=== PATIENT | female | born 1930 | race Caucasian/White ===

== ENCOUNTER 2016-12-25 01:34 | Inpatient (IN) | payer MEDICARE ==
[~2016-12-25] VITALS: Ht 157.5 cm; Wt 74.5 kg
[2016-12-25] VITALS (20 sets, daily range): BP systolic 149–175; BP diastolic 65–85; PULSE 70–96; RESP 16–25; TEMP 98.3–99.8; O2SAT 92–97
[~2016-12-25 01:34] MED LIST: ALBU.5I NEB; BACL10TA PO; DIOV40TA PO; FOLI1 PO; LEVA250T14 PO; PERC10TA27 PO; SYNT125T PO; VENL75XR PO
[2016-12-25] MEDS ORDERED: AZTREONAM INJ 2,000 MG in SODIUM CHLORIDE 0.9% INJ 100 ML IV STA (01:56)
[2016-12-25] MEDS ORDERED: metroNIDAZOLE 500 MG INJ 100 ML IV STA (01:56)
[2016-12-25] MEDS ORDERED: VANCOMYCIN INJ 1,000 MG in SODIUM CHLOR 0.9% 250 ML INJ 250 ML IV STA (01:56)
[2016-12-25] MEDS ORDERED: OXYC-392 PO (02:02)
[2016-12-25] MEDS ORDERED: LEVO.125 PO (02:02)
[2016-12-25] MEDS ORDERED: VENL75TA PO (02:02)
[2016-12-25] MEDS ORDERED: GABA300C5 PO (02:02)
[2016-12-25] MEDS ORDERED: DIOV40TA PO (02:02)
[2016-12-25] MEDS ORDERED: BACL10TA PO (02:02)
[2016-12-25] MEDS ORDERED: LORA-361 PO (02:02)
[2016-12-25] MEDS ORDERED: FURO1TAB62 PO (02:02)
[2016-12-25] MEDS ORDERED: POTA75TA (02:02)
[2016-12-25] MEDS ORDERED: PRIL20CA9 PO (02:02)
[2016-12-25] MEDS ORDERED: REST30CA PO (02:02)
[2016-12-25 02:44] LABS: AUTOMATED NEUTROPHIL # 19.6 TH/MM3 (1.8-7.7); BASOPHIL # 0.1 TH/MM3 (0-0.2); BASOPHIL % 0.2 % (0.0-2.0); EOSINOPHIL # 0.1 TH/MM3 (0-0.4); EOSINOPHIL % 0.6 % (0.0-4.0); HEMATOCRIT 31.8 % (35.0-46.0); HEMO FLAGS DIFF FINAL; LYMPH % 7.4 % (9.0-44.0); LYMPHOCYTE # 1.7 TH/MM3 (1.0-4.8); MEAN CELL VOLUME 89.2 FL (80.0-100.0); MEAN CORPUSCULAR HEMOGLOBIN 28.8 PG (27.0-34.0); MEAN CORPUSCULAR HGB CONC 32.3 % (32.0-36.0); MONO % 6.5 % (0.0-8.0); NEUT % 85.3 % (16.0-70.0); PLATELET COUNT 185 TH/MM3 (150-450); RED BLOOD COUNT 3.57 MIL/MM3 (4.00-5.30); RED CELL DISTRIBUTION WIDTH 16.4 % (11.6-17.2)
[2016-12-25 02:53] LABS: ALKALINE PHOSPHATASE 111 U/L (45-117); ALT (GPT) 43 U/L (10-53); ANION GAP 7 MEQ/L (5-15); AST (GOT) 52 U/L (15-37); BICARBONATE 26.8 MEQ/L (21.0-32.0); BLOOD UREA NITROGEN 36 MG/DL (7-18); CHLORIDE 103 MEQ/L (98-107); CREATINE KINASE 113 U/L (26-192); GLOMERULAR FILTRATION RATE 32 ML/MIN (>89); MAGNESIUM 2.3 MG/DL (1.5-2.5); POTASSIUM 5.6 MEQ/L (3.5-5.1); SODIUM (NA) 137 MEQ/L (136-145); TOTAL BILIRUBIN ADULT 0.4 MG/DL (0.2-1.0)
[2016-12-25 02:55] LABS: APTT (PATIENT) 31.3 SEC (24.3-30.1); PROTHROMBIN TIME - PATIENT 11.5 SEC (9.8-11.6)
--- NOTE | 2016-12-25 03:01 | RADRPT ---
EXAM DATE/TIME: 12/25/2016 02:27 [facility] COMPARISON: CT BRAIN W/O CONTRAST, June 14, 2016, 7:44. INDICATIONS : Altered mental status. RADIATION DOSE: 56.35 CTDIvol (mGy) MEDICAL HISTORY : Hypertension. Cardiovascular disease Chronic obstructive pulmonary disease. SURGICAL HISTORY : Hysterectomy. ENCOUNTER: Initial ACUITY: 1 day PAIN SCALE: Non-responsive LOCATION: cranial TECHNIQUE: Multiple contiguous axial images were obtained of the head. Using automated exposure control and adj ustment of the mA and/or kV according to patient size, radiation dose was kept as low as reasonably a chievable to obtain optimal diagnostic quality images. FINDINGS: Noncontrast axial head CT demonstrates the ventricles to be normal in size and configuration with a n ormal sulcal pattern. No acute intracranial hemorrhage, acute cortical infarction, mass or midline sh ift is seen. There is periventricular hypodensity compatible with chronic ischemic change slightly mo re than expected for patient this age. 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 Posterior fossa structures are unremarkable with the exception of a old lacunar type infarct in th e right cerebellar hemisphere. Bone windows are unremarkable. CONCLUSION: 1. No evidence of acute intracranial pathology. Chronic ischemic changes as above. Abhilash Salamanca MD on December 25, 2016 at 2:55 Board Certified Radiologist. This report was verified electronically.
[2016-12-25 03:05] LABS: CKMB 2.3 NG/ML (0.5-3.6)
--- NOTE | 2016-12-25 03:12 | RADRPT ---
EXAM DATE/TIME: 12/25/2016 02:34 [facility] COMPARISON: CHEST SINGLE AP, June 14, 2016, 21:07. INDICATIONS : Congestion, lethargic. MEDICAL HISTORY : None. SURGICAL HISTORY : None. ENCOUNTER: Initial ACUITY: 2 days PAIN SCORE: Non-responsive. LOCATION: Bilateral chest FINDINGS: The cardiac silhouette is enlarged in transverse diameter. There is bilateral lower lobe atelectasis versus pneumonia right greater than left. No pleural effusions are identified. Moderate scoliotic de formity is present to the right with a rotatory component with the apex at T10 CONCLUSION: 1. Bilateral lower lobe atelectasis versus pneumonia. Abhilash Salamanca MD on December 25, 2016 at 3:09 Board Certified Radiologist. This report was verified electronically.
--- NOTE | 2016-12-25 03:18 | PD ---
HPI Chief Complaint: Altered Mental Status Time Seen by Provider: 01:42 Travel History International Travel<30 days: No Contact w/Intl Traveler<30days: No Traveled to known affect area: No History of Present Illness HPI The patient is an 86 year old female who presents to the [facility] emergency department with a history of altered mentation that was noted at her retirement bed been gradually getting worse over the last week. According to the record, the patient also has a history of falling last week. The patient has also been experiencing generalized weakness. The patient on arrival is awake and alert. The patient reports that she has been having a cough. She is unable to specify exactly how long her cough is been present. She reports that she has been eating and drinking well. She denies any vomiting or diarrhea. The patient denies having any pain to her extremities. She denies having any numbness or tingling to her extremities. The patient's only complaint at this time is that she needs to urinate. She denies having any dysuria, urinary frequency, or urinary urgency. A review of systems, the patient denies any known recent fevers, neck pain, chest pain, shortness of breath, abdominal pain , vomiting, diarrhea, urinary symptoms, or neurologic symptoms. [facility] Past Medical History Narrative Medical The patient's past medical history is significant for having an MRSA infection and right fibula hardware in January 2015, history of coronary artery disease, history of rheumatoid arthritis, history of asthma, history of TIA, history of chronic pain, history of hypothyroid disorder, history of C. difficile colitis, history of an admission in May 2016 related to altered mentation from a urinary tract infection. Arthritis: Yes (rheumatoid arthritis, spinal stenosis) Asthma: No Autoimmune Disease: Yes (RA) Blood Disorders: No Anxiety: No Depression: Yes Heart Rhythm Problems: No Cancer: No Cardiovascular Problems: Yes High Cholesterol: No Chest Pain: No Congestive Heart Failure: No COPD: Yes Cerebrovascular Accident: Yes (TIA) Coronary Artery Disease: Yes Diabetes: No Diminished Hearing: No Endocrine: Yes (Graves disease) Fibromyalgia: Yes Gastrointestinal Disorders: No GERD: No Genitourinary: Yes (UTI) Headaches: No Hepatitis: No Hiatal Hernia: No Hypertension: Yes Immune Disorder: No Implanted Vascular Access Dvce: Yes Kidney Stones: No Musculoskeletal: Yes (fibromyalgia) Neurologic: Yes Psychiatric: Yes Reproductive: No Respiratory: Yes Migraines: No Myocardial Infarction: Yes Radiation Therapy: Yes (THYROID) Renal Failure: No Seizures: No Sleep Apnea: No Thyroid Disease: Yes Ulcer: No Tetanus Vaccination: > 5 Years Influenza Vaccination: No ?: Not Menopausal: Yes Past Surgical History Narrative Surgical The patient's past surgical history is significant for a hip replacement, history of a right fibula open reduction complicated by MRSA infection, history of appendectomy, hysterectomy, eye surgery Abdominal Surgery: Yes (APPENDECTOMY) AICD: No Appendectomy: Yes Arteriovenous Shunt: No Body Medical Devices: HIP REPLACEMENTS Cardiac Surgery: No Ear Surgery: No Endocrine Surgery: No Eye Surgery: Yes (cataract removal) Genitourinary Surgery: Yes (HYSTERECTOMY) Gynecologic Surgery: Yes Hysterectomy: Yes Insulin Pump: No Joint Replacement: Yes (MAYELA HIP REPLACEMENT) Neurologic Surgery: No Pacemaker: No Thoracic Surgery: Yes (METAL PLATE ON BACK FOR STENOSIS WHEN 74 YEARS OLD) Other Surgery: Yes (LOWER BACK) Social History Alcohol Use: No Tobacco Use: No Substance Use: No Allergies-Medications (Allergen,Severity, Reaction): Coded Allergies: Penicillin (Verified Allergy, Severe, 12/25/16) RASH *MDRO Multi-Drug Resistant Organism (Unverified Adverse Reaction, Unknown , 12/25/16) 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 MRSA PCR Screens NEGATIVE - 06/14/2016, 06/16/2016 CLEARED PER INFECTION CONTROL Reported Meds & Prescriptions Reported Meds & Active Scripts Active Reported Lasix (Furosemide) 20 Mg Tab 10 Mg PO DAILY Potassium 75 Mg Tab Restoril (Temazepam) 30 Mg Cap 30 Mg PO HS PRN Gabapentin 300 Mg Cap 300 Mg PO QID Claritin (Loratadine) 10 Mg Tab 10 Mg PO DAILY Oxycodone (Oxycodone HCl) 5 Mg Tab 5 Mg PO Q6H PRN Prilosec (Omeprazole) 20 Mg Cap 20 Mg PO DAILY Baclofen 10 Mg Tab 10 Mg PO QID PRN Synthroid (Levothyroxine Sodium) 125 Mcg Tab 125 Mcg PO DAILY Diovan (Valsartan) 40 Mg Tab 40 Mg PO DAILY Effexor (Venlafaxine HCl) 75 Mg Tab 75 Mg PO DAILY Review of Systems Except as stated in HPI: all other systems reviewed are Neg General / Constitutional: No: Fever Eyes: No: Visual changes HENT: Positive: Congestion, No: Headaches Cardiovascular: No: Chest Pain or Discomfort Respiratory: Positive: Cough, No: Shortness of Breath Gastrointestinal: No: Nausea, Vomiting, Diarrhea, Abdominal Pain, Loss of Appetite Genitourinary: No: Urgency, Frequency, Dysuria Musculoskeletal: No: Pain Skin: No Rash Neurologic: Positive: Weakness (generalized weakness), Change in Mentation, No : Focal Abnormalities, Slurred Speech, Sensory Disturbance Psychiatric: No: Depression Endocrine: No: Polydipsia Hematologic/Lymphatic: No: Easy Bruising Physical Exam Narrative General: The patient is a well-developed, thin appearing female, awake on my arrival, however experiencing generalized weakness and fatigue. Head and Neck exam: Head is normocephalic atraumatic. Eyes: EOMI, pupils are equal round and reactive to light. Nose: Midline septum with pink mucous membranes Mouth: Dentition unremarkable. Moist mucus membranes. Posterior oropharynx is not erythematous. No tonsillar hypertrophy. Uvula midline. Airway patent. Neck: No palpable lymphadenopathy. No nuchal rigidity. No thyromegaly. Cardiovascular: Regular rate and rhythm without murmurs, gallops, or rubs. Lungs: The patient has scattered rhonchi, upper airway congestion audible on examination. Decreased breath sounds in the bases. No wheezes or crackles audible. Abdomen: Soft, without tenderness to palpation in all 4 quadrants of the abdomen. No guarding, rebound, or rigidity. Negative Lindsay sign. Normal bowel sounds are audible. No tenderness on palpation of McBurney's point. Extremities: No clubbing, cyanosis, or edema. 2+ pulses in all 4 extremities. No calf tenderness on palpation. Back: No costovertebral angle tenderness to palpation. Neurologic Exam: Cranial nerves 2-12 were intact on exam. Strength is 5/5 in all 4 extremities. No sensory deficits noted. The patient is oriented to person, place, however not time or situation. Skin Exam: No rash noted. Intact skin that is warm and dry. Data Data Last Documented VS Vital Signs Date Time Temp Pulse Resp B/P Pulse Ox O2 Delivery O2 Flow Rate FiO2 12/25/16 03:30 98.3 79 24 149/66 93 Nasal Cannula 2 Orders Electrocardiogram (12/25/16 01:56) Complete Blood Count With Diff (12/25/16 01:56) Comprehensive Metabolic Panel (12/25/16 01:56) Creatine Kinase (Cpk) (12/25/16 01:56) Ckmb (Isoenzyme) Profile (12/25/16 01:56) Troponin I (12/25/16 01:56) B-Type Natriuretic Peptide (12/25/16 01:56) Prothrombin Time / Inr (Pt) (12/25/16 01:56) Act Partial Throm Time (Ptt) (12/25/16 01:56) Blood Culture (12/25/16 01:56) Lipase (12/25/16 01:56) Urinalysis - C+S If Indicated (12/25/16 01:56) Magnesium (Mg) (12/25/16 01:56) Chest, Single Ap (12/25/16 01:56) Ct Brain W/O Iv Contrast(Rout) (12/25/16 01:56) Iv Access Insert/Monitor (12/25/16 01:56) Ecg Monitoring (12/25/16 01:56) Oximetry (12/25/16 01:56) Lactic Acid Sepsis Protocol (12/25/16 01:56) Vancomycin Inj (Vancomycin Inj) (12/25/16 01:56) Aztreonam Inj (Azactam Inj) (12/25/16 01:56) Metronidazole 500 Mg Inj (Flagyl 500 Mg (12/25/16 01:56) CKMB (12/25/16 02:20) CKMB% (12/25/16 02:20) Cath For Specimen (12/25/16 02:54) Sodium Chlor 0.9% 1000 Ml Inj (Ns 1000 M (12/25/16 03:22) Sodium Chlor 0.9% 1000 Ml Inj (Ns 1000 M (12/25/16 03:22) Sodium Chlor 0.9% 1000 Ml Inj (Ns 1000 M (12/25/16 03:22) Admit Order (Ed Use Only) (12/25/16 04:12) Labs Laboratory Tests Test 12/25/16 12/25/16 02:20 03:10 White Blood Count 23.0 TH/MM3 Red Blood Count 3.57 MIL/MM3 Hemoglobin 10.3 GM/DL Hematocrit 31.8 % Mean Corpuscular Volume 89.2 FL Mean Corpuscular Hemoglobin 28.8 PG Mean Corpuscular Hemoglobin 32.3 % Concent Red Cell Distribution Width 16.4 % Platelet Count 185 TH/MM3 Mean Platelet Volume 9.0 FL Neutrophils (%) (Auto) 85.3 % Lymphocytes (%) (Auto) 7.4 % Monocytes (%) (Auto) 6.5 % Eosinophils (%) (Auto) 0.6 % Basophils (%) (Auto) 0.2 % Neutrophils # (Auto) 19.6 TH/MM3 Lymphocytes # (Auto) 1.7 TH/MM3 Monocytes # (Auto) 1.5 TH/MM3 Eosinophils # (Auto) 0.1 TH/MM3 Basophils # (Auto) 0.1 TH/MM3 CBC Comment DIFF FINAL Differential Comment Prothrombin Time 11.5 SEC Prothromb Time International 1.0 RATIO Ratio Activated Partial 31.3 SEC Thromboplast Time Sodium Level 137 MEQ/L Potassium Level 5.6 MEQ/L Chloride Level 103 MEQ/L Carbon Dioxide Level 26.8 MEQ/L Anion Gap 7 MEQ/L Blood Urea Nitrogen 36 MG/DL Creatinine 1.56 MG/DL Estimat Glomerular Filtration 32 ML/MIN Rate Random Glucose 92 MG/DL Lactic Acid Level 1.3 mmol/L Calcium Level 8.8 MG/DL Magnesium Level 2.3 MG/DL Total Bilirubin 0.4 MG/DL Aspartate Amino Transf 52 U/L (AST/SGOT) Alanine Aminotransferase 43 U/L (ALT/SGPT) Alkaline Phosphatase 111 U/L Total Creatine Kinase 113 U/L Creatine Kinase MB 2.3 NG/ML Troponin I LESS THAN 0.02 NG/ML B-Type Natriuretic Peptide 63 PG/ML Total Protein 7.7 GM/DL Albumin 2.6 GM/DL Lipase 43 U/L Urine Color YELLOW Urine Turbidity HAZY Urine pH 5.5 Urine Specific [place] 1.020 Urine Protein 30 mg/dL Urine Glucose (UA) NEG mg/dL Urine Ketones NEG mg/dL Urine Occult Blood NEG Urine Nitrite NEG Urine Bilirubin NEG Urine Urobilinogen LESS THAN 2.0 MG/DL Urine Leukocyte Esterase TRACE Urine RBC 4 /hpf Urine WBC 3 /hpf Urine Squamous Epithelial 2 /hpf Cells Urine Transitional Epithelial <1 /hpf Cells Urine Bacteria RARE /hpf Urine Hyaline Casts 18 /lpf Urine Granular Casts 5 /lpf Urine Mucus FEW /lpf Microscopic Urinalysis Comment CULT NOT INDICATED MDM Medical Decision Making Medical Screen Exam Complete: Yes Emergency Medical Condition: Yes Medical Record Reviewed: Yes Interpretation(s) Last Impressions Head CT 12/25/16155 Signed Impressions: Service Date/Time: Sunday, December 25, 2016 02:27 - CONCLUSION: 1. No evidence of acute intracranial pathology. Chronic ischemic changes as above. Abhilash Salamanca MD Chest X-Ray 12/25/16155 Signed Impressions: Service Date/Time: Sunday, December 25, 2016 02:34 - CONCLUSION: 1. Bilateral lower lobe atelectasis versus pneumonia. Abhilash Salamanca MD Differential Diagnosis Pneumonia, versus bronchitis, versus urinary tract infection, versus metabolic encephalopathy, versus intracranial abnormality, versus dehydration Narrative Course During the course of the patients emergency department visit, the patients history, examination, and differential diagnosis were reviewed with the patient. The patient had IV access obtained and blood work sent for analysis. The patient was placed on a pillowcase cutter with oximetry and blood pressure monitoring. An EKG was done on arrival. The patient's EKG shows a sinus rhythm with a sinus arrhythmia, no acute ST segment elevation or depression noted. Heart rate is 89, left anterior fascicular block is noted, QRS duration is 110 ms with a QTC of 382 ms. The patient was initially provided Azactam, Flagyl, and vancomycin for broad- spectrum antibiotic coverage for suspected sepsis of undetermined origin. The patients laboratory studies were reviewed and remarkable for a white count of 23,000, hemoglobin 10.3, platelets 185 with 85.3 neutrophils, CMP is remarkable for a potassium of 5.6 with hemolysis noted, BUN 36, creatinine 1.56 , AST 52, AB K1 13, troponin I less than 0.02, BNP 63, lipase 43, lactic acid is 1.3. PT 11.5, PTT 31.3, urinalysis shows 4 rbc's rare bacteria, 30 protein, this was a specimen from a bedpan. Culture was not indicated. Radiology studies were reviewed and remarkable for a chest x-ray that shows a bilateral lower lobe infiltrate suspicious for pneumonia. The patient was started on the 30 mL per KG IV fluid bolus after she was noted to dehydrated and her BNP was normal, therefore risk of fluid overload was deemed to be low. The patients results were discussed with the patient, including the plan of care. I explained that further testing and/ or monitoring is indicated based on the patients history, examination, and/ or laboratory findings. Therefore, I recommended admission for additional evaluation. The patient expressed understanding and was agreeable with this plan. The patient was admitted to the hospital in guarded condition and sent to a bed under the care of the [facility] service. Critical Care Narrative Aggregate critical care time was 35 minutes. Time to perform other separately billable procedures was not included in the critical care time. My time did not include minutes spent treating any other patients simultaneously or on activities that did not directly contribute to the patient's treatment. The services I provided to this patient were to treat and/or prevent clinically significant deterioration that could result in: Respiratory failure, cardiovascular collapse I provided critical care services requiring my management, as noted below: Chart data review, documentation time, medication orders and management, vital sign assessments/reviewing monitor data, ordering and reviewing lab tests, ordering and interpreting/reviewing x-rays and diagnostic studies, care of the patient and discussion of the patient with the admitting physicians. Sepsis Criteria SIRS Criteria (2 or more): Heart rate over 90, RR > 20 or PaCO2 < 32, WBC > 81174, < 4000 or > 10% bands Sepsis Criteria (SIRS+source): Infect source susp/known Criteria Outcome: Meets SIRS criteria, Meets sepsis criteria Physician Communication Physician Communication The Patient's case was discussed with Hernandez Deleon who did agree to admit the patient for further evaluation and treatment at this time. Diagnosis Primary Impression: Pneumonia Qualified Code: J18.9 - Pneumonia of both lower lobes due to infectious organism Admitting Information Admitting Physician Requests: it Jessica Swann MD December 25, 2016 03:17
[2016-12-25] MEDS ORDERED: SODIUM CHLOR 0.9% 1000 ML INJ 1,000 ML IV ONE ×2 (03:22)
[2016-12-25] MEDS ORDERED: SODIUM CHLOR 0.9% 1000 ML INJ 100 ML IV ONE (03:22)
[2016-12-25 04:14] LABS: BACTERIA, URINE RARE /hpf; BLOOD, URINE NEG (NEG); COMMENT (UR) CULT NOT INDICATED; CULTURE IF INDICATED CULT NOT INDICATED; GLUCOSE,URINE NEG (NEG); GRANULAR CAST, URINE 5 /lpf; HYALINE CAST, URINE 18 /lpf (RARE); KETONE, URINE NEG (NEG); MUCUS URINE FEW /lpf (OCC); NITRITE,URINE NEG (NEG); PH, URINE 5.5 (5.0-8.5); SQUAMOUS EPITHELIAL CELL URINE 2 /hpf (0-5); TRANSITIONAL EPI CELLS, URINE <1 /hpf; URINE COLOR YELLOW (YELLW/STRAW)
[2016-12-25] MEDS ORDERED: RESP: ALBUTEROL 2.5 MG/IPRATROPIUM 0.5 MG NEB (PRN) INH (04:45)
[2016-12-25] MEDS ORDERED: Vancomycin Consult Pharmacy 1 EA OTHER SCH (04:45)
[2016-12-25] MEDS ORDERED: ONDANSETRON HCL 4 MG/2 ML VIAL IV PRN (04:45)
[2016-12-25] MEDS: SODIUM CHLOR 0.9% 1000 ML INJ 1,000 ML IV SCH ×2 (05:20→13:35)
[2016-12-25] MEDS ORDERED: ENOXAPARIN SODIUM 40 MG/0.4 ML SYRINGE SQ SCH (06:00)
[2016-12-25] MEDS: oxyCODONE/ACETAMINOPHEN 5 MG/325 MG TAB PO PRN ×3 (06:21→21:34)
[2016-12-25] MEDS: RESP: ALBUTEROL 2.5 MG/IPRATROPIUM 0.5 MG NEB (SCH) INH ×3 (08:52→21:59)
[2016-12-25] MEDS: SODIUM CHLORIDE 0.9% FLUSH 10 ML FLUSH IV FLUSH SCH ×2 (09:00→21:34)
[2016-12-25] MEDS ORDERED: AZTREONAM INJ 2,000 MG in SODIUM CHLORIDE 0.9% INJ 100 ML IV SCH (10:00)
--- NOTE | 2016-12-25 10:00 | MH ---
cc: NATASHA ZAMAN MD DATE OF ADMISSION: 12/25/2016 1932 CHIEF COMPLAINT Altered mental status. Travel last 30 days: None. HISTORY OF PRESENT ILLNESS This is a pleasant 86-year-old white female who was brought to the emergency room for evaluation due to her altered mental status. She has been in the snf according to the record and has been getting weaker and less alert over the past week. The patient also has been noted to be having some generalized weakness. Currently the patient's eyes are open. She is attempting to answer simple questions but does have altered mental status for her current full situation. The patient currently is not short of breath. She is noted to be pale and states yes to coughing and generalized body aches. She is currently having some mild chills and according to the nurse had coughed up some green sputum on her hospital gown earlier. The patient is disoriented to time, is unaware of how long she has been in her current snf bed or how long she has been sick. She does state she has been eating and drinking well. Denies any nausea or vomiting. She denies any chest pain. Denies any headache. She denies any problems with urination or dysuria. MEDICAL HISTORY According to the record: 1. MRSA infection in 2014 with a right fibula hardware. 2. History of coronary artery disease. 3. Rheumatoid arthritis. 4. Asthma. 5. TIAs. 6. Chronic pain. 7. Hypothyroid disorder. 8. C. diff colitis. 9. Altered mental status, probable secondary to UTI. 10. Spinal stenosis. 11. Macular degeneration. 12. Graves disease. 13. Fibromyalgia. 14. Hypertension. 15. LA. 16. History of COPD. PAST SURGICAL HISTORY According to the record: 1. Appendectomy. 2. Bilateral hip replacement. 3. Right fibula open reduction complicated with MRSA infection. 4. Eye surgery. 5. Cataract removal. 6. Hysterectomy. 7. Metal plate in back for stenosis at 74 years old. ALLERGIES MDRO DRUG RESISTANT ORGANISMS AND PENICILLIN. MEDICATIONS Reported medications: 1. Lasix. 2. Potassium. 3. Restoril. 4. Gabapentin. 5. Claritin. 6. Oxycodone. 7. Prilosec. 8. Baclofen. 9. Synthroid. 10. Diovan. 11. Effexor. SOCIAL HISTORY The patient states she is currently . Smoked as a young lady but quit a long time ago. No alcohol abuse. No illicit drug use. She states she does have grown children who live out of town in [place] and [place]. REVIEW OF SYSTEMS Unable to obtain except for the simple things mentioned in the HPI which include some coughing, aching, chills. Green sputum noted and some rhonchi. PHYSICAL EXAMINATION VITAL SIGNS: Temperature 99.6, down to 98.3, pulse 77, respirations labile between 18 and 24, blood pressure 154/69, O2 sat 97, currently on 2 liters nasal cannula, has been as high as 3 liters during the night. GENERAL: Pale but well-nourished 86-year-old, looks to be her stated age, resting in the bed, eyes are open. She is very weak and attempting to answer some simple questions. HEENT: Atraumatic, normocephalic. PERRLA at 4. Mucous membranes are dry but pink. NECK: Neck is supple. CARDIAC: Heart sounds S1-S2. No rubs or gallops. She did have a soft murmur grade 2/6 at the left sternal border. Pulses are intact. There is no edema. LUNGS: Lungs have low volumes and some diminished breath sounds but no rhonchi or wheezing. She does have decreased breath sounds in her bases. MUSCULOSKELETAL: Moves her extremities very slowly but with purpose. NEUROLOGIC: Neurologically she is awake and weak. Speech is clear but very soft and attempting to answer some questions. Her mental status is altered to time and situation. SKIN: Skin is pale, warm and dry. Thin skin turgor. DIAGNOSTIC DATA WBC count 23, RBC 3.57, hemoglobin 10.3, hematocrit 31.8, platelet count 185, neutrophil percentage 85.3, lymphocyte percentage 7.4, PT INR is 1. Chemistry sodium 137, potassium 5.6, chloride 103, carbon dioxide 26.8, amnion gap 7, BUN 36, creatinine 1.56, GFR 32, glucose 92, lactic acid 1.3, calcium 8.8, mag 2.3, bilirubin 0.4, AST 52, troponin is less than 0.02, BNP is 63, total protein 7.7, albumin 2.6, lipase 43. Urine is yellow, hazy, pH is 5.5, specific gravity 1.020, protein 30, negative glucose, ketones, occult blood, nitrites, bilirubin, trace of leukocyte esterase. Culture is not indicated. IMAGING STUDIES Chest x-ray to have bilateral lower lung atelectasis versus pneumonia. Head CT shows no acute intracranial pathology, chronic ischemic changes noted as above. ASSESSMENT AND PLAN 1. Probable HCAP Pneumonia. 2. Altered mental status with probable metabolic encephalopathy. 3. History of hypertension. 4. Leukocytosis, probable secondary to #1. 5. Anemia, probable secondary to chronic disease. 6. Hyperkalemia. 7. Acute kidney injury with renal insufficiency. 8. Protein calorie malnutrition, moderate. 9. Lactic acid sepsis. 10. Pneumonia. 11. Low grade fever. In the emergency room the patient was initially given IV antibiotics along with Flagyl, ECG monitoring and O2 was initiated, IV access was initiated. The patient had initial workup of labs and imaging studies. IV fluids were initiated with sodium chloride and the patient has a ST consult for cognitive evaluation. DVT prophylaxis with Lovenox. The patient will be inpatient admission. We will monitor her intake and output, vital signs q. 4, DuoNeb treatments. Will continue her IV antibiotics. IV fluids. Place her on a heart healthy diet and pain management. This information has briefly and simply been explained to the patient that she will remain in the hospital. We will redraw her labs in the morning and monitor her renal insufficiency. To my knowledge the patient is full code, full aggressive care. We will monitor her needs. Dictated by: ELIUD Castillo Natasha Zaman MD MNA/TLL /8:31 AM /9:59 AM pt IS SEEN & eXAMINED d/w Bhumika see Orders see H&P by bhumika cont supportive care am labs will f/u Natasha Zaman MD December 25, 2016 18:39 MTDD
[2016-12-25] MEDS: AZTREONAM 1,000 MG/NS 100 ML IV SCH ×4 (10:44→17:47)
[2016-12-25] MEDS: metroNIDAZOLE 500 MG INJ 100 ML IV SCH ×2 (11:54→21:34)
--- NOTE | 2016-12-25 18:39 | HHI.PR ---
Objective Objective Results - Vital Signs Date Time Temp Pulse Resp B/P Pulse Ox O2 Delivery O2 Flow Rate FiO2 12/25/16 18:00 88 12/25/16 17:00 80 12/25/16 16:00 98.5 82 18 161/77 93 12/25/16 16:00 76 12/25/16 15:00 74 12/25/16 14:00 78 12/25/16 13:22 16 12/25/16 13:00 84 12/25/16 12:00 99.8 86 16 160/85 93 12/25/16 12:00 80 12/25/16 10:49 85 22 174/73 94 Nasal Cannula 2 12/25/16 08:55 97 Nasal Cannula 3.00 12/25/16 07:41 77 22 154/69 97 Nasal Cannula 2 12/25/16 05:00 82 22 150/65 96 Nasal Cannula 2 12/25/16 04:44 94 Nasal Cannula 3.00 12/25/16 03:30 98.3 79 24 149/66 93 Nasal Cannula 2 12/25/16 02:03 99.6 90 18 161/71 95 Nasal Cannula 2 12/25/16 01:52 25 92 Nasal Cannula 2 12/25/16 01:40 99.5 92 25 171/72 92 I/O 12/24/16 12/24/16 12/24/16 12/25/16 12/25/16 12/25/16 07:00 15:00 23:00 07:00 15:00 23:00 Intake Total 1441 ml Output Total 350 ml Balance 1091 ml Intake Oral 360 ml IV Total 1081 ml Output Urine Total 350 ml # Bowel Movements 0 Result Diagram: 12/25/160 12/25/16219 Other Results Laboratory Tests Test 12/25/16 12/25/16 02:20 03:10 White Blood Count 23.0 Red Blood Count 3.57 Hemoglobin 10.3 Hematocrit 31.8 Mean Corpuscular Volume 89.2 Mean Corpuscular Hemoglobin 28.8 Mean Corpuscular Hemoglobin 32.3 Concent Red Cell Distribution Width 16.4 Platelet Count 185 Mean Platelet Volume 9.0 Neutrophils (%) (Auto) 85.3 Lymphocytes (%) (Auto) 7.4 Monocytes (%) (Auto) 6.5 Eosinophils (%) (Auto) 0.6 Basophils (%) (Auto) 0.2 Neutrophils # (Auto) 19.6 Lymphocytes # (Auto) 1.7 Monocytes # (Auto) 1.5 Eosinophils # (Auto) 0.1 Basophils # (Auto) 0.1 CBC Comment DIFF FINAL Differential Comment Prothrombin Time 11.5 Prothromb Time International 1.0 Ratio Activated Partial 31.3 Thromboplast Time Sodium Level 137 Potassium Level 5.6 Chloride Level 103 Carbon Dioxide Level 26.8 Anion Gap 7 Blood Urea Nitrogen 36 Creatinine 1.56 Estimat Glomerular Filtration 32 Rate Random Glucose 92 Lactic Acid Level 1.3 Calcium Level 8.8 Magnesium Level 2.3 Total Bilirubin 0.4 Aspartate Amino Transf 52 (AST/SGOT) Alanine Aminotransferase 43 (ALT/SGPT) Alkaline Phosphatase 111 Total Creatine Kinase 113 Creatine Kinase MB 2.3 Troponin I LESS THAN 0.02 B-Type Natriuretic Peptide 63 Total Protein 7.7 Albumin 2.6 Lipase 43 Urine Color YELLOW Urine Turbidity HAZY Urine pH 5.5 Urine Specific [place] 1.020 Urine Protein 30 Urine Glucose (UA) NEG Urine Ketones NEG Urine Occult Blood NEG Urine Nitrite NEG Urine Bilirubin NEG Urine Urobilinogen LESS THAN 2.0 Urine Leukocyte Esterase TRACE Urine RBC 4 Urine WBC 3 Urine Squamous Epithelial 2 Cells Urine Transitional Epithelial <1 Cells Urine Bacteria RARE Urine Hyaline Casts 18 Urine Granular Casts 5 Urine Mucus FEW Microscopic Urinalysis Comment CULT NOT INDICATED Date/Time Procedure Status Source Growth 12/25/16 02:20 Aerobic Blood Culture Received Blood Peripheral Pending 12/25/16 02:20 Anaerobic Blood Culture Received Blood Peripheral Pending Physical Exam Physical Exam pt IS SEEN & eXAMINED d/w Bhumika see Orders see H&P by bhumika cont supportive care am labs will f/u Chikis Zaman MD December 25, 2016 18:39
[2016-12-25] MEDS ORDERED: cloNIDine HCL 0.1 MG TAB PO PRN (22:00)
--- NOTE | 2016-12-25 22:46 | EKG ---
Date Performed: 12/25/2016 Time Performed: 02:10:52 PTAGE: 86 years EKG: Sinus rhythm WITH SINUS ARRHYTHMIA LEFT ANTERIOR FASCICULAR BLOCK LEFT VENTRICULAR HYPERTROPHY AND ST-T CHANGE PO SSIBLE SEPTAL MYOCARDIAL INFARCTION ABNORMAL ECG PREVIOUS TRACING : 06/14/2016 21.01 Compared to prior tracing no significant change DOCTOR: Chauncey Husain Interpretating Date/Time 12/25/2016 22:45:49
[2016-12-26] VITALS (23 sets, daily range): BP systolic 107–176; BP diastolic 58–85; PULSE 65–105; RESP 16–20; TEMP 98–99.7; O2SAT 85–100
[2016-12-26] MEDS: metroNIDAZOLE 500 MG INJ 100 ML IV SCH (04:00)
[2016-12-26] MEDS: SODIUM CHLOR 0.9% 1000 ML INJ 1,000 ML IV SCH (04:16)
[2016-12-26] MEDS: AZTREONAM 1,000 MG/NS 100 ML IV SCH ×2 (04:16)
[2016-12-26] MEDS: RESP: ALBUTEROL 2.5 MG/IPRATROPIUM 0.5 MG NEB (SCH) INH ×5 (05:25→20:36)
[2016-12-26] MEDS ORDERED: ENOXAPARIN SODIUM 30 MG/0.3 ML SYRINGE SQ SCH (06:30)
[2016-12-26 06:49] LABS: AUTOMATED NEUTROPHIL # 10.8 TH/MM3 (1.8-7.7); BASOPHIL % 0.1 % (0.0-2.0); EOSINOPHIL % 0.2 % (0.0-4.0); HEMO FLAGS DIFF FINAL; LYMPH % 11.1 % (9.0-44.0); LYMPHOCYTE # 1.5 TH/MM3 (1.0-4.8); MEAN CELL VOLUME 88.4 FL (80.0-100.0); MEAN CORPUSCULAR HEMOGLOBIN 28.8 PG (27.0-34.0); MEAN CORPUSCULAR HGB CONC 32.5 % (32.0-36.0); MONO % 6.6 % (0.0-8.0); PLATELET COUNT 159 TH/MM3 (150-450); RED BLOOD COUNT 3.29 MIL/MM3 (4.00-5.30); RED CELL DISTRIBUTION WIDTH 16.4 % (11.6-17.2); WHITE BLOOD COUNT 13.2 TH/MM3 (4.0-11.0)
[2016-12-26 07:21] LABS: BICARBONATE 22.6 MEQ/L (21.0-32.0); POTASSIUM 4.3 MEQ/L (3.5-5.1)
[2016-12-26] MEDS ORDERED: metroNIDAZOLE 500 MG INJ 100 ML IV SCH ×2 (10:00→14:00)
--- NOTE | 2016-12-26 10:12 | HHI.PR ---
Subjective History of Present Illness feels better breathing is ok less cough , no sputum No CP NO fever or chills No N/V No abd pain offers no other c/o Vitals/Results Intake & Output 12/25/16 12/25/16 12/26/16 15:00 23:00 07:00 Intake Total 1441 ml 1940 ml Output Total 350 ml 500 ml Balance 1091 ml 1440 ml Intake Oral 360 ml 480 ml IV Total 1081 ml 1460 ml Output Urine Total 350 ml 500 ml # Bowel Movements 0 3 Vital Signs Vital Signs Date Time Temp Pulse Resp B/P Pulse Ox O2 Delivery O2 Flow Rate FiO2 12/26/16 09:17 94 Nasal Cannula 3.00 12/26/16 06:17 81 12/26/16 05:00 73 12/26/16 04:05 98.3 78 20 160/85 93 12/26/16 04:05 77 12/26/16 03:00 65 12/26/16 02:00 91 12/26/16 01:24 96 12/26/16 00:10 73 12/26/16 00:10 98.4 71 18 145/81 93 12/25/16 23:00 96 12/25/16 22:00 70 12/25/16 22:00 96 Nasal Cannula 2.50 12/25/16 21:00 86 12/25/16 20:00 74 12/25/16 20:00 99.6 76 22 175/74 93 12/25/16 19:00 74 12/25/16 18:00 88 12/25/16 17:00 80 12/25/16 16:00 98.5 82 18 161/77 93 12/25/16 16:00 76 12/25/16 15:00 74 12/25/16 14:00 78 12/25/16 13:22 16 12/25/16 13:00 84 12/25/16 12:00 99.8 86 16 160/85 93 12/25/16 12:00 80 12/25/16 10:49 85 22 174/73 94 Nasal Cannula 2 CBC/BMP: 12/26/16 0616 12/26/16 0616 Lab Results Laboratory Tests Test 12/26/16 06:16 White Blood Count 13.2 TH/MM3 Red Blood Count 3.29 MIL/MM3 Hemoglobin 9.4 GM/DL Hematocrit 29.0 % Mean Corpuscular Volume 88.4 FL Mean Corpuscular Hemoglobin 28.8 PG Mean Corpuscular Hemoglobin 32.5 % Concent Red Cell Distribution Width 16.4 % Platelet Count 159 TH/MM3 Mean Platelet Volume 8.3 FL Neutrophils (%) (Auto) 82.0 % Lymphocytes (%) (Auto) 11.1 % Monocytes (%) (Auto) 6.6 % Eosinophils (%) (Auto) 0.2 % Basophils (%) (Auto) 0.1 % Neutrophils # (Auto) 10.8 TH/MM3 Lymphocytes # (Auto) 1.5 TH/MM3 Monocytes # (Auto) 0.9 TH/MM3 Eosinophils # (Auto) 0.0 TH/MM3 Basophils # (Auto) 0.0 TH/MM3 CBC Comment DIFF FINAL Differential Comment Sodium Level 139 MEQ/L Potassium Level 4.3 MEQ/L Chloride Level 108 MEQ/L Carbon Dioxide Level 22.6 MEQ/L Anion Gap 8 MEQ/L Blood Urea Nitrogen 20 MG/DL Creatinine 0.78 MG/DL Estimat Glomerular Filtration 70 ML/MIN Rate Random Glucose 113 MG/DL Calcium Level 8.2 MG/DL Microbiology Microbiology 12/26/16 Gram Stain - Final, Resulted 12/26/16 Sputum Culture, Resulted Pending Physical Exam General General Appearance: No Acute Distress, Comfortable Eyes Eye Exam: Pupils Equal, Sclera White Ears & Nose Ears & Nose Exam: Nasal Mucosa [place] Throat Throat Exam: Oral Mucosa [place] & Moist Neck Neck Exam: Neck Supple, Trachea Midline Pulmonary Resp Exam: Breath Sounds Equal, No Distress, Crackles Cardiology CV Exam: Regular, Normal Sinus Rhythm Gastrointestinal/Abdomen GI Exam: Soft, Non-Tender, Bowel Sounds Present Integumentary Skin Exam: Warm, Dry Extremeties Extremities Exam: No Edema, Pedal Pulses Palpable Neurologic Neuro Exam: Alert, Awake, Speech Clear, Moving All Extremities Psychiatric Psych Exam: Appropriate Responses PUD Prophylasis PUD Prophylaxis: Protonix Assessment/Plan Assessment/Plan ASSESSMENT AND PLAN 1. CAP Pneumonia./Early sepsis 2. Altered mental status with probable metabolic encephalopathy. 3. History of hypertension. 4. Leukocytosis, probable secondary to #1. 5. Anemia, probable secondary to chronic disease. 6. Hyperkalemia. 7. Acute kidney injury with renal insufficiency. 8. Protein calorie malnutrition, moderate. 9. Lactic acid sepsis. 10. Pneumonia. 11. Low grade fever. 12. PCN allergy /per pt had a rash 13. Hx of Graves disease s/p I 131 ablation on synthroid PLAN O2 d/c IV Vanco/Azactam start IV Rocephin/Zithromax IVF aerosol tx Antitussives prn BP control , resume ARB resume synthyroid resume analgesic resume antidepressant I called & spoke w pt's over the phone . d/w Findings w him/answered all of his questions. am labs d/w RN will f/u ADDENDUM Pt went to sudden respiratory distress/BP shot up Rapid response was called PT was seen by property controller dr Jara, she was urgently intubated & was transferred to ICU will f/u Chikis Zaman MD December 26, 2016 10:12
[2016-12-26] MEDS ORDERED: TEMAZEPAM 15 MG CAP PO PRN (10:15)
[2016-12-26] MEDS ORDERED: PILL SPLITTER OTHER PRN (10:30)
[2016-12-26] MEDS ORDERED: VENLAFAXINE HCL XR 75 MG CAP PO SCH (11:00)
[2016-12-26] MEDS: LEVOTHYROXINE SODIUM 125 MCG TAB PO SCH (11:14)
[2016-12-26] MEDS: GABAPENTIN 300 MG CAP PO SCH ×3 (11:15→20:03)
[2016-12-26] MEDS: SODIUM CHLORIDE 0.9% FLUSH 10 ML FLUSH IV FLUSH SCH ×2 (11:16→20:02)
[2016-12-26] MEDS: cefTRIAXone INJ 1,000 MG in SODIUM CHLORIDE 0.9% INJ 100 ML IV SCH (11:16)
[2016-12-26] MEDS ORDERED: VALSARTAN 40 MG TAB PO ONE (11:45)
[2016-12-26] MEDS ORDERED: VANCOMYCIN INJ 1,500 MG in SODIUM CHLORID 0.9% 500 ML INJ 500 ML IV SCH (12:00)
[2016-12-26] MEDS ORDERED: MIDAZOLAM HCL 5 MG/ML VIAL (1 ML) ONE (13:35)
[2016-12-26] MEDS ORDERED: hydrALAZINE HCL 20 MG/ML VIAL ONE (13:39)
[2016-12-26] MEDS ORDERED: FUROSEMIDE 40 MG/4 ML VIAL IV PUSH ONE (13:45)
[2016-12-26] MEDS ORDERED: ROCURONIUM INJ 50 MG/5 ML VIAL IV ONE (14:00)
--- NOTE | 2016-12-26 14:14 | PD.CONS ---
HPI Service Critical Care Medicine Consult Requested By Rapid response team Reason for Consult Hypoxia Primary Care Physician Unknown History of Present Illness This is an 86-year-old female who was initially admitted to the hospital 12/25 for community-acquired pneumonia. She was in the CIC unit when she had acute onset of severe respiratory distress and a rapid response was called. I was called to bedside by the rapid response nurse and came immediately to evaluate the patient. When I evaluated the patient, she was in severe respiratory distress, was obtunded, was cyanotic with agonal respirations. Emergently, we intubated the patient, please see separate procedure note for details. She was given 80 mg Lasix IV 1. Her blood pressure at that time was 200/100 and [id number] mg IV was also given. She was emergently transferred to the medical ICU for further management. Unfortunately, due to the emergent nature of my evaluation, additional information is not able to be provided by the patient. Of note, it does appear that her BNP has risen from normal on admission to over 300 today. Her white count appears to be downtrending on evaluation of the medical record on appropriate antibiotics for community- acquired pneumonia. Review of Systems ROS Limitations: Clinical Condition, Altered Mental Status, Unresponsive Past Family Social History Allergies: Coded Allergies: Penicillin (Verified Allergy, Severe, 12/25/16) RASH *MDRO Multi-Drug Resistant Organism (Unverified Adverse Reaction, Unknown , 12/25/16) 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 MRSA PCR Screens NEGATIVE - 06/14/2016, 06/16/2016 CLEARED PER INFECTION CONTROL Past Medical History Unobtainable due to the clinical condition of the patient emergent nature of the consult. Per chart review: History of prior MRSA infection in 2014 Coronary artery disease Rheumatoid arthritis Asthma TIAs Chronic pain Hypothyroidism C. difficile colitis Spinal stenosis Macular degeneration Graves' disease Fibromyalgia Hypertension Prior myocardial infarction COPD Past Surgical History Unobtainable secondary to patient's clinical condition of the emergent nature the consult. Per chart review: Appendectomy Bilateral total hip arthroplasties Right fibula open reduction Eye surgery Cataract removal Hysterectomy Back surgery with plate Reported Medications Unobtainable secondary to patient's clinical condition and the emergent nature the consult. Per chart review: Lasix Potassium Restoril Gabapentin Claritin Oxycodone Prilosec Baclofen Synthroid Diovan Effexor Active Ordered Medications See MAR Family History Unobtainable secondary to patient's clinical condition and the emergent nature of the consult. It is unlikely that her family history is contributory to her acute respiratory failure Social History Unobtainable secondary to patient's clinical condition and the emergent nature of the consult. Per chart review: Remote prior smoker, no EtOH, no drugs of abuse. Physical Exam Vital Signs Vital Signs Date Time Temp Pulse Resp B/P Pulse Ox O2 Delivery O2 Flow Rate FiO2 12/26/16 10:15 98.4 88 16 176/85 94 12/26/16 09:17 94 Nasal Cannula 3.00 12/26/16 07:30 79 12/26/16 06:17 81 12/26/16 05:00 73 12/26/16 04:05 98.3 78 20 160/85 93 12/26/16 04:05 77 12/26/16 03:00 65 12/26/16 02:00 91 12/26/16 01:24 96 12/26/16 00:10 73 12/26/16 00:10 98.4 71 18 145/81 93 12/25/16 23:00 96 12/25/16 22:00 70 12/25/16 22:00 96 Nasal Cannula 2.50 12/25/16 21:00 86 12/25/16 20:00 74 12/25/16 20:00 99.6 76 22 175/74 93 12/25/16 19:00 74 12/25/16 18:00 88 12/25/16 17:00 80 12/25/16 16:00 98.5 82 18 161/77 93 12/25/16 16:00 76 12/25/16 15:00 74 Physical Exam When I evaluated the patient on the rapid response, she was an elderly- appearing female in severe distress, cyanotic, obtunded, unresponsive. Agonal respirations, bilateral coarse rales, tachypneic, gasping Severely hypertensive blood pressure 200/100, not tachycardic 1+ peripheral edema. Distal pulses 2+. RASS -4. Obtunded. Does not follow commands. Weakly withdraws to pain. Laboratory Laboratory Tests Test 12/26/16 06:16 White Blood Count 13.2 Red Blood Count 3.29 Hemoglobin 9.4 Hematocrit 29.0 Mean Corpuscular Volume 88.4 Mean Corpuscular Hemoglobin 28.8 Mean Corpuscular Hemoglobin 32.5 Concent Red Cell Distribution Width 16.4 Platelet Count 159 Mean Platelet Volume 8.3 Neutrophils (%) (Auto) 82.0 Lymphocytes (%) (Auto) 11.1 Monocytes (%) (Auto) 6.6 Eosinophils (%) (Auto) 0.2 Basophils (%) (Auto) 0.1 Neutrophils # (Auto) 10.8 Lymphocytes # (Auto) 1.5 Monocytes # (Auto) 0.9 Eosinophils # (Auto) 0.0 Basophils # (Auto) 0.0 CBC Comment DIFF FINAL Differential Comment Sodium Level 139 Potassium Level 4.3 Chloride Level 108 Carbon Dioxide Level 22.6 Anion Gap 8 Blood Urea Nitrogen 20 Creatinine 0.78 Estimat Glomerular Filtration 70 Rate Random Glucose 113 Calcium Level 8.2 Date/Time Procedure Status Source Growth 12/26/16 02:00 Gram Stain - Final Resulted Sputum Expectorated Sputum 12/26/16 02:00 Sputum Culture Resulted Sputum Expectorated Sputum Pending 12/25/16 02:20 Aerobic Blood Culture - Preliminary Resulted Blood Peripheral NO GROWTH IN 1 DAY 12/25/16 02:20 Anaerobic Blood Culture - Preliminary Resulted Blood Peripheral NO GROWTH IN 1 DAY Result Diagram: 12/26/16 0616 12/26/16 0616 Imaging Last Impressions Chest X-Ray 12/26/16 0000 Signed Impressions: Service Date/Time: Monday, December 26, 2016 14:40 - CONCLUSION: Worsening bibasilar infiltrates and bilateral pleural effusions. Bryan Jara Jr., MD Head CT 12/25/16 0156 Signed Impressions: Service Date/Time: Sunday, December 25, 2016 02:27 - CONCLUSION: 1. No evidence of acute intracranial pathology. Chronic ischemic changes as above. Abhilash Salamanca MD Assessment and Plan Assessment and Plan Assessment: This is an 86-year-old female who was admitted yesterday for community acquired pneumonia but who has a history of prior coronary artery disease and is on Lasix at home. She was receiving IV fluids for pneumonia and possibly early sepsis. The differential for her acute hypoxemia is worsening of her pneumonia versus acute volume overload and pulmonary edema versus PE which is much less likely. Her rise in BNP as well as slightly elevated troponins would point towards heart failure. Also given the fact that she was hypertensive, this would fit more with flash pulmonary edema and less towards worsening of her pneumonia or PE. That being said, we will and accordingly her and order CT pulmonary angiogram as it will give us a better evaluation of her pulmonary parenchyma and help define her pneumonia and volume overload as well. For now she is very critically ill and persists in acute and decompensating hypoxic respiratory failure. Active problems: Acute hypoxic respiratory failure Community-acquired pneumonia Elevated troponin Congestive heart failure, unknown type Plan: Does not meet SBT criteria at this time Wean FiO2 for goal SPO2 greater than 90% Urgent 2-D echocardiogram CT pulmonary angiogram Lovenox 1 mg/kg subcutaneous twice a day Continue antibiotics as previously ordered Follow-up cultures Trend troponins EKG A.m. chest x-ray Lasix 80 mg IV 1 now, and we will re-dose 6 hours later Stop IV fluids This patient remains critically ill with one or more organ systems which are or may become a threat to life. I have spent in excess of 57 minutes discontinuously in the care and management of this patient. This time is exclusive of procedures, and includes, but is not limited to, evaluation of the patient, review of the medical record, discussions with family, consultants, nursing staff, or respiratory therapy, and documentation in the medical record. Paul Allen MD December 26, 2016 14:14
[2016-12-26] MEDS ORDERED: MAGNESIUM SULFATE INJ 2 GM in SODIUM CHLORIDE 0.9% INJ 96 ML IV PRN (14:15)
[2016-12-26] MEDS ORDERED: POTASSIUM CHLOR 40 MEQ PREMIX 100 ML IV PRN ×2 (14:15)
[2016-12-26] MEDS ORDERED: POTASSIUM CHLOR 20 MEQ PREMIX 100 ML IV PRN (14:15)
[2016-12-26] MEDS ORDERED: fentaNYL DRIP 250 ML IV SCH (14:15)
[2016-12-26] MEDS ORDERED: SODIUM PHOSPHATE INJ 30 MMOL in SODIUM CHLOR 0.9% 250 ML INJ 240 ML IV PRN (14:15)
[2016-12-26] MEDS ORDERED: POTASSIUM PHOSPHATE MONOBASIC 500 MG TAB PO/TUBE PRN (14:15)
[2016-12-26] MEDS ORDERED: MAGNESIUM SULFATE INJ 4 GM in SODIUM CHLORIDE 0.9% INJ 92 ML IV PRN (14:15)
[2016-12-26] MEDS ORDERED: RESP: ALBUTEROL 2.5 MG/IPRATROPIUM 0.5 MG NEB (PRN) INH (14:15)
[2016-12-26 14:45] LABS: BLOOD GAS CARBOXYHEMOGLOBIN 0.9 % (0-4); BLOOD GAS HCO3 20 mmol/L (22-26); BLOOD GAS METHEMOGLOBIN 1.3 % (0-2); BLOOD GAS O2 HGB SATURATION 94 % (90-100); BLOOD GAS OXYGEN CONTENT 18.3 Vol % (12.0-20.0); BLOOD GAS PCO2 44 mmHg (38-42); BLOOD GAS PO2 101 mmHg (61-120); BLOOD GAS TOTAL HGB 13.8 G/DL (12.0-16.0); TEMP CORR TO 98.6
[2016-12-26 14:46] LABS: CRITICAL VALUE YES; DRAW SITE LT RADIAL; FIO2 100 %; NUMBER OF ARTERIAL PUNCTURES 1; OXYGEN DEVICE VENTILATOR; STAT YES; ULNAR PULSE PRESENT; VENT SETTINGS A/C 16/550/5PEEP
[2016-12-26] MEDS ORDERED: CHLORHEXIDINE GLUCONATE 2 % 1 PACK (2 CLOTHS)(extra cloths) TOPICAL PRN (15:15)
--- NOTE | 2016-12-26 15:24 | RADRPT ---
EXAM DATE/TIME: 12/26/2016 14:40 [facility] COMPARISON: CHEST SINGLE AP, December 25, 2016, 2:34. INDICATIONS : Hypoxia. MEDICAL HISTORY : None. SURGICAL HISTORY : None. ENCOUNTER: Subsequent ACUITY: 3 days PAIN SCORE: Non-responsive. LOCATION: Bilateral chest FINDINGS: A single portable frontal view the chest shows an endotracheal tube with the tip 2 cm cephalad to the luigi. Nasogastric tube tip courses off the inferior margin of the film. Bilateral pleural effusion s and bibasilar infiltrates. This has progressed from prior study. Heart normal size. Orthopedic hard mccarthy is seen involving the lumbar spine. CONCLUSION: Worsening bibasilar infiltrates and bilateral pleural effusions. Bryan Jara Jr., MD on December 26, 2016 at 15:11 Board Certified Radiologist. This report was verified electronically.
[2016-12-26] MEDS ORDERED: VANCOMYCIN 1,000 MG/NS 250 ML IV SCH ×2 (16:00)
[2016-12-26 17:16] LABS: CREATINE KINASE 126 U/L (26-192)
[2016-12-26 17:33] LABS: CKMB 7.9 NG/ML (0.5-3.6)
--- NOTE | 2016-12-26 17:37 | EC ---
Study Study Date:12/26/2016 STUDY CONCLUSIONS SUMMARY - Procedure narrative: Image quality was poor. The study was technically limited due to poor acoustic window availability. - Left ventricle: The cavity size was normal. Wall thickness was increased in a pattern of mild LVH. There was concentric hypertrophy. Systolic function was probably normal. In limited views, the estimated ejection fraction was in the range of 55% to 60%. Doppler parameters are consistent with abnormal left ventricular relaxation (grade 1 diastolic dysfunction). - Aortic valve: Trace regurgitation. If LV function is below 40, please consider prescribing an ACEI or ARB or document rationale for non-use. PROCEDURE DATA STUDY STATUS: Elective. Procedure: Transthoracic echocardiography. Image quality was poor. The study was technically limited due to poor acoustic window availability. Scanning was performed from the parasternal, apical, and subcostal acoustic windows. Study completion: The patient tolerated the procedure well. Transthoracic echocardiography. M-mode, complete 2D, complete spectral Doppler, and color Doppler. Height: Height: 62in. Weight: Weight: 153.7lb. Body mass index: BMI: 28.2kg/m^2. Body surface area: BSA: 1.71m^2. Patient status: Inpatient. CARDIAC ANATOMY LEFT VENTRICLE: The cavity size was normal. Wall thickness was increased in a pattern of mild LVH. There was concentric hypertrophy. Systolic function was probably normal. In limited views, the estimated ejection fraction was in the range of 55% to 60%. Images were inadequate for LV wall motion assessment. Doppler parameters are consistent with abnormal left ventricular relaxation (grade 1 diastolic dysfunction). AORTIC VALVE: The valve appears to be grossly normal. Doppler: There was no stenosis. Trace regurgitation. Valve area: 2.43cm^2 (Vmax). Indexed valve area: 1.42cm^2/m^2 (Vmax). MITRAL VALVE: The valve appears to be grossly normal. Doppler: There was no evidence for stenosis. Trace regurgitation. RIGHT VENTRICLE: The cavity size was normal. PULMONIC VALVE: Not visualized. TRICUSPID VALVE: The valve appears to be grossly normal. Doppler: There was no evidence for stenosis. Trace to mild regurgitation. Patient weight: 153.7lb _Ejection fraction:_ 65-75% _Fractional shortening:_ 32% up to 5Kg 5-11.5Kg 11.6-22.9Kg 23-45Kg 45-57Kg Aortic Root 7-13 <17 13-22 17-27 17-27 LA diam 6-13 <23 24-38 33-47 37-40 RVID 10-17 7-15 7-15 7-18 8-17 LVIDd 12-22 <32 24-38 33-47 37-40 LVPW 2-4 3-6 5-7 6-8 7-8 IVS 2-4 3-6 5-7 6-8 7-8 BASIC MEASUREMENTS ADULT NORMAL Left ventricle LV internal dimension, ED, chordal *22.6 mm 43-52 level, PLAX LV internal dimension, ES, chordal *16 mm 23-38 level, PLAX Fractional shortening, chordal level, *29 % >29 PLAX LV posterior wall thickness, ED 11.9 mm IVS/LVPW ratio, ED 0.99 <1.3 Ventricular septum Septal thickness, ED 11.8 mm Aortic valve Leaflet separation 18 mm 15-26 Right ventricle RV internal dimension, ED, PLAX 22.2 mm 19-38 BASIC MEASUREMENTS ADULT NORMAL Aortic valve Leaflet separation 18 mm 15-26 Aorta Root diameter, ED 27 mm 20-37 Left atrium Anterior-posterior dimension, ES 29 mm 19-40 Anterior-posterior dimension index, ES 1.7 cm/m^2 <2.2 LA/aortic root ratio 1.07 DOPPLER MEASUREMENTS ADULT NORMAL Main pulmonary artery Pressure, S 20 mm Hg =30 Aortic valve Peak velocity, S 115 cm/s Valve area, Vmax 2.43 cm^2 Valve area index, Vmax 1.42 cm^2/m^2 Regurgitant velocity, ED 265 cm/s Regurgitant deceleration 1720 cm/s^2 Regurgitant pressure half-time 451 ms Regurgitant gradient, ED 28 mm Hg Mitral valve Peak E-wave velocity 69.1 cm/s Peak A-wave velocity 90.3 cm/s Deceleration time *127 ms 150-230 Peak E/A ratio 0.8 Tricuspid valve Regurgitant peak velocity 176 cm/s Peak RV-RA gradient, S 12 mm Hg Maximal regurgitant velocity 176 cm/s Systemic veins Estimated CVP 10 mm Hg Right ventricle RV pressure, S 28 mm Hg <30 Pulmonic valve Peak velocity, S 143 cm/s LEGEND: Mean values are shown as u=mean value. Asterisk (*) [place] values outside specified normal range. Amended Adam Ivan [id number]
[2016-12-26] MEDS: INSULIN NovoLIN REGULAR SUPPLEMENTAL SCALE SQ SCH ×2 (18:00→23:42)
[2016-12-26] MEDS: CHLORHEXIDINE 0.12% (ORAL KIT) 15 ML CUP MT SCH (20:02)
[2016-12-26] MEDS: DEXTROSE 50% IN WATER 50 ML VIAL(D50) IV PUSH PRN ×2 (20:03→23:43)
--- NOTE | 2016-12-26 21:38 | PD.PROCEDR ---
Procedure Note Procedure Endotracheal Intubation Diagnosis: Community-acquired pneumonia, acute hypoxic respiratory failure Indications: Severe respiratory distress, near respiratory arrest, acute hypoxic respiratory failure Consent: Consent is deemed emergent Anesthesia: Versed 5 mg IV, Rocuronium 100 g IV Description of the Procedure: The patient was positioned in the sniffing position. Pre-oxygenation was performed using a bag valve mask. Anesthesia was induced. A Serrano #2 was used for laryngoscopy and a Grade I view was obtained. A 7.5 cuffed endotracheal tube was inserted atraumatically through the vocal cords. Confirmation of correct endotracheal tube placement was made by equal and bilateral breath sounds and colorimetric CO2 detection. The endotracheal tube was secured at 22 cm at the teeth. There were no immediate complications noted. The patient remained hemodynamically stable throughout the procedure. A chest x-ray has been ordered. I personally performed the procedure. Paul Allen MD December 26, 2016 21:38
[2016-12-26] MEDS ORDERED: PROPOFOL 1000 MG/100 ML INJ 100 ML ONE (22:27)
[2016-12-26] MEDS ORDERED: FUROSEMIDE 100 MG/10 ML VIAL IV PUSH ONE (23:00)
[2016-12-26] MEDS ORDERED: ENOXAPARIN SODIUM 80 MG/0.8 ML SYRINGE SQ SCH (23:00)
[2016-12-26] MEDS ORDERED: IOHEXOL 350 MG/ML 10 ML VIAL (for RAD DIAG) IV ONE (23:03)
--- NOTE | 2016-12-26 23:33 | RADRPT ---
EXAM DATE/TIME: 12/26/2016 23:03 [facility] COMPARISON: CT THORAX/ABD/PELVIS W/O CONTRAST, October 12, 2013, 19:19. INDICATIONS : Hypoxia IV CONTRAST: 80 cc Omnipaque 350 (iohexol) IV RADIATION DOSE: 23.28 CTDIvol (mGy) MEDICAL HISTORY : Cardiovascular disease. Cerebrovascular disease. Hypertension. SURGICAL HISTORY : Appendectomy. Hysterectomy. ENCOUNTER: Initial ACUITY: 1 day PAIN SCALE: 0/10 LOCATION: chest TECHNIQUE: Volumetric scanning of the chest was performed using a pulmonary embolism protocol MIP images were re constructed. Using automated exposure control and adjustment of the mA and/or kV according to patien t size, radiation dose was kept as low as reasonably achievable to obtain optimal diagnostic quality images. FINDINGS: Bilateral effusions are present right greater than left with bibasilar atelectasis. There is a 9 mm n odule within the lingula. No new nodules are identified. Malignancy is not excluded. PET/CT scan is r ecommended to further evaluation if clinically indicated. There is bilateral lower lobe atelectasis v ersus pneumonia. Examination of the mediastinum demonstrates no abnormally enlarged lymph nodes by CT criteria. No axillary or hilar abnormalities are identified. Coronary artery calcifications are pres ent. The visualized upper abdomen demonstrates no abnormality. Examination of the pulmonary vasculature demonstrates good filling of the main, lobar and segmental b ranches. There are no filling defects to suggest pulmonary embolism. Multiplanar reconstructions are also unremarkable. CONCLUSION: 1. No evidence of pulmonary embolism. 2. 9 mm nodule in the lingula. PET/CT scan is recommended to further evaluation if clinically indicat ed. 3. Bilateral effusions and bibasilar atelectasis right greater than left Abhilash Salamanca MD on December 26, 2016 at 23:26 Board Certified Radiologist. This report was verified electronically.
[2016-12-26] MEDS: SODIUM CHLORIDE 0.9% FLUSH 10 ML FLUSH IV FLUSH PRN (23:41)
[2016-12-26] MEDS: ACETAMINOPHEN 325 MG TAB PO PRN (23:43)
[2016-12-27] VITALS (31 sets, daily range): BP systolic 86–139; BP diastolic 46–63; PULSE 67–94; RESP 0–28; TEMP 98.6–102.1; O2SAT 92–99
[2016-12-27] MEDS: DEXTROSE 50% IN WATER 50 ML VIAL(D50) IV PUSH PRN ×5 (00:38→06:18)
[2016-12-27] MEDS: SODIUM CHLORIDE 0.9% FLUSH 10 ML FLUSH IV FLUSH PRN (00:40)
[2016-12-27] MEDS: RESP: ALBUTEROL 2.5 MG/IPRATROPIUM 0.5 MG NEB (SCH) INH ×4 (03:28→20:06)
[2016-12-27] MEDS: PROPOFOL 1000 MG/100 ML IV SCH ×3 (04:01→18:45)
[2016-12-27] MEDS: CHLORHEXIDINE GLUCONATE 2 % 1 PACK (2 CLOTHS)(taper/protocol) TOPICAL SCH (04:02)
--- NOTE | 2016-12-27 05:06 | RADRPT ---
EXAM DATE/TIME: 12/27/2016 03:56 [facility] COMPARISON: CHEST SINGLE AP, December 26, 2016, 14:40. INDICATIONS : Shortness of breath. MEDICAL HISTORY : None. SURGICAL HISTORY : None. ENCOUNTER: Subsequent ACUITY: 1 week PAIN SCORE: 0/10 LOCATION: Bilateral chest FINDINGS: There is bilateral lower lobe atelectasis versus pneumonia. The findings are similar to the prior exa m. Support lines and tubes are in satisfactory position. Small bilateral pleural effusions are identi fied. CONCLUSION: 1. There is bilateral lower lobe atelectasis versus pneumonia. Small bilateral effusions 2. There has been no significant change when compared to the prior exam.. Abhilash Salamanca MD on December 27, 2016 at 5:04 Board Certified Radiologist. This report was verified electronically.
[2016-12-27 05:22] LABS: HEMATOCRIT 28.9 % (35.0-46.0); MEAN CELL VOLUME 87.9 FL (80.0-100.0); MEAN CORPUSCULAR HEMOGLOBIN 28.6 PG (27.0-34.0); MEAN CORPUSCULAR HGB CONC 32.6 % (32.0-36.0); PLATELET COUNT 166 TH/MM3 (150-450); RED BLOOD COUNT 3.29 MIL/MM3 (4.00-5.30); RED CELL DISTRIBUTION WIDTH 16.7 % (11.6-17.2); REVIEW FLAG FINAL
[2016-12-27] MEDS: INSULIN NovoLIN REGULAR SUPPLEMENTAL SCALE SQ SCH ×5 (05:30→20:51)
[2016-12-27] MEDS: LEVOTHYROXINE SODIUM 125 MCG TAB PO SCH (05:37)
[2016-12-27 05:54] LABS: BICARBONATE 27.7 MEQ/L (21.0-32.0); POTASSIUM 3.9 MEQ/L (3.5-5.1)
[2016-12-27] MEDS ORDERED: LEVOTHYROXINE SODIUM 125 MCG TAB PO SCH (06:00)
[2016-12-27] MEDS ORDERED: GLUCAGON 1 MG/ML VIAL OTHER PRN (07:00)
[2016-12-27] MEDS ORDERED: DEXTROSE 50% IN WATER 50 ML VIAL(D50) IV PUSH PRN (07:00)
[2016-12-27] MEDS ORDERED: RESP: ALBUTEROL 2.5 MG/3 ML NEB (PRN) NEB (07:00)
--- NOTE | 2016-12-27 07:22 | HHI.CCPN ---
Subjective Remarks/Hospital Course This is an 86-year-old female who was initially admitted to the hospital 12/25 for community-acquired pneumonia. She was in the CIC unit when she had acute onset of severe respiratory distress and a rapid response was called. I was called to bedside by the rapid response nurse and came immediately to evaluate the patient. When I evaluated the patient, she was in severe respiratory distress, was obtunded, was cyanotic with agonal respirations. Emergently, we intubated the patient, please see separate procedure note for details. She was given 80 mg Lasix IV 1. Her blood pressure at that time was 200/100 and [id number] mg IV was also given. She was emergently transferred to the medical ICU for further management. Unfortunately, due to the emergent nature of my evaluation, additional information is not able to be provided by the patient. Of note, it does appear that her BNP has risen from normal on admission to over 300 today. Her white count appears to be downtrending on evaluation of the medical record on appropriate antibiotics for community- acquired pneumonia. Subjective 12/27: Currently afebrile Afebrile. MAXIMUM TEMPERATURE 102.1. Tolerating tube feeding. No bowel movement overnight. Noted intubated late last night due to hypoxia. Received 80 mg IV Lasix in route to ICU. Currently awake and alert and quite agitated. Objective Vital Signs Date Time Temp Pulse Resp B/P Pulse Ox O2 Delivery O2 Flow Rate FiO2 12/27/16 06:00 75 12/27/16 04:29 96 45 12/27/16 04:00 99.5 15 86/46 12/26/16 09:17 Nasal Cannula 3.00 Intake and Output 12/26/16 12/26/16 12/27/16 08:00 16:00 00:00 Intake Total 1940 ml 232 ml Output Total 500 ml 1825 ml Balance 1440 ml -1593 ml Result Diagram: 12/27/16 0445 12/27/16 0445 Other Results Microbiology Date/Time Procedure Status Source Growth 12/27/16 00:50 Gram Stain Received Sputum Expectorated Sputum Pending 12/27/16 00:50 Sputum Culture Received Sputum Expectorated Sputum Pending 12/26/16 23:32 Legionella Antigen Received Urine Catheterized Urine Pending 12/26/16 23:32 Streptococcus pneumoniae Antigen (M Received Urine Catheterized Urine Pending 12/26/16 02:00 Gram Stain - Final Resulted Sputum Expectorated Sputum 12/26/16 02:00 Sputum Culture Resulted Sputum Expectorated Sputum Pending 12/25/16 02:20 Aerobic Blood Culture - Preliminary Resulted Blood Peripheral NO GROWTH IN 1 DAY 12/25/16 02:20 Anaerobic Blood Culture - Preliminary Resulted Blood Peripheral NO GROWTH IN 1 DAY Imaging Last Impressions Chest X-Ray 12/27/16 0600 Signed Impressions: Service Date/Time: Tuesday, December 27, 2016 03:56 - CONCLUSION: 1. There is bilateral lower lobe atelectasis versus pneumonia. Small bilateral effusions 2. There has been no significant change when compared to the prior exam.. Abhilash Salamanca MD CT Angiography 12/26/16 0000 Signed Impressions: Service Date/Time: Monday, December 26, 2016 23:03 - CONCLUSION: 1. No evidence of pulmonary embolism. 2. 9 mm nodule in the lingula. PET/CT scan is recommended to further evaluation if clinically indicated. 3. Bilateral effusions and bibasilar atelectasis right greater than left Abhilash Salamanac MD Head CT 12/25/16 0156 Signed Impressions: Service Date/Time: Sunday, December 25, 2016 02:27 - CONCLUSION: 1. No evidence of acute intracranial pathology. Chronic ischemic changes as above. Abhilash Salamanca MD Objective Remarks GENERAL: 86-year-old female, appears stated age currently in no acute distress SKIN: Warm and dry. No rash HEAD: Atraumatic. Normocephalic. EYES: Pupils equal and round about 3 mm bilaterally and reactive. No scleral icterus. No injection or drainage. ENT: No nasal bleeding or discharge. Mucous membranes pink and moist. NECK: Trachea midline. No JVD. CARDIOVASCULAR: Regular rate and rhythm. S1, S2. No S4. Without murmur RESPIRATORY: Few fine crackles in bases. Somewhat diminished in the bases. No wheezing appreciated GASTROINTESTINAL: Abdomen soft, non-tender, nondistended. Hypoactive bowel sounds are appreciated MUSCULOSKELETAL: Extremities without noted in peripheral edema. No obvious deformities. NEUROLOGICAL: Arousable on the ventilator. Moves all 4 extremities spontaneously but not to command. Strength appears equal bilaterally upper and lower extremity. Withdraws to pain. Positive gag. A/P Assessment and Plan Neuro/Psych: History of right basal ganglia/cerebellar CVA History of TIA Chronic neuropathy Migraine headache Fibromyalgia Spinal stenosis Macular degeneration Cataract history of bilateral lens implantation History of insomnia Currently on Diprivan at 30 mcg/kg/m/fentanyl drip at 150 mg an hour for sedation/analgesia while intubated Goal of RA SS -2 Daily sedation vacation Holding Restoril 30 mg at night for insomnia Holding gabapentin 300 mg by mouth 4 times a day. Check Neurontin level Holding Effexor 75 mg by mouth daily for depression. Resume when clinically indicated On baclofen 10 mg by mouth 4 times a day when necessary muscle spasms Holding oxycodone 5 mg 4 times a day when necessary/chronic pain medication. Currently on a fentanyl drip Holding Claritin 10 mg by mouth daily as needed for allergies. Resume when clinically indicated CT head 12/25 revealed periventricular chronic ischemic changes CV: Diastolic heart failure, chronic Elevated troponin Hypertension Dyslipidemia Coronary artery disease Echocardiogram 12/26 revealed EF 55-6%. Grade 1 diastolic dysfunction. Trace AR. Holding Diovan 40 mg by mouth daily light of acute kidney injury/hypotension Holding home medications Lasix 10 mg daily/potassium chloride unknown dosage daily Troponin is peaked at 0.9 Follow-up EKG this a.m. Will start on aspirin 81 mg by mouth daily with low-dose beta griselda as tolerated Check lipid panel Cardiology consult - likely demand ischemia secondary to respiratory failure Resp: Acute hypoxemic hypercapnic respiratory failure History of COPD/asthma 9 mm pulmonary nodule - lingula - outpatient PET scan recommended ACV 15/550/5/45 Ventilator bundle Duo nebs every 6 hours with albuterol nebs every 2 hours when necessary breakthrough Spontaneous breathing trials daily CTA chest 12/26 revealed no pulmonary embolism. 9 mm pulmonary nodule at the lingula. Bilateral pleural effusions and infiltrates right greater than left Follow-up chest x-ray in a.m. GI: Gastroesophageal reflux disease Patient is currently on Jevity 1.5 at 50 cc an hour Protonix for GI prophylaxis. Patient is on Prilosec 20 mg by mouth daily at home Colace twice a day/Senokot daily for bowel regimen. 3 bowel movements on 12/25 documented : Perry will be maintained for accurate I's and O's in a critically ill patient Endo: History of Graves' disease status post radiation therapy Hypothyroidism Relative hypoglycemia Currently on Levoxyl since 125 mcg by mouth daily Check TSH Sliding scale insulin Accu-Cheks every 4 hours to maintain euglycemia/low regimen Check cortisol/TSH in light of hypotension Check C-peptide/proinsulin/bariatric CV rate and insulin levels. He should not on sulfonylurea drug Renal: Acute kidney injury Monitor urine output Accurate I's and O's Avoid nephrotoxic drugs Urine electrolytes/eosinophils ordered with renal ultrasound Heme: Leukocytosis Normocytic anemia History of pulmonary embolism - negative CTA this admission Daily CBC. Monitor trends ID: History of MRSA right fibula 2014 History of C. difficile Documented allergy to penicillin however on Keflex multiple times in passing currently on Rocephin Day #2 Rocephin/Zithromax/vancomycin Aztreonam/Flagyl discontinued Pertinent cultures Sputum - 5/3 - pending Sputum - 5/2 - no growth Blood Cultures 2 - 12/25 - no growth Urine Legionella pneumococcal antigens pending FEN: Replace electrolytes as clinically indicated per protocol MSK/Rheum: History degenerative arthritis/documentation rheumatoid arthritis? PT evaluate and treat Access - Utilize peripheral IV. Central line as indicated Prophylaxis - GI - Protonix - DVT - SCD/Lovenox subcutaneous Critical Care: The total critical care time was 55 minutes. Time to perform other separately billable procedures was not included in the critical care time. Ricardo Perodmo MD December 27, 2016 07:22 Ricardo Perdomo MD December 27, 2016 07:22
[2016-12-27] MEDS: DEXT 5%-NACL 0.9% 1000 ML INJ 1,000 ML IV SCH ×2 (07:27→20:56)
[2016-12-27] MEDS: METOPROLOL TARTRATE 5 MG/5 ML VIAL IV PUSH SCH ×3 (07:45→19:45)
[2016-12-27] MEDS: CHLORHEXIDINE 0.12% (ORAL KIT) 15 ML CUP MT SCH ×4 (08:00→20:51)
[2016-12-27] MEDS: PANTOPRAZOLE SODIUM 40 MG VIAL IV PUSH SCH (08:32)
[2016-12-27] MEDS: DOCUSATE SODIUM 100 MG/10 ML UDC PO SCH ×2 (08:32→20:52)
[2016-12-27] MEDS: ENOXAPARIN SODIUM 30 MG/0.3 ML SYRINGE SQ SCH (08:32)
[2016-12-27] MEDS: SENNOSIDES SYRUP 8.8 MG/5 ML CUP PO SCH (08:32)
[2016-12-27] MEDS: SODIUM CHLORIDE 0.9% FLUSH 10 ML FLUSH IV FLUSH SCH ×2 (08:33→20:51)
[2016-12-27] MEDS: AZITHROMYCIN 250 MG TAB PO SCH (08:33)
[2016-12-27] MEDS: LORATADINE 10 MG TAB PO SCH (08:33)
[2016-12-27] MEDS: ASPIRIN 81 MG CHEW TAB CHEW SCH (08:41)
[2016-12-27] MEDS ORDERED: FUROSEMIDE 20 MG TAB PO SCH (09:00)
[2016-12-27] MEDS ORDERED: VALSARTAN 40 MG TAB PO SCH (09:00)
[2016-12-27] MEDS ORDERED: VENLAFAXINE HCL XR 75 MG CAP PO SCH (09:00)
--- NOTE | 2016-12-27 09:13 | EKG ---
Date Performed: 12/26/2016 Time Performed: 14:25:32 PTAGE: 86 years EKG: SINUS TACHYCARDIA WITH OCCASIONAL VENTRICULAR PREMATURE COMPLEXES LEFT ANTERIOR FASCICULAR BLOCK LEFT VENTRICULAR HYPERTROPHY AND ST-T CHANGE POSSIBLE SEPTAL MYOCARDIAL INFARCTION , OF INDETER MINATE AGE ABNORMAL ECG PREVIOUS TRACING : 12/25/2016 02.10 DOCTOR: Francisco Pacheco Interpretating Date/Time 12/27/2016 09:11:22
[2016-12-27] MEDS: cefTRIAXone INJ 1,000 MG in SODIUM CHLORIDE 0.9% INJ 100 ML IV SCH (10:47)
--- NOTE | 2016-12-27 12:06 | MB ---
cc: LATOYA ARELLANO M.D. DATE OF CONSULTATION: 12/27/2016 REASON FOR CONSULTATION Abnormal troponin level. HISTORY OF PRESENT ILLNESS Some history is obtained from the patient who is awake, although she remains intubated. She is an 86-year-old white female with a history of hypothyroidism, remote history of deep venous thrombosis and pulmonary embolism, TIA, CVAs, rheumatoid arthritis, who was admitted with increasing respiratory distress necessitating intubation and mechanical ventilation. Troponin level was checked and found to be slightly abnormal. Echocardiogram was checked and showed normal left ventricular function with no major valvular abnormality. The patient states she has had no recent chest pain, shortness of breath, pedal edema, syncope, near-syncope, palpitations. She denies any prior history of coronary disease or myocardial infarction. PAST MEDICAL HISTORY 1. Hypothyroidism. 2. Remote history of deep venous thrombosis and pulmonary embolism ~1998. 3. Hyperlipidemia. 4. Rheumatoid arthritis. 5. History of transient ischemic attack. 6. 05/28/13 MRI of the brain showing old left and right basal ganglia CVAs as well as left temporal lobe CVA. PAST SURGICAL HISTORY 1. Total hip arthroplasties on the right 2003, on the left 2011. 2. Appendectomy. 3. Hysterectomy. 4. Partial thyroidectomy. 5. L3-L4 laminectomy, L3-L4 fusion with autologous bone grafting 01/2014. 6. Right ankle open reduction, internal fixation 10/2014 with subsequent removal of hardware 01/2015due to infection. MEDICATIONS Her current cardiac medications: 1. Aspirin 81 mg p.o. daily. 2. Lovenox 30 mg subcutaneously q.24 hours. 3. Metoprolol 2.5 mg IV q.6 hours. ALLERGIES PENICILLIN. FAMILY HISTORY Noncontributory. SOCIAL HISTORY The patient denies any history of alcohol or tobacco abuse. REVIEW OF SYSTEMS Review of systems as in the history of present illness, otherwise negative or very difficult to elicit. PHYSICAL EXAMINATION VITAL SIGNS: Blood pressure in 86/46 with a pulse of 75, respirations 15. GENERAL: She is a well-developed thin white female, in no acute distress. HEENT: Jugular venous pressure is normal. Carotid pulses are 2+ bilaterally and without bruits. CHEST: Examination of the chest reveals clear lung kelley anteriorly. CARDIAC: On cardiac examination she has a regular rhythm and rate without S3-S4 or murmur. ABDOMEN: On abdominal examination she has a soft, nontender abdomen. Bowel sounds are present. There is no definite hepatosplenomegaly. EXTREMITIES: Examination of extremities reveals no clubbing, cyanosis or edema. LABORATORY DATA Laboratory data includes WBC 12.0, hemoglobin 9.4, platelets 166, potassium 3.9, BUN 22, creatinine 1.47, troponin 0.90, INR 1.0. IMAGING STUDIES Chest x-ray shows bilateral lower lobe atelectasis versus pneumonia, small bilateral pleural effusions. EKG From 12/26/2016 shows sinus tachycardia, possible left ventricular hypertrophy, poor R-wave progression, left anterior fascicular block. IMPRESSION Minimally elevated troponin levels in this 86-year-old white female with a history of TIA, CVA, rheumatoid arthritis, remote history of deep venous thrombosis and pulmonary embolism, hypothyroidism, now admitted with respiratory failure, possibly due to pneumonia. Overall, I doubt the slightly abnormal troponin levels are due to acute myocardial infarction. Echocardiogram has been reviewed. She has excellent left ventricular function with no severe valvular abnormalities. The patient denies any recent chest pain symptoms. EKG shows no diagnostic ST-segment or T-wave changes. The slight elevations in troponin may be due to "demand ischemia" from respiratory failure, hypoxemia. RECOMMENDATIONS 1. No specific recommendations from a cardiac standpoint at this time; if her blood pressures allow, overall she may benefit from continued beta griselda therapy, as well as daily aspirin. MD DESTINY Andrews/WINSOME /11:33 AM /11:50 AM DENNIS
--- NOTE | 2016-12-27 13:05 | HHI.PR ---
Subjective History of Present Illness REMAINED intubated lightly sedated opens eyes in response to tactile stimuli On assist control rate 15 , Vt 500 /40 % FiO2 BP stable afebrile no new problems Vitals/Results Intake & Output 12/26/16 12/26/16 12/27/16 15:00 23:00 07:00 Intake Total 232 ml 319 ml Output Total 1825 ml 325 ml Balance -1593 ml -6 ml Intake Oral 0 ml IV Total 232 ml 206 ml Tube Feeding 113 ml Output Urine Total 1825 ml 325 ml # Bowel Movements 0 0 Vital Signs Vital Signs Date Time Temp Pulse Resp B/P Pulse Ox O2 Delivery O2 Flow Rate FiO2 12/27/16 10:20 97 45 12/27/16 07:47 97 45 12/27/16 06:00 75 12/27/16 04:29 96 45 12/27/16 04:00 99.5 72 15 86/46 96 12/27/16 04:00 72 12/27/16 02:00 67 12/27/16 00:01 97 65 12/27/16 00:00 75 12/27/16 00:00 102.1 75 12 139/63 97 12/26/16 22:50 100 100 12/26/16 22:00 75 12/26/16 21:34 97 65 12/26/16 20:27 100 80 12/26/16 20:00 99.7 80 20 122/58 99 12/26/16 20:00 80 12/26/16 18:00 75 12/26/16 17:28 91 100 12/26/16 17:00 97 12/26/16 17:00 85 100 12/26/16 16:14 98.0 100 20 107/60 94 12/26/16 16:00 105 12/26/16 15:31 96 80 12/26/16 15:00 84 CBC/BMP: 12/27/16 0445 12/27/16 0445 Lab Results Laboratory Tests Test 12/26/16 12/26/16 12/26/16 12/26/16 14:00 14:31 16:38 22:43 Nasal Screen MRSA (PCR) MRSA NOT DETECTED Blood Gas Puncture Site LT RADIAL Blood Gas Patient Temperature 98.6 Blood Gas HCO3 20 mmol/L Blood Gas Base Excess -5.0 mmol/L Blood Gas Oxygen Saturation 94 % Arterial Blood pH 7.29 Arterial Blood Partial 44 mmHg Pressure CO2 Arterial Blood Partial 101 mmHg Pressure O2 Arterial Blood Oxygen Content 18.3 Vol % Arterial Blood 0.9 % Carboxyhemoglobin Arterial Blood Methemoglobin 1.3 % Blood Gas Hemoglobin 13.8 G/DL Oxygen Delivery Device VENTILATOR Blood Gas Ventilator Setting A/C 16/550/5PEEP Blood Gas Inspired Oxygen 100 % Total Creatine Kinase 126 U/L Creatine Kinase MB 7.9 NG/ML Troponin I 0.25 NG/ML 0.90 NG/ML Test 12/27/16 12/27/16 12/27/16 04:45 09:00 10:20 White Blood Count 12.0 TH/MM3 Red Blood Count 3.29 MIL/MM3 Hemoglobin 9.4 GM/DL Hematocrit 28.9 % Mean Corpuscular Volume 87.9 FL Mean Corpuscular Hemoglobin 28.6 PG Mean Corpuscular Hemoglobin 32.6 % Concent Red Cell Distribution Width 16.7 % Platelet Count 166 TH/MM3 Mean Platelet Volume 8.2 FL Sodium Level 138 MEQ/L Potassium Level 3.9 MEQ/L Chloride Level 104 MEQ/L Carbon Dioxide Level 27.7 MEQ/L Anion Gap 6 MEQ/L Blood Urea Nitrogen 22 MG/DL Creatinine 1.47 MG/DL Estimat Glomerular Filtration 34 ML/MIN Rate Random Glucose 106 MG/DL Calcium Level 7.7 MG/DL Troponin I 0.67 NG/ML 0.34 NG/ML Urine Eosinophils NONE SEEN /HPF Urine Random Creatinine 78.6 MG/DL Urine Random Sodium 36 MEQ/L Lactic Acid Level 2.1 mmol/L Random Cortisol 9.5 MCG/DL Microbiology Microbiology 12/26/16 Legionella Antigen - Final, Complete PRESUMPTIVE NEGATIVE FOR LEGIONELLA P... 12/26/16 Streptococcus pneumoniae Antigen (M - Final, Complete PRESUMPTIVE NEGATIVE FOR STREPTOCOCCU... 12/27/16 Gram Stain - Final, Resulted 12/27/16 Sputum Culture, Resulted Pending Physical Exam General General Appearance: No Acute Distress, Comfortable Eyes Eye Exam: Pupils Equal, Pupils Reactive, Sclera White Ears & Nose Ears & Nose Exam: Nasal Mucosa [place] Throat Throat Remarks +ve ET tube in place. +ve OGT Neck Neck Exam: Neck Supple, Trachea Midline Pulmonary Resp Exam: Breath Sounds Equal, No Distress, Crackles Cardiology CV Exam: Regular, Normal Sinus Rhythm Gastrointestinal/Abdomen GI Exam: Soft, Non-Tender, Bowel Sounds Present Genitourinary Remarks +ve Perry catheter in place Integumentary Skin Exam: Warm, Dry Extremeties Extremities Exam: No Edema, Pedal Pulses Palpable Neurologic Neuro Remarks Withdraws to painful stimuli PUD Prophylasis PUD Prophylaxis: Protonix Assessment/Plan Assessment/Plan ASSESSMENT AND PLAN 1. CAP Pneumonia./Early sepsis 2. s/p Altered mental status with probable metabolic encephalopathy. 3. History of hypertension. 4. Leukocytosis, probable secondary to #1. 5. Anemia, probable secondary to chronic disease. 6. Hyperkalemia. 7. Acute kidney injury with renal insufficiency. 8. Protein calorie malnutrition, moderate. 9. PCN allergy /per pt had a rash 10. Hx of Graves disease s/p I 131 ablation on synthroid 11. Status post non-ST elevation SD 12, acute ventilator-dependent respiratory failure, suspect due to pulmonary edema 13. Pulmonary nodule 9 mm PLAN Ventilator support and weaning per human resources associate IV sedation sputum c/s Staph aureus , sensitivity [p] blood c/s neg so far will give 1 dose IV vanco , f/u sensitivity & adjust abx Continue IV Rocephin/Zithromax Discontinue IVF Aspirin daily IV Lasix twice a day Cardiology input appreciated 2-D echocardiogram very limited Nl LVF Possible diastolic dysfunction Check lipid profile Statin Control blood pressure CTA chest noted, 9 mm pulmonary nodules, no workup at this time synthyroid Continue analgesic DNR A.m. labs Will follow Chikis Zaman MD December 27, 2016 13:04 Chikis Zaman MD December 27, 2016 13:04
[2016-12-27] MEDS ORDERED: COSYNTROPIN 0.25 MG VIAL IV PUSH ONE (14:00)
[2016-12-27] MEDS: ARTIFICIAL TEARS OPTH SOLN 15 ML BTL EACH EYE SCH ×2 (15:38→21:03)
[2016-12-27] MEDS: ACETAMINOPHEN 325 MG TAB PO PRN (16:35)
--- NOTE | 2016-12-27 16:57 | RADRPT ---
EXAM DATE/TIME: 12/27/2016 10:37 [facility] COMPARISON: No previous studies available for comparison. INDICATIONS : Increased BUN/creatinine. MEDICAL HISTORY : Hypertension. Chronic obstructive pulmonary disease. Rheumatoid arthritis. Thyroid disease. TIA. CAD. Fibromyalgia. UTI. Spinal stenosis. Graves disease. Pneumonia. Anemia. Cdiff. MRSA. SURGICAL HISTORY : Appendectomy. Hysterectomy. Bilateral cataracts with lens implants. Metal plate on back for stenosi s. Right foot. Total hip arthroplasty, left hip ORIF. L4-5/L5-S1 fusion. Radiation therapy. Blood tr ansfusions. ENCOUNTER: Initial ACUITY: 1 day PAIN SCORE: Nonresponsive. LOCATION: Bilateral flank MEASUREMENTS: RIGHT KIDNEY: 8.8 x 5.0 x 5.3 cm LEFT KIDNEY: 8.9 x 4.6 x 5.2 cm FINDINGS: RIGHT KIDNEY: Renal cortex is normal in thickness and echotexture. No hydronephrosis, stone, or mass. A 13 mm simp le cyst is seen involving the upper pole. LEFT KIDNEY: Renal cortex is normal in thickness and echotexture. No hydronephrosis, stone, or mass. BLADDER: Decompressed and poorly evaluated. CONCLUSION: 1. No obstruction. 2. 13 mm simple cyst involving the right upper pole. Bryan Jara Jr., MD on December 27, 2016 at 16:54 Board Certified Radiologist. This report was verified electronically.
[2016-12-27 17:48] LABS: ALKALINE PHOSPHATASE 83 U/L (45-117); ALT (GPT) 23 U/L (10-53); AST (GOT) 32 U/L (15-37); BETA-HYDROXYBUTYRATE 0.07 MMOL/L (0.00-0.39); HDL CHOLESTEROL 12.2 MG/DL (40.0-60.0); INDIRECT BILIRUBIN 0.1 MG/DL (0.0-0.8); MAGNESIUM 1.6 MG/DL (1.5-2.5); TOTAL BILIRUBIN ADULT 0.2 MG/DL (0.2-1.0)
[2016-12-27 17:51] LABS: CREATINE KINASE 98 U/L (26-192); LDL CHOLESTEROL 22 MG/DL (0-99)
[2016-12-27] MEDS: FUROSEMIDE 20 MG/2 ML VIAL IV PUSH SCH (18:00)
[2016-12-27] MEDS: POTASSIUM CHLORIDE 25 MEQ EFFERVESCENT TAB NG SCH (20:52)
[2016-12-27] MEDS: MAGNESIUM OXIDE 400 MG TAB PO PRN (20:54)
[2016-12-27] MEDS: POTASSIUM PHOSPHATE MONOBASIC 500 MG TAB PO PRN (20:55)
[2016-12-28] VITALS (14 sets, daily range): BP systolic 90–137; BP diastolic 51–76; PULSE 66–101; RESP 15–24; TEMP 98–99.5; O2SAT 95–98
[2016-12-28] MEDS: POTASSIUM PHOSPHATE MONOBASIC 500 MG TAB PO PRN (00:05)
[2016-12-28] MEDS: INSULIN NovoLIN REGULAR SUPPLEMENTAL SCALE SQ SCH ×6 (00:06→19:55)
[2016-12-28] MEDS: METOPROLOL TARTRATE 5 MG/5 ML VIAL IV PUSH SCH ×4 (00:54→19:54)
[2016-12-28] MEDS: CHLORHEXIDINE GLUCONATE 2 % 1 PACK (2 CLOTHS)(taper/protocol) TOPICAL SCH (03:13)
[2016-12-28] MEDS: PROPOFOL 1000 MG/100 ML IV SCH ×2 (03:13→09:41)
[2016-12-28] MEDS: RESP: ALBUTEROL 2.5 MG/IPRATROPIUM 0.5 MG NEB (SCH) INH ×4 (04:26→21:07)
[2016-12-28 04:51] LABS: HEMATOCRIT 25.5 % (35.0-46.0); MEAN CELL VOLUME 87.4 FL (80.0-100.0); MEAN CORPUSCULAR HEMOGLOBIN 28.8 PG (27.0-34.0); PLATELET COUNT 169 TH/MM3 (150-450); RED BLOOD COUNT 2.92 MIL/MM3 (4.00-5.30); RED CELL DISTRIBUTION WIDTH 16.7 % (11.6-17.2); REVIEW FLAG FINAL; WHITE BLOOD COUNT 7.1 TH/MM3 (4.0-11.0)
--- NOTE | 2016-12-28 04:56 | RADRPT ---
EXAM DATE/TIME: 12/28/2016 02:55 [facility] COMPARISON: CHEST SINGLE AP, December 27, 2016, 3:56. INDICATIONS : Shortness of breath, possible pulmonary disease. MEDICAL HISTORY : None. SURGICAL HISTORY : None. ENCOUNTER: Subsequent ACUITY: 1 week PAIN SCORE: Non-responsive. LOCATION: Bilateral chest FINDINGS: Support lines and tubes are in satisfactory position. There are findings of congestive heart failure with interstitial and alveolar opacity bilaterally. Small bilateral pleural effusions are identified. CONCLUSION: 1. Cardiomegaly and findings of congestive heart failure. The findings are similar to the prior exam. Abhilash Salamanca MD on December 28, 2016 at 4:54 Board Certified Radiologist. This report was verified electronically.
[2016-12-28 05:18] LABS: POTASSIUM 3.9 MEQ/L (3.5-5.1)
[2016-12-28 05:19] LABS: BICARBONATE 24.6 MEQ/L (21.0-32.0)
[2016-12-28 05:35] LABS: CALCIUM-PROTEIN CORRECTED 7.9 MG/DL (8.5-10.1)
[2016-12-28] MEDS: ARTIFICIAL TEARS OPTH SOLN 15 ML BTL EACH EYE SCH ×3 (05:39→21:31)
[2016-12-28] MEDS: LEVOTHYROXINE SODIUM 125 MCG TAB PO SCH (05:39)
[2016-12-28] MEDS: SODIUM CHLORIDE 0.9% FLUSH 10 ML FLUSH IV FLUSH PRN (06:15)
[2016-12-28] MEDS: PANTOPRAZOLE SODIUM 40 MG VIAL IV PUSH SCH (06:15)
[2016-12-28] MEDS: CHLORHEXIDINE 0.12% (ORAL KIT) 15 ML CUP MT SCH ×4 (08:00→19:55)
--- NOTE | 2016-12-28 08:07 | PD.CARD.PN ---
Subjective Subjective Remarks Intubated. Sedated. Objective Medications Item Value Date Time Furosemide 20 mg 12/27/16 1800 (Lasix Inj) BID@18/IV PUSH 12/27/16 1800 Aspirin 81 mg 12/27/16 0900 (Aspirin Chew) DAILY/CHEW 12/27/16 0841 Enoxaparin Sodium 30 mg 12/27/16 0800 (Lovenox Inj) Q24H/SQ 12/27/16 0832 Metoprolol 2.5 mg 12/27/16 0745 Tartrate Q6H/IV PUSH (Lopressor Inj) Vital Signs / I&O Vital Signs Date Time Temp Pulse Resp B/P Pulse Ox O2 Delivery O2 Flow Rate FiO2 12/28/16 07:55 96 40 12/28/16 06:00 66 12/28/16 04:27 97 40 12/28/16 04:00 40 12/28/16 04:00 98.8 72 15 103/51 98 12/28/16 04:00 72 12/28/16 02:00 75 12/28/16 00:00 81 12/28/16 00:00 40 12/28/16 00:00 99.5 78 15 90/51 95 12/27/16 23:00 95 40 12/27/16 22:00 82 12/27/16 20:07 95 40 12/27/16 20:00 100.2 83 10 101/51 96 12/27/16 20:00 40 12/27/16 20:00 83 12/27/16 16:18 98 40 12/27/16 16:00 45 12/27/16 16:00 100.8 91 10 111/55 97 12/27/16 15:30 93 28 108/54 96 12/27/16 15:00 94 14 105/52 97 12/27/16 14:30 91 24 110/54 99 12/27/16 14:00 84 7 108/56 96 12/27/16 13:30 83 10 93/50 94 12/27/16 13:00 84 15 100/51 93 12/27/16 12:54 92 45 12/27/16 12:30 86 13 99/52 92 12/27/16 12:00 98.6 85 13 95/51 96 12/27/16 12:00 45 12/27/16 11:30 86 16 98/52 98 12/27/16 11:00 87 16 98/49 98 12/27/16 10:30 88 1 97/49 97 12/27/16 10:20 97 45 12/27/16 10:00 85 1 92/48 96 12/27/16 09:30 81 0 93/47 95 12/27/16 09:00 84 15 100/49 94 12/27/16 08:30 86 19 101/55 95 I/O 12/27/16 12/27/16 12/27/16 12/28/16 12/28/16 12/28/16 07:00 15:00 23:00 07:00 15:00 23:00 Intake Total 319 ml 1450 ml 1119 ml 1205 ml Output Total 325 ml 400 ml 500 ml 400 ml Balance -6 ml 1050 ml 619 ml 805 ml IV Total 206 ml 835 ml 744 ml 872 ml Tube Feeding 113 ml 515 ml 375 ml 333 ml Tube Irrigant 100 ml Output Urine Total 325 ml 400 ml 500 ml 400 ml # Bowel Movements 0 0 0 1 Physical Exam GENERAL: Well developed, well nourished. Intubated. Sedated. HEENT: Jugular venous pressure is normal. CHEST: Lungs clear to auscultation anteriorly. CARDIAC: Regular rate and rhythm without S3, S4, or murmur. ABDOMEN: Soft, nontender, no hepatosplenomegaly. Bowel sounds present. EXTREMITIES: No clubbing, cyanosis, or edema. Laboratory Laboratory Tests Test 12/27/16 12/27/16 12/27/16 12/27/16 09:00 10:20 14:15 16:05 Urine Eosinophils NONE SEEN /HPF Urine Random Creatinine 78.6 MG/DL Urine Random Sodium 36 MEQ/L Lactic Acid Level 2.1 mmol/L Troponin I 0.34 NG/ML 0.20 NG/ML Random Cortisol 9.5 MCG/DL 8.2 MCG/DL 23.5 MCG/DL Phosphorus Level 1.6 MG/DL Magnesium Level 1.6 MG/DL Total Bilirubin 0.2 MG/DL Direct Bilirubin 0.1 MG/DL Indirect Bilirubin 0.1 MG/DL Aspartate Amino Transf 32 U/L (AST/SGOT) Alanine Aminotransferase 23 U/L (ALT/SGPT) Alkaline Phosphatase 83 U/L Total Creatine Kinase 98 U/L Total Protein 5.9 GM/DL Albumin 1.6 GM/DL Triglycerides Level 78 MG/DL Cholesterol Level LESS THAN 50 MG/DL LDL Cholesterol 22 MG/DL HDL Cholesterol 12.2 MG/DL Cholesterol/HDL Ratio 4.09 RATIO Thyroid Stimulating Hormone 1.850 uIU/ML 3rd Gen B-Hydroxybutyrate 0.07 MMOL/L Test 12/28/16 04:13 White Blood Count 7.1 TH/MM3 Red Blood Count 2.92 MIL/MM3 Hemoglobin 8.4 GM/DL Hematocrit 25.5 % Mean Corpuscular Volume 87.4 FL Mean Corpuscular Hemoglobin 28.8 PG Mean Corpuscular Hemoglobin 33.0 % Concent Red Cell Distribution Width 16.7 % Platelet Count 169 TH/MM3 Mean Platelet Volume 8.4 FL Sodium Level 142 MEQ/L Potassium Level 3.9 MEQ/L Chloride Level 109 MEQ/L Carbon Dioxide Level 24.6 MEQ/L Anion Gap 8 MEQ/L Blood Urea Nitrogen 28 MG/DL Creatinine 1.26 MG/DL Estimat Glomerular Filtration 40 ML/MIN Rate Random Glucose 122 MG/DL Calcium Level 7.1 MG/DL Protein Corrected Calcium 7.9 MG/DL Phosphorus Level 1.7 MG/DL Total Protein 5.5 GM/DL Imaging Last 48 hours Impressions Chest X-Ray 12/28/16 0600 Signed Impressions: Service Date/Time: December 02:55 - CONCLUSION: 1. Cardiomegaly and findings of congestive heart failure. The findings are similar to the prior exam. Abhilash Salamanca MD Chest X-Ray 12/27/16 0600 Signed Impressions: Service Date/Time: Tuesday, December 27, 2016 03:56 - CONCLUSION: 1. There is bilateral lower lobe atelectasis versus pneumonia. Small bilateral effusions 2. There has been no significant change when compared to the prior exam.. Abhilash Salamanca MD Renal Ultrasound 12/27/16 0000 Signed Impressions: Service Date/Time: Tuesday, December 27, 2016 10:37 - CONCLUSION: 1. No obstruction. 2. 13 mm simple cyst involving the right upper pole. Bryan Jara Jr., MD Assessment and Plan Problem List: (1) Elevated troponin Assessment and Plan: Stable overnight. Cardiac status overall stable. No definite evidence for ACS. LV function normal. No new recommendations at present. It may be beneficial for patient to remain on beta griselda therapy as she may have diastolic dysfunction, CHF on this basis. Will f/u as needed. (2) HTN (hypertension) Assessment and Plan: Low normal BP's. HTN not active issue. Code Status No Code Problem Qualifiers (1) HTN (hypertension): Qualified Code: I10 - Essential hypertension Nikita Montesinos MD December 28, 2016 08:07
[2016-12-28] MEDS: DEXT 5%-NACL 0.9% 1000 ML INJ 1,000 ML IV SCH ×2 (08:12→19:54)
[2016-12-28] MEDS: POTASSIUM CHLORIDE 25 MEQ EFFERVESCENT TAB NG SCH ×2 (08:13→19:55)
[2016-12-28] MEDS: LORATADINE 10 MG TAB PO SCH (08:13)
[2016-12-28] MEDS: ENOXAPARIN SODIUM 30 MG/0.3 ML SYRINGE SQ SCH (08:13)
[2016-12-28] MEDS: AZITHROMYCIN 250 MG TAB PO SCH (08:14)
[2016-12-28] MEDS: SENNOSIDES SYRUP 8.8 MG/5 ML CUP PO SCH (08:14)
[2016-12-28] MEDS: SODIUM CHLORIDE 0.9% FLUSH 10 ML FLUSH IV FLUSH SCH ×2 (08:14→19:55)
[2016-12-28] MEDS: DOCUSATE SODIUM 100 MG/10 ML UDC PO SCH ×2 (08:14→19:56)
[2016-12-28] MEDS: ASPIRIN 81 MG CHEW TAB CHEW SCH (08:14)
[2016-12-28] MEDS: FUROSEMIDE 20 MG/2 ML VIAL IV PUSH SCH ×2 (08:16→17:36)
--- NOTE | 2016-12-28 09:38 | HHI.CCPN ---
Subjective Remarks/Hospital Course This is an 86-year-old female who was initially admitted to the hospital 12/25 for community-acquired pneumonia. She was in the CIC unit when she had acute onset of severe respiratory distress and a rapid response was called. I was called to bedside by the rapid response nurse and came immediately to evaluate the patient. When I evaluated the patient, she was in severe respiratory distress, was obtunded, was cyanotic with agonal respirations. Emergently, we intubated the patient, please see separate procedure note for details. She was given 80 mg Lasix IV 1. Her blood pressure at that time was 200/100 and [id number] mg IV was also given. She was emergently transferred to the medical ICU for further management. Unfortunately, due to the emergent nature of my evaluation, additional information is not able to be provided by the patient. Of note, it does appear that her BNP has risen from normal on admission to over 300 today. Her white count appears to be downtrending on evaluation of the medical record on appropriate antibiotics for community- acquired pneumonia. 12/27: Currently afebrile Afebrile. MAXIMUM TEMPERATURE 102.1. Tolerating tube feeding. No bowel movement overnight. Noted intubated late last night due to hypoxia. Received 80 mg IV Lasix in route to ICU. Currently awake and alert and quite agitated. Subjective 12/28: Seen and examined. Remains intubated. Tmax 100.8. Afebrile currently. Tolerating tube feeding. One bowel movement Objective Vital Signs Date Time Temp Pulse Resp B/P Pulse Ox O2 Delivery O2 Flow Rate FiO2 12/28/16 07:55 96 40 12/28/16 06:00 66 12/28/16 04:00 98.8 15 103/51 12/26/16 09:17 Nasal Cannula 3.00 Intake and Output 12/27/16 12/27/16 12/28/16 08:00 16:00 00:00 Intake Total 319 ml 1450 ml 1119 ml Output Total 325 ml 400 ml 500 ml Balance -6 ml 1050 ml 619 ml Result Diagram: 12/28/16 0413 12/28/16 0413 Other Results Microbiology Date/Time Procedure Status Source Growth 12/27/16 21:48 Influenza Types A,B Antigen (JAVIER) - Final Complete Nasal Washing NEGATIVE FOR FLU A AND B ANTIGEN.... 12/27/16 20:45 Influenza Types A,B Antigen (JAVIER) Received Nasal Washing Pending 12/27/16 00:50 Gram Stain - Final Resulted Sputum Expectorated Sputum 12/27/16 00:50 Sputum Culture Resulted Sputum Expectorated Sputum Pending 12/26/16 23:32 Legionella Antigen - Final Complete Urine Catheterized Urine PRESUMPTIVE NEGATIVE FOR LEGIONELLA P... 12/26/16 23:32 Streptococcus pneumoniae Antigen (M - Final Complete Urine Catheterized Urine PRESUMPTIVE NEGATIVE FOR STREPTOCOCCU... 12/25/16 02:20 Aerobic Blood Culture - Preliminary Resulted Blood Peripheral NO GROWTH IN 2 DAYS 12/25/16 02:20 Anaerobic Blood Culture - Preliminary Resulted Blood Peripheral NO GROWTH IN 2 DAYS Imaging Last Impressions Chest X-Ray 12/28/16 0600 Signed Impressions: Service Date/Time: December 02:55 - CONCLUSION: 1. Cardiomegaly and findings of congestive heart failure. The findings are similar to the prior exam. Abhilash Salamanca MD Renal Ultrasound 12/27/16 0000 Signed Impressions: Service Date/Time: Tuesday, December 27, 2016 10:37 - CONCLUSION: 1. No obstruction. 2. 13 mm simple cyst involving the right upper pole. Bryan Jara Jr., MD CT Angiography 12/26/16 0000 Signed Impressions: Service Date/Time: Monday, December 26, 2016 23:03 - CONCLUSION: 1. No evidence of pulmonary embolism. 2. 9 mm nodule in the lingula. PET/CT scan is recommended to further evaluation if clinically indicated. 3. Bilateral effusions and bibasilar atelectasis right greater than left Abhilash Salamanca MD Head CT 12/25/16 0156 Signed Impressions: Service Date/Time: Sunday, December 25, 2016 02:27 - CONCLUSION: 1. No evidence of acute intracranial pathology. Chronic ischemic changes as above. Abhilash Salamanca MD Objective Remarks GENERAL: 86-year-old female, appears stated age currently in no acute distress SKIN: Warm and dry. No rash HEAD: Atraumatic. Normocephalic. EYES: Pupils equal and round about 3 mm bilaterally and reactive. No scleral icterus. No injection or drainage. ENT: No nasal bleeding or discharge. Mucous membranes pink and moist. NECK: Trachea midline. No JVD. CARDIOVASCULAR: Regular rate and rhythm. S1, S2. No S4. Without murmur RESPIRATORY: Few fine crackles in bases. Somewhat diminished in the bases. No wheezing appreciated GASTROINTESTINAL: Abdomen soft, non-tender, nondistended. Hypoactive bowel sounds are appreciated MUSCULOSKELETAL: Extremities without noted in peripheral edema. No obvious deformities. NEUROLOGICAL: Arousable on the ventilator. Moves all 4 extremities spontaneously but not to command. Strength appears equal bilaterally upper and lower extremity. Withdraws to pain. Positive gag. A/P Assessment and Plan Neuro/Psych: History of right basal ganglia/cerebellar CVA History of TIA Chronic neuropathy Migraine headache Fibromyalgia Spinal stenosis Macular degeneration Cataract history of bilateral lens implantation History of insomnia Currently on Diprivan at 30 mcg/kg/m/fentanyl drip at 150 mg an hour for sedation/analgesia while intubated Goal of RA SS -2 Daily sedation vacation Holding Restoril 30 mg at night for insomnia Holding gabapentin 300 mg by mouth 4 times a day. Check Neurontin level Holding Effexor 75 mg by mouth daily for depression. Resume when clinically indicated On baclofen 10 mg by mouth 4 times a day when necessary muscle spasms Holding oxycodone 5 mg 4 times a day when necessary/chronic pain medication. Currently on a fentanyl drip Holding Claritin 10 mg by mouth daily as needed for allergies. Resume when clinically indicated CT head 12/25 revealed periventricular chronic ischemic changes CV: Diastolic heart failure, chronic Elevated troponin Hypertension Dyslipidemia Coronary artery disease Echocardiogram 12/26 revealed EF 55-6%. Grade 1 diastolic dysfunction. Trace AR. Holding Diovan 40 mg by mouth daily light of acute kidney injury/hypotension Holding home medications Lasix 10 mg daily/potassium chloride unknown dosage daily Troponin is peaked at 0.9 Follow-up EKG this a.m. Will start on aspirin 81 mg by mouth daily with low-dose beta griselda as tolerated Check lipid panel Cardiology consult -appreciated. No further workup at this time recommended by . Low-dose beta griselda if she tolerates. Resp: Acute hypoxemic hypercapnic respiratory failure History of COPD/asthma 9 mm pulmonary nodule - lingula - outpatient PET scan recommended ACV 15/550/5/40 Ventilator bundle Duo nebs every 6 hours with albuterol nebs every 2 hours when necessary breakthrough Spontaneous breathing trials daily CTA chest 12/26 revealed no pulmonary embolism. 9 mm pulmonary nodule at the lingula. Bilateral pleural effusions and infiltrates right greater than left Follow-up chest x-ray in a.m. GI: Gastroesophageal reflux disease Patient is currently on Jevity 1.5 at 60 cc an hour Protonix for GI prophylaxis. Patient is on Prilosec 20 mg by mouth daily at home Colace twice a day/Senokot daily for bowel regimen. 3 bowel movements on 12/25 documented : Perry will be maintained for accurate I's and O's in a critically ill patient Endo: History of Graves' disease status post radiation therapy Hypothyroidism Relative hypoglycemia Currently on Levoxyl since 125 mcg by mouth daily Check TSH Sliding scale insulin Accu-Cheks every 4 hours to maintain euglycemia/low regimen Check cortisol/TSH in light of hypotension Check C-peptide/proinsulin/bariatric CV rate and insulin levels. He should not on sulfonylurea drug Renal: Acute kidney injury Monitor urine output Accurate I's and O's Avoid nephrotoxic drugs Urine electrolytes/eosinophils ordered with renal ultrasound Heme: Normocytic anemia History of pulmonary embolism - negative CTA this admission Daily CBC. Monitor trends ID: History of MRSA right fibula 2014 History of C. difficile Documented allergy to penicillin however on Keflex multiple times in passing currently on Rocephin Day #2 Rocephin/Zithromax/vancomycin Aztreonam/Flagyl discontinued Pertinent cultures Sputum - / - pending Sputum - / - no growth Blood Cultures 2 - 12/25 - no growth Urine Legionella pneumococcal antigens - FEN: Hypophosphatemia Sodium phosphate 30 mmol IV 1 now Replace electrolytes as clinically indicated per protocol MSK/Rheum: History degenerative arthritis/documentation rheumatoid arthritis? PT evaluate and treat Access - Utilize peripheral IV. Central line as indicated Prophylaxis - GI - Protonix - DVT - SCD/Lovenox subcutaneous Critical Care: The total critical care time was 35 minutes. Time to perform other separately billable procedures was not included in the critical care time. Ricardo Perdomo MD December 28, 2016 09:38
[2016-12-28] MEDS: cefTRIAXone INJ 1,000 MG in SODIUM CHLORIDE 0.9% INJ 100 ML IV SCH (09:41)
[2016-12-28] MEDS ORDERED: VANCOMYCIN INJ 1,000 MG in SODIUM CHLOR 0.9% 250 ML INJ 250 ML IV ONE (11:00)
[2016-12-28] MEDS ORDERED: SODIUM PHOSPHATE INJ 30 MMOL in SODIUM CHLOR 0.9% 250 ML INJ 250 ML IV ONE (11:00)
[2016-12-28] MEDS ORDERED: MAGNESIUM SULFATE 1 GM PREMIX 100 ML IV ONE (18:00)
[2016-12-29] VITALS (16 sets, daily range): BP systolic 161–184; BP diastolic 67–87; PULSE 61–87; RESP 6–22; TEMP 97.5–98.6; O2SAT 88–100
[2016-12-29] MEDS: BACLOFEN 10 MG TAB PO PRN ×2 (02:28→20:58)
[2016-12-29] MEDS: METOPROLOL TARTRATE 5 MG/5 ML VIAL IV PUSH SCH ×2 (02:28→06:44)
[2016-12-29] MEDS: CHLORHEXIDINE GLUCONATE 2 % 1 PACK (2 CLOTHS)(taper/protocol) TOPICAL SCH (04:00)
[2016-12-29] MEDS: INSULIN NovoLIN REGULAR SUPPLEMENTAL SCALE SQ SCH ×7 (04:00→23:52)
[2016-12-29] MEDS: RESP: ALBUTEROL 2.5 MG/IPRATROPIUM 0.5 MG NEB (SCH) INH ×4 (04:04→21:50)
[2016-12-29] MEDS: LEVOTHYROXINE SODIUM 125 MCG TAB PO SCH (04:41)
[2016-12-29] MEDS: ARTIFICIAL TEARS OPTH SOLN 15 ML BTL EACH EYE SCH ×3 (04:42→21:07)
--- NOTE | 2016-12-29 04:44 | RADRPT ---
EXAM DATE/TIME: 12/29/2016 03:30 [facility] COMPARISON: CHEST SINGLE AP, December 28, 2016, 2:55. INDICATIONS : Shortness of breath. MEDICAL HISTORY : None. SURGICAL HISTORY : None. ENCOUNTER: Subsequent ACUITY: 4 - 6 days PAIN SCORE: Non-responsive. LOCATION: chest FINDINGS: A single view of the chest demonstrates cardiomegaly with bibasilar densities and slight improvement on current study. Endotracheal tube and nasogastric tube have been removed. Osseous structures are i ntact. CONCLUSION: Persistent bibasilar densities with slight improvement. Sanjay Barnes MD on December 29, 2016 at 4:41 Board Certified Radiologist. This report was verified electronically.
[2016-12-29] MEDS: DEXT 5%-NACL 0.9% 1000 ML INJ 1,000 ML IV SCH (05:59)
[2016-12-29] MEDS: PANTOPRAZOLE SODIUM 40 MG VIAL IV PUSH SCH (06:00)
[2016-12-29] MEDS: SODIUM CHLORIDE 0.9% FLUSH 10 ML FLUSH IV FLUSH PRN (06:44)
[2016-12-29] MEDS: CHLORHEXIDINE 0.12% (ORAL KIT) 15 ML CUP MT SCH ×3 (08:00→20:59)
[2016-12-29] MEDS: SENNOSIDES SYRUP 8.8 MG/5 ML CUP PO SCH (09:00)
[2016-12-29] MEDS: DOCUSATE SODIUM 100 MG/10 ML UDC PO SCH ×2 (09:00→20:58)
[2016-12-29] MEDS: ASPIRIN 81 MG CHEW TAB CHEW SCH (09:03)
[2016-12-29] MEDS: FUROSEMIDE 20 MG/2 ML VIAL IV PUSH SCH (09:03)
[2016-12-29] MEDS: SODIUM CHLORIDE 0.9% FLUSH 10 ML FLUSH IV FLUSH SCH ×2 (09:04→20:58)
[2016-12-29] MEDS: POTASSIUM CHLORIDE 25 MEQ EFFERVESCENT TAB NG SCH ×2 (09:04→20:58)
[2016-12-29] MEDS: ENOXAPARIN SODIUM 30 MG/0.3 ML SYRINGE SQ SCH (09:04)
[2016-12-29] MEDS: LORATADINE 10 MG TAB PO SCH (09:05)
[2016-12-29] MEDS: AZITHROMYCIN 250 MG TAB PO SCH (09:05)
[2016-12-29 09:50] LABS: AUTOMATED NEUTROPHIL # 5.2 TH/MM3 (1.8-7.7); BASOPHIL % 0.2 % (0.0-2.0); EOSINOPHIL # 0.1 TH/MM3 (0-0.4); EOSINOPHIL % 1.7 % (0.0-4.0); HEMATOCRIT 29.8 % (35.0-46.0); HEMO FLAGS DIFF FINAL; LYMPH % 21.4 % (9.0-44.0); LYMPHOCYTE # 1.6 TH/MM3 (1.0-4.8); MEAN CELL VOLUME 88.5 FL (80.0-100.0); MEAN CORPUSCULAR HEMOGLOBIN 27.5 PG (27.0-34.0); MEAN CORPUSCULAR HGB CONC 31.1 % (32.0-36.0); MONO % 7.4 % (0.0-8.0); NEUT % 69.3 % (16.0-70.0); PLATELET COUNT 187 TH/MM3 (150-450); RED BLOOD COUNT 3.37 MIL/MM3 (4.00-5.30); WHITE BLOOD COUNT 7.5 TH/MM3 (4.0-11.0)
[2016-12-29 10:22] LABS: ALKALINE PHOSPHATASE 80 U/L (45-117); ALT (GPT) 28 U/L (10-53); ANION GAP 9 MEQ/L (5-15); AST (GOT) 40 U/L (15-37); BICARBONATE 29.5 MEQ/L (21.0-32.0); BLOOD UREA NITROGEN 17 MG/DL (7-18); CHLORIDE 107 MEQ/L (98-107); GLOMERULAR FILTRATION RATE 59 ML/MIN (>89); MAGNESIUM 1.8 MG/DL (1.5-2.5); POTASSIUM 3.2 MEQ/L (3.5-5.1); SODIUM (NA) 145 MEQ/L (136-145); TOTAL BILIRUBIN ADULT 0.3 MG/DL (0.2-1.0)
--- NOTE | 2016-12-29 10:35 | HHI.CCPN ---
Subjective Remarks/Hospital Course This is an 86-year-old female who was initially admitted to the hospital 12/25 for community-acquired pneumonia. She was in the CIC unit when she had acute onset of severe respiratory distress and a rapid response was called. I was called to bedside by the rapid response nurse and came immediately to evaluate the patient. When I evaluated the patient, she was in severe respiratory distress, was obtunded, was cyanotic with agonal respirations. Emergently, we intubated the patient, please see separate procedure note for details. She was given 80 mg Lasix IV 1. Her blood pressure at that time was 200/100 and [id number] mg IV was also given. She was emergently transferred to the medical ICU for further management. Unfortunately, due to the emergent nature of my evaluation, additional information is not able to be provided by the patient. Of note, it does appear that her BNP has risen from normal on admission to over 300 today. Her white count appears to be downtrending on evaluation of the medical record on appropriate antibiotics for community- acquired pneumonia. 12/27: Currently afebrile Afebrile. MAXIMUM TEMPERATURE 102.1. Tolerating tube feeding. No bowel movement overnight. Noted intubated late last night due to hypoxia. Received 80 mg IV Lasix in route to ICU. Currently awake and alert and quite agitated. Subjective 12/28: Seen and examined. Remains intubated. Tmax 100.8. Afebrile currently. Tolerating tube feeding. One bowel movement 12/29 Patient s/p self extubation yesterday, Afebrile. Objective Vital Signs Date Time Temp Pulse Resp B/P Pulse Ox O2 Delivery O2 Flow Rate FiO2 12/29/16 06:00 75 12/29/16 05:59 20 12/29/16 04:00 98.4 172/87 98 12/28/16 21:11 Nasal Cannula 2.00 12/28/16 12:00 40 Intake and Output 12/28/16 12/28/16 12/29/16 08:00 16:00 00:00 Intake Total 1205 ml 1348 ml 711 ml Output Total 400 ml 1600 ml 2500 ml Balance 805 ml -252 ml -1789 ml Result Diagram: 12/29/16 0800 12/28/16 0413 Other Results Laboratory Tests Test 12/29/16 08:00 White Blood Count 7.5 TH/MM3 Red Blood Count 3.37 MIL/MM3 Hemoglobin 9.3 GM/DL Hematocrit 29.8 % Mean Corpuscular Volume 88.5 FL Mean Corpuscular Hemoglobin 27.5 PG Mean Corpuscular Hemoglobin 31.1 % Concent Red Cell Distribution Width 17.0 % Platelet Count 187 TH/MM3 Mean Platelet Volume 8.4 FL Neutrophils (%) (Auto) 69.3 % Lymphocytes (%) (Auto) 21.4 % Monocytes (%) (Auto) 7.4 % Eosinophils (%) (Auto) 1.7 % Basophils (%) (Auto) 0.2 % Neutrophils # (Auto) 5.2 TH/MM3 Lymphocytes # (Auto) 1.6 TH/MM3 Monocytes # (Auto) 0.6 TH/MM3 Eosinophils # (Auto) 0.1 TH/MM3 Basophils # (Auto) 0.0 TH/MM3 CBC Comment DIFF FINAL Differential Comment Imaging Last Impressions Chest X-Ray 12/29/16 0600 Signed Impressions: Service Date/Time: Thursday, December 29, 2016 03:30 - CONCLUSION: Persistent bibasilar densities with slight improvement. Sanjay Barnes MD Renal Ultrasound 12/27/16 0000 Signed Impressions: Service Date/Time: Tuesday, December 27, 2016 10:37 - CONCLUSION: 1. No obstruction. 2. 13 mm simple cyst involving the right upper pole. Bryan Jara Jr., MD CT Angiography 12/26/16 0000 Signed Impressions: Service Date/Time: Monday, December 26, 2016 23:03 - CONCLUSION: 1. No evidence of pulmonary embolism. 2. 9 mm nodule in the lingula. PET/CT scan is recommended to further evaluation if clinically indicated. 3. Bilateral effusions and bibasilar atelectasis right greater than left Abhilash Salamanca MD Head CT 12/25/16 0156 Signed Impressions: Service Date/Time: Sunday, December 25, 2016 02:27 - CONCLUSION: 1. No evidence of acute intracranial pathology. Chronic ischemic changes as above. Abhilash Salamanca MD Objective Remarks GENERAL: 86-year-old female, appears stated age currently in no acute distress SKIN: Warm and dry. No rash HEAD: Atraumatic. Normocephalic. EYES: Pupils equal and round about 3 mm bilaterally and reactive. No scleral icterus. No injection or drainage. ENT: No nasal bleeding or discharge. Mucous membranes pink and moist. NECK: Trachea midline. No JVD. CARDIOVASCULAR: Regular rate and rhythm. S1, S2. No S4. Without murmur RESPIRATORY: B/l equal air entry. No wheezing appreciated GASTROINTESTINAL: Abdomen soft, non-tender, nondistended. Hypoactive bowel sounds are appreciated MUSCULOSKELETAL: Extremities without noted in peripheral edema. No obvious deformities. NEUROLOGICAL: Awake A/P Assessment and Plan Neuro/Psych: History of right basal ganglia/cerebellar CVA History of TIA Chronic neuropathy Migraine headache Fibromyalgia Spinal stenosis Macular degeneration Cataract history of bilateral lens implantation History of insomnia Monitor neuro status and avoid sedatives CT head 12/25 revealed periventricular chronic ischemic changes CV: Diastolic heart failure, chronic Elevated troponin Hypertension Dyslipidemia Coronary artery disease Echocardiogram 12/26 revealed EF 55-6%. Grade 1 diastolic dysfunction. Trace AR. Troponin is peaked at 0.9 on aspirin 81 mg by mouth daily , change IV Lopressor to Lopressor 25mg Q12 Cardiology consult -appreciated. No further workup at this time recommended by . Resp: Acute hypoxemic hypercapnic respiratory failure History of COPD/asthma 9 mm pulmonary nodule - lingula - outpatient PET scan recommended Continue with oxygen keep sat >92% Duo nebs every 6 hours with albuterol nebs every 2 hours when necessary breakthrough, IS CTA chest 12/26 revealed no pulmonary embolism. 9 mm pulmonary nodule at the lingula. Bilateral pleural effusions and infiltrates right greater than left GI: Gastroesophageal reflux disease Speech eval, diet per speech Protonix for GI prophylaxis. Colace twice a day/Senokot daily for bowel regimen. : Monitor renal function, I/O's. electrolytes replacement per protocol. On Lasix 20mg BID, Klyte 25meq Q12 Urine electrolytes/eosinophils ordered with renal ultrasound Endo: History of Graves' disease status post radiation therapy Hypothyroidism Relative hypoglycemia Currently on Levoxyl since 125 mcg by mouth daily TSH: 1.85 Sliding scale insulin Accu-Cheks every 4 hours to maintain euglycemia/low regimen Heme: Normocytic anemia History of pulmonary embolism - negative CTA this admission Monitor CBC. Monitor trends ID: Sputum + Staph sensitive to Rocephin. History of MRSA right fibula 2014 History of C. difficile Documented allergy to penicillin however on Keflex multiple times in passing currently on Rocephin Continue abx Rocephin/Zithromax Pertinent cultures Sputum - 5/3 - pending Sputum - 5/2 - no growth Blood Cultures 2 - 12/25 - no growth Urine Legionella pneumococcal antigens - negative MSK/Rheum: History degenerative arthritis/documentation rheumatoid arthritis? PT evaluate and treat Access - Utilize peripheral IV. Central line as indicated Prophylaxis - GI - Protonix - DVT - SCD/Lovenox subcutaneous Level 3 Kathleen Sol MD December 29, 2016 10:35 Prophylaxis - GI - Protonix - DVT - SCD/Lovenox subcutaneous Critical Care: The total critical care time was 35 minutes. Time to perform other separately billable procedures was not included in the critical care time. Kathleen Sol MD December 29, 2016 10:35
[2016-12-29] MEDS: METOPROLOL TARTRATE 25 MG TAB PO SCH ×2 (11:00→20:58)
[2016-12-29] MEDS: cefTRIAXone INJ 1,000 MG in SODIUM CHLORIDE 0.9% INJ 100 ML IV SCH (11:40)
[2016-12-29] MEDS: hydrALAZINE HCL 20 MG/ML VIAL IV PUSH PRN ×2 (11:41→18:31)
[2016-12-29] MEDS: POTASSIUM CHLOR 20 MEQ PREMIX 100 ML IV PRN ×3 (11:42→16:18)
[2016-12-29] MEDS ORDERED: PHARMACY ORDERED LAB ONE (11:45)
--- NOTE | 2016-12-29 14:14 | HHI.PR ---
Subjective Subjective Remarks Patient self extubated doing well on NC sleepy, received pain medicine ate okay having BM has no complaints no fever reported BP up 170s Review of Systems Constitutional Constitutional Remarks 12 point ROS difficult to obtain Vitals/Results Intake & Output 12/28/16 12/28/16 12/29/16 15:00 23:00 07:00 Intake Total 1348 ml 711 ml 601 ml Output Total 1600 ml 2500 ml 850 ml Balance -252 ml -1789 ml -249 ml IV Total 959 ml 711 ml 601 ml Tube Feeding 389 ml Output Urine Total 1600 ml 2500 ml 850 ml # Bowel Movements 2 Vital Signs Vital Signs Date Time Temp Pulse Resp B/P Pulse Ox O2 Delivery O2 Flow Rate FiO2 12/29/16 12:00 75 12/29/16 12:00 97.7 61 22 176/79 98 12/29/16 10:00 75 12/29/16 10:00 70 22 164/81 97 12/29/16 08:00 75 12/29/16 08:00 69 12/29/16 08:00 98.2 75 20 180/81 88 12/29/16 06:00 75 12/29/16 05:59 20 12/29/16 04:00 87 20 12/29/16 04:00 98.4 66 6 172/87 98 12/29/16 04:00 66 12/29/16 02:00 82 12/29/16 00:00 87 12/29/16 00:00 98.6 87 20 184/75 12/28/16 22:00 92 12/28/16 21:11 Nasal Cannula 2.00 12/28/16 20:00 86 12/28/16 20:00 98.3 86 16 137/76 98 12/28/16 18:00 101 12/28/16 16:00 98.0 94 24 133/61 12/28/16 16:00 94 CBC/BMP: 12/29/16 0800 12/29/16 0800 Lab Results Laboratory Tests Test 12/29/16 08:00 White Blood Count 7.5 TH/MM3 Red Blood Count 3.37 MIL/MM3 Hemoglobin 9.3 GM/DL Hematocrit 29.8 % Mean Corpuscular Volume 88.5 FL Mean Corpuscular Hemoglobin 27.5 PG Mean Corpuscular Hemoglobin 31.1 % Concent Red Cell Distribution Width 17.0 % Platelet Count 187 TH/MM3 Mean Platelet Volume 8.4 FL Neutrophils (%) (Auto) 69.3 % Lymphocytes (%) (Auto) 21.4 % Monocytes (%) (Auto) 7.4 % Eosinophils (%) (Auto) 1.7 % Basophils (%) (Auto) 0.2 % Neutrophils # (Auto) 5.2 TH/MM3 Lymphocytes # (Auto) 1.6 TH/MM3 Monocytes # (Auto) 0.6 TH/MM3 Eosinophils # (Auto) 0.1 TH/MM3 Basophils # (Auto) 0.0 TH/MM3 CBC Comment DIFF FINAL Differential Comment Sodium Level 145 MEQ/L Potassium Level 3.2 MEQ/L Chloride Level 107 MEQ/L Carbon Dioxide Level 29.5 MEQ/L Anion Gap 9 MEQ/L Blood Urea Nitrogen 17 MG/DL Creatinine 0.91 MG/DL Estimat Glomerular Filtration 59 ML/MIN Rate Random Glucose 120 MG/DL Calcium Level 7.9 MG/DL Phosphorus Level 3.1 MG/DL Magnesium Level 1.8 MG/DL Total Bilirubin 0.3 MG/DL Aspartate Amino Transf 40 U/L (AST/SGOT) Alanine Aminotransferase 28 U/L (ALT/SGPT) Alkaline Phosphatase 80 U/L Total Protein 6.3 GM/DL Albumin 1.9 GM/DL Physical Exam General General Appearance: No Acute Distress, Comfortable Eyes Eye Exam: Pupils Equal, Pupils Reactive, Sclera White Ears & Nose Ears & Nose Exam: Nasal Mucosa [place] Throat Throat Exam: Oral Mucosa [place] & Moist Neck Neck Exam: Neck Supple, Trachea Midline Pulmonary Resp Exam: Breath Sounds Equal, No Distress, Rhonchi, Decreased Bases Cardiology CV Exam: Regular, Normal Sinus Rhythm Gastrointestinal/Abdomen GI Exam: Soft, Non-Tender, Bowel Sounds Present, Positive Bowel Movement, Non- Distended Genitourinary Exam: Clear Urine Remarks CUMMINS Musculoskeletal MS Exam: Joints Intact Integumentary Skin Exam: Warm, Dry Extremeties Extremities Exam: No Edema, Pedal Pulses Palpable Neurologic Neuro Exam: Awake, Moving All Extremities, No Focal Deficits VTE Prophylaxis VTE Prophylaxis Device: SCDs VTE Prophylaxis Meds: Lovenox PUD Prophylasis PUD Prophylaxis: Protonix Assessment/Plan Assessment/Plan ASSESSMENT AND PLAN 1. CAP Pneumonia./Early sepsis 2. s/p Altered mental status with probable metabolic encephalopathy. 3. History of hypertension. 4. Leukocytosis, probable secondary to #1. 5. Anemia, probable secondary to chronic disease. 6. Hyperkalemia. 7. Acute kidney injury with renal insufficiency. 8. Protein calorie malnutrition, moderate. 9. PCN allergy /per pt had a rash 10. Hx of Graves disease s/p I 131 ablation on synthroid 11. Status post non-ST elevation [place] 12, acute ventilator-dependent respiratory failure, suspect due to pulmonary edema 13. Pulmonary nodule 9 mm PLAN self extubated 12/28 doing well on NC Appreciate CCM input sputum c/s Staph aureus , sens noted. blood c/s neg so far had Vanco x 1 DC Rocephin, change to Levaquin continue Zithromax Aspirin daily Change to PO lasix Cardiology input appreciated 2-D echocardiogram very limited Nl LVF Possible diastolic dysfunction Check lipid profile Statin Control blood pressure, continue PRN meds, BP elevated CTA chest noted, 9 mm pulmonary nodules, no workup at this time Continue synthyroid Continue analgesic DNR PT eval and tx Replace electrolytes Lovenox for DVT Prophylaxis PPI for GI prophylaxis Labs in am DC planning 1-2 days, SNF placement D/W RN D/W Dr. Zaman D/W pt This patient was seen by myself and Dr. Zaman, this note is written on his behalf. Marnie Her December 29, 2016 14:14
[2016-12-29] MEDS: FUROSEMIDE 40 MG/5 ML UNIT DOSE CUP NG SCH (16:20)
[2016-12-29] MEDS ORDERED: LEVOFLOXACIN 500 MG PREMIX INJ 100 ML IV ONE (17:00)
[2016-12-30] VITALS (17 sets, daily range): BP systolic 156–189; BP diastolic 74–87; PULSE 62–89; RESP 18–21; TEMP 97.6–98.4; O2SAT 94–100
[2016-12-30] MEDS: BACLOFEN 10 MG TAB PO PRN (03:40)
[2016-12-30] MEDS: INSULIN NovoLIN REGULAR SUPPLEMENTAL SCALE SQ SCH ×5 (04:00→21:00)
[2016-12-30] MEDS: CHLORHEXIDINE GLUCONATE 2 % 1 PACK (2 CLOTHS)(taper/protocol) TOPICAL SCH (04:00)
[2016-12-30] MEDS: RESP: ALBUTEROL 2.5 MG/IPRATROPIUM 0.5 MG NEB (SCH) INH ×4 (04:15→20:48)
[2016-12-30] MEDS: ARTIFICIAL TEARS OPTH SOLN 15 ML BTL EACH EYE SCH ×3 (05:24→22:00)
[2016-12-30] MEDS: LEVOTHYROXINE SODIUM 125 MCG TAB PO SCH (05:24)
[2016-12-30] MEDS: hydrALAZINE HCL 20 MG/ML VIAL IV PUSH PRN ×2 (05:30→13:38)
[2016-12-30 05:58] LABS: MEAN CELL VOLUME 87.3 FL (80.0-100.0); MEAN CORPUSCULAR HEMOGLOBIN 28.3 PG (27.0-34.0); MEAN CORPUSCULAR HGB CONC 32.4 % (32.0-36.0); PLATELET COUNT 190 TH/MM3 (150-450); RED BLOOD COUNT 3.66 MIL/MM3 (4.00-5.30); RED CELL DISTRIBUTION WIDTH 16.7 % (11.6-17.2); REVIEW FLAG FINAL; WHITE BLOOD COUNT 7.3 TH/MM3 (4.0-11.0)
[2016-12-30] MEDS: PANTOPRAZOLE SODIUM 40 MG VIAL IV PUSH SCH (06:31)
[2016-12-30 07:05] LABS: BICARBONATE 29.7 MEQ/L (21.0-32.0); MAGNESIUM 1.7 MG/DL (1.5-2.5)
[2016-12-30] MEDS: CHLORHEXIDINE 0.12% (ORAL KIT) 15 ML CUP MT SCH ×2 (08:00→20:00)
[2016-12-30] MEDS: ENOXAPARIN SODIUM 30 MG/0.3 ML SYRINGE SQ SCH (08:33)
[2016-12-30] MEDS: ASPIRIN 81 MG CHEW TAB CHEW SCH (08:33)
[2016-12-30] MEDS: SODIUM CHLORIDE 0.9% FLUSH 10 ML FLUSH IV FLUSH SCH ×2 (08:33→22:10)
[2016-12-30] MEDS: METOPROLOL TARTRATE 25 MG TAB PO SCH (08:34)
[2016-12-30] MEDS: FUROSEMIDE 40 MG/5 ML UNIT DOSE CUP NG SCH ×2 (08:34→17:13)
[2016-12-30] MEDS: LORATADINE 10 MG TAB PO SCH (08:34)
[2016-12-30] MEDS: SENNOSIDES SYRUP 8.8 MG/5 ML CUP PO SCH (08:34)
[2016-12-30] MEDS: POTASSIUM CHLORIDE 25 MEQ EFFERVESCENT TAB NG SCH ×2 (08:34→22:10)
[2016-12-30] MEDS: MAGNESIUM OXIDE 400 MG TAB PO PRN (08:35)
[2016-12-30] MEDS: DOCUSATE SODIUM 100 MG/10 ML UDC PO SCH (08:35)
[2016-12-30] MEDS ORDERED: ONDANSETRON HCL 4 MG/2 ML VIAL IV PUSH ONE (10:45)
[2016-12-30] MEDS ORDERED: PROMETHAZINE HCL 12.5 MG SUPP RECTAL PRN (10:45)
--- NOTE | 2016-12-30 10:55 | HHI.CCPN ---
Subjective Remarks/Hospital Course This is an 86-year-old female who was initially admitted to the hospital 12/25 for community-acquired pneumonia. She was in the CIC unit when she had acute onset of severe respiratory distress and a rapid response was called. I was called to bedside by the rapid response nurse and came immediately to evaluate the patient. When I evaluated the patient, she was in severe respiratory distress, was obtunded, was cyanotic with agonal respirations. Emergently, we intubated the patient, please see separate procedure note for details. She was given 80 mg Lasix IV 1. Her blood pressure at that time was 200/100 and [id number] mg IV was also given. She was emergently transferred to the medical ICU for further management. Unfortunately, due to the emergent nature of my evaluation, additional information is not able to be provided by the patient. Of note, it does appear that her BNP has risen from normal on admission to over 300 today. Her white count appears to be downtrending on evaluation of the medical record on appropriate antibiotics for community- acquired pneumonia. 12/27: Currently afebrile Afebrile. MAXIMUM TEMPERATURE 102.1. Tolerating tube feeding. No bowel movement overnight. Noted intubated late last night due to hypoxia. Received 80 mg IV Lasix in route to ICU. Currently awake and alert and quite agitated. 12/28: Seen and examined. Remains intubated. Tmax 100.8. Afebrile currently. Tolerating tube feeding. One bowel movement 12/29 Patient s/p self extubation yesterday, Afebrile. Subjective 12/30: Afebrile. Nostril still requiring 2 doses of Zofran. Complaining of pain in her left hip. X-ray performed. Otherwise stable Objective Vital Signs Date Time Temp Pulse Resp B/P Pulse Ox O2 Delivery O2 Flow Rate FiO2 12/30/16 10:38 99 Nasal Cannula 2.00 12/30/16 06:00 89 12/30/16 06:00 20 157/74 12/30/16 04:00 97.6 12/28/16 12:00 40 Intake and Output 12/29/16 12/29/16 12/30/16 08:00 16:00 00:00 Intake Total 601 ml 1045 ml Output Total 850 ml 2000 ml Balance -249 ml -955 ml Result Diagram: 12/30/16 0431 12/30/16 0431 Other Results Microbiology Date/Time Procedure Status Source Growth 12/27/16 21:48 Influenza Types A,B Antigen (JAVIER) - Final Complete Nasal Washing NEGATIVE FOR FLU A AND B ANTIGEN.... 12/27/16 20:45 Influenza Types A,B Antigen (JAVIER) Received Nasal Washing Pending 12/27/16 00:50 Gram Stain - Final Complete Sputum Expectorated Sputum 12/27/16 00:50 Sputum Culture - Final Complete Sputum Expectorated Sputum LIGHT GROWTH NORMAL RESPIRATORY OSORIO 12/26/16 23:32 Legionella Antigen - Final Complete Urine Catheterized Urine PRESUMPTIVE NEGATIVE FOR LEGIONELLA P... 12/26/16 23:32 Streptococcus pneumoniae Antigen (M - Final Complete Urine Catheterized Urine PRESUMPTIVE NEGATIVE FOR STREPTOCOCCU... Imaging Last Impressions Chest X-Ray 12/29/16 0600 Signed Impressions: Service Date/Time: Thursday, December 29, 2016 03:30 - CONCLUSION: Persistent bibasilar densities with slight improvement. Sanjay Barnes MD Renal Ultrasound 12/27/16 0000 Signed Impressions: Service Date/Time: Tuesday, December 27, 2016 10:37 - CONCLUSION: 1. No obstruction. 2. 13 mm simple cyst involving the right upper pole. Bryan Jara Jr., MD CT Angiography 12/26/16 0000 Signed Impressions: Service Date/Time: Monday, December 26, 2016 23:03 - CONCLUSION: 1. No evidence of pulmonary embolism. 2. 9 mm nodule in the lingula. PET/CT scan is recommended to further evaluation if clinically indicated. 3. Bilateral effusions and bibasilar atelectasis right greater than left Abhilash Salamanca MD Head CT 12/25/16 0156 Signed Impressions: Service Date/Time: Sunday, December 25, 2016 02:27 - CONCLUSION: 1. No evidence of acute intracranial pathology. Chronic ischemic changes as above. Abhilash Salamanca MD Objective Remarks GENERAL: 86-year-old female, appears stated age currently in no acute distress SKIN: Warm and dry. No rash HEAD: Atraumatic. Normocephalic. EYES: Pupils equal and round about 3 mm bilaterally and reactive. No scleral icterus. No injection or drainage. ENT: No nasal bleeding or discharge. Mucous membranes pink and moist. NECK: Trachea midline. No JVD. CARDIOVASCULAR: Regular rate and rhythm. S1, S2. No S4. Without murmur RESPIRATORY: B/l equal air entry. No wheezing appreciated GASTROINTESTINAL: Abdomen soft, non-tender, nondistended. Hypoactive bowel sounds are appreciated MUSCULOSKELETAL: Extremities without noted in peripheral edema. No obvious deformities. NEUROLOGICAL: Awake and alert and following commands A/P Assessment and Plan Neuro/Psych: History of right basal ganglia/cerebellar CVA History of TIA Chronic neuropathy Migraine headache Fibromyalgia Spinal stenosis Macular degeneration Cataract history of bilateral lens implantation History of insomnia Monitor neuro status and avoid sedatives CT head 12/25 revealed periventricular chronic ischemic changes Acetaminophen for fever Oxycodone for pain management CV: Diastolic heart failure, chronic Elevated troponin Hypertension Dyslipidemia Coronary artery disease Echocardiogram 12/26 revealed EF 55-6%. Grade 1 diastolic dysfunction. Trace AR. Troponin is peaked at 0.9 on aspirin 81 mg by mouth daily Lopressor 25mg Q12 On gentle diuresis with Lasix 20 mg twice a day Cardiology consult -appreciated. No further workup at this time recommended by . Resp: Acute hypoxemic hypercapnic respiratory failure History of COPD/asthma 9 mm pulmonary nodule - lingula - outpatient PET scan recommended Continue with oxygen keep sat >92% Duo nebs every 6 hours with albuterol nebs every 2 hours when necessary breakthrough, IS CTA chest 12/26 revealed no pulmonary embolism. 9 mm pulmonary nodule at the lingula. Bilateral pleural effusions and infiltrates right greater than left GI: Gastroesophageal reflux disease On dysphagia diet. Protonix for GI prophylaxis. Colace twice a day/Senokot daily for bowel regimen. : Monitor renal function, I/O's. electrolytes replacement per protocol. On Lasix 20mg BID, Klyte 25meq Q12 Endo: History of Graves' disease status post radiation therapy Hypothyroidism Relative hypoglycemia Currently on Levoxyl since 125 mcg by mouth daily TSH: 1.85 Sliding scale insulin Accu-Cheks every before meals/at bedtime to maintain euglycemia/low regimen Heme: Normocytic anemia History of pulmonary embolism - negative CTA this admission Monitor CBC. Monitor trends ID: Sputum + Staph sensitive to Rocephin. History of MRSA right fibula 2014 History of C. difficile Documented allergy to penicillin however on Keflex multiple times in past currently on Rocephin Continue abx Ancef day #2 Pertinent cultures Sputum - 5/3 -MSSA Sputum - 5/2 - no growth Blood Cultures 2 - 12/25 - no growth Urine Legionella pneumococcal antigens - negative MSK/Rheum: History degenerative arthritis/documentation rheumatoid arthritis? Left hip pain PT evaluate and treat Checks x-ray left hip Access - Utilize peripheral IV. Central line as indicated Prophylaxis - GI - Protonix - DVT - SCD/Lovenox subcutaneous Level 2 Patient is stable from a critical care medicine standpoint. We will sign off. Call if questions arise. Ricardo Perdomo MD December 30, 2016 10:55
--- NOTE | 2016-12-30 11:19 | HHI.PR ---
Subjective History of Present Illness BP stable afebrile no new problems Vitals/Results Intake & Output 12/29/16 12/29/16 12/30/16 15:00 23:00 07:00 Intake Total 1045 ml 1120 ml Output Total 2000 ml 2100 ml Balance -955 ml -980 ml Intake Oral 120 ml 600 ml IV Total 925 ml 520 ml Output Urine Total 2000 ml 2100 ml Emesis 0 ml # Bowel Movements 1 3 Vital Signs Vital Signs Date Time Temp Pulse Resp B/P Pulse Ox O2 Delivery O2 Flow Rate FiO2 12/30/16 10:38 99 Nasal Cannula 2.00 12/30/16 06:00 89 12/30/16 06:00 89 20 157/74 94 12/30/16 05:00 80 20 189/86 100 12/30/16 05:00 80 12/30/16 04:40 20 12/30/16 04:00 97.6 78 20 169/87 95 12/30/16 04:00 78 12/30/16 03:00 66 20 171/79 99 12/30/16 03:00 66 12/30/16 02:00 80 12/30/16 02:00 80 20 157/76 99 12/30/16 01:00 63 12/30/16 01:00 63 20 156/75 100 12/30/16 00:00 62 12/30/16 00:00 97.9 62 20 180/84 98 12/29/16 23:00 83 12/29/16 23:00 83 20 161/76 95 12/29/16 22:00 73 20 172/77 100 12/29/16 22:00 73 12/29/16 21:00 76 20 169/72 96 12/29/16 21:00 76 12/29/16 20:08 94 Nasal Cannula 2.00 12/29/16 20:00 75 12/29/16 20:00 75 20 162/68 95 12/29/16 19:00 97.8 80 20 165/72 93 12/29/16 19:00 79 12/29/16 16:11 96 Nasal Cannula 3.00 12/29/16 16:00 75 12/29/16 16:00 97.5 71 18 161/67 100 12/29/16 14:00 75 12/29/16 12:00 75 12/29/16 12:00 97.7 61 22 176/79 98 CBC/BMP: 12/30/16 0431 12/30/16 0431 Lab Results Laboratory Tests Test 12/29/16 12/30/16 22:15 04:31 Potassium Level 4.0 MEQ/L 4.0 MEQ/L White Blood Count 7.3 TH/MM3 Red Blood Count 3.66 MIL/MM3 Hemoglobin 10.4 GM/DL Hematocrit 32.0 % Mean Corpuscular Volume 87.3 FL Mean Corpuscular Hemoglobin 28.3 PG Mean Corpuscular Hemoglobin 32.4 % Concent Red Cell Distribution Width 16.7 % Platelet Count 190 TH/MM3 Mean Platelet Volume 8.4 FL Sodium Level 140 MEQ/L Chloride Level 101 MEQ/L Carbon Dioxide Level 29.7 MEQ/L Anion Gap 9 MEQ/L Blood Urea Nitrogen 13 MG/DL Creatinine 0.85 MG/DL Estimat Glomerular Filtration 64 ML/MIN Rate Random Glucose 106 MG/DL Calcium Level 9.0 MG/DL Magnesium Level 1.7 MG/DL Physical Exam General General Appearance: No Acute Distress, Comfortable Eyes Eye Exam: Pupils Equal, Pupils Reactive, Sclera White Ears & Nose Ears & Nose Exam: Nasal Mucosa [place] Throat Throat Exam: Oral Mucosa [place] & Moist Throat Remarks +ve ET tube in place. +ve OGT Neck Neck Exam: Neck Supple, Trachea Midline Pulmonary Resp Exam: Breath Sounds Equal, No Distress, Rhonchi, Decreased Bases Cardiology CV Exam: Regular, Normal Sinus Rhythm Gastrointestinal/Abdomen GI Exam: Soft, Non-Tender, Bowel Sounds Present, Positive Bowel Movement, Non- Distended Genitourinary Exam: Clear Urine Remarks +ve Perry catheter in place Musculoskeletal MS Exam: Joints Intact Integumentary Skin Exam: Warm, Dry Extremeties Extremities Exam: No Edema, Pedal Pulses Palpable Neurologic Neuro Exam: Awake, Moving All Extremities, No Focal Deficits Neuro Remarks Withdraws to painful stimuli VTE Prophylaxis VTE Prophylaxis Device: SCDs VTE Prophylaxis Meds: Lovenox PUD Prophylasis PUD Prophylaxis: Protonix Assessment/Plan Assessment/Plan ASSESSMENT AND PLAN 1. CAP Pneumonia./Early sepsis 2. s/p Altered mental status with probable metabolic encephalopathy. 3. History of hypertension. 4. Leukocytosis, probable secondary to #1. 5. Anemia, probable secondary to chronic disease. 6. Hyperkalemia. 7. Acute kidney injury with renal insufficiency. 8. Protein calorie malnutrition, moderate. 9. PCN allergy /per pt had a rash 10. Hx of Graves disease s/p I 131 ablation on synthroid 11. Status post non-ST elevation [place] 12, acute ventilator-dependent respiratory failure, suspect due to pulmonary edema 13. Pulmonary nodule 9 mm PLAN self extubated / doing well on NC Appreciate CCM input sputum c/s Staph aureus , sens noted. blood c/s neg so far had Vanco x 1 DC Rocephin, change to Levaquin continue Zithromax Aspirin daily Change to PO lasix Cardiology input appreciated 2-D echocardiogram very limited Nl LVF Possible diastolic dysfunction Check lipid profile Statin Control blood pressure, continue PRN meds, BP elevated CTA chest noted, 9 mm pulmonary nodules, no workup at this time Continue synthyroid Continue analgesic DNR PT eval and tx Replace electrolytes Lovenox for DVT Prophylaxis PPI for GI prophylaxis Labs in am DC planning 1-2 days, SNF placement D/W RN D/W Dr. Zaman D/W pt This patient was seen by myself and Dr. Zaman, this note is written on his behalf. Chikis Zaman MD December 30, 2016 11:19 Chikis Zaman MD December 30, 2016 11:19
[2016-12-30] MEDS: MAGNESIUM SULFATE 1 GM PREMIX 100 ML IV SCH ×2 (11:30→13:26)
--- NOTE | 2016-12-30 12:08 | RADRPT ---
EXAM DATE/TIME: 12/30/2016 10:56 [facility] COMPARISON: No previous studies available for comparison. INDICATIONS : Left hip pain. MEDICAL HISTORY : None. SURGICAL HISTORY : Total hip replacement, right. Total hip replacement, left. ENCOUNTER: Subsequent ACUITY: 1 day PAIN SCORE: 3/10 LOCATION: Left hip. FINDINGS: AP and frog-leg lateral views left hip were obtained and demonstrate the patient status post left hip arthroplasty. The femoral and acetabular components are intact and in normal alignment. There is adj acent apparent surgical drain. There is diffuse osteopenia. CONCLUSION: Stable appearance status post arthroplasty. Denys Gilmore MD on December 30, 2016 at 12:06 Board Certified Radiologist. This report was verified electronically.
--- NOTE | 2016-12-30 14:56 | HHI.PR ---
Subjective Subjective Remarks Resting in the bed, Attempting to eat, but very slowly and minimal amount, 10% Liquids are thickened Patient tires easily Minimal amount of verbal contact Afebrile Diarrhea 2 this a.m. (Bhumika Rain) Review of Systems Constitutional Constitutional: Fatigue, Weakness Constitutional Remarks Minimal ROS obtained secondary to patient's decreased communication (Bhumika Rain) Pulmonary Respiratory: Shortness of Breath (low air volumes) (Bhumika Rain) GI/Abdomen GI/Abdomen Remarks Diarrhea 2 ,Anorexia, liquids are thickened (Bhumika Rain) Musculoskeletal MS: Weakness, Stiffness (Bhumika Rain) Neurologic Neurologic: Lethargic (mild, but awake for now) (Bhumika Rain) Psychiatric Psychiatric Remarks Decreased affect (Bhumika Rain) Vitals/Results Intake & Output 12/29/16 12/29/16 12/30/16 15:00 23:00 07:00 Intake Total 1045 ml 1120 ml Output Total 2000 ml 2100 ml Balance -955 ml -980 ml Intake Oral 120 ml 600 ml IV Total 925 ml 520 ml Output Urine Total 2000 ml 2100 ml Emesis 0 ml # Bowel Movements 1 3 Vital Signs Vital Signs Date Time Temp Pulse Resp B/P Pulse Ox O2 Delivery O2 Flow Rate FiO2 12/30/16 10:38 99 Nasal Cannula 2.00 12/30/16 06:00 89 12/30/16 06:00 89 20 157/74 94 12/30/16 05:00 80 20 189/86 100 12/30/16 05:00 80 12/30/16 04:40 20 12/30/16 04:00 97.6 78 20 169/87 95 12/30/16 04:00 78 12/30/16 03:00 66 20 171/79 99 12/30/16 03:00 66 12/30/16 02:00 80 12/30/16 02:00 80 20 157/76 99 12/30/16 01:00 63 12/30/16 01:00 63 20 156/75 100 12/30/16 00:00 62 12/30/16 00:00 97.9 62 20 180/84 98 12/29/16 23:00 83 12/29/16 23:00 83 20 161/76 95 12/29/16 22:00 73 20 172/77 100 12/29/16 22:00 73 12/29/16 21:00 76 20 169/72 96 12/29/16 21:00 76 12/29/16 20:08 94 Nasal Cannula 2.00 12/29/16 20:00 75 12/29/16 20:00 75 20 162/68 95 12/29/16 19:00 97.8 80 20 165/72 93 12/29/16 19:00 79 12/29/16 16:11 96 Nasal Cannula 3.00 12/29/16 16:00 75 12/29/16 16:00 97.5 71 18 161/67 100 (Bhumika Rain) CBC/BMP: 12/30/16 0431 12/30/16 0431 Lab Results Laboratory Tests Test 12/29/16 12/30/16 22:15 04:31 Potassium Level 4.0 MEQ/L 4.0 MEQ/L White Blood Count 7.3 TH/MM3 Red Blood Count 3.66 MIL/MM3 Hemoglobin 10.4 GM/DL Hematocrit 32.0 % Mean Corpuscular Volume 87.3 FL Mean Corpuscular Hemoglobin 28.3 PG Mean Corpuscular Hemoglobin 32.4 % Concent Red Cell Distribution Width 16.7 % Platelet Count 190 TH/MM3 Mean Platelet Volume 8.4 FL Sodium Level 140 MEQ/L Chloride Level 101 MEQ/L Carbon Dioxide Level 29.7 MEQ/L Anion Gap 9 MEQ/L Blood Urea Nitrogen 13 MG/DL Creatinine 0.85 MG/DL Estimat Glomerular Filtration 64 ML/MIN Rate Random Glucose 106 MG/DL Calcium Level 9.0 MG/DL Magnesium Level 1.7 MG/DL Current Medications Administered Medications Medications (Trade) Dose Ordered Sig/Poly Route PRN Reason Start Time Stop Time Status Last Admin Dose Admin Sodium Chloride (NS Flush) 2 ml UNSCH PRN IV FLUSH FLUSH AFTER USING IV ACCESS 12/25/16 04:45 12/29/16 06:44 Sodium Chloride (NS Flush) 2 ml BID IV FLUSH 12/25/16 09:00 12/30/16 08:33 Acetaminophen (Tylenol) 650 mg Q4H PRN PO TEMPERATURE > 101 F 12/25/16 04:45 12/27/16 16:35 Ondansetron HCl (Zofran Inj) 4 mg Q6H PRN IV NAUSEA 12/25/16 04:45 12/30/16 09:07 Baclofen (Lioresal) 10 mg QID PRN PO MUSCLE SPASM 12/26/16 10:00 12/30/16 03:40 Gabapentin (Neurontin) 300 mg QID PO 12/26/16 13:00 Hold 12/26/16 20:03 Loratadine (Claritin) 10 mg DAILY PO 12/27/16 09:00 12/30/16 08:34 Oxycodone HCl (Roxicodone) 5 mg Q6H PRN PO PAIN 1-10 12/26/16 10:00 12/30/16 03:41 Levothyroxine Sodium (Synthroid) 125 mcg DAILY@06 PO 12/26/16 11:00 12/30/16 05:24 Magnesium Oxide 800 mg 800 mg UNSCH PRN PO For Magnesium 1.2 - 1.6 mg/dL 12/26/16 14:15 12/30/16 08:35 Potassium Chloride (KCl 20 Meq Premix Inj) 100 ml @ 50 mls/hr Q2H PRN IV For Potassium 2.8 - 3.2 mEq/L 12/26/16 14:15 12/29/16 16:18 Potassium Phosphate (K-Phos) 2,000 mg Q4H PRN PO For Phosphorus < 2.5 mg/dL 12/26/16 14:15 12/28/16 00:05 Chlorhexidine Gluconate (Chlorhexidine 2% Cloth) 3 pack DAILY@04 TOPICAL 12/27/16 04:00 12/31/16 04:01 12/30/16 04:00 Chlorhexidine Gluconate (Peridex 0.12% Liq) 15 ml BID@08,20 MT 12/27/16 08:00 12/29/16 20:59 Pantoprazole Sodium (Protonix Inj) 40 mg Q24H IV PUSH 12/27/16 07:15 12/30/16 06:31 Enoxaparin Sodium (Lovenox Inj) 30 mg Q24H SQ 12/27/16 08:00 12/30/16 08:33 Docusate Sodium (Colace Liq) 100 mg Q12HR PO 12/27/16 09:00 12/29/16 20:58 Sennosides (Senna Liq) 8.8 mg DAILY PO 12/27/16 09:00 12/28/16 08:14 Aspirin (Aspirin Chew) 81 mg DAILY CHEW 12/27/16 09:00 12/30/16 08:33 Artificial Tears (Tears Naturale Opth Soln) 1 drop Q8HR EACH EYE 12/27/16 14:00 12/29/16 21:07 Potassium Bicarb/ Potassium Chloride (K-Lyte Cl Eff) 25 meq Q12HR NG 12/27/16 21:00 12/30/16 08:34 Metoprolol Tartrate (Lopressor) 25 mg Q12HR PO 12/29/16 11:00 12/30/16 08:34 Hydralazine HCl (Apresoline Inj) 10 mg Q6H PRN IV PUSH SYS BP GREATER THAN 160 MMHG 12/29/16 10:45 12/30/16 13:38 Furosemide 20 mg 20 mg BID@09,18 NG 12/29/16 18:00 12/30/16 08:34 Cefazolin Sodium/ Sodium Chloride (Ancef Inj/NS Inj) 100 ml @ 200 mls/hr Q8H IV 12/29/16 21:00 12/30/16 13:27 (Bhumika Rain) Physical Exam General General Appearance: No Acute Distress, Comfortable (Bhumika Rain) Eyes Eye Exam: Pupils Equal, Pupils Reactive, Sclera White (Bhumika Rain) Ears & Nose Ears & Nose Exam: Nasal Mucosa [place] (Bhumika RainP) Throat Throat Exam: Oral Mucosa [place] & Moist (Bhumika Rain) Neck Neck Exam: Neck Supple, Trachea Midline (Bhumika Rain) Pulmonary Resp Exam: Breath Sounds Equal, No Distress, Rhonchi, Decreased Bases (Bhumika RainP) Cardiology CV Exam: Regular, Normal Sinus Rhythm (Bhumika RainP) Gastrointestinal/Abdomen GI Exam: Soft, Non-Tender, Bowel Sounds Present, Positive Bowel Movement, Non- Distended (Briseyda,Bhumika M. MACHINE STONE POLISHER APPRENTICE) Genitourinary Exam: Clear Urine (Bhumika Rain. MACHINE STONE POLISHER APPRENTICE) Musculoskeletal MS Exam: Joints Intact (Bhumika Rain. MACHINE STONE POLISHER APPRENTICE) Integumentary Skin Exam: Warm, Dry (Bhumika Rain M. MACHINE STONE POLISHER APPRENTICE) Extremeties Extremities Exam: No Edema, Pedal Pulses Palpable (Bhumika Rain M. MACHINE STONE POLISHER APPRENTICE) Neurologic Neuro Exam: Awake, Moving All Extremities, No Focal Deficits Neuro Remarks Very weakened (Bhumika Rain. MACHINE STONE POLISHER APPRENTICE) VTE Prophylaxis VTE Prophylaxis Device: SCDs VTE Prophylaxis Meds: Lovenox (BriseydaBhumika hercules. MACHINE STONE POLISHER APPRENTICE) PUD Prophylasis PUD Prophylaxis: Protonix ([place] M. MACHINE STONE POLISHER APPRENTICE) Assessment/Plan Assessment/Plan ASSESSMENT AND PLAN 1. CAP Pneumonia./Early sepsis 2. s/p Altered mental status with probable metabolic encephalopathy. 3. History of hypertension. 4. Leukocytosis, probable secondary to #1. 5. Anemia, probable secondary to chronic disease. 6. Hyperkalemia. 7. Acute kidney injury with renal insufficiency. 8. Protein calorie malnutrition, moderate. 9. PCN allergy /per pt had a rash 10. Hx of Graves disease s/p I 131 ablation on synthroid 11. Status post non-ST elevation [place] 12, acute ventilator-dependent respiratory failure, suspect due to pulmonary edema 13. Pulmonary nodule 9 mm PLAN Vital signs reviewed Labs reviewed Pain management Pneumonia , early sepsis Tolerating O2 per nasal cannula , maintaining sats 90 to a greater Continues with bilateral pleural effusions Duo nebs Appears to tire very easily Continues IV antibiotic therapy for pneumonia monia early sepsis Monitor swallow, thickened liquids, mild nausea and vomiting noted this morning 1, responded to meds Anorexia minimal appetite Cardiology input appreciated and consultation 2-D echocardiogram very limited Medical management, recommends no further workups for now Hypertension continue PRN meds, more controlled today CTA chest noted, 9 mm pulmonary nodules, no workup at this time Diarrhea 2 today, and had loose stools yesterday DC stool softeners and use bowel regimen as needed based on her daily assessment DNR PT eval and tx Lovenox for DVT Prophylaxis PPI for GI prophylaxis DC planning when medically stable currently still requiring ICU setting, SNF placement D/W RN D/W Dr. Zaman, seen on his behalf D/W pt (Bhumika Rain) Assessment/Plan pt is seen & examined d/w PT d/w Bhumika smyth w above cont current tx PT eval am labs will f/u (Chikis Zaman MD) Bhumika Rain December 30, 2016 14:56 Chikis Zaman MD December 30, 2016 15:41
[2016-12-30] MEDS ORDERED: MAGNESIUM HYDROXIDE SUSP 30 ML CUP PO PRN (15:15)
[2016-12-30] MEDS ORDERED: LEVOFLOXACIN/DEXTROSE 250 MG/50 ML IV SCH (17:00)
[2016-12-30] MEDS: METOPROLOL TARTRATE 50 MG TAB PO SCH (21:00)
[2016-12-31] VITALS (11 sets, daily range): BP systolic 126–188; BP diastolic 68–85; PULSE 61–92; RESP 18–25; TEMP 97.5–98.9; O2SAT 93–100
[2016-12-31] MEDS: hydrALAZINE HCL 20 MG/ML VIAL IV PUSH PRN ×2 (01:15→12:07)
[2016-12-31] MEDS: CHLORHEXIDINE GLUCONATE 2 % 1 PACK (2 CLOTHS)(taper/protocol) TOPICAL SCH (04:00)
[2016-12-31] MEDS: RESP: ALBUTEROL 2.5 MG/IPRATROPIUM 0.5 MG NEB (SCH) INH ×3 (04:19→16:31)
[2016-12-31 05:24] LABS: BICARBONATE 28.2 MEQ/L (21.0-32.0); MEAN CORPUSCULAR HEMOGLOBIN 28.7 PG (27.0-34.0); MEAN CORPUSCULAR HGB CONC 33.4 % (32.0-36.0); PLATELET COUNT 264 TH/MM3 (150-450); RED BLOOD COUNT 3.95 MIL/MM3 (4.00-5.30); RED CELL DISTRIBUTION WIDTH 16.5 % (11.6-17.2); REVIEW FLAG FINAL; WHITE BLOOD COUNT 7.7 TH/MM3 (4.0-11.0)
[2016-12-31] MEDS: ARTIFICIAL TEARS OPTH SOLN 15 ML BTL EACH EYE SCH ×3 (06:00→20:21)
[2016-12-31] MEDS: INSULIN NovoLIN REGULAR SUPPLEMENTAL SCALE SQ SCH ×4 (06:39→20:17)
[2016-12-31] MEDS: PANTOPRAZOLE SODIUM 40 MG VIAL IV PUSH SCH (06:44)
[2016-12-31] MEDS: LEVOTHYROXINE SODIUM 125 MCG TAB PO SCH (06:48)
[2016-12-31] MEDS: CHLORHEXIDINE 0.12% (ORAL KIT) 15 ML CUP MT SCH ×2 (08:00→20:00)
[2016-12-31] MEDS: FUROSEMIDE 40 MG/5 ML UNIT DOSE CUP NG SCH ×2 (08:22→17:19)
[2016-12-31] MEDS: METOPROLOL TARTRATE 50 MG TAB PO SCH ×2 (08:23→20:19)
[2016-12-31] MEDS: SODIUM CHLORIDE 0.9% FLUSH 10 ML FLUSH IV FLUSH SCH ×2 (08:23→20:20)
[2016-12-31] MEDS: LORATADINE 10 MG TAB PO SCH (08:23)
[2016-12-31] MEDS: ENOXAPARIN SODIUM 30 MG/0.3 ML SYRINGE SQ SCH (08:23)
[2016-12-31] MEDS: POTASSIUM CHLORIDE 25 MEQ EFFERVESCENT TAB NG SCH ×2 (08:23→20:19)
[2016-12-31] MEDS: ASPIRIN 81 MG CHEW TAB CHEW SCH (08:23)
[2016-12-31] MEDS ORDERED: DIMETHICONE/OXYBENZONE/PADMIATE LIP BALM 4.25 GM TOPICAL PRN (13:45)
--- NOTE | 2016-12-31 13:53 | HHI.PR ---
Subjective Subjective Remarks Resting in the bed, lips dry, cracked and small amt of bleeding Patient more alert today more conversational today bowel regimen (Bhumika Rain) Review of Systems Constitutional Constitutional: Fatigue, Weakness Constitutional Remarks Minimal ROS obtained secondary to patient's decreased communication (Bhumika Rain) Eyes Eyes Remarks appears tired (Bhumika Rain) Throat Throat Remarks lips sore ,cracked (Bhumika Rain) GI/Abdomen GI/Abdomen Remarks Diarrhea 2 ,Anorexia, liquids are thickened (Bhumika Rain) Musculoskeletal MS: Weakness, Stiffness (Bhumika Rain) Neurologic Neurologic: Lethargic (mild, but awake for now) (Bhumika Rain) Psychiatric Psychiatric: Normal Mood (flat affect) (Bhumika Rain) Vitals/Results Intake & Output 12/30/16 12/30/16 12/31/16 15:00 23:00 07:00 Intake Total 1108 ml 490 ml 384 ml Output Total 900 ml 825 ml 450 ml Balance 208 ml -335 ml -66 ml Intake Oral 240 ml 240 ml 112 ml IV Total 868 ml 250 ml 272 ml Output Urine Total 900 ml 825 ml 450 ml # Bowel Movements 2 0 1 Vital Signs Vital Signs Date Time Temp Pulse Resp B/P Pulse Ox O2 Delivery O2 Flow Rate FiO2 12/31/16 12:03 100 Nasal Cannula 2.00 12/31/16 10:00 61 12/31/16 08:00 87 12/31/16 08:00 97.5 87 22 156/78 99 12/31/16 06:00 80 12/31/16 04:00 72 12/31/16 04:00 97.8 72 23 163/73 94 12/31/16 02:00 87 12/31/16 00:00 97.6 66 25 188/81 98 12/31/16 00:00 66 12/30/16 22:00 79 12/30/16 20:48 94 Nasal Cannula 2.00 12/30/16 20:00 97.9 77 21 174/79 94 12/30/16 20:00 77 12/30/16 18:00 86 12/30/16 16:00 97.6 76 18 157/74 94 12/30/16 16:00 76 12/30/16 14:00 82 (Bhumika Rain) CBC/BMP: 12/31/16 0332 12/31/16 0332 Lab Results Laboratory Tests Test 12/31/16 03:32 White Blood Count 7.7 TH/MM3 Red Blood Count 3.95 MIL/MM3 Hemoglobin 11.4 GM/DL Hematocrit 34.0 % Mean Corpuscular Volume 86.0 FL Mean Corpuscular Hemoglobin 28.7 PG Mean Corpuscular Hemoglobin 33.4 % Concent Red Cell Distribution Width 16.5 % Platelet Count 264 TH/MM3 Mean Platelet Volume 8.5 FL Sodium Level 137 MEQ/L Potassium Level 4.0 MEQ/L Chloride Level 100 MEQ/L Carbon Dioxide Level 28.2 MEQ/L Anion Gap 9 MEQ/L Blood Urea Nitrogen 14 MG/DL Creatinine 0.86 MG/DL Estimat Glomerular Filtration 63 ML/MIN Rate Random Glucose 100 MG/DL Calcium Level 9.1 MG/DL Current Medications Administered Medications Medications (Trade) Dose Ordered Sig/Poly Route PRN Reason Start Time Stop Time Status Last Admin Dose Admin Sodium Chloride (NS Flush) 2 ml UNSCH PRN IV FLUSH FLUSH AFTER USING IV ACCESS 12/25/16 04:45 12/29/16 06:44 Sodium Chloride (NS Flush) 2 ml BID IV FLUSH 12/25/16 09:00 12/31/16 08:23 Acetaminophen (Tylenol) 650 mg Q4H PRN PO TEMPERATURE > 101 F 12/25/16 04:45 12/27/16 16:35 Ondansetron HCl (Zofran Inj) 4 mg Q6H PRN IV NAUSEA 12/25/16 04:45 12/30/16 09:07 Baclofen (Lioresal) 10 mg QID PRN PO MUSCLE SPASM 12/26/16 10:00 12/30/16 03:40 Gabapentin (Neurontin) 300 mg QID PO 12/26/16 13:00 Hold 12/26/16 20:03 Loratadine (Claritin) 10 mg DAILY PO 12/27/16 09:00 12/31/16 08:23 Oxycodone HCl (Roxicodone) 5 mg Q6H PRN PO PAIN 1-10 12/26/16 10:00 12/31/16 02:00 Levothyroxine Sodium (Synthroid) 125 mcg DAILY@06 PO 12/26/16 11:00 12/31/16 06:48 Magnesium Oxide 800 mg 800 mg UNSCH PRN PO For Magnesium 1.2 - 1.6 mg/dL 12/26/16 14:15 12/30/16 08:35 Potassium Chloride (KCl 20 Meq Premix Inj) 100 ml @ 50 mls/hr Q2H PRN IV For Potassium 2.8 - 3.2 mEq/L 12/26/16 14:15 12/29/16 16:18 Potassium Phosphate (K-Phos) 2,000 mg Q4H PRN PO For Phosphorus < 2.5 mg/dL 12/26/16 14:15 12/28/16 00:05 Chlorhexidine Gluconate (Peridex 0.12% Liq) 15 ml BID@08,20 MT 12/27/16 08:00 12/29/16 20:59 Pantoprazole Sodium (Protonix Inj) 40 mg Q24H IV PUSH 12/27/16 07:15 12/31/16 06:44 Aspirin (Aspirin Chew) 81 mg DAILY CHEW 12/27/16 09:00 12/31/16 08:23 Artificial Tears (Tears Naturale Opth Soln) 1 drop Q8HR EACH EYE 12/27/16 14:00 12/29/16 21:07 Potassium Bicarb/ Potassium Chloride (K-Lyte Cl Eff) 25 meq Q12HR NG 12/27/16 21:00 12/31/16 08:23 Hydralazine HCl (Apresoline Inj) 10 mg Q6H PRN IV PUSH SYS BP GREATER THAN 160 MMHG 12/29/16 10:45 12/31/16 12:07 Furosemide 20 mg 20 mg BID@09,18 NG 12/29/16 18:00 12/31/16 08:22 Cefazolin Sodium/ Sodium Chloride (Ancef Inj/NS Inj) 100 ml @ 200 mls/hr Q8H IV 12/29/16 21:00 12/31/16 12:07 Metoprolol Tartrate (Lopressor) 50 mg Q12HR PO 12/30/16 21:00 12/31/16 08:23 (Briseyda,Bhumika M. WINDER TENDER) Physical Exam General General Appearance: No Acute Distress, Comfortable, Pale (tired look in eyes) Appearance Remarks lips sore, cracked, dry (Briseyda,Susan M. WINDER TENDER) Eyes Eye Exam: Pupils Equal, Pupils Reactive, Sclera White (Briseyda,Bhumika M. WINDER TENDER) Ears & Nose Ears & Nose Exam: Nasal Mucosa [place] (Briseyda,Bhumika M. WINDER TENDER) Throat Throat Exam: Oral Mucosa [place] & Moist (Briseyda,Susan M. WINDER TENDER) Neck Neck Exam: Neck Supple, Trachea Midline (BriseydaAnujaBhumika M. WINDER TENDER) Pulmonary Resp Exam: Breath Sounds Equal, No Distress, Rhonchi (few), Decreased Bases, Poor Inspiratory Effort (low volumes) (Briseyda,Bhumika M. WINDER TENDER) Cardiology CV Exam: Regular, Normal Sinus Rhythm (Briseyda,Bhumika M. WINDER TENDER) Gastrointestinal/Abdomen GI Exam: Soft, Non-Tender, Bowel Sounds Present, Positive Bowel Movement, Non- Distended (Briseyda,Susan M. WINDER TENDER) Genitourinary Exam: Clear Urine (Briseyda,Bhumika M. WINDER TENDER) Musculoskeletal MS Exam: Joints Intact ([place]hum[place] M. WINDER TENDER) Integumentary Skin Exam: Warm, Dry (BriseydaAnujaBhumika M. WINDER TENDER) Extremeties Extremities Exam: No Edema, Pedal Pulses Palpable (BriseydaBhumika M. WINDER TENDER) Neurologic Neuro Exam: Awake, Moving All Extremities, No Focal Deficits Neuro Remarks Very weakened (BriseydaBhumika erickson M. WINDER TENDER) VTE Prophylaxis VTE Prophylaxis Device: SCDs VTE Prophylaxis Meds: Lovenox (BriseydaBhumika M. WINDER TENDER) PUD Prophylasis PUD Prophylaxis: Protonix (BriseydaAnujaBhumika M. WINDER TENDER) Assessment/Plan Assessment/Plan 1. CAP Pneumonia./Early sepsis 2. s/p Altered mental status with probable metabolic encephalopathy. 3. History of hypertension. 4. Leukocytosis, probable secondary to #1. 5. Anemia, probable secondary to chronic disease. 6. Hyperkalemia. 7. Acute kidney injury with renal insufficiency. 8. Protein calorie malnutrition, moderate. 9. PCN allergy /per pt had a rash 10. Hx of Graves disease s/p I 131 ablation on synthroid 11. Status post non-ST elevation [place] 12, acute ventilator-dependent respiratory failure, suspect due to pulmonary edema 13. Pulmonary nodule 9 mm PLAN Vital signs reviewed, normal trends Labs reviewed, no acute changes. Pneumonia , early sepsis Tolerating O2 per nasal cannula , maintaining sats 90 to a greater Continues with bilateral pleural effusions Duo nebs IV antibiotics Monitor swallow, thickened liquids, eats slow, needs assistance, no cough noted, Anorexia minimal appetite Cardiology input appreciated and consultation 2-D echo, monitor HR and rhythm Medical management, recommends no further workups for now Hypertension prn meds, controlled today CTA chest noted, 9 mm pulmonary nodules, no workup at this time DC stool softeners and use bowel regimen as needed based on her daily assessment bowel regimen DNR PT eval and tx, OOB in chair daily and prn for her strengthening and mobility. States she was able to get up yesterday for approximately 2 hours Lovenox for DVT Prophylaxis PPI for GI prophylaxis DC planning when medically stable currently still requiring ICU setting, SNF placement probable, but patient is hopeful to get to return home. States she lives in a 2 level home. We discussed staying focused on getting stronger, could stay on first level if need be. Patient states before this pneumonia visit she was ambulatory at home. Supportive care to patient to get better D/W RN D/W Dr. Zaman, seen on his behalf D/W pt (Bhumika Rain) Assessment/Plan pt is seen & examined d/w PT d/w Bhumika clinically stable Ok to tx out of ICU d/c [place] catheter cont IV abx for another 24 hrs & consider starting po keflex PT mary ann; ss for d/c planning dW RN Dr rock will f/u in am (Chikis Zaman MD) Bhumika Rain December 31, 2016 13:52 Chikis Zaman MD December 31, 2016 15:03
[2016-12-31] MEDS: BACLOFEN 10 MG TAB PO PRN (20:18)
[2017-01-01] VITALS (9 sets, daily range): BP systolic 127–162; BP diastolic 59–76; PULSE 58–73; RESP 16–20; TEMP 97.5–98; O2SAT 94–100
[2017-01-01] MEDS: BACLOFEN 10 MG TAB PO PRN ×3 (03:32→18:00)
[2017-01-01] MEDS: RESP: ALBUTEROL 2.5 MG/IPRATROPIUM 0.5 MG NEB (SCH) INH ×4 (05:10→20:49)
[2017-01-01] MEDS: PANTOPRAZOLE SODIUM 40 MG VIAL IV PUSH SCH (06:00)
[2017-01-01] MEDS: LEVOTHYROXINE SODIUM 125 MCG TAB PO SCH (06:00)
[2017-01-01] MEDS: ARTIFICIAL TEARS OPTH SOLN 15 ML BTL EACH EYE SCH ×2 (06:00→13:05)
[2017-01-01] MEDS: INSULIN NovoLIN REGULAR SUPPLEMENTAL SCALE SQ SCH ×4 (06:10→21:00)
[2017-01-01] MEDS: CHLORHEXIDINE 0.12% (ORAL KIT) 15 ML CUP MT SCH ×2 (07:45→20:00)
[2017-01-01] MEDS: POTASSIUM CHLORIDE 25 MEQ EFFERVESCENT TAB NG SCH (08:02)
[2017-01-01] MEDS: METOPROLOL TARTRATE 50 MG TAB PO SCH (08:02)
[2017-01-01] MEDS: ENOXAPARIN SODIUM 40 MG/0.4 ML SYRINGE SQ SCH (08:02)
[2017-01-01] MEDS: FUROSEMIDE 40 MG/5 ML UNIT DOSE CUP NG SCH ×2 (08:03→18:00)
[2017-01-01] MEDS: LORATADINE 10 MG TAB PO SCH (08:03)
[2017-01-01] MEDS: SODIUM CHLORIDE 0.9% FLUSH 10 ML FLUSH IV FLUSH SCH (08:03)
[2017-01-01] MEDS: ASPIRIN 81 MG CHEW TAB CHEW SCH (08:03)
--- NOTE | 2017-01-01 12:05 | HHI.PR ---
Subjective Subjective Remarks Resting in the bed, Patient more alert today more conversational today getting up in chair diarrhea last 24 hrs. bowel regimen (Bhumika Rain) Review of Systems Constitutional Constitutional: Fatigue, Weakness Constitutional Remarks Minimal ROS obtained secondary to patient's decreased communication (Bhumika Rain) Eyes Eyes Remarks appears tired (Bhumika Rain) Throat Throat Remarks lips sore ,cracked, improving (Bhumika Rain) Pulmonary Respiratory: Shortness of Breath (exertional, mild, improved) (Bhumika Rain) GI/Abdomen GI/Abdominal Exam: Diarrhea GI/Abdomen Remarks Diarrhea persists ,, liquids are thickened decreased appetite, mild improvement (Bhumika Rain) Musculoskeletal MS: Weakness, Stiffness (Bhumika Rain) Neurologic Neurologic: Lethargic (mild, but awake for now) Neurologic Remarks more alert, responsive (Bhumika Rain) Psychiatric Psychiatric: Normal Mood (Bhumika Rain) Vitals/Results Intake & Output 12/31/16 12/31/16 01/01/17 15:00 23:00 07:00 Intake Total 978 ml 340 ml 460 ml Output Total 575 ml Balance 403 ml 340 ml 460 ml Intake Oral 720 ml 240 ml 360 ml IV Total 258 ml 100 ml 100 ml Output Urine Total 575 ml # Voids 1 # Bowel Movements 3 1 Vital Signs Vital Signs Date Time Temp Pulse Resp B/P Pulse Ox O2 Delivery O2 Flow Rate FiO2 01/01/17 08:30 Nasal Cannula 2.00 01/01/17 08:30 71 01/01/17 08:27 98 Nasal Cannula 4.00 01/01/17 08:00 98.0 73 18 162/74 98 01/01/17 04:00 97.7 72 20 127/59 94 01/01/17 00:00 Nasal Cannula 2.00 01/01/17 00:00 98.0 72 20 148/72 96 12/31/16 20:00 87 12/31/16 20:00 97.6 86 18 135/68 99 12/31/16 20:00 Nasal Cannula 2.00 12/31/16 20:00 99 Nasal Cannula 2.00 12/31/16 16:00 85 12/31/16 16:00 98.3 85 18 159/85 96 12/31/16 14:00 82 12/31/16 12:03 100 Nasal Cannula 2.00 12/31/16 12:00 98.9 92 18 126/69 93 12/31/16 12:00 92 (Bhumika Rain) CBC/BMP: 12/31/16 0332 01/01/17 0530 Lab Results Laboratory Tests Test 01/01/17 05:30 Creatinine 0.89 MG/DL Estimat Glomerular Filtration 60 ML/MIN Rate Current Medications Administered Medications Medications (Trade) Dose Ordered Sig/Poly Route PRN Reason Start Time Stop Time Status Last Admin Dose Admin Sodium Chloride (NS Flush) 2 ml UNSCH PRN IV FLUSH FLUSH AFTER USING IV ACCESS 12/25/16 04:45 12/29/16 06:44 Sodium Chloride (NS Flush) 2 ml BID IV FLUSH 12/25/16 09:00 01/01/17 08:03 Acetaminophen (Tylenol) 650 mg Q4H PRN PO TEMPERATURE > 101 F 12/25/16 04:45 12/27/16 16:35 Ondansetron HCl (Zofran Inj) 4 mg Q6H PRN IV NAUSEA 12/25/16 04:45 12/30/16 09:07 Baclofen (Lioresal) 10 mg QID PRN PO MUSCLE SPASM 12/26/16 10:00 01/01/17 11:02 Gabapentin (Neurontin) 300 mg QID PO 12/26/16 13:00 Hold 12/26/16 20:03 Loratadine (Claritin) 10 mg DAILY PO 12/27/16 09:00 01/01/17 08:03 Oxycodone HCl (Roxicodone) 5 mg Q6H PRN PO PAIN 1-10 12/26/16 10:00 01/01/17 11:01 Levothyroxine Sodium (Synthroid) 125 mcg DAILY@06 PO 12/26/16 11:00 01/01/17 06:00 Chlorhexidine Gluconate (Peridex 0.12% Liq) 15 ml BID@08,20 MT 12/27/16 08:00 12/29/16 20:59 Pantoprazole Sodium (Protonix Inj) 40 mg Q24H IV PUSH 12/27/16 07:15 01/01/17 06:00 Aspirin (Aspirin Chew) 81 mg DAILY CHEW 12/27/16 09:00 01/01/17 08:03 Artificial Tears (Tears Naturale Opth Soln) 1 drop Q8HR EACH EYE 12/27/16 14:00 01/01/17 06:00 Potassium Bicarb/ Potassium Chloride (K-Lyte Cl Eff) 25 meq Q12HR NG 12/27/16 21:00 01/01/17 08:02 Hydralazine HCl (Apresoline Inj) 10 mg Q6H PRN IV PUSH SYS BP GREATER THAN 160 MMHG 12/29/16 10:45 12/31/16 12:07 Furosemide 20 mg 20 mg BID@09,18 NG 12/29/16 18:00 01/01/17 08:03 Cefazolin Sodium/ Sodium Chloride (Ancef Inj/NS Inj) 100 ml @ 200 mls/hr Q8H IV 12/29/16 21:00 01/01/17 05:00 Metoprolol Tartrate (Lopressor) 50 mg Q12HR PO 12/30/16 21:00 01/01/17 08:02 Enoxaparin Sodium (Lovenox Inj) 40 mg Q24H SQ 01/01/17 08:00 01/01/17 08:02 (Bhumika Rain) Physical Exam General General Appearance: No Acute Distress, Comfortable, Pale Appearance Remarks lips sore, cracked, dry (Bhumika Rain) Eyes Eye Exam: Pupils Equal, Pupils Reactive, Sclera White (Bhumika RainP) Ears & Nose Ears & Nose Exam: Nasal Mucosa [place] (Bhumika RainP) Throat Throat Exam: Oral Mucosa [place] & Moist (Bhumika RainP) Neck Neck Exam: Neck Supple, Trachea Midline (Bhumika RainP) Pulmonary Resp Exam: Breath Sounds Equal, No Distress, Rhonchi, Decreased Bases, Poor Inspiratory Effort (Bhumika RainP) Cardiology CV Exam: Regular, Normal Sinus Rhythm (Bhumika RainP) Gastrointestinal/Abdomen GI Exam: Soft, Non-Tender, Bowel Sounds Present, Positive Bowel Movement, Non- Distended GI Remarks diarrhea, (BriseydaBhumika M. FENCE REPAIRMAN) Genitourinary Exam: Clear Urine (BriseydaBhumika M. FENCE REPAIRMAN) Musculoskeletal MS Exam: Joints Intact MS Remarks weakness (BriseydaBhmuika M. FENCE REPAIRMAN) Integumentary Skin Exam: Warm, Dry (BriseydaBhumika M. FENCE REPAIRMAN) Extremeties Extremities Exam: No Edema, Pedal Pulses Palpable ([place]humika M. FENCE REPAIRMAN) Neurologic Neuro Exam: Awake, Moving All Extremities, No Focal Deficits Neuro Remarks Very weakened (BriseydaBhumika M. FENCE REPAIRMAN) VTE Prophylaxis VTE Prophylaxis Device: SCDs VTE Prophylaxis Meds: Lovenox ([place]Bhumika M. FENCE REPAIRMAN) PUD Prophylasis PUD Prophylaxis: Protonix ([place]humika M. FENCE REPAIRMAN) Assessment/Plan Assessment/Plan 1. CAP Pneumonia./Early sepsis 2. s/p Altered mental status with probable metabolic encephalopathy. 3. History of hypertension. 4. Leukocytosis, probable secondary to #1. 5. Anemia, probable secondary to chronic disease. 6. Hyperkalemia. 7. Acute kidney injury with renal insufficiency. 8. Protein calorie malnutrition, moderate. 9. PCN allergy /per pt had a rash 10. Hx of Graves disease s/p I 131 ablation on synthroid 11. Status post non-ST elevation CT 12, acute ventilator-dependent respiratory failure, suspect due to pulmonary edema 13. Pulmonary nodule 9 mm PLAN Vital signs reviewed, normal trends Labs reviewed, unchanged GFR Pneumonia , early sepsis Tolerating O2 per nasal cannula 2L , maintaining sats 90 to a greater Decreased breath sounds, Duo nebs IV antibiotics maintain for now Monitor swallow, thickened liquids, eats slow, needs assistance, no cough noted, Improving slowly appetite Cardiology input appreciated and consultation 2-D echo, monitor HR and rhythm Medical management, recommends no further workups for now Hypertension Monitor medical management, normal trends for now CTA chest noted, 9 mm pulmonary nodules, no workup at this time bowel regimen, even without stool softeners patient has had incontinent diarrhea stools last p.m. and through the night. We'll check C. difficile with next stool DNR PT eval and tx, OOB in chair daily and prn for her strengthening and mobility. This p.m. in chair but still requires a good bit of assistance. Lovenox for DVT Prophylaxis PPI for GI prophylaxis DC planning when medically stable. checking cdiff today, SNF placement will be needed , but not today. D/W RN D/W Dr. Connor, seen on his behalf D/W pt (Bhumika Rain) (Bhumika Rain) Assessment/Plan pt seen and examined as above labs and meds reviewed rad data reviewed dw pt plan of care dw academic support coordinator see orders total time spent in management of this pt is more than 35 min (Med Connor MD) Bhumika Rain January 01, 2017 12:05 Med Connor MD January 01, 2017 13:46
[2017-01-02] VITALS (9 sets, daily range): BP systolic 110–140; BP diastolic 63–77; PULSE 74–86; RESP 16–18; TEMP 97.4–97.9; O2SAT 93–98
[2017-01-02] MEDS: METOPROLOL TARTRATE 50 MG TAB PO SCH ×3 (00:23→21:00)
[2017-01-02] MEDS: SODIUM CHLORIDE 0.9% FLUSH 10 ML FLUSH IV FLUSH SCH ×3 (00:27→21:00)
[2017-01-02] MEDS: POTASSIUM CHLORIDE 25 MEQ EFFERVESCENT TAB NG SCH ×3 (00:28→21:00)
[2017-01-02] MEDS: ARTIFICIAL TEARS OPTH SOLN 15 ML BTL EACH EYE SCH ×4 (00:30→21:00)
[2017-01-02] MEDS: RESP: ALBUTEROL 2.5 MG/IPRATROPIUM 0.5 MG NEB (SCH) INH ×4 (04:04→20:58)
[2017-01-02] MEDS: LEVOTHYROXINE SODIUM 125 MCG TAB PO SCH (06:14)
[2017-01-02] MEDS: PANTOPRAZOLE SODIUM 40 MG VIAL IV PUSH SCH (06:16)
[2017-01-02] MEDS: INSULIN NovoLIN REGULAR SUPPLEMENTAL SCALE SQ SCH ×4 (06:38→21:00)
[2017-01-02] MEDS: CHLORHEXIDINE 0.12% (ORAL KIT) 15 ML CUP MT SCH ×2 (08:00→20:00)
[2017-01-02] MEDS: BACLOFEN 10 MG TAB PO PRN ×2 (08:37→19:03)
[2017-01-02] MEDS: ENOXAPARIN SODIUM 40 MG/0.4 ML SYRINGE SQ SCH (08:38)
[2017-01-02] MEDS: FUROSEMIDE 40 MG/5 ML UNIT DOSE CUP NG SCH ×2 (08:38→17:16)
[2017-01-02] MEDS: ASPIRIN 81 MG CHEW TAB CHEW SCH (08:38)
[2017-01-02] MEDS: LORATADINE 10 MG TAB PO SCH (08:38)
--- NOTE | 2017-01-02 11:55 | HHI.PR ---
Subjective Subjective Remarks Resting in the bed, Awake and talking Oral mucous membranes and lips cracked and dry diarrhea subsided Afebrile Review of Systems Constitutional Constitutional: Fatigue, Weakness Constitutional Remarks Minimal ROS obtained secondary to patient's decreased communication Eyes Eyes Remarks appears tired Throat Throat Remarks lips sore ,cracked, improving Pulmonary Respiratory: Shortness of Breath (exertional, mild, improved) GI/Abdomen GI/Abdominal Exam: Diarrhea GI/Abdomen Remarks Diarrhea resolved over the past 24 hours ,, liquids are thickened decreased appetite, mild improvement Musculoskeletal MS: Weakness, Stiffness Neurologic Neurologic: Lethargic (mild, but awake for now) Neurologic Remarks more alert, responsive Psychiatric Psychiatric: Normal Mood Vitals/Results Intake & Output 01/01/17 01/01/17 01/02/17 14:59 22:59 06:59 Intake Total 360 ml 240 ml 120 ml Output Total 450 ml 0 ml Balance 360 ml -210 ml 120 ml Intake Oral 360 ml 240 ml 120 ml Output Urine Total 450 ml 0 ml # Voids 4 # Bowel Movements 1 0 0 Vital Signs Vital Signs Date Time Temp Pulse Resp B/P Pulse Ox O2 Delivery O2 Flow Rate FiO2 01/02/17 09:35 Nasal Cannula 4.00 40 01/02/17 09:10 96 Nasal Cannula 4.00 01/02/17 08:00 97.5 81 18 117/65 96 01/02/17 04:06 95 Nasal Cannula 2.00 01/02/17 04:00 97.8 74 16 110/68 96 01/02/17 01:22 18 01/02/17 00:00 97.7 83 16 122/77 93 01/01/17 20:51 98 Nasal Cannula 4.00 01/01/17 20:00 97.8 58 16 145/73 97 01/01/17 20:00 98 Nasal Cannula 2.00 01/01/17 20:00 71 01/01/17 16:00 98.0 70 18 156/75 96 01/01/17 12:00 97.5 59 18 145/76 100 CBC/BMP: 12/31/16 0332 01/01/17 0530 Current Medications Administered Medications Medications (Trade) Dose Ordered Sig/Poly Route PRN Reason Start Time Stop Time Status Last Admin Dose Admin Sodium Chloride (NS Flush) 2 ml UNSCH PRN IV FLUSH FLUSH AFTER USING IV ACCESS 12/25/16 04:45 12/29/16 06:44 Sodium Chloride (NS Flush) 2 ml BID IV FLUSH 12/25/16 09:00 01/02/17 08:39 Acetaminophen (Tylenol) 650 mg Q4H PRN PO TEMPERATURE > 101 F 12/25/16 04:45 12/27/16 16:35 Ondansetron HCl (Zofran Inj) 4 mg Q6H PRN IV NAUSEA 12/25/16 04:45 12/30/16 09:07 Baclofen (Lioresal) 10 mg QID PRN PO MUSCLE SPASM 12/26/16 10:00 01/02/17 08:37 Gabapentin (Neurontin) 300 mg QID PO 12/26/16 13:00 Hold 12/26/16 20:03 Loratadine (Claritin) 10 mg DAILY PO 12/27/16 09:00 01/02/17 08:38 Oxycodone HCl (Roxicodone) 5 mg Q6H PRN PO PAIN 1-10 12/26/16 10:00 01/02/17 07:07 Levothyroxine Sodium (Synthroid) 125 mcg DAILY@06 PO 12/26/16 11:00 01/02/17 06:14 Chlorhexidine Gluconate (Peridex 0.12% Liq) 15 ml BID@08,20 MT 12/27/16 08:00 01/02/17 08:00 Pantoprazole Sodium (Protonix Inj) 40 mg Q24H IV PUSH 12/27/16 07:15 01/02/17 06:16 Aspirin (Aspirin Chew) 81 mg DAILY CHEW 12/27/16 09:00 01/02/17 08:38 Artificial Tears (Tears Naturale Opth Soln) 1 drop Q8HR EACH EYE 12/27/16 14:00 01/02/17 06:21 Potassium Bicarb/ Potassium Chloride (K-Lyte Cl Eff) 25 meq Q12HR NG 12/27/16 21:00 01/02/17 08:39 Hydralazine HCl (Apresoline Inj) 10 mg Q6H PRN IV PUSH SYS BP GREATER THAN 160 MMHG 12/29/16 10:45 12/31/16 12:07 Furosemide 20 mg 20 mg BID@09,18 NG 12/29/16 18:00 01/02/17 08:38 Cefazolin Sodium/ Sodium Chloride (Ancef Inj/NS Inj) 100 ml @ 200 mls/hr Q8H IV 12/29/16 21:00 01/02/17 06:14 Insulin Human Regular (NovoLIN R SUPPLEMENTAL SCALE) 1 ACHS SQ 12/30/16 11:00 01/02/17 06:38 Metoprolol Tartrate (Lopressor) 50 mg Q12HR PO 12/30/16 21:00 01/02/17 08:38 Enoxaparin Sodium (Lovenox Inj) 40 mg Q24H SQ 01/01/17 08:00 01/02/17 08:38 Physical Exam General General Appearance: No Acute Distress, Comfortable, Pale Appearance Remarks lips sore, cracked, dry Eyes Eye Exam: Pupils Equal, Pupils Reactive, Sclera White Ears & Nose Ears & Nose Exam: Nasal Mucosa Globe Throat Throat Exam: Oral Mucosa Globe & Moist Neck Neck Exam: Neck Supple, Trachea Midline Pulmonary Resp Exam: Breath Sounds Equal, No Distress, Rhonchi, Decreased Bases, Diminished Breath Sounds, Poor Inspiratory Effort Cardiology CV Exam: Regular, Normal Sinus Rhythm Gastrointestinal/Abdomen GI Exam: Soft, Non-Tender, Bowel Sounds Present, Positive Bowel Movement, Non- Distended GI Remarks diarrhea, Genitourinary Exam: Clear Urine Musculoskeletal MS Exam: Joints Intact MS Remarks weakness Integumentary Skin Exam: Warm, Dry Extremeties Extremities Exam: No Edema, Pedal Pulses Palpable Neurologic Neuro Exam: Awake, Moving All Extremities, No Focal Deficits Neuro Remarks Very weakened VTE Prophylaxis VTE Prophylaxis Device: SCDs VTE Prophylaxis Meds: Lovenox PUD Prophylasis PUD Prophylaxis: Protonix Assessment/Plan Assessment/Plan 1. CAP Pneumonia./Early sepsis 2. s/p Altered mental status with probable metabolic encephalopathy. 3. History of hypertension. 4. Leukocytosis, probable secondary to #1. 5. Anemia, probable secondary to chronic disease. 6. Hyperkalemia. 7. Acute kidney injury with renal insufficiency. 8. Protein calorie malnutrition, moderate. 9. PCN allergy /per pt had a rash 10. Hx of Graves disease s/p I 131 ablation on synthroid 11. Status post non-ST elevation [place] 12, acute ventilator-dependent respiratory failure, suspect due to pulmonary edema 13. Pulmonary nodule 9 mm PLAN Vital signs reviewed, normal trends Labs reviewed, positive for sputum MRSA Pneumonia , early sepsis , MRSA Continue O2 duo nebs Encouraged to be up out of bed turned cough and deep breathe IV antibiotics Monitor swallow, seems stronger now patient's more alert no cough noted with eating Improving slowly appetite Hypertension , blood pressure normal ranges monitoring every 4 and when necessary Monitor medical management CTA chest noted, 9 mm pulmonary nodules, no workup at this time bowel regimen, no further diarrhea in the past 24 hours, no C. difficile collection. Spoke to nurse if patient has any further signs of diarrhea checked for C. difficile Probable secondary to IV antibiotic usage DNR PT eval and tx, OOB in chair daily. Encourage patient to be up out of bed also spoke to nurse, PT, encouraged to Cough and Deep Breathe Lovenox for DVT Prophylaxis PPI for GI prophylaxis DC planning when medically stable. Diarrhea has subsided but patient is still in her weakened position. We will discuss with Dr. Connor course of antibiotic treatment, and when stable looking at SNF placement for rehabilitation D/W RN D/W Dr. Cononr, seen on his behalf D/W pt (Bhumika Rain) (Bhumika Rain) Bhumika Rain January 02, 2017 11:54
[2017-01-03] VITALS: BP 142/68; PULSE 86; RESP 18; TEMP 98; O2SAT 94
[2017-01-03] MEDS: RESP: ALBUTEROL 2.5 MG/IPRATROPIUM 0.5 MG NEB (SCH) INH ×2 (03:47→10:01)
[2017-01-03 04:00] VITALS: BP 137/66; PULSE 74; RESP 18; TEMP 97.4; O2SAT 96
[2017-01-03] MEDS: LEVOTHYROXINE SODIUM 125 MCG TAB PO SCH (05:15)
[2017-01-03] MEDS: ARTIFICIAL TEARS OPTH SOLN 15 ML BTL EACH EYE SCH ×2 (05:15→11:45)
[2017-01-03] MEDS: INSULIN NovoLIN REGULAR SUPPLEMENTAL SCALE SQ SCH ×2 (06:07→11:00)
[2017-01-03 07:29] LABS: BICARBONATE 30.8 MEQ/L (21.0-32.0); POTASSIUM 3.9 MEQ/L (3.5-5.1)
[2017-01-03 08:00] VITALS: BP 142/76; PULSE 71; RESP 20; TEMP 97.2; O2SAT 92
[2017-01-03] MEDS: CHLORHEXIDINE 0.12% (ORAL KIT) 15 ML CUP MT SCH (08:00)
[2017-01-03] MEDS: FUROSEMIDE 40 MG/5 ML UNIT DOSE CUP NG SCH (08:12)
[2017-01-03] MEDS: ENOXAPARIN SODIUM 40 MG/0.4 ML SYRINGE SQ SCH (08:12)
[2017-01-03] MEDS: SODIUM CHLORIDE 0.9% FLUSH 10 ML FLUSH IV FLUSH SCH (08:13)
[2017-01-03] MEDS: ASPIRIN 81 MG CHEW TAB CHEW SCH (08:13)
[2017-01-03] MEDS: LORATADINE 10 MG TAB PO SCH (08:13)
[2017-01-03] MEDS: BACLOFEN 10 MG TAB PO PRN (08:13)
[2017-01-03] MEDS: POTASSIUM CHLORIDE 25 MEQ EFFERVESCENT TAB NG SCH (08:13)
[2017-01-03] MEDS: PANTOPRAZOLE SODIUM 40 MG VIAL IV PUSH SCH (08:13)
[2017-01-03] MEDS: METOPROLOL TARTRATE 50 MG TAB PO SCH (08:13)
[2017-01-03 10:01] VITALS: O2SAT 93
--- NOTE | 2017-01-03 10:40 | HHI.PR ---
Subjective Subjective Remarks Resting in the bed, Awake and talking, more alert Oral mucous membranes and lips cracked and dry, improved with lip Blistex diarrhea subsided, no further BMs 2 days Afebrile Debility improving (Bhumika Rain) Review of Systems Constitutional Constitutional: Fatigue, Weakness Constitutional Remarks Minimal ROS obtained secondary to patient's decreased communication (Bhumika Rain) Eyes Eyes Remarks appears tired (Bhumika Rain) Throat Throat Remarks lips sore ,cracked, improving (Bhumika Rain) Pulmonary Respiratory: Shortness of Breath (exertional, mild, improved) (Bhumika Rain) GI/Abdomen GI/Abdominal Exam: Diarrhea GI/Abdomen Remarks Diarrhea resolved over the past 48 hours ,, liquids are thickened decreased appetite, mild improvement If no BM today patient will need laxative tomorrow (Bhumika Rain) Musculoskeletal MS: Weakness, Stiffness (Bhumika Rain) Neurologic Neurologic: Lethargic (mild, but awake for now) Neurologic Remarks more alert, responsive (Bhumika Rain) Psychiatric Psychiatric: Normal Mood (Bhumika Rain) Vitals/Results Intake & Output 01/02/17 01/02/17 01/03/17 15:00 23:00 07:00 Intake Total 360 ml 240 ml Output Total 1050 ml 200 ml Balance -690 ml 40 ml Intake Oral 360 ml 240 ml Output Urine Total 1050 ml 200 ml # Bowel Movements 0 0 Vital Signs Vital Signs Date Time Temp Pulse Resp B/P Pulse Ox O2 Delivery O2 Flow Rate FiO2 01/03/17 08:44 Nasal Cannula 4.00 40 01/03/17 08:00 97.2 71 20 142/76 92 01/03/17 04:00 97.4 74 18 137/66 96 01/03/17 00:00 98.0 86 18 142/68 94 01/02/17 21:00 98 Nasal Cannula 4.00 01/02/17 20:00 97.5 83 18 125/63 93 01/02/17 20:00 Nasal Cannula 4.00 01/02/17 20:00 86 01/02/17 16:00 97.9 74 18 140/73 96 01/02/17 12:00 97.4 75 18 140/67 95 (Bhumika Rain) CBC/BMP: 12/31/16 0332 01/03/17 0632 Lab Results Laboratory Tests Test 01/03/17 06:32 Sodium Level 137 MEQ/L Potassium Level 3.9 MEQ/L Chloride Level 99 MEQ/L Carbon Dioxide Level 30.8 MEQ/L Anion Gap 7 MEQ/L Blood Urea Nitrogen 24 MG/DL Creatinine 0.98 MG/DL Estimat Glomerular Filtration 54 ML/MIN Rate Random Glucose 98 MG/DL Calcium Level 8.9 MG/DL Current Medications Administered Medications Medications (Trade) Dose Ordered Sig/Poly Route PRN Reason Start Time Stop Time Status Last Admin Dose Admin Sodium Chloride (NS Flush) 2 ml UNSCH PRN IV FLUSH FLUSH AFTER USING IV ACCESS 12/25/16 04:45 12/29/16 06:44 Sodium Chloride (NS Flush) 2 ml BID IV FLUSH 12/25/16 09:00 01/03/17 08:13 Acetaminophen (Tylenol) 650 mg Q4H PRN PO TEMPERATURE > 101 F 12/25/16 04:45 12/27/16 16:35 Ondansetron HCl (Zofran Inj) 4 mg Q6H PRN IV NAUSEA 12/25/16 04:45 12/30/16 09:07 Baclofen (Lioresal) 10 mg QID PRN PO MUSCLE SPASM 12/26/16 10:00 01/03/17 08:13 Gabapentin (Neurontin) 300 mg QID PO 12/26/16 13:00 Hold 12/26/16 20:03 Loratadine (Claritin) 10 mg DAILY PO 12/27/16 09:00 01/03/17 08:13 Oxycodone HCl (Roxicodone) 5 mg Q6H PRN PO PAIN 1-10 12/26/16 10:00 01/03/17 05:15 Levothyroxine Sodium (Synthroid) 125 mcg DAILY@06 PO 12/26/16 11:00 01/03/17 05:15 Chlorhexidine Gluconate (Peridex 0.12% Liq) 15 ml BID@08,20 MT 12/27/16 08:00 01/03/17 08:00 Pantoprazole Sodium (Protonix Inj) 40 mg Q24H IV PUSH 12/27/16 07:15 01/03/17 08:13 Aspirin (Aspirin Chew) 81 mg DAILY CHEW 12/27/16 09:00 01/03/17 08:13 Artificial Tears (Tears Naturale Opth Soln) 1 drop Q8HR EACH EYE 12/27/16 14:00 01/03/17 05:15 Potassium Bicarb/ Potassium Chloride (K-Lyte Cl Eff) 25 meq Q12HR NG 12/27/16 21:00 01/03/17 08:13 Hydralazine HCl (Apresoline Inj) 10 mg Q6H PRN IV PUSH SYS BP GREATER THAN 160 MMHG 12/29/16 10:45 12/31/16 12:07 Furosemide 20 mg 20 mg BID@09,18 NG 12/29/16 18:00 01/03/17 08:12 Cefazolin Sodium/ Sodium Chloride (Ancef Inj/NS Inj) 100 ml @ 200 mls/hr Q8H IV 12/29/16 21:00 01/03/17 05:15 Insulin Human Regular (NovoLIN R SUPPLEMENTAL SCALE) 1 ACHS SQ 12/30/16 11:00 01/02/17 06:38 Metoprolol Tartrate (Lopressor) 50 mg Q12HR PO 12/30/16 21:00 01/03/17 08:13 Enoxaparin Sodium (Lovenox Inj) 40 mg Q24H SQ 01/01/17 08:00 01/03/17 08:12 (Bhumika Rain) Physical Exam General General Appearance: No Acute Distress, Comfortable, Pale Appearance Remarks lips sore, cracked, dry (Bhumika RainP) Eyes Eye Exam: Pupils Equal, Pupils Reactive, Sclera White (Bhumika RainP) Ears & Nose Ears & Nose Exam: Nasal Mucosa Maiden (Bhumika Rain) Throat Throat Exam: Oral Mucosa Maiden & Moist (Bhumika RainP) Neck Neck Exam: Neck Supple, Trachea Midline (Bhumika RainP) Pulmonary Resp Exam: Breath Sounds Equal, No Distress, Rhonchi, Decreased Bases, Diminished Breath Sounds, Poor Inspiratory Effort (Briseyda,Bhumika M. FACILITIES PROJECT MANAGER) Cardiology CV Exam: Regular, Normal Sinus Rhythm (BriseydaAnujaBhumika M. FACILITIES PROJECT MANAGER) Gastrointestinal/Abdomen GI Exam: Soft, Non-Tender, Bowel Sounds Present, Positive Bowel Movement, Non- Distended GI Remarks diarrhea, ([place] Mills[place]humika M. FACILITIES PROJECT MANAGER) Genitourinary Exam: Clear Urine ([place] MillsAnuja[place]humika M. FACILITIES PROJECT MANAGER) Musculoskeletal MS Exam: Joints Intact MS Remarks weakness, resolving, and coverage patient to be out of bed in chair and ambulate and PT comes ([place] Mills[place]humika M. FACILITIES PROJECT MANAGER) Integumentary Skin Exam: Warm, Dry ([place] Mills[place]humika M. FACILITIES PROJECT MANAGER) Extremeties Extremities Exam: No Edema, Pedal Pulses Palpable ([place] MillsAnujaBhumika M. FACILITIES PROJECT MANAGER) Neurologic Neuro Exam: Awake, Moving All Extremities, No Focal Deficits Neuro Remarks Gradual improvement noted, more conversational and more alert ([place]humika M. FACILITIES PROJECT MANAGER) VTE Prophylaxis VTE Prophylaxis Device: SCDs VTE Prophylaxis Meds: Lovenox ([place] Mills[place]humika M. FACILITIES PROJECT MANAGER) PUD Prophylasis PUD Prophylaxis: Protonix ([place] Mills[place]humika M. FACILITIES PROJECT MANAGER) Assessment/Plan Assessment/Plan 1. CAP Pneumonia./Early sepsis 2. s/p Altered mental status with probable metabolic encephalopathy. 3. History of hypertension. 4. Leukocytosis, probable secondary to #1. 5. Anemia, probable secondary to chronic disease. 6. Hyperkalemia. 7. Acute kidney injury with renal insufficiency. 8. Protein calorie malnutrition, moderate. 9. PCN allergy /per pt had a rash 10. Hx of Graves disease s/p I 131 ablation on synthroid 11. Status post non-ST elevation [place] 12, acute ventilator-dependent respiratory failure, suspect due to pulmonary edema 13. Pulmonary nodule 9 mm PLAN Vital signs reviewed, normal trends Labs reviewed, positive for sputum MRSA Pneumonia , early sepsis , MRSA Continue O2 duo nebs Encouraged to be up out of bed turned cough and deep breathe IV antibiotics , improving, will check with Dr. Connor about changing to by mouth today. Monitor swallow, seems stronger now patient's more alert no cough noted with eating Improving slowly appetite, no cough noted now with her liquids, but still has thickener ST comes by when necessary Hypertension , blood pressure normal ranges with systolic in the 130s and 140s. , Monitor CTA chest noted, 9 mm pulmonary nodules, no workup at this time bowel regimen, no further diarrhea in the past 48 hours, no C. difficile collection. Diarrhea resolved on its own. Probable secondary to IV antibiotic usage DNR PT tx, OOB in chair daily. Encourage patient to be up out of bed also spoke to nurse, PT, encouraged to Cough and Deep Breathe Lovenox for DVT Prophylaxis PPI for GI prophylaxis DC planning when medically stable. Diarrhea has subsided , but may need mild laxative tomorrow on day 3 with no BM. looking at SNF placement for rehabilitation. Patient states she is looking at signature, wants to go and continue to get stronger so she can go back home. D/W RN D/W Dr. Connor, seen on his behalf D/W pt (Bhumika Rain) (Bhumika Rain) (Bhumika Rain) Assessment/Plan Patient seen and examined as above Labs reviewed Discussed with RN On of care discussed with FACILITIES PROJECT MANAGER Discussed with binder caser about DC planning Plan to DC to SNF today (Med Connor MD) Bhumika Rain January 03, 2017 10:40 eMd Connor MD January 03, 2017 11:47
[2017-01-03] MEDS ORDERED: ALBU0.08 NEB (11:54)
[2017-01-03] MEDS ORDERED: FURO8SOL NG (11:54)
[2017-01-03] MEDS ORDERED: METO-309 PO (11:54)
[2017-01-03] MEDS ORDERED: NEUR300C PO (11:54)
[2017-01-03] MEDS ORDERED: REST30CA PO (11:54)
[2017-01-03] MEDS ORDERED: OXYC-392 PO (11:54)
[2017-01-03] MEDS ORDERED: Aspirin Chew CHEW (11:54)
[2017-01-03] MEDS ORDERED: CEFT500T3 PO (11:55)
[2017-01-03 12:00] VITALS: BP 114/64; PULSE 67; RESP 20; TEMP 97.7; O2SAT 100
--- NOTE | 2017-01-03 15:56 | HHI.DS ---
Discharge Summary Admission Date December 25, 2016 at 04:13 Discharge Date: January 03, 2017 Admitting Diagnosis Pneumonia, AMS, generalized weakness Procedures intubation / Brief History This was a pleasant 86-year-old white female who was brought to the emergency room for evaluation due to her altered mental status. She had been in the senior living according to the record and had been getting weaker and less alert over the past week. The patient also had been noted to be having some generalized weakness. the patient's eyes were open. She was attempting to answer simple questions but did have altered mental status for her current full situation. The patient currently was not short of breath. She was noted to be pale and stated yes to coughing and generalized body aches. She was currently having some mild chills and according to the nurse had coughed up some green sputum on her hospital gown earlier. The patient was disoriented to time, unaware of how long she had been in her current senior living bed or how long she has been sick. She did state she had been eating and drinking well. Denied any nausea or vomiting. She denied any chest pain. Denied any headache. She denied any problems with urination or dysuria. CBC/BMP: 12/31/16 0332 01/03/17 0632 Significant Findings Laboratory Tests Test 01/01/17 01/03/17 05:30 06:32 Estimat Glomerular Filtration 60 ML/MIN (>89) 54 ML/MIN (>89) Rate Blood Urea Nitrogen 24 MG/DL (7-18) Imaging Last Impressions Hip and Pelvis X-Ray 12/30/16 0000 Signed Impressions: Service Date/Time: Friday, December 30, 2016 10:56 - CONCLUSION: Stable appearance status post arthroplasty. Denys Gilmore MD Chest X-Ray 12/29/16 0600 Signed Impressions: Service Date/Time: Thursday, December 29, 2016 03:30 - CONCLUSION: Persistent bibasilar densities with slight improvement. Sanjay Barnes MD Renal Ultrasound 12/27/16 0000 Signed Impressions: Service Date/Time: Tuesday, December 27, 2016 10:37 - CONCLUSION: 1. No obstruction. 2. 13 mm simple cyst involving the right upper pole. Bryan Jara Jr., MD CT Angiography 12/26/16 0000 Signed Impressions: Service Date/Time: Monday, December 26, 2016 23:03 - CONCLUSION: 1. No evidence of pulmonary embolism. 2. 9 mm nodule in the lingula. PET/CT scan is recommended to further evaluation if clinically indicated. 3. Bilateral effusions and bibasilar atelectasis right greater than left Abhilash Salamanca MD Head CT 12/25/16 0156 Signed Impressions: Service Date/Time: Sunday, December 25, 2016 02:27 - CONCLUSION: 1. No evidence of acute intracranial pathology. Chronic ischemic changes as above. Abhilash Salamanca MD Hospital Course These are the diagnoses that were used to treat this patient are in this hospital stay and her plan of care. 1. CAP Pneumonia./Early sepsis 2. s/p Altered mental status with probable metabolic encephalopathy. 3. History of hypertension. 4. Leukocytosis, probable secondary to #1. 5. Anemia, probable secondary to chronic disease. 6. Hyperkalemia. 7. Acute kidney injury with renal insufficiency. 8. Protein calorie malnutrition, moderate. 9. PCN allergy /per pt had a rash 10. Hx of Graves disease s/p I 131 ablation on synthroid 11. Status post non-ST elevation [place] 12, acute ventilator-dependent respiratory failure, suspect due to pulmonary edema 13. Pulmonary nodule 9 mm Within the first 24 hours patient had to be placed on mechanical ventilation due to respiratory failure and probable pneumonia and congestive heart failure.Pt went to sudden respiratory distress/BP shot up Rapid response was called PT was seen by urban and regional planner dr Jara, she was urgently intubated & was transferred to ICU She remained in the ICU setting for several days until she was stable.. Patient was placed on IV antibiotics, IV hydration, duo nebs, IV steroids, O2 She was followed by the urban and regional planner She was also treated for a non-ST elevation [place] Vital signs were every 1-4 hours depending on needs, labs were monitored on a daily basis for any abnormals Patient was complicated with dysphagia, after ventilator management. Worked with speech therapist behold admission with exercising and strengthening with her swallow muscles. Patient was maintained on thickened liquids, suffered from minimal appetite for the first few days but did start to increase her appetite throughout the course of her hospital stay. Last few days she was eating much better and taking by mouth fluids well after 48 hrs, d/c IV Vanco/Azactam start IV Rocephin/Zithromax IVF continues aerosol tx Antitussives prn BP control , resume ARB resume synthyroid resume analgesic resume antidepressant Dr. Zaman called & spoke w pt's over the phone . d/w Findings w him/ answered all of his questions. am labs monitored Patient stablized and responsed to antibiotics, transitioned to medical floor. Continued to work with PT, labs monitored and nutrition, AMS cleared and patient started building strength to get better./ Last 24-48 hours of hospital stay Vital signs reviewed, normal trends Labs reviewed, positive for sputum MRSA Pneumonia , early sepsis , MRSA Continue O2 duo nebs Encouraged to be up out of bed turned cough and deep breathe IV antibiotics , were changed to by mouth Monitor swallow, seems stronger now patient's more alert no cough noted with eating Improving slowly appetite, no cough noted now with her liquids, but still has thickener ST comes by when necessary Hypertension , blood pressure normal ranges with systolic in the 130s and 140s. , Monitor CTA chest noted, 9 mm pulmonary nodules, no workup at this time bowel regimen, no further diarrhea in the past 48 hours, before discharge, no C. difficile collection. Diarrhea resolved on its own. Probable secondary to IV antibiotic usage DNR , was patient's desire for her CODE STATUS after she was extubated, otherwise she wanted full aggressive care PT tx, OOB in chair daily. Encourage patient to be up out of bed also spoke to nurse, PT, encouraged to Cough and Deep Breathe Lovenox for DVT Prophylaxis PPI for GI prophylaxis DC planning when medically stable. Diarrhea has subsided , but may need mild laxative tomorrow on day 3 with no BM. looking at SNF placement for rehabilitation. Patient states she is looking at signature, wants to go and continue to get stronger so she can go back home. After seeing Dr. Connor patient was deemed medically stable today. Hung management working with her for her discharge Pt Condition on Discharge: Good Discharge Disposition: Discharge to SNF Discharge Instructions DIET: Follow Instructions for: Diabetic Diet Speech Therapy-Diet Recommends: Mechanical Soft, Grace Thickened Liquids Activities you can perform: Weight Bearing as Nicky Follow up Referrals: PCP Follow-up - 2-3 Days New Medications: Cefuroxime (Ceftin) 500 Mg Tab 500 MG PO BID Infection #12 Ref 0 TAB Albuterol Neb (Albuterol Neb) 2.5 Mg/3 Ml Neb 2.5 MG NEB Q2HR NEB PRN dyspnea #20 NEBULE Furosemide Liq (Furosemide Liq) 8 Mg/Ml Soln 20 MG NG BID@09,18 retention #60 ML Gabapentin (Neurontin) 300 Mg Cap 150 MG PO BID Pain Management #62 CAP Metoprolol Tartrate (Lopressor) 50 Mg Tab 50 MG PO Q12HR hypertension #60 TAB ([Aspirin Chew]) 81 MG CHEW 81 MG CHEW DAILY #30 TAB.CHEW Continued Medications: Baclofen (Baclofen) 10 Mg Tab 10 MG PO QID PRN MUSCLE SPASM Ref 0 TAB Levothyroxine (Synthroid) 125 Mcg Tab 125 MCG PO DAILY Thyroid Ref 0 TAB Loratadine (Claritin) 10 Mg Tab 10 MG PO DAILY Allergy Management Ref 0 TAB Omeprazole (Prilosec) 20 Mg Cap 20 MG PO DAILY Ref 0 CAP Oxycodone (Oxycodone) 5 Mg Tab 5 MG PO Q6H PRN PAIN #30 Ref 0 TAB (This prescription has been renewed) Potassium (Potassium) 75 Mg Tab Temazepam (Restoril) 30 Mg Cap 30 MG PO HS PRN INSOMNIA #12 Ref 0 CAP (This prescription has been renewed) Venlafaxine (Effexor) 75 Mg Tab 75 MG PO DAILY Ref 0 TAB Discontinued Medications: Furosemide (Lasix) 20 Mg Tab 10 MG PO DAILY Ref 0 TAB Gabapentin (Gabapentin) 300 Mg Cap 300 MG PO QID Ref 0 CAP Valsartan (Diovan) 40 Mg Tab 40 MG PO DAILY Ref 0 TAB Bhumika Rain January 03, 2017 15:56
== END 2017-01-03 15:24 | DRG 871 ==
LOC: NEPE 01:34 → NEDA 04:13 → NEDH 08:09 → HCIS 11:49 → HIMW 12-26 13:50 → N04A 12-31 18:29
PROVIDERS: ADMIT Specialist; ATTEND Specialist
PROC: 0BH17EZ Insertion of Endotracheal Airway into Trachea, Via Natural or Artificial Opening (ICD-10-PCS; principal; 2016-12-26)
PROC: 5A1945Z Respiratory Ventilation, 24-96 Consecutive Hours (ICD-10-PCS; 2016-12-26)
DX: A41.02 Sepsis due to Methicillin resistant Staphylococcus aureus (principal); J18.9 Pneumonia, unspecified organism; I21.4 Non-ST elevation (NSTEMI) myocardial infarction; G93.41 Metabolic encephalopathy; N17.9 Acute kidney failure, unspecified; Z99.11 Dependence on respirator [ventilator] status; J96.01 Acute respiratory failure with hypoxia; J96.02 Acute respiratory failure with hypercapnia; I50.32 Chronic diastolic (congestive) heart failure; N39.0 Urinary tract infection, site not specified; E44.0 Moderate protein-calorie malnutrition; I24.8 Other forms of acute ischemic heart disease; R13.10 Dysphagia, unspecified; E86.0 Dehydration; Z86.73 Personal history of transient ischemic attack (TIA), and cerebral infarction without residual deficits; I25.10 Atherosclerotic heart disease of native coronary artery without angina pectoris; M06.9 Rheumatoid arthritis, unspecified; J45.909 Unspecified asthma, uncomplicated; Z86.19 Personal history of other infectious and parasitic diseases; Z86.14 Personal history of Methicillin resistant Staphylococcus aureus infection; G89.29 Other chronic pain; E89.0 Postprocedural hypothyroidism; Z92.3 Personal history of irradiation; J44.9 Chronic obstructive pulmonary disease, unspecified; M48.00 Spinal stenosis, site unspecified; F32.9 Major depressive disorder, single episode, unspecified; M79.7 Fibromyalgia; I25.2 Old myocardial infarction; Z96.643 Presence of artificial hip joint, bilateral; Z88.0 Allergy status to penicillin; Z87.891 Personal history of nicotine dependence; Z86.711 Personal history of pulmonary embolism; Z79.899 Other long term (current) drug therapy; I10 Essential (primary) hypertension; H35.30 Unspecified macular degeneration; Y95 Nosocomial condition; Z91.81 History of falling; D63.8 Anemia in other chronic diseases classified elsewhere; E87.5 Hyperkalemia; Z86.718 Personal history of other venous thrombosis and embolism; E78.5 Hyperlipidemia, unspecified; G62.9 Polyneuropathy, unspecified; G43.909 Migraine, unspecified, not intractable, without status migrainosus; G47.00 Insomnia, unspecified; R91.1 Solitary pulmonary nodule; K21.9 Gastro-esophageal reflux disease without esophagitis; M25.552 Pain in left hip; Z66 Do not resuscitate; M19.90 Unspecified osteoarthritis, unspecified site; R19.7 Diarrhea, unspecified
CPT/HCPCS: 31500; 36600; 70450; 71010; 71275; 73502; 76775; 80048; 80053; 80061; 80076; 80171; 81001; 82010; 82533; 82550; 82552; 82565; 82570; 82805; 82948; 83525; 83605; 83690; 83735; 83880; 84100; 84132; 84155; 84300; 84443; 84484; 84681; 85025; 85027; 85610; 85730; 87040; 87070; 87205; 87449; 87641; 87804; 93005; 93306; 94002; 94003; 94150; 94640; 94664; 96365; 96367; 96368; C9113; J0360; J0690; J0696; J0834; J1650; J1940; J1956; J2250; J2405; J3370; J3475; J3480; J7030; J7042; J7050; P9612; Q9967

== ENCOUNTER 2017-01-06 15:55 | Emergency (ER) | payer MEDICARE ==
[~2017-01-06] VITALS: Ht 157.5 cm; Wt 70.0 kg
[~2017-01-06 15:55] MED LIST changes: -ALBU.5I NEB; +ALBU0.08 NEB; +Aspirin Chew CHEW; +CEFT500T3 PO; -DIOV40TA PO; -FOLI1 PO; +FURO8SOL NG; -LEVA250T14 PO; +LEVO.125 PO; +LORA-361 PO; +METO-309 PO; +NEUR300C PO; +OXYC-392 PO; -PERC10TA27 PO; +POTA75TA; +PRIL20CA9 PO; +REST30CA PO; -SYNT125T PO; +VENL75TA PO; -VENL75XR PO
[2017-01-06 16:03] VITALS: BP 128/66; PULSE 64; RESP 16; TEMP 97.8; O2SAT 95
[2017-01-06] MEDS ORDERED: SODIUM CHLORIDE 0.9% FLUSH 10 ML FLUSH IVF PRN (16:30)
--- NOTE | 2017-01-06 16:39 | PD ---
HPI Chief Complaint: Altered Mental Status Time Seen by Provider: 16:32 Travel History International Travel<30 days: No Contact w/Intl Traveler<30days: No Traveled to known affect area: No History of Present Illness HPI Patient with a history of pneumonia, altered mental status, generalized weakness , cognitive medication effect, CHF, depression, COPD, spinal stenosis, hypothyroidism, hypertension, idiopathic neuropathy, fibromyalgia, macular degeneration, insomnia, hyperlipidemia, coronary disease, GERD, anemia, and are sent back to the emergency department for further treatment and evaluation after being found less responsive at approximately 1430 today from [facility] where she was staying. Patient was just recently released from the hospital after being treated for pneumonia and is reportedly still taking cefuroxime 500 mg twice a day for this orally. Patient's only reported complaint is her chronic neck pain. Patient denies any chest pain, shortness of breath, nausea, vomiting , abdominal pain, fevers, or headaches. PFSH Past Medical History Arthritis: Yes (rheumatoid arthritis, spinal stenosis) Asthma: No Autoimmune Disease: Yes (RA) Blood Disorders: No Anxiety: No Depression: Yes Heart Rhythm Problems: No Cancer: No Cardiovascular Problems: Yes High Cholesterol: No Chest Pain: No Congestive Heart Failure: No COPD: Yes Cerebrovascular Accident: Yes (TIA) Coronary Artery Disease: Yes Diabetes: No Diminished Hearing: No Endocrine: Yes (Graves disease) Fibromyalgia: Yes Gastrointestinal Disorders: No GERD: No Genitourinary: Yes (UTI) Headaches: No Hepatitis: No Hiatal Hernia: No Hypertension: Yes Immune Disorder: No Implanted Vascular Access Dvce: Yes Kidney Stones: No Musculoskeletal: Yes (fibromyalgia) Neurologic: Yes Psychiatric: Yes Reproductive: No Respiratory: Yes Migraines: No Myocardial Infarction: Yes Radiation Therapy: Yes (THYROID) Renal Failure: No Seizures: No Sleep Apnea: No Thyroid Disease: Yes Ulcer: No Menopausal: Yes Past Surgical History Abdominal Surgery: Yes (APPENDECTOMY) AICD: No Appendectomy: Yes Arteriovenous Shunt: No Body Medical Devices: HIP REPLACEMENTS Cardiac Surgery: No Ear Surgery: No Endocrine Surgery: No Eye Surgery: Yes (cataract removal) Genitourinary Surgery: Yes (HYSTERECTOMY) Gynecologic Surgery: Yes Hysterectomy: Yes Insulin Pump: No Joint Replacement: Yes (MAYELA HIP REPLACEMENT) Neurologic Surgery: No Pacemaker: No Thoracic Surgery: Yes (METAL PLATE ON BACK FOR STENOSIS WHEN 74 YEARS OLD) Other Surgery: Yes (LOWER BACK) Social History Alcohol Use: No Tobacco Use: No Substance Use: No Allergies-Medications (Allergen,Severity, Reaction): Coded Allergies: Penicillin (Verified Allergy, Severe, 12/25/16) RASH *MDRO Multi-Drug Resistant Organism (Unverified Adverse Reaction, Unknown , 12/25/16) 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 MRSA PCR Screens NEGATIVE - 06/14/2016, 06/16/2016 CLEARED PER INFECTION CONTROL Reported Meds & Prescriptions Reported Meds & Active Scripts Active Ceftin (Cefuroxime Axetil) 500 Mg Tab 500 Mg PO BID Lopressor (Metoprolol Tartrate) 50 Mg Tab 50 Mg PO Q12HR Albuterol Neb (Albuterol Sulfate) 2.5 Mg/3 Ml Neb 2.5 Mg NEB Q2HR NEB PRN Restoril (Temazepam) 30 Mg Cap 30 Mg PO HS PRN Oxycodone (Oxycodone HCl) 5 Mg Tab 5 Mg PO Q6H PRN Reported Aspirin Adult Low Strength (Aspirin) 81 Mg Chew 81 Mg PO DAILY Gabapentin 300 Mg Cap 300 Mg PO DAILY Lasix (Furosemide) 20 Mg Tab 20 Mg PO DAILY Potassium Chloride ER (Potassium Chloride) 20 Meq Tab 20 Meq PO DAILY Claritin (Loratadine) 10 Mg Tab 10 Mg PO DAILY Prilosec (Omeprazole) 20 Mg Cap 20 Mg PO DAILY Baclofen 10 Mg Tab 10 Mg PO QID PRN Synthroid (Levothyroxine Sodium) 125 Mcg Tab 125 Mcg PO DAILY Effexor (Venlafaxine HCl) 75 Mg Tab 75 Mg PO DAILY Review of Systems Except as stated in HPI: all other systems reviewed are Neg Physical Exam Narrative GENERAL: Well-developed, overly nourished, in no acute distress, and non-ill appearing. Patient is sleeping, is easily awoken and is alert and oriented 4, and answering questions appropriately. SKIN: Focused skin assessment warm and dry. HEAD: Atraumatic. Normocephalic. EYES: Pupils equal and round. EOMI. No scleral icterus. No injection or drainage. ENT: No nasal bleeding or discharge. Mucous membranes pink and moist. NECK: Trachea midline. Supple. No nuclear rigidity. CARDIOVASCULAR: Regular rate and rhythm. No murmur appreciated. RESPIRATORY: No accessory muscle use. No respiratory distress. Scant rhonchi noted right lower lobe. MUSCULOSKELETAL: No obvious deformities. No clubbing. No cyanosis. No edema. Full range of motion. Shoulder:FROM equal BL with passive flexion, extension, Abduction, Adduction, internal/external rotation, and pronation/supination. Sensation equal BL deltoid muscles. Pulses equal BL distal to injury. Capillary refill less than 2 seconds distal to injury and equal BL. FROM distal to injury and equal BL. Strength distal to injury equal BL. NV intact distal to injury equal BL. Flexion and extension of thumb equal BL. Equal strength and movement with abduction/adductions of BL fingers. Lacing Cutter strength equal BL. NEUROLOGICAL: Awake and alert 4 to person, [address], time, and president.. No obvious cranial nerve deficits. Motor grossly within normal limits. Normal speech. PSYCHIATRIC: Appropriate mood and affect; insight and judgment normal. Data Data Last Documented VS Vital Signs Date Time Temp Pulse Resp B/P Pulse Ox O2 Delivery O2 Flow Rate FiO2 01/06/17 19:00 54 15 156/70 99 Room Air 01/06/17 16:03 97.8 Orders Electrocardiogram (01/06/17 ) Basic Metabolic Panel (Bmp) (01/06/17 16:29) Complete Blood Count With Diff (01/06/17 16:29) Creatine Kinase (Cpk) (01/06/17 16:29) Prothrombin Time / Inr (Pt) (01/06/17 16:29) Act Partial Throm Time (Ptt) (01/06/17 16:29) Troponin I (01/06/17 16:29) Urinalysis - C+S If Indicated (01/06/17 16:29) Chest, Single Ap (01/06/17 16:29) Ct Brain W/O Iv Contrast(Rout) (01/06/17 16:29) Ecg Monitoring (01/06/17 16:29) Iv Access Insert/Monitor (01/06/17 16:29) Oximetry (01/06/17 16:29) Sodium Chloride 0.9% Flush (Ns Flush) (01/06/17 16:30) Urine Culture (01/06/17 16:15) Sodium Chlorid 0.9% 500 Ml Inj (Ns 500 M (01/06/17 18:00) Oxycodone (Roxicodone) (01/06/17 21:00) Labs Laboratory Tests Test 01/06/17 16:15 White Blood Count 8.3 TH/MM3 Red Blood Count 3.67 MIL/MM3 Hemoglobin 10.5 GM/DL Hematocrit 32.4 % Mean Corpuscular Volume 88.3 FL Mean Corpuscular Hemoglobin 28.5 PG Mean Corpuscular Hemoglobin 32.3 % Concent Red Cell Distribution Width 17.5 % Platelet Count 315 TH/MM3 Mean Platelet Volume 8.9 FL Neutrophils (%) (Auto) 66.2 % Lymphocytes (%) (Auto) 20.8 % Monocytes (%) (Auto) 10.9 % Eosinophils (%) (Auto) 1.4 % Basophils (%) (Auto) 0.7 % Neutrophils # (Auto) 5.5 TH/MM3 Lymphocytes # (Auto) 1.7 TH/MM3 Monocytes # (Auto) 0.9 TH/MM3 Eosinophils # (Auto) 0.1 TH/MM3 Basophils # (Auto) 0.1 TH/MM3 CBC Comment DIFF FINAL Differential Comment Prothrombin Time 11.5 SEC Prothromb Time International 1.0 RATIO Ratio Activated Partial 24.0 SEC Thromboplast Time Urine Color YELLOW Urine Turbidity CLEAR Urine pH 5.5 Urine Specific [place] 1.015 Urine Protein TRACE mg/dL Urine Glucose (UA) NEG mg/dL Urine Ketones NEG mg/dL Urine Occult Blood NEG Urine Nitrite NEG Urine Bilirubin NEG Urine Urobilinogen LESS THAN 2.0 MG/DL Urine Leukocyte Esterase SMALL Urine RBC 1 /hpf Urine WBC 10 /hpf Urine Hyaline Casts 4 /lpf Urine Mucus FEW /lpf Microscopic Urinalysis Comment CATH-CULTURE IND Sodium Level 138 MEQ/L Potassium Level 4.6 MEQ/L Chloride Level 104 MEQ/L Carbon Dioxide Level 26.7 MEQ/L Anion Gap 7 MEQ/L Blood Urea Nitrogen 42 MG/DL Creatinine 1.52 MG/DL Estimat Glomerular Filtration 33 ML/MIN Rate Random Glucose 98 MG/DL Calcium Level 8.6 MG/DL Total Creatine Kinase 37 U/L Troponin I LESS THAN 0.02 NG/ML MDM Medical Decision Making Medical Screen Exam Complete: Yes Emergency Medical Condition: Yes Interpretation(s) EKG reviewed by Dr. Holt shows sinus bradycardia with ventricular rate of 52. No STEMI. Chest x-ray read by radiologist shows: 1. Slight improvement of the bibasilar consolidations (right worse than left). 2. Degenerative changes and scoliosis of the thoracic spine. CT the head read by radiologist shows: Mild cerebral atrophy. Mild periventricular white matter small vessel ischemic changes bilaterally. 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 No acute infarct, acute hemorrhage, mass effect or extra-axial fluid collections. Differential Diagnosis Altered mental status, worsening pneumonia, electrolyte abnormality, sepsis, other Narrative Course Patient in no obvious distress upon re-evaluation. All pertinent laboratory/ Radiology result(s) discussed with patient. She discussed patient with Dr. Holt , who saw and evaluated the patient and is in agreement with plan of care and disposition. Any questions/concerns in reference to patient diagnosis/condition discussed and clarified prior to patient's discharge. Reinforced sheer importance of close follow up with patient's primary physician or primary care clinic. Instructed patient to return to ED immediately, if symptoms return/ worsen. Pt showed understanding of above instructions. Further instructions and recommendations were detailed in discharge paperwork. Pt left without difficulty out of ED at discharge. Diagnosis Primary Impression: Dehydration, mild Additional Instructions: Follow-up with your primary care physician in 2-3 days for reevaluation. Return to the emergency department if symptoms get worse. Disposition: 01 DISCHARGE HOME Condition: Stable Robel Davis January 06, 2017 16:39
[2017-01-06] MEDS ORDERED: POTA-163 PO (16:53)
[2017-01-06] MEDS ORDERED: GABA300C5 PO (16:53)
[2017-01-06] MEDS ORDERED: FURO1TAB62 PO (16:53)
[2017-01-06] MEDS ORDERED: ASPI81CH14 PO (16:53)
--- NOTE | 2017-01-06 17:01 | RADRPT ---
EXAM DATE/TIME: 01/06/2017 16:48 [facility] COMPARISON: CHEST SINGLE AP, December 29, 2016, 3:30. INDICATIONS : Cough MEDICAL HISTORY : Hypertension. Chronic obstructive pulmonary disease. Rheumatoid arthritis. Thyroid SURGICAL HISTORY : Unknown ENCOUNTER: Initial ACUITY: 1 day PAIN SCORE: Non-responsive. LOCATION: Bilateral chest FINDINGS: Initial bibasilar consolidations (right slightly worse than left) are slightly improved compared to t he previous examination. The heart is stable. Degenerative changes and scoliosis of the thoracic sp ine are noted. CONCLUSION: 1. Slight improvement of the bibasilar consolidations (right worse than left). 2. Degenerative changes and scoliosis of the thoracic spine. Rolf Ma MD on January 06, 2017 at 16:57 Board Certified Radiologist. This report was verified electronically.
[2017-01-06 17:04] LABS: AUTOMATED NEUTROPHIL # 5.5 TH/MM3 (1.8-7.7); BASOPHIL # 0.1 TH/MM3 (0-0.2); BASOPHIL % 0.7 % (0.0-2.0); EOSINOPHIL # 0.1 TH/MM3 (0-0.4); EOSINOPHIL % 1.4 % (0.0-4.0); HEMATOCRIT 32.4 % (35.0-46.0); HEMO FLAGS DIFF FINAL; LYMPH % 20.8 % (9.0-44.0); LYMPHOCYTE # 1.7 TH/MM3 (1.0-4.8); MEAN CELL VOLUME 88.3 FL (80.0-100.0); MEAN CORPUSCULAR HEMOGLOBIN 28.5 PG (27.0-34.0); MEAN CORPUSCULAR HGB CONC 32.3 % (32.0-36.0); MONO % 10.9 % (0.0-8.0); NEUT % 66.2 % (16.0-70.0); PLATELET COUNT 315 TH/MM3 (150-450); RED BLOOD COUNT 3.67 MIL/MM3 (4.00-5.30); RED CELL DISTRIBUTION WIDTH 17.5 % (11.6-17.2); WHITE BLOOD COUNT 8.3 TH/MM3 (4.0-11.0)
[2017-01-06 17:10] LABS: BLOOD, URINE NEG (NEG); GLUCOSE,URINE NEG (NEG); HYALINE CAST, URINE 4 /lpf (RARE); KETONE, URINE NEG (NEG); MUCUS URINE FEW /lpf (OCC); NITRITE,URINE NEG (NEG); PH, URINE 5.5 (5.0-8.5); URINE COLOR YELLOW (YELLW/STRAW)
[2017-01-06 17:11] LABS: COMMENT (UR) CATH-CULTURE IND; CULTURE IF INDICATED CATH CULTURE IND
[2017-01-06 17:24] LABS: ANION GAP 7 MEQ/L (5-15); BICARBONATE 26.7 MEQ/L (21.0-32.0); BLOOD UREA NITROGEN 42 MG/DL (7-18); CHLORIDE 104 MEQ/L (98-107); GLOMERULAR FILTRATION RATE 33 ML/MIN (>89); POTASSIUM 4.6 MEQ/L (3.5-5.1); SODIUM (NA) 138 MEQ/L (136-145)
[2017-01-06 17:25] LABS: PROTHROMBIN TIME - PATIENT 11.5 SEC (9.8-11.6)
[2017-01-06 17:51] VITALS: BP 143/67; PULSE 49; RESP 16; O2SAT 95
[2017-01-06 17:55] LABS: CREATINE KINASE 37 U/L (26-192)
[2017-01-06] MEDS ORDERED: SODIUM CHLORID 0.9% 500 ML INJ 500 ML IV ONE (18:00)
[2017-01-06 19:00] VITALS: BP 156/70; PULSE 54; RESP 15; O2SAT 99
--- NOTE | 2017-01-06 19:40 | RADRPT ---
EXAM DATE/TIME: 01/06/2017 19:11 [facility] COMPARISON: CT BRAIN W/O CONTRAST, December 25, 2016, 2:27. INDICATIONS : Altered mental status. RADIATION DOSE: 56.35 CTDIvol (mGy) MEDICAL HISTORY : Hypertension. Chronic obstructive pulmonary disease. Cardiovascular diseaseCVA. SURGICAL HISTORY : Appendectomy. Hysterectomy. ENCOUNTER: Initial ACUITY: 1 day PAIN SCALE: 0/10 LOCATION: cranial TECHNIQUE: Multiple contiguous axial images were obtained of the head. Using automated exposure control and adj ustment of the mA and/or kV according to patient size, radiation dose was kept as low as reasonably a chievable to obtain optimal diagnostic quality images. FINDINGS: CEREBRUM: Mild cerebral atrophy is noted. Old lacunar infarcts are noted within the bilateral basal ganglia. Mi ld periventricular white matter small vessel ischemic changes are noted bilaterally. No evidence of m idline shift, mass lesion, hemorrhage or acute infarction. No extra-axial fluid collections are seen . POSTERIOR FOSSA: The cerebellum and brainstem are intact. The 4th ventricle is midline. The cerebellopontine angle i s unremarkable. EXTRACRANIAL: The visualized portion of the orbits is intact. SKULL: The calvaria is intact. No evidence of skull fracture. CONCLUSION: Mild cerebral atrophy. Mild periventricular white matter small vessel ischemic change s bilaterally. 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 No acute infarct, acute hemor rhage, mass effect or extra-axial fluid collections. Rolf Ma MD on January 06, 2017 at 19:36 Board Certified Radiologist. This report was verified electronically.
--- NOTE | 2017-01-07 15:38 | EKG ---
Date Performed: 01/06/2017 Time Performed: 16:13:30 PTAGE: 86 years EKG: SINUS BRADYCARDIA PATTERN CONSISTENT WITH PULMONARY DISEASE LEFT ANTERIOR FASCICULAR BLOCK VOLTAGE CRITERIA FOR LVH POSSIBLE SEPTAL MYOCARDIAL INFARCTION When compared to previous tracing, sin us tachycardia and the Premature ventricular contractions have resolved. The lateral ST segment leal es have improved. ABNORMAL ECG PREVIOUS TRACING : 12/26/2016 14.25 DOCTOR: Stacy Monk Interpretating Date/Time 01/07/2017 15:37:35
== END 2017-01-06 22:36 | disposition home or self-care (01) ==
LOC: NEPE 15:55 → NEPD 22:36
DX: E86.0 Dehydration (principal); R00.1 Bradycardia, unspecified; I44.4 Left anterior fascicular block; J44.9 Chronic obstructive pulmonary disease, unspecified; I25.10 Atherosclerotic heart disease of native coronary artery without angina pectoris; I10 Essential (primary) hypertension; I25.2 Old myocardial infarction; M79.7 Fibromyalgia; E05.00 Thyrotoxicosis with diffuse goiter without thyrotoxic crisis or storm; Z86.73 Personal history of transient ischemic attack (TIA), and cerebral infarction without residual deficits
CPT/HCPCS: 70450; 71010; 80048; 81001; 82550; 84484; 85025; 85610; 85730; 87086; 93005; 96360; 99285; J7040

== ENCOUNTER 2017-04-22 16:21 | Inpatient (IN) | payer MEDICARE ==
[~2017-04-22] VITALS: Ht 157.5 cm; Wt 73.5 kg
[2017-04-22] VITALS (9 sets, daily range): BP systolic 115–133; BP diastolic 55–62; PULSE 82–90; RESP 19–22; TEMP 97.2–99.2; O2SAT 92–100
[~2017-04-22 16:21] MED LIST changes: +ASPI81CH14 PO; -Aspirin Chew CHEW; +FURO1TAB62 PO; -FURO8SOL NG; +GABA300C5 PO; -NEUR300C PO; +POTA-163 PO; -POTA75TA
[2017-04-22] MEDS ORDERED: SODIUM CHLORIDE 0.9% FLUSH 10 ML FLUSH IVF PRN (16:30)
[2017-04-22] MEDS: RESP: ALBUTEROL 2.5 MG/3 ML NEB (SCH) INH (16:49)
[2017-04-22] MEDS ORDERED: OXYC1TAB36 PO (17:00)
[2017-04-22] MEDS ORDERED: LISI10TA3 PO (17:00)
[2017-04-22] MEDS ORDERED: AMLO5 PO (17:00)
[2017-04-22 17:08] LABS: BACTERIA, URINE MOD /hpf; BLOOD, URINE NEG (NEG); GLUCOSE,URINE NEG (NEG); HYALINE CAST, URINE 6 /lpf (RARE); KETONE, URINE NEG (NEG); MUCUS URINE FEW /lpf (OCC); NITRITE,URINE POS (NEG); PH, URINE 5.5 (5.0-8.5); URINE COLOR YELLOW (YELLW/STRAW)
[2017-04-22 17:09] LABS: COMMENT (UR) CULTURE INDICATED; CULTURE IF INDICATED CULTURE INDICATED
[2017-04-22 17:14] LABS: AUTOMATED NEUTROPHIL # 22.3 TH/MM3 (1.8-7.7); BASOPHIL # 0.1 TH/MM3 (0-0.2); BASOPHIL % 0.2 % (0.0-2.0); EOSINOPHIL % 0.1 % (0.0-4.0); HEMATOCRIT 33.5 % (35.0-46.0); LYMPH % 8.2 % (9.0-44.0); LYMPHOCYTE # 2.2 TH/MM3 (1.0-4.8); MEAN CELL VOLUME 88.6 FL (80.0-100.0); MEAN CORPUSCULAR HEMOGLOBIN 27.8 PG (27.0-34.0); MEAN CORPUSCULAR HGB CONC 31.4 % (32.0-36.0); MONO % 9.3 % (0.0-8.0); NEUT % 82.2 % (16.0-70.0); PLATELET COUNT 336 TH/MM3 (150-450); RED BLOOD COUNT 3.79 MIL/MM3 (4.00-5.30); RED CELL DISTRIBUTION WIDTH 16.8 % (11.6-17.2); WHITE BLOOD COUNT 27.2 TH/MM3 (4.0-11.0)
[2017-04-22 17:16] LABS: HEMO FLAGS AUTO DIFF
[2017-04-22 17:24] LABS: ALT (GPT) 32 U/L (10-53); ANION GAP 10 MEQ/L (5-15); AST (GOT) 31 U/L (15-37); BICARBONATE 30.7 MEQ/L (21.0-32.0); BLOOD UREA NITROGEN 33 MG/DL (7-18); CHLORIDE 90 MEQ/L (98-107); GLOMERULAR FILTRATION RATE 33 ML/MIN (>89); SODIUM (NA) 131 MEQ/L (136-145)
[2017-04-22 17:25] LABS: APTT (PATIENT) 31.8 SEC (24.3-30.1); INTERNATIONAL NORMALIZED RATIO 1.1 RATIO; PROTHROMBIN TIME - PATIENT 11.9 SEC (9.8-11.6)
[2017-04-22 17:27] LABS: ALKALINE PHOSPHATASE 119 U/L (45-117); TOTAL BILIRUBIN ADULT 0.4 MG/DL (0.2-1.0)
[2017-04-22 17:49] LABS: BANDS 16 % (0-6); METAMYELOCYTES 1 % (0-1); NEUTROPHIL # MANUAL DIFF 23.4 TH/MM3 (1.8-7.7); POLYS (SEG NEUTROPHILS) 69 % (16-70); WBC DIFF SAMPLE 100
[2017-04-22 17:50] LABS: PLATELET MORPHOLOGY NORMAL (NORMAL); SCAN/DIFF FINAL DIFF MANUAL; TOXIC VACUOLATION PRESENT (NONE SEEN)
[2017-04-22] MEDS ORDERED: CEFEPIME INJ 2,000 MG in SODIUM CHLORIDE 0.9% INJ 100 ML IV STA (17:52)
[2017-04-22] MEDS ORDERED: SODIUM CHLOR 0.9% 1000 ML INJ 1,000 ML IV ONE ×2 (17:52)
[2017-04-22] MEDS ORDERED: AZITHROMYCIN INJ 500 MG in SODIUM CHLOR 0.9% 250 ML INJ 250 ML IV STA (17:52)
[2017-04-22] MEDS ORDERED: SODIUM CHLOR 0.9% 1000 ML INJ 100 ML IV ONE (17:52)
--- NOTE | 2017-04-22 18:04 | RADRPT ---
EXAM DATE/TIME: 04/22/2017 16:43 [facility] COMPARISON: CHEST SINGLE AP, January 06, 2017, 16:48. INDICATIONS : Shortness of breath. MEDICAL HISTORY : Hypertension. Chronic obstructive pulmonary disease. Rheumatoid arthritis. Thyroid SURGICAL HISTORY : None. Appendectomy. Hysterectomy. Bilateral cataracts with lens implants. Metal plate on ENCOUNTER: Initial ACUITY: 1 day PAIN SCORE: 10/10 LOCATION: Bilateral chest FINDINGS: Bibasilar infiltrates are noted consistent with probable pneumonia. Small right pleural effusion is also noted and may be partially loculated. The heart is stable. Degenerative changes and scoliosis of the thoracolumbar spine are noted. CONCLUSION: 1. Bibasilar infiltrates consistent with probable pneumonia. Clinical correlation is recommended. 2. Small right pleural effusion which may be partially loculated. 3. Degenerative changes and scoliosis of the thoracolumbar spine. Rolf Ma MD on April 22, 2017 at 17:27 Board Certified Radiologist. This report was verified electronically.
--- NOTE | 2017-04-22 18:10 | PD ---
HPI Chief Complaint: Respiratory Distress Time Seen by Provider: 16:30 Travel History International Travel<30 days: No Contact w/Intl Traveler<30days: No Traveled to known affect area: No History of Present Illness HPI This is a 86-year-old female who presents to the emergency department with shortness of breath. History is obtained from her on the phone. Her reports that throughout the day she's been increasingly short of breath and weak. He had her get on the bed and she wasn't able to get off and was crawling on the floor so he put her back on the bed but he said she was shaking and continued to feel uncomfortable. After several hours he decided to call the ambulance. The patient has had pneumonia several times recently. In December she was admitted here in the intensive care unit on a ventilator. When EMS arrived to the house the patient had an oxygen saturation of 40% on room air. Goals of care discussion: I spoke to the patient's Juan Dupree for a long time on the phone who is her decision maker. He said that after he experienced they had in December where the patient was on a ventilator they both agreed that they would not want to go through something like that again. They're both in their 80s and they understand that there time is limited and right now that her function is pretty limited and he says that the patient doesn 't do much except wake up and eat and then go back to sleep. He says he's expressed to her in the past that she would not want to be intubated or resuscitated if she were to get sicker. He says she would accept treatment with antibiotics and at this point he would like to try some conservative management and not hospice but if the patient were to get worse he would consider hospice at that time. He did express that he wanted to focus on the patient's comfort. He agreed to a DNR/DNI order in the chart. PFSH Past Medical History Arthritis: Yes (rheumatoid arthritis, spinal stenosis) Asthma: No Autoimmune Disease: Yes (RA) Blood Disorders: No Anxiety: No Depression: Yes Heart Rhythm Problems: No Cancer: No Cardiovascular Problems: Yes High Cholesterol: No Chest Pain: No Congestive Heart Failure: No COPD: Yes Cerebrovascular Accident: Yes (TIA) Coronary Artery Disease: Yes Diabetes: No Diminished Hearing: No Endocrine: Yes (Graves disease) Fibromyalgia: Yes Gastrointestinal Disorders: No GERD: No Genitourinary: Yes (UTI) Headaches: No Hepatitis: No Hiatal Hernia: No Hypertension: Yes Immune Disorder: No Implanted Vascular Access Dvce: Yes Kidney Stones: No Musculoskeletal: Yes (fibromyalgia) Neurologic: Yes Psychiatric: Yes Reproductive: No Respiratory: Yes Migraines: No Myocardial Infarction: Yes Radiation Therapy: Yes (THYROID) Renal Failure: No Seizures: No Sleep Apnea: No Thyroid Disease: Yes Ulcer: No Menopausal: Yes Past Surgical History Abdominal Surgery: Yes (APPENDECTOMY) AICD: No Appendectomy: Yes Arteriovenous Shunt: No Body Medical Devices: HIP REPLACEMENTS Cardiac Surgery: No Ear Surgery: No Endocrine Surgery: No Eye Surgery: Yes (cataract removal) Genitourinary Surgery: Yes (HYSTERECTOMY) Gynecologic Surgery: Yes Hysterectomy: Yes Insulin Pump: No Joint Replacement: Yes (MAYELA HIP REPLACEMENT) Neurologic Surgery: No Pacemaker: No Thoracic Surgery: Yes (METAL PLATE ON BACK FOR STENOSIS WHEN 74 YEARS OLD) Other Surgery: Yes (LOWER BACK) Social History Alcohol Use: No Tobacco Use: No Substance Use: No Allergies-Medications (Allergen,Severity, Reaction): Coded Allergies: penicillin G (Unverified Allergy, Severe, 04/22/17) RASH *MDRO Multi-Drug Resistant Organism (Unverified Adverse Reaction, Unknown , 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 MRSA PCR Screens NEGATIVE - 06/14/2016, 06/16/2016 CLEARED PER INFECTION CONTROL Reported Meds & Prescriptions Reported Meds & Active Scripts Active Lopressor (Metoprolol Tartrate) 50 Mg Tab 50 Mg PO Q12HR Albuterol Neb (Albuterol Sulfate) 2.5 Mg/3 Ml Neb 2.5 Mg NEB Q2HR NEB PRN Restoril (Temazepam) 30 Mg Cap 30 Mg PO HS PRN Reported Oxycodone-Acetaminophen 10-325 mg Tab 1 Tab PO Q4H PRN Norvasc (Amlodipine Besylate) 5 Mg Tab 5 Mg PO DAILY Lisinopril 10 Mg Tab 10 Mg PO DAILY Aspirin Adult Low Strength (Aspirin) 81 Mg Chew 81 Mg PO DAILY Gabapentin 300 Mg Cap 300 Mg PO DAILY Lasix (Furosemide) 20 Mg Tab 20 Mg PO DAILY Potassium Chloride ER (Potassium Chloride) 20 Meq Tab 20 Meq PO DAILY Claritin (Loratadine) 10 Mg Tab 10 Mg PO DAILY Prilosec (Omeprazole) 20 Mg Cap 20 Mg PO DAILY Baclofen 10 Mg Tab 10 Mg PO QID PRN Synthroid (Levothyroxine Sodium) 125 Mcg Tab 125 Mcg PO DAILY Effexor (Venlafaxine HCl) 75 Mg Tab 75 Mg PO DAILY Review of Systems ROS Limitations: Altered Mental Status Physical Exam Narrative GENERAL: Frail pale elderly female with shallow respirations SKIN: Dry with skin tenting HEAD: Atraumatic. Normocephalic. EYES: Pupils equal and round. No injection or drainage. ENT: Moist mucous membranes NECK: Trachea midline. CARDIOVASCULAR: Regular rate and rhythm. No murmur appreciated. RESPIRATORY: Coarse breath sounds bilaterally, shallow respirations, tachypneic GASTROINTESTINAL: Abdomen soft, non-tender, nondistended. MUSCULOSKELETAL: No obvious deformities. NEUROLOGICAL: Confused but able to say her name .No obvious cranial nerve deficits. Moving all extremities. Data Data Last Documented VS Vital Signs Date Time Temp Pulse Resp B/P (MAP) Pulse Ox O2 Delivery O2 Flow Rate FiO2 04/22/17 16:50 81 22 100 BiPAP 85 04/22/17 16:25 99.2 133/55 (81) Orders Orders Complete Blood Count With Diff (04/22/17 16:30) Comprehensive Metabolic Panel (04/22/17 16:30) B-Type Natriuretic Peptide (04/22/17 16:30) D-Dimer (04/22/17 16:30) Act Partial Throm Time (Ptt) (04/22/17 16:30) Prothrombin Time / Inr (Pt) (04/22/17 16:30) Troponin I (04/22/17 16:30) Urinalysis - C+S If Indicated (04/22/17 16:30) Iv Access Insert/Monitor (04/22/17 16:30) Ecg Monitoring (04/22/17 16:30) Oximetry (04/22/17 16:30) Oxygen Administration (04/22/17 16:30) Chest, Single Ap (04/22/17 16:30) Cath For Specimen (04/22/17 16:30) Sodium Chloride 0.9% Flush (Ns Flush) (04/22/17 16:30) Albuterol Neb (Albuterol Neb) (04/22/17 16:30) Blood Culture (04/22/17 16:34) Lactic Acid Sepsis Protocol (04/22/17 16:34) Code Status (04/22/17 16:45) Urine Culture (04/22/17 16:40) Cefepime Inj (Maxipime Inj) (04/22/17 17:52) Azithromycin Inj (Zithromax Inj) (04/22/17 17:52) Sodium Chlor 0.9% 1000 Ml Inj (Ns 1000 M (04/22/17 17:52) Sodium Chlor 0.9% 1000 Ml Inj (Ns 1000 M (04/22/17 17:52) Sodium Chlor 0.9% 1000 Ml Inj (Ns 1000 M (04/22/17 17:52) Labs Laboratory Tests Test 04/22/17 13:40 04/22/17 16:35 04/22/17 16:40 Prothrombin Time 11.9 SEC Prothromb Time International Ratio 1.1 RATIO Activated Partial Thromboplast Time 31.8 SEC D-Dimer Quantitative (PE/DVT) 4.61 MG/L FEU Blood Urea Nitrogen 33 MG/DL Creatinine 1.49 MG/DL Random Glucose 82 MG/DL Total Protein 7.9 GM/DL Albumin 2.1 GM/DL Calcium Level 8.7 MG/DL Alkaline Phosphatase 119 U/L Aspartate Amino Transf (AST/SGOT) 31 U/L Alanine Aminotransferase (ALT/SGPT) 32 U/L Total Bilirubin 0.4 MG/DL Sodium Level 131 MEQ/L Potassium Level 5.0 MEQ/L Chloride Level 90 MEQ/L Carbon Dioxide Level 30.7 MEQ/L Anion Gap 10 MEQ/L Estimat Glomerular Filtration Rate 33 ML/MIN Troponin I LESS THAN 0.02 NG/ML B-Type Natriuretic Peptide 80 PG/ML Lactic Acid Level 1.7 mmol/L White Blood Count 27.2 TH/MM3 Red Blood Count 3.79 MIL/MM3 Hemoglobin 10.5 GM/DL Hematocrit 33.5 % Mean Corpuscular Volume 88.6 FL Mean Corpuscular Hemoglobin 27.8 PG Mean Corpuscular Hemoglobin Concent 31.4 % Red Cell Distribution Width 16.8 % Platelet Count 336 TH/MM3 Mean Platelet Volume 7.6 FL Neutrophils (%) (Auto) 82.2 % Lymphocytes (%) (Auto) 8.2 % Monocytes (%) (Auto) 9.3 % Eosinophils (%) (Auto) 0.1 % Basophils (%) (Auto) 0.2 % Neutrophils # (Auto) 22.3 TH/MM3 Lymphocytes # (Auto) 2.2 TH/MM3 Monocytes # (Auto) 2.5 TH/MM3 Eosinophils # (Auto) 0.0 TH/MM3 Basophils # (Auto) 0.1 TH/MM3 CBC Comment AUTO DIFF Differential Total Cells Counted 100 Neutrophils % (Manual) 69 % Band Neutrophils % 16 % Lymphocytes % 8 % Monocytes % 6 % Neutrophils # (Manual) 23.4 TH/MM3 Metamyelocytes 1 % Differential Comment FINAL DIFF MANUAL Toxic Vacuolation PRESENT Platelet Morphology Comment NORMAL Urine Color YELLOW Urine Turbidity HAZY Urine pH 5.5 Urine Specific [place] 1.014 Urine Protein TRACE mg/dL Urine Glucose (UA) NEG mg/dL Urine Ketones NEG mg/dL Urine Occult Blood NEG Urine Nitrite POS Urine Bilirubin NEG Urine Urobilinogen LESS THAN 2.0 MG/DL Urine Leukocyte Esterase MOD Urine RBC 1 /hpf Urine WBC 33 /hpf Urine WBC Clumps FEW Urine Bacteria MOD /hpf Urine Hyaline Casts 6 /lpf Urine Mucus FEW /lpf Microscopic Urinalysis Comment CULTURE INDICATED MDM Medical Decision Making Medical Screen Exam Complete: Yes Emergency Medical Condition: Yes Medical Record Reviewed: Yes (patient was admitted in today in the setting of pneumonia and was in the intensive care unit on a ventilator) Interpretation(s) Temperature is 99.2, blood pressure is 130/50 Leukocytosis of 27 with a 16% bandemia Electrolytes are reassuring BNP is normal Troponin is normal Lactic acid is 1.7 Acute renal insufficiency Urinary tract infection on urinalysis Chest x-ray: Basal infiltrates consistent with pneumonia Differential Diagnosis Pneumonia, urinary tract infection, sepsis, pulmonary embolism, COPD exacerbation, congestive heart failure Narrative Course This is an 86-year-old female who presents to the emergency department with shortness of breath and altered mental status. On arrival she had shallow respirations, seems somewhat sleepy and altered and on a nonrebreather she was 98%. I placed her on BiPAP. She was placed on a monitor and an IV was established. Labs were obtained which demonstrate a leukocytosis with a 16% bandemia. She has some renal insufficiency on labs. Lactic acid is normal. Chest x-ray demonstrates pneumonia and urinalysis demonstrates urinary tract infection. Patient was given cefepime and azithromycin and IV hydration. As documented in the history I had a long conversation with the patient's who articulated the patient would not want to be intubated or resuscitated if she were to get worse. He would like to try antibiotic therapy and supportive care. He would consider hospice care if the patient deteriorates. I recommended that we admit the patient to the hospital and consulted palliative care and he was in agreement. Critical Care Narrative Aggregate critical care time was 50 minutes. Time to perform other separately billable procedures was not included in the critical care time. My time did not include minutes spent treating any other patients simultaneously or on activities that did not directly contribute to the patient's treatment. The services I provided to this patient were to treat and/or prevent clinically significant deterioration that could result in: Disability, I provided critical care services requiring my management, as noted below: Chart data review, documentation time, medication orders and management, vital sign assessments/reviewing monitor data, ordering and reviewing lab tests, ordering and interpreting/reviewing x-rays and diagnostic studies, care of the patient and discussion of the patient with the admitting physicians. Diagnosis Primary Impression: Pneumonia Qualified Codes: J18.9 - Pneumonia, unspecified organism Additional Impression: Acute respiratory failure with hypoxia Admitting Information Admitting Physician Requests: Iraida Boyce MD Apr 22, 2017 18:10
[2017-04-22 18:55] LABS: BLOOD GAS BASE EXCESS 2.5 mmol/L (-2-2); BLOOD GAS CARBOXYHEMOGLOBIN 1.2 % (0-4); BLOOD GAS HCO3 27 mmol/L (22-26); BLOOD GAS METHEMOGLOBIN 0.8 % (0-2); BLOOD GAS O2 HGB SATURATION 94 % (90-100); BLOOD GAS OXYGEN CONTENT 12.8 Vol % (12.0-20.0); BLOOD GAS PCO2 48 mmHg (38-42); BLOOD GAS PO2 85 mmHG (61-120); BLOOD GAS TOTAL HGB 9.7 G/DL (12.0-16.0); TEMP CORR TO 98.6
[2017-04-22 18:56] LABS: CRITICAL VALUE NO; DRAW SITE LT RADIAL; FIO2 60 %; NUMBER OF ARTERIAL PUNCTURES 1; OXYGEN DEVICE BIPAP; STAT YES; ULNAR PULSE PRESENT; VENT SETTINGS IPAP10/EPAP5
[2017-04-22] MEDS ORDERED: LEVOFLOXACIN 500 MG PREMIX INJ 100 ML IV SCH (20:00)
--- NOTE | 2017-04-22 20:26 | HHI.HP ---
[facility] Unknown Admission Diagnosis pneumonia Diagnoses: Chief Complaint: Respiratory distress Travel History International Travel<30 Days: No Contact w/Intl Traveler <30 Da: No Traveled to Known Affected Are: No History of Present Illness Mrs. Dupree is an unfortunate 86-year-old elderly white female with history of respiratory failure and prior intubations, sepsis, COPD, RA, fibromyalgia, hypertension. Patient presented to the emergency room via a VAC for respiratory distress. At this time she is not able to provide any information. Information is obtained from the medical record. Per review, patient's indicated that throughout the day patient was short of breath and weak, she was crawling on the floor and when he put her back to bed she was shaking. He finally called EMS, when they arrived she was found hypoxic with sats of 40% on room air. Emergency room physician and spoke to Mr. aleena Redman regarding goals of care, patient was recently admitted in December and was intubated. Because of the previous experience and her poor quality of life, he indicated that he will want a DNR/DNI order and continue with conservative management including antibiotics. Indicated that he was not ready for hospice unless the patient worsened. Patient was evaluated in emergency room, laboratory workup was completed. CBC remarkable for leukocytosis, WBC 27.2, neutrophil of 22.3 and bandemia. BMP remarkable for hyponatremia, BUN of 33, creatinine 1.49. Lactic acid 1.7. Troponin was negative. B natruretic peptide 80. Urinalysis positive for bacteria and leukocyte esterase. ABG, pH 7.27, PCO2 48, PO2 85, bicarbonate 27. Chest x-ray significant for bibasilar infiltrates consistent with probable pneumonia, small right pleural effusion which may be partially loculated. Degenerative changes and scoliosis of the thoracolumbar spine. Patient was put on BiPAP, cultures were obtained and she was started on empiric antibiotics. She is receiving hydration. At this time, she is evaluated in emergency room. She is on BiPAP, opens eyes to voice but otherwise it is difficult to obtain any information. She is admitted for further evaluation and treatment. Review of Systems ROS Limitations: Clinical Condition (on bipap) Past Family Social History Past Medical History 1. MRSA infection in 2014 with a right fibula hardware. 2. History of coronary artery disease. 3. Rheumatoid arthritis. 4. Asthma. 5. TIAs. 6. Chronic pain. 7. Hypothyroid disorder. 8. C. diff colitis. 9. Altered mental status, probable secondary to UTI. 10. Spinal stenosis. 11. Macular degeneration. 12. Graves disease. 13. Fibromyalgia. 14. Hypertension. 15. NC. 16. History of COPD. Past Surgical History 1. Appendectomy. 2. Bilateral hip replacement. 3. Right fibula open reduction complicated with MRSA infection. 4. Eye surgery. 5. Cataract removal. 6. Hysterectomy. 7. Metal plate in back for stenosis at 74 years old. Reported Medications Reported Meds & Active Scripts Active Lopressor (Metoprolol Tartrate) 50 Mg Tab 50 Mg PO Q12HR Albuterol Neb (Albuterol Sulfate) 2.5 Mg/3 Ml Neb 2.5 Mg NEB Q2HR NEB PRN Restoril (Temazepam) 30 Mg Cap 30 Mg PO HS PRN Reported Oxycodone-Acetaminophen 10-325 mg Tab 1 Tab PO Q4H PRN Norvasc (Amlodipine Besylate) 5 Mg Tab 5 Mg PO DAILY Lisinopril 10 Mg Tab 10 Mg PO DAILY Aspirin Adult Low Strength (Aspirin) 81 Mg Chew 81 Mg PO DAILY Gabapentin 300 Mg Cap 300 Mg PO DAILY Lasix (Furosemide) 20 Mg Tab 20 Mg PO DAILY Potassium Chloride ER (Potassium Chloride) 20 Meq Tab 20 Meq PO DAILY Claritin (Loratadine) 10 Mg Tab 10 Mg PO DAILY Prilosec (Omeprazole) 20 Mg Cap 20 Mg PO DAILY Baclofen 10 Mg Tab 10 Mg PO QID PRN Synthroid (Levothyroxine Sodium) 125 Mcg Tab 125 Mcg PO DAILY Effexor (Venlafaxine HCl) 75 Mg Tab 75 Mg PO DAILY Allergies: Coded Allergies: penicillin G (Unverified Allergy, Severe, 04/22/17) RASH *MDRO Multi-Drug Resistant Organism (Unverified Adverse Reaction, Unknown , 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 MRSA PCR Screens NEGATIVE - 06/14/2016, 06/16/2016 CLEARED PER INFECTION CONTROL Active Ordered Medications Inpatient Medications Albuterol Sulfate (Albuterol Neb) 2.5 mg Q15M INH Last administered on t 16:49; Start 04/22/17 at 16:30; Stop 04/22/17 at 17:01; Status DC Azithromycin 500 mg/Sodium Chloride 250 ml @ 250 mls/hr ONCE STAT IV Last administered on 04/22/17t 19:08; Start 04/22/17 at 17:52; Stop 04/22/17 at 18:51 ; Status DC Cefepime HCl 1000 mg/Sodium Chloride 100 ml @ 200 mls/hr Q8H IV ; Start at 19:30; Status UNV Cefepime HCl 2000 mg/Sodium Chloride 100 ml @ 200 mls/hr ONCE STAT IV ; Start 04/22/17 at 17:52; Stop 04/22/17 at 18:21; Status DC Levofloxacin/ Dextrose 50 ml @ 50 mls/hr Q24H IV ; Start 04/23/17 at 20:00 Sodium Chloride 1,000 ml @ 100 mls/hr Q10H IV ; Start 04/22/17 at 19:30; Status UNV Sodium Chloride (NS Flush) 2 ml UNSCH PRN IVF FLUSH AFTER USING IV ACCESS; Start 04/22/17 at 16:30 Family History unable to obtain Social History Remote hx of smoking no substance abuse no ETOH Physical Exam Vital Signs Vital Signs Date Time Temp Pulse Resp B/P (MAP) Pulse Ox O2 Delivery O2 Flow Rate FiO2 04/22/17 19:08 82 22 122/58 (79) 100 BiPAP 60 04/22/17 16:50 81 22 100 BiPAP 85 04/22/17 16:38 22 95 BiPAP 85 04/22/17 16:38 95 BiPAP 85 04/22/17 16:30 100 80 04/22/17 16:25 99.2 89 22 133/55 (81) 98 Physical Exam GENERAL: This is a rail, thin built female. On BiPAP SKIN: Cool and dry, bruising over Right knee HEAD: Atraumatic. Normocephalic. No temporal or scalp tenderness. EYES: Pupils equal round and reactive. Extraocular motions intact. No scleral icterus. No injection or drainage. ENT: Nose without bleeding, purulent drainage or septal hematoma. Throat without erythema, tonsillar hypertrophy or exudate. Uvula midline. Airway patent. NECK: Trachea midline. No JVD or lymphadenopathy. Supple, nontender, no meningeal signs. CARDIOVASCULAR: Regular rate and rhythm without murmurs, gallops, or rubs. RESPIRATORY: Diffuse rhonchi, expiratory wheezes GASTROINTESTINAL: Abdomen soft, non-tender, nondistended. No hepato-splenomegaly , or palpable masses. No guarding. MUSCULOSKELETAL: Extremities without clubbing, cyanosis, or edema. No joint tenderness, effusion, or edema noted. No calf tenderness. Negative Homans sign bilaterally. NEUROLOGICAL: Opens eyes to voice, lethargic. Follow simple commands. Difficult to assess neurological status. Laboratory Laboratory Tests Test 04/22/17 13:40 04/22/17 16:35 04/22/17 16:40 04/22/17 18:43 Prothrombin Time 11.9 Prothromb Time International Ratio 1.1 Activated Partial Thromboplast Time 31.8 D-Dimer Quantitative (PE/DVT) 4.61 Blood Urea Nitrogen 33 Creatinine 1.49 Random Glucose 82 Total Protein 7.9 Albumin 2.1 Calcium Level 8.7 Alkaline Phosphatase 119 Aspartate Amino Transf (AST/SGOT) 31 Alanine Aminotransferase (ALT/SGPT) 32 Total Bilirubin 0.4 Sodium Level 131 Potassium Level 5.0 Chloride Level 90 Carbon Dioxide Level 30.7 Anion Gap 10 Estimat Glomerular Filtration Rate 33 Troponin I LESS THAN 0.02 B-Type Natriuretic Peptide 80 Lactic Acid Level 1.7 White Blood Count 27.2 Red Blood Count 3.79 Hemoglobin 10.5 Hematocrit 33.5 Mean Corpuscular Volume 88.6 Mean Corpuscular Hemoglobin 27.8 Mean Corpuscular Hemoglobin Concent 31.4 Red Cell Distribution Width 16.8 Platelet Count 336 Mean Platelet Volume 7.6 Neutrophils (%) (Auto) 82.2 Lymphocytes (%) (Auto) 8.2 Monocytes (%) (Auto) 9.3 Eosinophils (%) (Auto) 0.1 Basophils (%) (Auto) 0.2 Neutrophils # (Auto) 22.3 Lymphocytes # (Auto) 2.2 Monocytes # (Auto) 2.5 Eosinophils # (Auto) 0.0 Basophils # (Auto) 0.1 CBC Comment AUTO DIFF Differential Total Cells Counted 100 Neutrophils % (Manual) 69 Band Neutrophils % 16 Lymphocytes % 8 Monocytes % 6 Neutrophils # (Manual) 23.4 Metamyelocytes 1 Differential Comment FINAL DIFF MANUAL Toxic Vacuolation PRESENT Platelet Morphology Comment NORMAL Urine Color YELLOW Urine Turbidity HAZY Urine pH 5.5 Urine Specific [place] 1.014 Urine Protein TRACE Urine Glucose (UA) NEG Urine Ketones NEG Urine Occult Blood NEG Urine Nitrite POS Urine Bilirubin NEG Urine Urobilinogen LESS THAN 2.0 Urine Leukocyte Esterase MOD Urine RBC 1 Urine WBC 33 Urine WBC [place] FEW Urine Bacteria MOD Urine Hyaline Casts 6 Urine Mucus FEW Microscopic Urinalysis Comment CULTURE INDICATED Blood Gas Puncture Site LT RADIAL Blood Gas Patient Temperature 98.6 Blood Gas HCO3 27 Blood Gas Base Excess 2.5 Blood Gas Oxygen Saturation 94 Arterial Blood pH 7.37 Arterial Blood Partial Pressure CO2 48 Arterial Blood Partial Pressure O2 85 Arterial Blood Oxygen Content 12.8 Arterial Blood Carboxyhemoglobin 1.2 Arterial Blood Methemoglobin 0.8 Blood Gas Hemoglobin 9.7 Oxygen Delivery Device BIPAP Blood Gas Ventilator Setting IPAP10/[id number] Blood Gas Inspired Oxygen 60 Date/Time Source Procedure Growth Status 04/22/17 16:40 Blood Peripheral Aerobic Blood Culture Pending Received 04/22/17 16:40 Blood Peripheral Anaerobic Blood Culture Pending Received 04/22/17 16:40 Urine Random Urine Urine Culture Pending Worksheet Result Diagram: 04/22/17 1640 04/22/17 1340 Imaging Last Impressions Chest X-Ray 04/22/17 1630 Signed Impressions: Service Date/Time: Saturday, April 22, 2017 16:43 - CONCLUSION: 1. Bibasilar infiltrates consistent with probable pneumonia. Clinical correlation is recommended. 2. Small right pleural effusion which may be partially loculated. 3. Degenerative changes and scoliosis of the thoracolumbar spine. Rolf Ma MD Septic Shock Reassessment Heart: Regular rate and rhythm Skin: Warm Peripheral Pulses: Bounding Right Radial Bounding Left Radial Bounding Right Popliteal Bounding Left Popliteal Bounding Right Dorsalis Pedis Bounding Left Dorsalis Pedis Bounding Right Posterior Tibial Bounding Left Posterior Tibial Capillary Refill: Brisk Caprini VTE Risk Assessment Caprini VTE Risk Assessment: Mod/High Risk (score >= 2) Caprini Risk Assessment Model Point Value = 1 Point Value = 2 Point Value = 3 Point Value = 5 Age 41-60 Minor surgery BMI > 25 kg/m2 Swollen legs Varicose veins or History of unexplained or recurrent spontaneous Oral contraceptives or hormone replacement Sepsis (< 1 month) Serious lung disease, including pneumonia (< 1 month) Abnormal pulmonary function Acute myocardial infarction Congestive heart failure (< 1 month) History of inflammatory bowel disease Medical patient at bed rest Age 61-74 Arthroscopic surgery Major open surgery (> 45 min) Laparoscopic surgery (> 45 min) Malignancy Confined to bed (> 72 hours) Immobilizing plaster cast Central venous access Age >= 75 History of VTE Family history of VTE Factor V Leiden Prothrombin [id number] Lupus anticoagulant Anticardiolipin antibodies Elevated serum homocysteine Heparin-induced thrombocytopenia Other congenital or acquired thrombophilia Stroke (< 1 month) Elective arthroplasty Hip, pelvis, or leg fracture Acute spinal cord injury (< 1 month) Prophylaxis Regimen Total Risk Factor Score Risk Level Prophylaxis Regimen 0-1 Low Early ambulation 2 Moderate Order ONE of the following: *Sequential Compression Device (SCD) *Heparin 5000 units SQ BID 3-4 Higher Order ONE of the following medications: *Heparin 5000 units SQ TID *Enoxaparin/Lovenox 40 mg SQ daily (WT < 150 kg, CrCl > 30 mL/min) *Enoxaparin/Lovenox 30 mg SQ daily (WT < 150 kg, CrCl > 10-29 mL/min) *Enoxaparin/Lovenox 30 mg SQ BID (WT < 150 kg, CrCl > 30 mL/min) AND/OR *Sequential Compression Device (SCD) 5 or more Highest Order ONE of the following medications: *Heparin 5000 units SQ TID (Preferred with Epidurals) *Enoxaparin/Lovenox 40 mg SQ daily (WT < 150 kg, CrCl > 30 mL/min) *Enoxaparin/Lovenox 30 mg SQ daily (WT < 150 kg, CrCl > 10-29 mL/min) *Enoxaparin/Lovenox 30 mg SQ BID (WT < 150 kg, CrCl > 30 mL/min) AND *Sequential Compression Device (SCD) Assessment and Plan Problem List: (1) Acute respiratory failure with hypoxia ICD Codes: J96.01 - Acute respiratory failure with hypoxia Status: Acute (2) Hypoxia ICD Codes: R09.02 - Hypoxia Status: Acute (3) Sepsis ICD Codes: A41.9 - Sepsis Status: Acute (4) Pneumonia ICD Codes: J18.9 - Pneumonia, unspecified organism Status: Acute (5) COPD exacerbation ICD Codes: J44.1 - Obstructive chronic bronchitis with exacerbation Status: Acute (6) Back pain, chronic ICD Codes: M54.9 - Chronic back pain; G89.29 - Other chronic pain Status: Chronic (7) HTN (hypertension) ICD Codes: I10 - Hypertension Status: Chronic (8) Hypothyroidism ICD Codes: E03.9 - Hypothyroidism Status: Chronic (9) Depression ICD Codes: F32.9 - Depression Status: Chronic (10) Anxiety ICD Codes: F41.9 - Anxiety Status: Chronic (11) Rheumatoid arthritis ICD Codes: M06.9 - Rheumatoid arthritis Status: Chronic Assessment and Plan Admit to Dr. Zaman 86-year-old elderly white female with history of COPD, previous respiratory failure. Presented to the emergency room in respiratory distress, hypoxic with findings of bilateral infiltrates. Respiratory distress secondary to pneumonia COPD Sepsis -Continue with cautious hydration -Continue with empiric antibiotics and follow cultures -Consult pulmonology for assistance with respiratory management -DuoNeb's 4 times a day and every 4 as needed -Continue with Bipap -Start Solu-Medrol 40 mg IV every 8 Renal insufficiency -Continue with cautious hydration -BMP in the morning Chronic pain Rheumatoid arthritis -Continue with home medication Hypertension -Continue with home medication Home medications reviewed, initiated as indicated Heparin 5000 units subcutaneous twice a day for DVT prophylaxis Consult palliative care services DNR/DNI status Plan of care discussed with attending and RN. Further management of the patient will be dependent on the hospital course Patient's condition guarded She requires inpatient admission for greater than 2 days for respiratory failure , pneumonia, hypoxia, leukocytosis, sepsis. Patient at risk for complications that can potentially lead to respiratory failure, multiorgan failure, possibly . Patient requires admission for antibiotics, evaluation by pulmonology, IV Solu-Medrol, DuoNeb's, BiPAP therapy, IV fluids. Anticipated discharge back to home with home health care versus rehabilitation facility when stable. This patient was seen by myself and Dr. Zaman, this H&P is written on his behalf Physician Certification 2 Midnight Certification Type: Admission for Inpatient Services Order for Inpatient Services The services are ordered in accordance with Medicare regulations or non- Medicare payer requirements, as applicable. In the case of services not specified as inpatient-only, they are appropriately provided as inpatient services in accordance with the 2-midnight benchmark. Estimated LOS (days): 2 2 days is the estimated time the patient will need to remain in the hospital, assuming treatment plan goals are met and no additional complications. Post-Hospital Plan: Not yet determined Problem Qualifiers (1) Sepsis: Qualified Codes: A41.9 - Sepsis, unspecified organism (2) Pneumonia: Qualified Codes: J18.9 - Pneumonia, unspecified organism (3) Back pain, chronic: Qualified Codes: M54.9 - Dorsalgia, unspecified; G89.29 - Other chronic pain (4) HTN (hypertension): Qualified Codes: I10 - Essential (primary) hypertension (5) Hypothyroidism: Qualified Codes: E03.9 - Hypothyroidism, unspecified (6) Depression: Qualified Codes: F32.9 - Major depressive disorder, single episode, unspecified (7) Rheumatoid arthritis: Marnie Her Apr 22, 2017 20:26
[2017-04-22] MEDS ORDERED: ACETAMINOPHEN 325 MG TAB PO PRN ×2 (20:30)
[2017-04-22] MEDS ORDERED: ONDANSETRON HCL 4 MG/2 ML VIAL IVP PRN (20:30)
[2017-04-22] MEDS ORDERED: RESP: ALBUTEROL 2.5 MG/IPRATROPIUM 0.5 MG NEB (PRN) NEB (20:30)
[2017-04-22] MEDS ORDERED: MAGNESIUM HYDROXIDE SUSP 30 ML CUP PO PRN (20:30)
[2017-04-22] MEDS ORDERED: SODIUM CHLORIDE 0.9% FLUSH 10 ML FLUSH IV FLUSH PRN (20:30)
[2017-04-22] MEDS ORDERED: SENNOSIDES 8.6 MG TAB PO PRN (20:30)
[2017-04-22] MEDS ORDERED: NALOXONE HCL 0.4 MG/ML AMP IV PRN (20:30)
[2017-04-22] MEDS ORDERED: LACTULOSE SYRUP 20 GM/30 ML CUP PO PRN (20:30)
[2017-04-22] MEDS ORDERED: BISACODYL 10 MG SUPP RECTAL PRN (20:30)
[2017-04-22] MEDS ORDERED: BACLOFEN 10 MG TAB PO PRN (20:45)
[2017-04-22] MEDS ORDERED: PILL SPLITTER OTHER PRN (21:30)
[2017-04-22] MEDS: SODIUM CHLORIDE 0.9% FLUSH 10 ML FLUSH IV FLUSH SCH (22:13)
[2017-04-22] MEDS: SODIUM CHLOR 0.9% 1000 ML INJ 1,000 ML IV SCH (22:13)
[2017-04-22] MEDS: methylPREDNISolone SOD SUCC 40 MG/1 ML VIAL IV PUSH SCH (22:13)
[2017-04-22] MEDS: HEPARIN SODIUM - SQ 10,000 UNITS/ML VIAL SQ SCH (22:16)
[2017-04-22] MEDS: METOPROLOL TARTRATE 50 MG TAB PO SCH (22:17)
[2017-04-22] MEDS: DOCUSATE SODIUM 50 MG/SENNA 8.6 MG TAB PO SCH (22:17)
[2017-04-23] VITALS (35 sets, daily range): BP systolic 143–161; BP diastolic 71–79; PULSE 57–94; RESP 18–22; TEMP 97.7–98.1; O2SAT 91–98
[2017-04-23] MEDS: methylPREDNISolone SOD SUCC 40 MG/1 ML VIAL IV PUSH SCH ×3 (05:38→21:36)
[2017-04-23] MEDS: CEFEPIME INJ 1,000 MG in SODIUM CHLORIDE 0.9% INJ 100 ML IV SCH (05:41)
[2017-04-23 06:46] LABS: AUTOMATED NEUTROPHIL # 24.2 TH/MM3 (1.8-7.7); HEMATOCRIT 28.6 % (35.0-46.0); LYMPH % 3.8 % (9.0-44.0); MEAN CELL VOLUME 88.2 FL (80.0-100.0); MEAN CORPUSCULAR HEMOGLOBIN 27.5 PG (27.0-34.0); MEAN CORPUSCULAR HGB CONC 31.2 % (32.0-36.0); MONO % 2.2 % (0.0-8.0); PLATELET COUNT 265 TH/MM3 (150-450); RED BLOOD COUNT 3.24 MIL/MM3 (4.00-5.30); RED CELL DISTRIBUTION WIDTH 16.7 % (11.6-17.2); WHITE BLOOD COUNT 25.7 TH/MM3 (4.0-11.0)
[2017-04-23 07:00] LABS: HEMO FLAGS AUTO DIFF
[2017-04-23 07:30] LABS: BICARBONATE 27.7 MEQ/L (21.0-32.0); POTASSIUM 4.9 MEQ/L (3.5-5.1)
[2017-04-23] MEDS: RESP: ALBUTEROL 2.5 MG/IPRATROPIUM 0.5 MG NEB (SCH) NEB ×4 (08:08→19:57)
[2017-04-23 08:34] LABS: BANDS 22 % (0-6); NEUTROPHIL # MANUAL DIFF 25.4 TH/MM3 (1.8-7.7); POLYS (SEG NEUTROPHILS) 77 % (16-70); WBC DIFF SAMPLE 100
[2017-04-23 08:36] LABS: SCAN/DIFF FINAL DIFF MANUAL; TOXIC GRANULATION 1+ (NORMAL)
[2017-04-23] MEDS ORDERED: NON-FORMULARY DRUG (Venlafaxine (Effexor) 75 MG) PO SCH (09:00)
[2017-04-23] MEDS ORDERED: NON-FORMULARY DRUG (Omeprazole (Prilosec) 20 MG) PO SCH (09:00)
[2017-04-23] MEDS: GABAPENTIN 300 MG CAP PO SCH (09:30)
[2017-04-23] MEDS: PANTOPRAZOLE SOD 20 MG DELAYED RELEASE TAB PO SCH (09:30)
[2017-04-23] MEDS: FUROSEMIDE 20 MG TAB PO SCH (09:30)
[2017-04-23] MEDS: VENLAFAXINE HCL XR 75 MG CAP PO SCH (09:30)
[2017-04-23] MEDS: POTASSIUM CHLORIDE 20 MEQ CONTROLLED RELEASE TAB PO SCH (09:30)
[2017-04-23] MEDS: METOPROLOL TARTRATE 50 MG TAB PO SCH ×2 (09:30→21:26)
[2017-04-23] MEDS: amLODIPine BESYLATE 5 MG TAB PO SCH (09:31)
[2017-04-23] MEDS: LISINOPRIL 10 MG TAB PO SCH (09:31)
[2017-04-23] MEDS: ASPIRIN 81 MG CHEW TAB PO SCH (09:31)
[2017-04-23] MEDS: DOCUSATE SODIUM 50 MG/SENNA 8.6 MG TAB PO SCH ×2 (09:31→21:27)
[2017-04-23] MEDS: HEPARIN SODIUM - SQ 10,000 UNITS/ML VIAL SQ SCH ×2 (09:32→21:26)
[2017-04-23] MEDS: SODIUM CHLORIDE 0.9% FLUSH 10 ML FLUSH IV FLUSH SCH ×2 (09:32→21:26)
--- NOTE | 2017-04-23 13:32 | PD.CONS ---
Consult Service Palliative Care Consult Requested By MD Cong. Primary Care Physician Unknown Reason for Consultation a. To assist with evaluation and management of symptoms including: Pain, shortness of breath and debility. b. To assist medical decision maker(s) with: better understanding of current medical conditions; weighing benefits/burdens of medical treatment options; making medical treatment decisions. . HPI History of Present Illness Mrs. Dupree is an 86-year-old female with a medical history significant for COPD, hypertension, rheumatoid arthritis, TIAs, graves disease, CAD and chronic pain. Patient presented to ED via EMS on 04/22/17 for evaluation of altered mental status and worsening shortness of breath. According to medical records, reports that throughout the day, patient has been increasingly short of breath and weak. Reports that patient was crawling on the floor attempting to get into bed. Upon EMS arrival, patient was found with 40% oxygen saturation on room air. Upon ED arrival, patient was noted with shallow respirations. She was placed on a nonrebreather mask and subsequently placed on a BiPAP. Chest x-ray revealing basal infiltrates consistent with pneumonia. UA positive for leukocytes and nitrates. Patient was given IV antibiotics and admitted for further evaluation and treatment. Palliative care was consulted for further clarifications of goals of care given patient's reported progressive decline with recent acute hospitalization, advanced age and multiple chronic ongoing comorbidities. Reviewed past medical history. Patient with acute hospitalization from 12/25/16 to 01/03/17 secondary to pneumonia and acute respiratory failure requiring intubation and mechanical ventilation. Head CT 12/25/16 with no evidence of acute process. CTA negative for PE, 2.9 mm nodule noticed on left lower lung. Patient was discharged to [facility] halfway facility for rehabilitation. Subsequent ED visit on 01/06/17 secondary to dehydration. Patient seen in her room. She was resting in bed in no acute distress. Patient alert and oriented x self, place and situation. Forgetful at times. Verbal and able to communicate needs. Patient endorsing feeling better today, chronic pain to neck, back and bilateral lower extremities. Patient with history of chronic pain secondary to spinal stenosis and neuropathy/ fibromyalgia. Very tender to touch to bilateral lower extremities. Pain currently rated at 7/10, radiates to left leg. Last bowel movement 2 days ago. Denies nausea/vomiting or abdominal discomfort. Most recent chest x-ray revealing bibasilar infiltrates consistent with pneumonia, small right pleural effusion and degenerative changes and a scoliosis of the thoracolumbar spine. Patient afebrile, hypertensive with SBP in the 150s to 160s. Currently tolerating internal mask at 50% FiO2. Oxygen saturation in the mid 90s. BiPAP on standby at bedside. Laboratory work Today revealing persistent leukocytosis 25.7, Hgb 8.9, platelet count 265. BUN/creatinine 28/1.04. Bedside conversation with patient and Juan. Medical update provided. Reviewed patient's progressive trajectory of illness to include recent acute hospitalizations, most recently one month ago at [facility] secondary to dehydration. Reviewed events leading to this hospitalization, clinical course and current management. Reviewed concerns regarding patient's respiratory status giving pneumonia and physical deconditioning. Confirmed CODE STATUS as no code-DNR/DNI. Patient and verbalized wishing to continue with conservative management short of no code, declining invasive interventions such as intubation, mechanical ventilation or CPR. Introduce hospice philosophy and benefits. Discussed the future role of hospice should patient's clinical condition continues to worsen, continue decline or increased symptoms burden. Patient and receptive to this. verbalized that hospice has been previously discussed with primary care provider. Discussed completion of community DNR and designation of healthcare surrogate. Palliative care to assist. All questions were answered in great detail. Patient and appreciative of my visit today. Case discussed with bedside RN Varghese. . Function/Cognitive Trajectory Patient residing independently with . Ambulating with walker. Mostly independent with ADLs. Recent acute hospitalization in December, she was discharged to [facility] rehabilitation where she stayed for approximately a month. Patient forgetful at times. . Review of Systems Constitutional: COMPLAINS OF: Fatigue, Night Sweats, Pain, Generalized weakness , DENIES: Fever Endocrine: DENIES: Heat/cold intolerance Eyes: COMPLAINS OF: Vision loss Ears, nose, mouth, throat: DENIES: Hearing loss, Nasal discharge, Hoarseness, Running Nose Respiratory: COMPLAINS OF: Cough, Sputum production, Shortness of breath Cardiovascular: COMPLAINS OF: Dyspnea on Exertion, DENIES: Lower Extremity Edema Gastrointestinal: DENIES: Abdominal pain, Constipation, Diarrhea, Nausea, Vomiting Musculoskeletal: COMPLAINS OF: Back pain, Neck pain Integumentary: DENIES: Rash Hematologic/Lymphatics: COMPLAINS OF: Bruising Immunologic/Allergic: DENIES: Eczema Neurologic: DENIES: Localized weakness, Speech Problems, Tremor Psychiatric: COMPLAINS OF: Anxiety, Confusion, DENIES: Hallucinations, Agitation Past Family Social History Coded Allergies: penicillin G (Unverified Allergy, Severe, 04/22/17) RASH *MDRO Multi-Drug Resistant Organism (Unverified Adverse Reaction, Unknown , 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 MRSA PCR Screens NEGATIVE - 06/14/2016, 06/16/2016 CLEARED PER INFECTION CONTROL Past Medical History COPD Hypertension Rheumatoid arthritis TIAs CVA Graves disease CAD Fibromyalgia Spinal stenosis Macular degeneration Asthma Chronic pain History of DVT and PE in 1998 Hyperlipidemia Depression Insomnia . Past Surgical History Appendectomy Bilateral hip replacement in 2003 and left 2012 Right fibula open reduction with subsequent removal of hardware secondary to MRSA infection in 2014 Cataract removal Hysterectomy L3-L4 laminectomy, L3-L4 fusion with bone grafting in 2013 Partial thyroidectomy . Reported Medications Lopressor (Metoprolol Tartrate) 50 Mg Tab 50 Mg PO Q12HR Albuterol Neb (Albuterol Sulfate) 2.5 Mg/3 Ml Neb 2.5 Mg NEB Q2HR NEB PRN Restoril (Temazepam) 30 Mg Cap 30 Mg PO HS PRN Oxycodone-Acetaminophen 10-325 mg Tab 1 Tab PO Q4H PRN Norvasc (Amlodipine Besylate) 5 Mg Tab 5 Mg PO DAILY Lisinopril 10 Mg Tab 10 Mg PO DAILY Aspirin Adult Low Strength (Aspirin) 81 Mg Chew 81 Mg PO DAILY Gabapentin 300 Mg Cap 300 Mg PO DAILY Lasix (Furosemide) 20 Mg Tab 20 Mg PO DAILY Potassium Chloride ER (Potassium Chloride) 20 Meq Tab 20 Meq PO DAILY Claritin (Loratadine) 10 Mg Tab 10 Mg PO DAILY Prilosec (Omeprazole) 20 Mg Cap 20 Mg PO DAILY Baclofen 10 Mg Tab 10 Mg PO QID PRN Synthroid (Levothyroxine Sodium) 125 Mcg Tab 125 Mcg PO DAILY Effexor (Venlafaxine HCl) 75 Mg Tab 75 Mg PO DAILY . Current Medications Medications (Trade) Dose Ordered Sig/Poly Route Start Time Stop Time Status Last Admin Cefepime HCl 1000 mg/Sodium Chloride 100 ml @ 200 mls/hr Q12H IV 04/23/17 06:00 04/23/17 05:41 Sodium Chloride 1,000 ml @ 75 mls/hr [id number] IV 04/22/17 20:00 04/22/17 22:13 Levofloxacin/ Dextrose 50 ml @ 50 mls/hr Q24H IV 04/23/17 20:00 (NS Flush) 2 ml UNSCH PRN IV FLUSH 04/22/17 20:30 (NS Flush) 2 ml BID IV FLUSH 04/22/17 21:00 04/23/17 09:32 (Tylenol) 650 mg Q4H PRN PO 04/22/17 20:30 (Zofran Inj) 4 mg Q6H PRN IVP 04/22/17 20:30 (Tylenol) 650 mg Q6H PRN PO 04/22/17 20:30 (Narcan Inj) 0.4 mg UNSCH PRN IV 04/22/17 20:30 (Juana-Colace) 1 tab BID PO 04/22/17 21:00 04/23/17 09:31 (Milk Of Magnesia Liq) 30 ml Q12H PRN PO 04/22/17 20:30 (Senokot) 17.2 mg Q12H PRN PO 04/22/17 20:30 (Dulcolax Supp) 10 mg DAILY PRN RECTAL 04/22/17 20:30 (Lactulose Liq) 30 ml DAILY PRN PO 04/22/17 20:30 (Duoneb Neb) 1 ampule QID NEB NEB 04/23/17 08:00 04/23/17 12:05 (Duoneb Neb) 1 ampule Q4HR NEB PRN NEB 04/22/17 20:30 04/22/17 21:24 (SoluMEDROL INJ) 40 mg Q8HR IV PUSH 04/22/17 22:00 04/23/17 05:38 (Norvasc) 5 mg DAILY PO 04/23/17 09:00 04/23/17 09:31 (Aspirin Chew) 81 mg DAILY PO 04/23/17 09:00 04/23/17 09:31 (Lasix) 20 mg DAILY PO 04/23/17 09:00 04/23/17 09:30 (Neurontin) 300 mg DAILY PO 04/23/17 09:00 04/23/17 09:30 (Prinivil) 10 mg DAILY PO 04/23/17 09:00 04/23/17 09:31 (Lopressor) 50 mg Q12HR PO 04/22/17 21:00 04/23/17 09:30 (Percocet 10-325 Mg) 1 tab Q4H PRN PO 04/22/17 20:45 (KCl) 20 meq DAILY PO 04/23/17 09:00 04/23/17 09:30 (Heparin Inj) 5,000 units Q12HR SQ 04/22/17 21:00 04/23/17 09:32 (Protonix) 20 mg DAILY PO 04/23/17 09:00 04/23/17 09:30 (Effexor Xr) 75 mg DAILY PO 04/23/17 09:00 04/23/17 09:30 (Lioresal) 5 mg BID PRN PO 04/22/17 21:30 (Pill Splitter) 1 ea UNSCH PRN OTHER 04/22/17 21:30 (Pneumovax-23 Inj) 25 mcg ONCE ONCE IM 04/24/17 10:00 04/24/17 10:01 Family History Patient has 2 adult children are alive and well. . Substance Use Tobacco: None reported. Alcohol: None reported. Prescription med abuse: None reported. Illicits: None reported. . Psychosocial History Patient is originally from [place]. Moved to [place] 2 years ago. She is , resides independently with . They have 2 adult children, son Jaskaran who is in [place] and daughter Mary who is in [place]. 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 . Health Care Surrogate: Copy in medical record Date completed: 02/12/2014. . Health Care Surrogate(s): Patient designated her Juan Dupree as HCS. No alternate surrogate designated. . Today's verbally stated goals: DNR/DNI. Continue with conservative management. . Family/friends goals: Patient's fully supportive of patient's wishes. . Ethical and Legal Issues No ethical legal issues identified. . Physical Exam Vital Signs Date Time Temp Pulse Resp B/P (MAP) Pulse Ox O2 Delivery O2 Flow Rate FiO2 04/23/17 12:08 98 Nasal Cannula 4.00 04/23/17 08:45 91 Venturi Mask 04/23/17 08:45 98.1 85 22 161/79 (106) 91 04/23/17 08:13 95 Venturi Mask 50 04/23/17 07:01 69 04/23/17 06:00 68 04/23/17 05:00 74 04/23/17 04:24 77 18 154/71 (98) 94 04/23/17 04:00 66 04/23/17 03:00 94 Venturi Mask 50 04/23/17 03:00 59 04/23/17 02:40 93 Venturi Mask 50 04/23/17 02:00 62 04/23/17 01:00 58 04/23/17 00:00 62 04/22/17 23:55 94 80 04/22/17 23:52 04/22/17 23:16 97.2 82 20 115/55 (75) 97 04/22/17 23:16 82 04/22/17 22:29 86 22 132/62 (85) 98 BiPAP 60 04/22/17 21:35 90 19 121/58 (79) CPAP 60 04/22/17 21:25 92 60 04/22/17 19:08 82 22 122/58 (79) 100 BiPAP 60 04/22/17 16:50 81 22 100 BiPAP 85 04/22/17 16:38 22 95 BiPAP 85 04/22/17 16:38 95 BiPAP 85 04/22/17 16:30 100 80 04/22/17 16:25 99.2 89 22 133/55 (81) 98 04/23/17 04/24/17 19:00 07:00 Intake Total 550 ml Balance 550 ml IV Total 550 ml Exam CONSTITUTIONAL/GENERAL: This is an elderly female resting in bed in no acute distress. TUBES/LINES/DRAINS: Ventimask, PIV's, SCD to left. Perry catheter. SKIN: No jaundice, rashes, or lesions. Ecchymoses on upper extremities. Skin temperature appropriate. Not diaphoretic. Stasis dermatitis to bilateral lower extremity. Bruises to bilateral knees. Ulcers to bilateral toes. HEAD: Atraumatic. Normocephalic. EYES: Pupils equal and round and reactive. Extraocular motions intact. No scleral icterus. No injection or drainage. ENT: Hearing grossly normal. Nose without bleeding or purulent drainage. Moist oral mucosa. NECK: Trachea midline. Supple, nontender. CARDIOVASCULAR: Regular rate and rhythm without murmurs, gallops, or rubs. Week bilateral pedal pulses. RESPIRATORY/CHEST: Symmetric, unlabored respirations. Coarse breath sounds bilaterally. Breath sounds equal bilaterally. GASTROINTESTINAL: Abdomen soft, round, non-tender, nondistended. No guarding. Bowel sounds present. GENITOURINARY: Without palpable bladder distension. Perry catheter in place. MUSCULOSKELETAL: Extremities without clubbing, cyanosis, or edema. NEUROLOGICAL: Awake and alert. Motor grossly within normal limits. Abnormal sensory to bilateral lower extremities/numbness. Forgetful at times. Follows commands. Moves all extremities. PSYCHIATRIC: No obvious anxiety/depression. Calm, pleasant. . Diagnostic Tests Laboratory Laboratory Tests Test 04/22/17 13:40 04/22/17 16:35 04/22/17 16:40 04/22/17 18:43 Prothrombin Time 11.9 SEC (9.8-11.6) Prothromb Time International Ratio 1.1 RATIO Activated Partial Thromboplast Time 31.8 SEC (24.3-30.1) D-Dimer Quantitative (PE/DVT) 4.61 MG/L FEU (0.00-0.50) Blood Urea Nitrogen 33 MG/DL (7-18) Creatinine 1.49 MG/DL (0.50-1.00) Random Glucose 82 MG/DL (74-106) Total Protein 7.9 GM/DL (6.4-8.2) Albumin 2.1 GM/DL (3.4-5.0) Calcium Level 8.7 MG/DL (8.5-10.1) Alkaline Phosphatase 119 U/L (45-117) Aspartate Amino Transf (AST/SGOT) 31 U/L (15-37) Alanine Aminotransferase (ALT/SGPT) 32 U/L (10-53) Total Bilirubin 0.4 MG/DL (0.2-1.0) Sodium Level 131 MEQ/L (136-145) Potassium Level 5.0 MEQ/L (3.5-5.1) Chloride Level 90 MEQ/L (98-107) Carbon Dioxide Level 30.7 MEQ/L (21.0-32.0) Anion Gap 10 MEQ/L (5-15) Estimat Glomerular Filtration Rate 33 ML/MIN (>89) Troponin I LESS THAN 0.02 NG/ML B-Type Natriuretic Peptide 80 PG/ML (0-100) Lactic Acid Level 1.7 mmol/L (0.4-2.0) White Blood Count 27.2 TH/MM3 (4.0-11.0) Red Blood Count 3.79 MIL/MM3 (4.00-5.30) Hemoglobin 10.5 GM/DL (11.6-15.3) Hematocrit 33.5 % (35.0-46.0) Mean Corpuscular Volume 88.6 FL (80.0-100.0) Mean Corpuscular Hemoglobin 27.8 PG (27.0-34.0) Mean Corpuscular Hemoglobin Concent 31.4 % (32.0-36.0) Red Cell Distribution Width 16.8 % (11.6-17.2) Platelet Count 336 TH/MM3 (150-450) Mean Platelet Volume 7.6 FL (7.0-11.0) Neutrophils (%) (Auto) 82.2 % (16.0-70.0) Lymphocytes (%) (Auto) 8.2 % (9.0-44.0) Monocytes (%) (Auto) 9.3 % (0.0-8.0) Eosinophils (%) (Auto) 0.1 % (0.0-4.0) Basophils (%) (Auto) 0.2 % (0.0-2.0) Neutrophils # (Auto) 22.3 TH/MM3 (1.8-7.7) Lymphocytes # (Auto) 2.2 TH/MM3 (1.0-4.8) Monocytes # (Auto) 2.5 TH/MM3 (0-0.9) Eosinophils # (Auto) 0.0 TH/MM3 (0-0.4) Basophils # (Auto) 0.1 TH/MM3 (0-0.2) CBC Comment AUTO DIFF Differential Total Cells Counted 100 Neutrophils % (Manual) 69 % (16-70) Band Neutrophils % 16 % (0-6) Lymphocytes % 8 % (9-44) Monocytes % 6 % (0-8) Neutrophils # (Manual) 23.4 TH/MM3 (1.8-7.7) Metamyelocytes 1 % (0-1) Differential Comment FINAL DIFF MANUAL Toxic Vacuolation PRESENT (NONE SEEN) Platelet Morphology Comment NORMAL (NORMAL) Urine Color YELLOW (YELLW/STRAW) Urine Turbidity HAZY (CLEAR) Urine pH 5.5 (5.0-8.5) Urine Specific Downs 1.014 (1.002-1.035) Urine Protein TRACE mg/dL (NEG-TRACE) Urine Glucose (UA) NEG mg/dL (NEG) Urine Ketones NEG mg/dL (NEG) Urine Occult Blood NEG (NEG) Urine Nitrite POS (NEG) Urine Bilirubin NEG (NEG) Urine Urobilinogen LESS THAN 2.0 MG/DL (LESS Urine Leukocyte Esterase MOD (NEG) Urine RBC 1 /hpf (0-3) Urine WBC 33 /hpf (0-5) Urine WBC Clumps FEW (NONE) Urine Bacteria MOD /hpf (NONE) Urine Hyaline Casts 6 /lpf (RARE) Urine Mucus FEW /lpf (OCC) Microscopic Urinalysis Comment CULTURE INDICATED Blood Gas Puncture Site LT RADIAL Blood Gas Patient Temperature 98.6 Blood Gas HCO3 27 mmol/L (22-26) Blood Gas Base Excess 2.5 mmol/L (-2-2) Blood Gas Oxygen Saturation 94 % (90-100) Arterial Blood pH 7.37 (7.380-7.420) Arterial Blood Partial Pressure CO2 48 mmHg (38-42) Arterial Blood Partial Pressure O2 85 mmHG (61-120) Arterial Blood Oxygen Content 12.8 Vol % (12.0-20.0) Arterial Blood Carboxyhemoglobin 1.2 % (0-4) Arterial Blood Methemoglobin 0.8 % (0-2) Blood Gas Hemoglobin 9.7 G/DL (12.0-16.0) Oxygen Delivery Device BIPAP Blood Gas Ventilator Setting [id number] Blood Gas Inspired Oxygen 60 % Test 04/23/17 05:05 White Blood Count 25.7 TH/MM3 (4.0-11.0) Red Blood Count 3.24 MIL/MM3 (4.00-5.30) Hemoglobin 8.9 GM/DL (11.6-15.3) Hematocrit 28.6 % (35.0-46.0) Mean Corpuscular Volume 88.2 FL (80.0-100.0) Mean Corpuscular Hemoglobin 27.5 PG (27.0-34.0) Mean Corpuscular Hemoglobin Concent 31.2 % (32.0-36.0) Red Cell Distribution Width 16.7 % (11.6-17.2) Platelet Count 265 TH/MM3 (150-450) Mean Platelet Volume 7.5 FL (7.0-11.0) Neutrophils (%) (Auto) 94.0 % (16.0-70.0) Lymphocytes (%) (Auto) 3.8 % (9.0-44.0) Monocytes (%) (Auto) 2.2 % (0.0-8.0) Eosinophils (%) (Auto) 0.0 % (0.0-4.0) Basophils (%) (Auto) 0.0 % (0.0-2.0) Neutrophils # (Auto) 24.2 TH/MM3 (1.8-7.7) Lymphocytes # (Auto) 1.0 TH/MM3 (1.0-4.8) Monocytes # (Auto) 0.6 TH/MM3 (0-0.9) Eosinophils # (Auto) 0.0 TH/MM3 (0-0.4) Basophils # (Auto) 0.0 TH/MM3 (0-0.2) CBC Comment AUTO DIFF Differential Total Cells Counted 100 Neutrophils % (Manual) 77 % (16-70) Band Neutrophils % 22 % (0-6) Lymphocytes % 1 % (9-44) Neutrophils # (Manual) 25.4 TH/MM3 (1.8-7.7) Differential Comment FINAL DIFF MANUAL Toxic Granulation 1+ (NORMAL) Blood Urea Nitrogen 28 MG/DL (7-18) Creatinine 1.04 MG/DL (0.50-1.00) Random Glucose 125 MG/DL (74-106) Calcium Level 8.4 MG/DL (8.5-10.1) Sodium Level 135 MEQ/L (136-145) Potassium Level 4.9 MEQ/L (3.5-5.1) Chloride Level 101 MEQ/L (98-107) Carbon Dioxide Level 27.7 MEQ/L (21.0-32.0) Anion Gap 6 MEQ/L (5-15) Estimat Glomerular Filtration Rate 50 ML/MIN (>89) Result Diagram: 04/23/17 0505 04/23/17 0505 Microbiology Microbiology Date/Time Source Procedure Growth Status 04/22/17 16:40 Blood Peripheral Aerobic Blood Culture - Preliminary NO GROWTH IN 1 DAY Resulted 04/22/17 16:40 Blood Peripheral Anaerobic Blood Culture - Preliminary NO GROWTH IN 1 DAY Resulted 04/22/17 16:40 Blood Peripheral Aerobic Blood Culture - Preliminary NO GROWTH IN 1 DAY Resulted 04/22/17 16:40 Blood Peripheral Anaerobic Blood Culture - Preliminary NO GROWTH IN 1 DAY Resulted 04/22/17 16:40 Urine Random Urine Urine Culture - Preliminary Gram Negative Rubén Resulted Imaging Last Impressions Chest X-Ray 04/22/17 1630 Signed Impressions: Service Date/Time: Saturday, April 22, 2017 16:43 - CONCLUSION: 1. Bibasilar infiltrates consistent with probable pneumonia. Clinical correlation is recommended. 2. Small right pleural effusion which may be partially loculated. 3. Degenerative changes and scoliosis of the thoracolumbar spine. Rolf Ma MD Patient/Family Conference Present at Family Conference: Patient and Juan. Family Conference Time (mins): 45 Family Conference Location: Bedside Issues Discussed: * Palliative care role, purpose, approach * Additional medical, psychosocial, and spiritual history * Patients general health, functional status, and cognitive changes in the months leading up to the current hospitalization * Patient/family understanding of the current medical problems -sepsis, pneumonia, COPD exacerbation, UTI, renal insufficiency. * Patient/family understanding of prognosis * Patients goals of care as best understood from advance directives and/or conversations and/or values * Current medical treatment options and benefits/burdens of those options * Questions answered to the best of my ability * Palliative care contact information provided * Risks, benefits and limitations of CPR. Completion of community DNR. * Hospice philosophy and benefits. . Assessment and Plan Disease Oriented Problem List: (1) Sepsis (2) Pneumonia (3) COPD exacerbation (4) UTI (urinary tract infection) (5) Chronic renal disease (6) Physical deconditioning Symptom Scale: (1) Pain 0-10 Scale: 7 Comment: History of chronic pain, neuropathic pain/fibromyalgia. (2) Anxiety 0-10 Scale: Unable to quantify Comment: Chronic. Exacerbated by pain and shortness of breath. (3) Debility 0-10 Scale: Unable to quantify Comment: Progressive since acute hospitalization in December. Pertinent Non-Medical Issues Psychosocial: Patient is originally from [place]. Moved to [place] 2 years ago. She is , resides independently with . They have 2 adult children, son Jaskarna who is in [place] and daughter Mary who is in [place]. 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 Spiritual: Legal: Designation of healthcare surrogate completed. Copy in file. Ethical issues impacting care: No ethical legal issues identified. . Important Contacts Juan Dupree . . Prognosis Mrs. Dupree is an 86-year-old female with a medical history significant for COPD, hypertension, rheumatoid arthritis, TIAs, graves disease, CAD and chronic pain. Patient presented to ED via EMS on 04/22/17 for evaluation of altered mental status and worsening shortness of breath. She was placed on a nonrebreather mask and subsequently placed on a BiPAP and admitted for evaluation and management of pneumonia and UTI. Patient with recent history of acute hospitalization in December requiring intubation and mechanical ventilation. Patient remains at a very high risk for further complications, clinical decline and given recent acute hospitalization, advanced age and multiple chronic ongoing comorbidities. . Code Status: No Code Plan * CODE STATUS: No code. DNR/DNI. * HEALTHCARE DECISION-MAKING: Patient participating in medical decision-making, however, relies on her 's input. Designation of healthcare surrogate completed, patient designated her Juan as HCS. No alternatives surrogate listed. Palliative care recommends shared decision-making with . * GOALS OF CARE: Patient and verbalized wishing to continue with conservative management short of NO code, declining invasive interventions such as intubation, mechanical ventilation or CPR. Introduced hospice philosophy and benefits. Discussed the future role of hospice should patient's clinical condition continues to worsen, continue decline or increased symptoms burden. Patient and receptive to this. verbalized that hospice has been previously discussed with primary care provider. Discussed completion of community DNR and designation of healthcare surrogate. * SYMPTOMS: = Pain, history of chronic pain to neck, spine and bilateral lower extremities secondary to spinal stenosis, neuropathy and fibromyalgia. Home regimen to include gabapentin 300 mg daily, baclofen 5 mg BID PRN and Percocet 10/325 mg Q4h PRN. Home regimen has continued while inpatient. No further recommendations at this time. = Shortness of breath, COPD exacerbation, pneumonia. Currently on O2. Lasix daily and Duonebs QID. = Constipation, exacerbated by opioids and sedentary lifestyle. Senokot, MOM, lactulose and Dulcolax suppository available as needed. * Palliative care contact information has been provided to patient and . * Palliative care will continue to follow-up for further clarifications of goals of care as patient's clinical course continues to evolve. . Time Spent Total Floor Time (mins): 75 (Total time to include review and summarization of available medical records to include prior hospitalizations and ED visits, physical exam, goals of care discussion with patient and , case discussion with bedside RN.) >50% Counseling/Coord of Care: Yes Thank you for the opportunity to participate in the care of Ms. Dupree. Attestation To help prompt me to consider important information that might be impacting today's encounter and assessment, information from prior notes written by myself or my colleagues may have been "brought forward" into today's note. My signature on this note, however, is an attestation that I personally performed the exam, history, and/or decision-making noted today, and, unless otherwise indicated, the interactions with patient, family, and staff as well as the review of records all occurred today. I also attest that the listed assessment and stated plan reflect my best clinical judgment today based on the combination of historical information, prior notes, and today's exam/ interactions. When time spent is documented, it refers only to time spent today by the signer, or if indicated, combined time spent today by collaborating physician/nurse practitioner. Isis Pascal Apr 23, 2017 13:32
--- NOTE | 2017-04-23 14:00 | HHI.PR ---
Subjective Subjective Remarks Resting in bed Skin color very pale Weak, but carries on vague conversation Bilateral bruising on knees, previous to admission (Bhumika Rain) Review of Systems Constitutional Constitutional: Fatigue, Weakness Constitutional Remarks 10 point ROS done positives noted (Bhumika Rain) Pulmonary Respiratory: Shortness of Breath (low volumes) (Bhumika Rain) Musculoskeletal MS: Weakness, Stiffness, Swelling, Discomfort/Pain (bilateral knees, Would fall to her knees out of bed at home for her ambulation) (Bhumika Rain) Psychiatric Psychiatric: Normal Mood, Anxiety (Bhumika Rain) Vitals/Results Intake & Output 04/23/17 04/23/17 04/24/17 15:00 23:00 07:00 Intake Total 550 ml Balance 550 ml IV Total 550 ml Vital Signs Vital Signs Date Time Temp Pulse Resp B/P (MAP) Pulse Ox O2 Delivery O2 Flow Rate FiO2 04/23/17 12:08 98 Nasal Cannula 4.00 04/23/17 12:01 91 Nasal Cannula 04/23/17 12:01 97.9 69 22 161/78 (105) 91 04/23/17 08:45 91 Venturi Mask 04/23/17 08:45 98.1 85 22 161/79 (106) 91 04/23/17 08:13 95 Venturi Mask 50 04/23/17 07:01 69 04/23/17 06:00 68 04/23/17 05:00 74 04/23/17 04:24 77 18 154/71 (98) 94 04/23/17 04:00 66 04/23/17 03:00 94 Venturi Mask 50 04/23/17 03:00 59 04/23/17 02:40 93 Venturi Mask 50 04/23/17 02:00 62 04/23/17 01:00 58 04/23/17 00:00 62 04/22/17 23:55 94 80 04/22/17 23:52 04/22/17 23:16 97.2 82 20 115/55 (75) 97 04/22/17 23:16 82 04/22/17 22:29 86 22 132/62 (85) 98 BiPAP 60 8/27/17 21:35 90 19 121/58 (79) CPAP 60 04/22/17 21:25 92 60 04/22/17 19:08 82 22 122/58 (79) 100 BiPAP 60 04/22/17 16:50 81 22 100 BiPAP 85 04/22/17 16:38 22 95 BiPAP 85 04/22/17 16:38 95 BiPAP 85 04/22/17 16:30 100 80 04/22/17 16:25 99.2 89 22 133/55 (81) 98 (Bhumika Rain) CBC/BMP: 04/23/17 0505 04/23/17 0505 Lab Results Laboratory Tests Test 04/22/17 16:35 04/22/17 16:40 04/22/17 18:43 04/23/17 05:05 Lactic Acid Level 1.7 mmol/L White Blood Count 27.2 TH/MM3 25.7 TH/MM3 Red Blood Count 3.79 MIL/MM3 3.24 MIL/MM3 Hemoglobin 10.5 GM/DL 8.9 GM/DL Hematocrit 33.5 % 28.6 % Mean Corpuscular Volume 88.6 FL 88.2 FL Mean Corpuscular Hemoglobin 27.8 PG 27.5 PG Mean Corpuscular Hemoglobin Concent 31.4 % 31.2 % Red Cell Distribution Width 16.8 % 16.7 % Platelet Count 336 TH/MM3 265 TH/MM3 Mean Platelet Volume 7.6 FL 7.5 FL Neutrophils (%) (Auto) 82.2 % 94.0 % Lymphocytes (%) (Auto) 8.2 % 3.8 % Monocytes (%) (Auto) 9.3 % 2.2 % Eosinophils (%) (Auto) 0.1 % 0.0 % Basophils (%) (Auto) 0.2 % 0.0 % Neutrophils # (Auto) 22.3 TH/MM3 24.2 TH/MM3 Lymphocytes # (Auto) 2.2 TH/MM3 1.0 TH/MM3 Monocytes # (Auto) 2.5 TH/MM3 0.6 TH/MM3 Eosinophils # (Auto) 0.0 TH/MM3 0.0 TH/MM3 Basophils # (Auto) 0.1 TH/MM3 0.0 TH/MM3 CBC Comment AUTO DIFF AUTO DIFF Differential Total Cells Counted 100 100 Neutrophils % (Manual) 69 % 77 % Band Neutrophils % 16 % 22 % Lymphocytes % 8 % 1 % Monocytes % 6 % Neutrophils # (Manual) 23.4 TH/MM3 25.4 TH/MM3 Metamyelocytes 1 % Differential Comment FINAL DIFF MANUAL FINAL DIFF MANUAL Toxic Vacuolation PRESENT Platelet Morphology Comment NORMAL Urine Color YELLOW Urine Turbidity HAZY Urine pH 5.5 Urine Specific [place] 1.014 Urine Protein TRACE mg/dL Urine Glucose (UA) NEG mg/dL Urine Ketones NEG mg/dL Urine Occult Blood NEG Urine Nitrite POS Urine Bilirubin NEG Urine Urobilinogen LESS THAN 2.0 MG/DL Urine Leukocyte Esterase MOD Urine RBC 1 /hpf Urine WBC 33 /hpf Urine WBC Clumps FEW Urine Bacteria MOD /hpf Urine Hyaline Casts 6 /lpf Urine Mucus FEW /lpf Microscopic Urinalysis Comment CULTURE INDICATED Blood Gas Puncture Site LT RADIAL Blood Gas Patient Temperature 98.6 Blood Gas HCO3 27 mmol/L Blood Gas Base Excess 2.5 mmol/L Blood Gas Oxygen Saturation 94 % Arterial Blood pH 7.37 Arterial Blood Partial Pressure CO2 48 mmHg Arterial Blood Partial Pressure O2 85 mmHG Arterial Blood Oxygen Content 12.8 Vol % Arterial Blood Carboxyhemoglobin 1.2 % Arterial Blood Methemoglobin 0.8 % Blood Gas Hemoglobin 9.7 G/DL Oxygen Delivery Device BIPAP Blood Gas Ventilator Setting IPAP10/[id number] Blood Gas Inspired Oxygen 60 % Toxic Granulation 1+ Blood Urea Nitrogen 28 MG/DL Creatinine 1.04 MG/DL Random Glucose 125 MG/DL Calcium Level 8.4 MG/DL Sodium Level 135 MEQ/L Potassium Level 4.9 MEQ/L Chloride Level 101 MEQ/L Carbon Dioxide Level 27.7 MEQ/L Anion Gap 6 MEQ/L Estimat Glomerular Filtration Rate 50 ML/MIN Microbiology Microbiology 04/22/17 Aerobic Blood Culture - Preliminary, Resulted NO GROWTH IN 1 DAY 04/22/17 Anaerobic Blood Culture - Preliminary, Resulted NO GROWTH IN 1 DAY 04/22/17 Aerobic Blood Culture - Preliminary, Resulted NO GROWTH IN 1 DAY 04/22/17 Anaerobic Blood Culture - Preliminary, Resulted NO GROWTH IN 1 DAY 04/22/17 Urine Culture - Preliminary, Resulted Gram Negative [facility] Imaging Remarks Last Impressions Chest X-Ray 04/22/17 1630 Signed Impressions: Service Date/Time: Saturday, April 22, 2017 16:43 - CONCLUSION: 1. Bibasilar infiltrates consistent with probable pneumonia. Clinical correlation is recommended. 2. Small right pleural effusion which may be partially loculated. 3. Degenerative changes and scoliosis of the thoracolumbar spine. Rolf Ma MD (Briseyda,Susan M. [employer]) Physical Exam General General Appearance: Pale, Anxious ([place],Bhumika M. [employer]) Eyes Eye Exam: Pupils Equal ([place],Bhumika M. [employer]) Ears & Nose Ears & Nose Exam: Nasal Mucosa [place] (pale) ([place],Bhumika M. [employer]) Throat Throat Exam: Oral Mucosa [place] & Moist (pale) ([place],Bhumika M. [employer]OR) Neck Neck Exam: Neck Supple ([place]Anuja[place]humika M. [employer] INVENTOR) Pulmonary Resp Exam: Rhonchi (audible, and coughing up sputum), Decreased Bases, Diminished Breath Sounds ([place],Bhumika M. [employer]) Cardiology CV Exam: Regular (BriseydaBhumika M. [employer]) Gastrointestinal/Abdomen GI Exam: Soft (flat) ([place],Bhumika M. [employer]) Musculoskeletal MS Remarks Bilateral bruising on knees from her generalized weakness when getting out of bed (Anuja Rainan M. [employer]) Integumentary Skin Exam: Dry ([place],Bhumika M. [employer]) Extremeties Extremities Exam: No Edema ([place],Bhumika M. [employer]) Neurologic Neuro Exam: Awake ([place],Bhumika M. [employer]) Assessment/Plan Assessment/Plan pneumonia Continue antibiotics Levaquin and cefepime, oxygen therapy as needed, duo nebs, BiPAP off for now, IV steroids Appreciate pulmonary consult and input or plan a care, consult pending Still coughing up thick yellow sputum, and has audible rhonchi Urinary tract infection, Perry catheter in place, dependent on patient's response to therapy we'll consider removing Perry tomorrow IV Levaquin medical management Renal insufficiency cautious hydration, acute kidney injury better, continue to monitor labs as needed Chronic pain Rheumatoid arthritis, pain management Hypertension Noted 161/79, medical management Heparin, DVT prophylaxis PPI prophylaxis Appreciate palliative care consult for their support or this patient DNR/DNI status, Patient is a retired nurse, 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 [employer]) Assessment/Plan pt is seen & examined d/w pt & her cont current tx d/w bhumika sm[facility] w above am labs will f/u (Chikis Zaman MD) Bhumika Rain Apr 23, 2017 14:00 Chikis Zaman MD Apr 23, 2017 16:18
[2017-04-23] MEDS: SODIUM CHLOR 0.9% 1000 ML INJ 1,000 ML IV SCH ×2 (15:41→21:27)
[2017-04-23] MEDS: LEVOFLOXACIN/DEXTROSE 250 MG/50 ML IV SCH (21:26)
[2017-04-23] MEDS: oxyCODONE/ACETAMINOPHEN 10 MG/325 MG TAB PO PRN (21:36)
[2017-04-24] VITALS (26 sets, daily range): BP systolic 142–162; BP diastolic 74–91; PULSE 56–102; RESP 18–20; TEMP 96–98.2; O2SAT 93–98
[2017-04-24] MEDS: BACLOFEN 10 MG TAB PO PRN ×3 (00:46→18:34)
[2017-04-24] MEDS: oxyCODONE/ACETAMINOPHEN 10 MG/325 MG TAB PO PRN ×4 (02:00→18:29)
[2017-04-24] MEDS: CEFEPIME INJ 1,000 MG in SODIUM CHLORIDE 0.9% INJ 100 ML IV SCH ×2 (05:47→18:30)
[2017-04-24] MEDS: methylPREDNISolone SOD SUCC 40 MG/1 ML VIAL IV PUSH SCH (05:48)
[2017-04-24 07:03] LABS: HEMATOCRIT 29.1 % (35.0-46.0); MEAN CELL VOLUME 87.6 FL (80.0-100.0); MEAN CORPUSCULAR HEMOGLOBIN 27.7 PG (27.0-34.0); MEAN CORPUSCULAR HGB CONC 31.6 % (32.0-36.0); PLATELET COUNT 280 TH/MM3 (150-450); RED BLOOD COUNT 3.33 MIL/MM3 (4.00-5.30); RED CELL DISTRIBUTION WIDTH 16.3 % (11.6-17.2); REVIEW FLAG FINAL; WHITE BLOOD COUNT 24.9 TH/MM3 (4.0-11.0)
[2017-04-24] MEDS: RESP: ALBUTEROL 2.5 MG/IPRATROPIUM 0.5 MG NEB (SCH) NEB ×4 (07:27→19:32)
[2017-04-24 07:35] LABS: BICARBONATE 25.9 MEQ/L (21.0-32.0); POTASSIUM 4.1 MEQ/L (3.5-5.1)
--- NOTE | 2017-04-24 08:33 | MB ---
cc: NIK OROPEZA,NATASHA Koo MD DATE OF CONSULTATION: 04/23/2017 REASON FOR CONSULTATION Respiratory insufficiency, pneumonia. HISTORY OF PRESENT ILLNESS Ms. Dupree is an 86-year-old female with a history of rheumatoid arthritis, fibromyalgia, hypertension and COPD. The patient came to the hospital with worsening of her shortness of breath. She had cough and congestion, did not have fever or chills. No night sweats. Because of the worsening of her shortness of breath [facility] was called and she was brought to the hospital. She had a work-up done. WBC count is 25.7, hemoglobin 8.9, hematocrit 28.6, MCV 88, platelet count 265. Sodium 135, potassium 4.9, chloride 101, CO2 27, BUN 28, creatinine 1.04. Blood gas on 60% BiPAP - pH 7.37, PCO2 48, PO2 85, bicarb 27. INR is 1.1. She had a chest x-ray done which showed bibasilar infiltrate consistent with pneumonia. Blood cultures so far are negative. Urine is growing gram-negative rods. PAST MEDICAL HISTORY 1. History of pneumonia in the past. 2. Rheumatoid arthritis. 3. Asthma. 4. C. difficile colitis. 5. Spinal stenosis. 6. Fibromyalgia. 7. Appendectomy. 8. Cataract surgery. 9. Hysterectomy. MEDICATIONS She is currently takin. Levaquin IV. 2. Amlodipine 5 mg. 3. Aspirin 81 mg daily. 4. Lasix 20 mg a day. 5. Neurontin 300 mg a day. 6. Lisinopril 10 mg a day. 7. Potassium 20 mEq daily. 8. Protonix 20 mg a day. 9. Effexor 75 mg a day. 10.Albuterol/Atrovent nebulizer treatment. 11.Cefepime one gram q.12h. 12.Solu-Medrol 40 mg q.8h. 13.Metoprolol 50 mg q.12h. 14.Heparin 5000 q.12h. 15.Oxycodone for pain. ALLERGIES No known drug allergies. SOCIAL HISTORY She is . She has a history of smoking in the past. No alcohol abuse. She used to work as a nurse. FAMILY HISTORY She is . She has two children. REVIEW OF SYSTEMS The patient states that she lives with her who helps her with most things. Walks short distances. Denies any malignancy. No DVT or pulmonary embolism. PHYSICAL EXAMINATION GENERAL: An elderly female mildly short of breath, not in acute distress. VITAL SIGNS: She is weaned down to 4 liters nasal cannula, saturation 97%. Blood pressure 142/75, heart rate 72, respirations 22, temperature 98. HEENT: Pupils are equal and reactive to light. Oral mucosa and nasal mucosa normal. NECK: Supple. JVP not raised. CHEST: Bilateral rhonchi with coarse rales. CV: S1, S2 normal. ABDOMEN: Soft, nondistended. Bowel sounds are present. EXTREMITIES: Trace pedal edema. IMPRESSION 1. Respiratory insufficiency. 2. COPD exacerbation. 3. Pneumonia. 4. Hypoxia, improving. 5. Back pain. 6. Anxiety. 7. Depression. 8. Rheumatoid arthritis. PLAN The patient is weaned down to 4 liters nasal cannula. Titrate oxygen to keep saturation greater than 92%. Check her cultures. Continue aerosol treatment and IV Solu-Medrol. Continue present antibiotic. Further treatment will depend on the course in the hospital. Thank you Dr. Zaman for this consult. MD AVERY Lafleur/JERAMY /8:14 PM /8:11 AM
[2017-04-24] MEDS ORDERED: PNEUMOCOCCAL POLYVALENT INJ 25 MCG/0.5 ML SYR IM ONE (10:00)
[2017-04-24] MEDS: LISINOPRIL 10 MG TAB PO SCH (11:08)
[2017-04-24] MEDS: ASPIRIN 81 MG CHEW TAB PO SCH (11:08)
[2017-04-24] MEDS: amLODIPine BESYLATE 5 MG TAB PO SCH (11:08)
[2017-04-24] MEDS: METOPROLOL TARTRATE 50 MG TAB PO SCH ×2 (11:10→20:25)
[2017-04-24] MEDS: FUROSEMIDE 20 MG TAB PO SCH (11:12)
[2017-04-24] MEDS: PANTOPRAZOLE SOD 20 MG DELAYED RELEASE TAB PO SCH (11:12)
[2017-04-24] MEDS: POTASSIUM CHLORIDE 20 MEQ CONTROLLED RELEASE TAB PO SCH (11:12)
[2017-04-24] MEDS: GABAPENTIN 300 MG CAP PO SCH (11:13)
[2017-04-24] MEDS: DOCUSATE SODIUM 50 MG/SENNA 8.6 MG TAB PO SCH ×2 (11:13→20:25)
[2017-04-24] MEDS: HEPARIN SODIUM - SQ 10,000 UNITS/ML VIAL SQ SCH ×2 (11:13→20:26)
[2017-04-24] MEDS: VENLAFAXINE HCL XR 75 MG CAP PO SCH (11:16)
[2017-04-24] MEDS: SODIUM CHLORIDE 0.9% FLUSH 10 ML FLUSH IV FLUSH SCH ×2 (11:16→20:26)
[2017-04-24] MEDS: SODIUM CHLOR 0.9% 1000 ML INJ 1,000 ML IV SCH (11:45)
--- NOTE | 2017-04-24 11:51 | HHI.HCPN ---
Reason for visit a. To assist with evaluation and management of symptoms including: Pain, shortness of breath and debility. b. To assist medical decision maker(s) with: better understanding of current medical conditions; weighing benefits/burdens of medical treatment options; making medical treatment decisions. . Subjective/Interval History Mrs. Dupree is an 86-year-old female with a medical history significant for COPD, hypertension, rheumatoid arthritis, TIAs, graves disease, CAD and chronic pain. Patient presented to ED via EMS on 04/22/17 for evaluation of altered mental status and worsening shortness of breath. Upon ED arrival, patient was noted with shallow respirations. She was placed on a nonrebreather mask and subsequently placed on a BiPAP. Chest x-ray revealing basal infiltrates consistent with pneumonia. UA positive for leukocytes and nitrates. Patient was given IV antibiotics and admitted for further evaluation and treatment. Palliative care was consulted for further clarifications of goals of care given patient's reported progressive decline with recent acute hospitalization, advanced age and multiple chronic ongoing comorbidities. Patient seen in the medical floor, she was resting in bed in no acute distress. Alert and oriented x self, place and situation. Forgetful at times. Patient reports that she is feeling much better than yesterday, shortness of breath has improved. Endorsing cervical pain that radiates to bilateral arms. Pain is reported as constant, aching with numbness and tingling components. Currently reported at 7/10. Alleviated with pain medication, mainly baclofen. Reports good appetite, ate dinner last night and breakfast this morning. Last bowel movement 2 today. Denies nausea, vomiting or diarrhea. Patient remains afebrile, hypertensive with SBP in the 150s to 160s. Currently tolerating O2 via nasal cannula at 3 L. Laboratory work Today revealing persistent leukocytosis, 24.9, Hgb 9.2, platelet count 280. BUN/creatinine 32/0.96. Assisted patient incompletion of designation of healthcare surrogate and community DNR. Palliative care to provide copy to this afternoon. No family at bedside during my visit. . Family/friend interactions No family at bedside during my visit. . Advance Directives Health Care Surrogate: Copy in medical record Advance Directive Specifics Date completed: 04/24/17. Health Care Surrogate(s): New designation of healthcare surrogate completed today. Patient designated her Juan Dupree as HCS. Alternate surrogate is daughter Mary Dupree. . Significant change in goals: Goals of care remain unchanged. . Objective Vital Signs Date Time Temp Pulse Resp B/P (MAP) Pulse Ox O2 Delivery O2 Flow Rate FiO2 04/24/17 11:21 96 Nasal Cannula 3.00 04/24/17 07:28 96 Nasal Cannula 4.00 04/24/17 07:00 74 04/24/17 07:00 98.2 85 18 159/76 (103) 93 04/24/17 07:00 Nasal Cannula 4.00 50 04/24/17 06:00 64 04/24/17 05:01 97 Nasal Cannula 4.00 04/24/17 05:00 70 04/24/17 04:00 96 Nasal Cannula 4.00 04/24/17 04:00 58 04/24/17 04:00 97.5 72 20 156/91 (112) 96 04/24/17 03:24 62 04/24/17 03:00 66 04/24/17 02:00 68 04/24/17 01:00 70 04/24/17 00:00 97.8 76 18 154/90 (111) 95 04/24/17 00:00 95 Nasal Cannula 4.00 04/24/17 00:00 56 04/23/17 23:44 57 04/23/17 23:00 64 04/23/17 22:00 68 04/23/17 21:00 68 04/23/17 20:31 71 04/23/17 20:00 74 04/23/17 20:00 97 Nasal Cannula 4.00 04/23/17 20:00 97.7 74 18 145/72 (96) 97 04/23/17 19:59 97 Nasal Cannula 4.00 04/23/17 19:00 94 04/23/17 18:13 64 04/23/17 17:00 74 04/23/17 16:28 97 Nasal Cannula 4.00 04/23/17 16:01 94 Nasal Cannula 04/23/17 16:01 98.0 72 22 143/75 (97) 94 04/23/17 16:00 70 04/23/17 15:00 77 04/23/17 14:01 64 04/23/17 13:00 72 04/23/17 12:08 98 Nasal Cannula 4.00 04/23/17 12:01 91 Nasal Cannula 04/23/17 12:01 97.9 69 22 161/78 (105) 91 04/23/17 12:00 62 Intake & Output 04/24/17 04/24/17 07:00 19:00 Intake Total 2210 ml Output Total 2050 ml Balance 160 ml Intake Oral 960 ml IV Total 1250 ml Output Urine Total 2050 ml # Bowel Movements 4 Physical Exam CONSTITUTIONAL/GENERAL: This is an elderly female resting in bed in no acute distress. TUBES/LINES/DRAINS: Nasal cannula, PIV's, SCD to left. Perry catheter. SKIN: No jaundice, rashes, or lesions. Ecchymoses on upper extremities. Skin temperature appropriate. Not diaphoretic. Stasis dermatitis to bilateral lower extremity. Bruises to bilateral knees. Ulcers to bilateral toes. HEAD: Atraumatic. Normocephalic. EYES: Pupils equal and round and reactive. Extraocular motions intact. No scleral icterus. No injection or drainage. ENT: Hearing grossly normal. Nose without bleeding or purulent drainage. Moist oral mucosa. NECK: Trachea midline. Supple, nontender. CARDIOVASCULAR: Regular rate and rhythm without murmurs, gallops, or rubs. Week bilateral pedal pulses. RESPIRATORY/CHEST: Symmetric, unlabored respirations. . Breath sounds equal bilaterally. GASTROINTESTINAL: Abdomen soft, round, non-tender, nondistended. No guarding. Bowel sounds present. GENITOURINARY: Without palpable bladder distension. Perry catheter in place. MUSCULOSKELETAL: Extremities without clubbing, cyanosis, or edema. NEUROLOGICAL: Awake and alert. Motor grossly within normal limits. Abnormal sensory to bilateral lower extremities/numbness. Forgetful at times. Follows commands. Moves all extremities. PSYCHIATRIC: No obvious anxiety/depression. Calm, pleasant. . Diagnostic Tests Laboratory Laboratory Tests Test 04/22/17 13:40 04/22/17 16:35 04/22/17 16:40 04/22/17 18:43 Prothrombin Time 11.9 SEC (9.8-11.6) Prothromb Time International Ratio 1.1 RATIO Activated Partial Thromboplast Time 31.8 SEC (24.3-30.1) D-Dimer Quantitative (PE/DVT) 4.61 MG/L FEU (0.00-0.50) Blood Urea Nitrogen 33 MG/DL (7-18) Creatinine 1.49 MG/DL (0.50-1.00) Random Glucose 82 MG/DL (74-106) Total Protein 7.9 GM/DL (6.4-8.2) Albumin 2.1 GM/DL (3.4-5.0) Calcium Level 8.7 MG/DL (8.5-10.1) Alkaline Phosphatase 119 U/L (45-117) Aspartate Amino Transf (AST/SGOT) 31 U/L (15-37) Alanine Aminotransferase (ALT/SGPT) 32 U/L (10-53) Total Bilirubin 0.4 MG/DL (0.2-1.0) Sodium Level 131 MEQ/L (136-145) Potassium Level 5.0 MEQ/L (3.5-5.1) Chloride Level 90 MEQ/L (98-107) Carbon Dioxide Level 30.7 MEQ/L (21.0-32.0) Anion Gap 10 MEQ/L (5-15) Estimat Glomerular Filtration Rate 33 ML/MIN (>89) Troponin I LESS THAN 0.02 NG/ML B-Type Natriuretic Peptide 80 PG/ML (0-100) Lactic Acid Level 1.7 mmol/L (0.4-2.0) White Blood Count 27.2 TH/MM3 (4.0-11.0) Red Blood Count 3.79 MIL/MM3 (4.00-5.30) Hemoglobin 10.5 GM/DL (11.6-15.3) Hematocrit 33.5 % (35.0-46.0) Mean Corpuscular Volume 88.6 FL (80.0-100.0) Mean Corpuscular Hemoglobin 27.8 PG (27.0-34.0) Mean Corpuscular Hemoglobin Concent 31.4 % (32.0-36.0) Red Cell Distribution Width 16.8 % (11.6-17.2) Platelet Count 336 TH/MM3 (150-450) Mean Platelet Volume 7.6 FL (7.0-11.0) Neutrophils (%) (Auto) 82.2 % (16.0-70.0) Lymphocytes (%) (Auto) 8.2 % (9.0-44.0) Monocytes (%) (Auto) 9.3 % (0.0-8.0) Eosinophils (%) (Auto) 0.1 % (0.0-4.0) Basophils (%) (Auto) 0.2 % (0.0-2.0) Neutrophils # (Auto) 22.3 TH/MM3 (1.8-7.7) Lymphocytes # (Auto) 2.2 TH/MM3 (1.0-4.8) Monocytes # (Auto) 2.5 TH/MM3 (0-0.9) Eosinophils # (Auto) 0.0 TH/MM3 (0-0.4) Basophils # (Auto) 0.1 TH/MM3 (0-0.2) CBC Comment AUTO DIFF Differential Total Cells Counted 100 Neutrophils % (Manual) 69 % (16-70) Band Neutrophils % 16 % (0-6) Lymphocytes % 8 % (9-44) Monocytes % 6 % (0-8) Neutrophils # (Manual) 23.4 TH/MM3 (1.8-7.7) Metamyelocytes 1 % (0-1) Differential Comment FINAL DIFF MANUAL Toxic Vacuolation PRESENT (NONE SEEN) Platelet Morphology Comment NORMAL (NORMAL) Urine Color YELLOW (YELLW/STRAW) Urine Turbidity HAZY (CLEAR) Urine pH 5.5 (5.0-8.5) Urine Specific [place] 1.014 (1.002-1.035) Urine Protein TRACE mg/dL (NEG-TRACE) Urine Glucose (UA) NEG mg/dL (NEG) Urine Ketones NEG mg/dL (NEG) Urine Occult Blood NEG (NEG) Urine Nitrite POS (NEG) Urine Bilirubin NEG (NEG) Urine Urobilinogen LESS THAN 2.0 MG/DL (LESS Urine Leukocyte Esterase MOD (NEG) Urine RBC 1 /hpf (0-3) Urine WBC 33 /hpf (0-5) Urine WBC Clumps FEW (NONE) Urine Bacteria MOD /hpf (NONE) Urine Hyaline Casts 6 /lpf (RARE) Urine Mucus FEW /lpf (OCC) Microscopic Urinalysis Comment CULTURE INDICATED Blood Gas Puncture Site LT RADIAL Blood Gas Patient Temperature 98.6 Blood Gas HCO3 27 mmol/L (22-26) Blood Gas Base Excess 2.5 mmol/L (-2-2) Blood Gas Oxygen Saturation 94 % (90-100) Arterial Blood pH 7.37 (7.380-7.420) Arterial Blood Partial Pressure CO2 48 mmHg (38-42) Arterial Blood Partial Pressure O2 85 mmHG (61-120) Arterial Blood Oxygen Content 12.8 Vol % (12.0-20.0) Arterial Blood Carboxyhemoglobin 1.2 % (0-4) Arterial Blood Methemoglobin 0.8 % (0-2) Blood Gas Hemoglobin 9.7 G/DL (12.0-16.0) Oxygen Delivery Device BIPAP Blood Gas Ventilator Setting IPAP10/[id number] Blood Gas Inspired Oxygen 60 % Test 04/23/17 05:05 04/24/17 06:10 White Blood Count 25.7 TH/MM3 (4.0-11.0) 24.9 TH/MM3 (4.0-11.0) Red Blood Count 3.24 MIL/MM3 (4.00-5.30) 3.33 MIL/MM3 (4.00-5.30) Hemoglobin 8.9 GM/DL (11.6-15.3) 9.2 GM/DL (11.6-15.3) Hematocrit 28.6 % (35.0-46.0) 29.1 % (35.0-46.0) Mean Corpuscular Volume 88.2 FL (80.0-100.0) 87.6 FL (80.0-100.0) Mean Corpuscular Hemoglobin 27.5 PG (27.0-34.0) 27.7 PG (27.0-34.0) Mean Corpuscular Hemoglobin Concent 31.2 % (32.0-36.0) 31.6 % (32.0-36.0) Red Cell Distribution Width 16.7 % (11.6-17.2) 16.3 % (11.6-17.2) Platelet Count 265 TH/MM3 (150-450) 280 TH/MM3 (150-450) Mean Platelet Volume 7.5 FL (7.0-11.0) 7.4 FL (7.0-11.0) Neutrophils (%) (Auto) 94.0 % (16.0-70.0) Lymphocytes (%) (Auto) 3.8 % (9.0-44.0) Monocytes (%) (Auto) 2.2 % (0.0-8.0) Eosinophils (%) (Auto) 0.0 % (0.0-4.0) Basophils (%) (Auto) 0.0 % (0.0-2.0) Neutrophils # (Auto) 24.2 TH/MM3 (1.8-7.7) Lymphocytes # (Auto) 1.0 TH/MM3 (1.0-4.8) Monocytes # (Auto) 0.6 TH/MM3 (0-0.9) Eosinophils # (Auto) 0.0 TH/MM3 (0-0.4) Basophils # (Auto) 0.0 TH/MM3 (0-0.2) CBC Comment AUTO DIFF Differential Total Cells Counted 100 Neutrophils % (Manual) 77 % (16-70) Band Neutrophils % 22 % (0-6) Lymphocytes % 1 % (9-44) Neutrophils # (Manual) 25.4 TH/MM3 (1.8-7.7) Differential Comment FINAL DIFF MANUAL Toxic Granulation 1+ (NORMAL) Blood Urea Nitrogen 28 MG/DL (7-18) 32 MG/DL (7-18) Creatinine 1.04 MG/DL (0.50-1.00) 0.96 MG/DL (0.50-1.00) Random Glucose 125 MG/DL (74-106) 164 MG/DL (74-106) Calcium Level 8.4 MG/DL (8.5-10.1) 8.0 MG/DL (8.5-10.1) Sodium Level 135 MEQ/L (136-145) 138 MEQ/L (136-145) Potassium Level 4.9 MEQ/L (3.5-5.1) 4.1 MEQ/L (3.5-5.1) Chloride Level 101 MEQ/L (98-107) 103 MEQ/L (98-107) Carbon Dioxide Level 27.7 MEQ/L (21.0-32.0) 25.9 MEQ/L (21.0-32.0) Anion Gap 6 MEQ/L (5-15) 9 MEQ/L (5-15) Estimat Glomerular Filtration Rate 50 ML/MIN (>89) 55 ML/MIN (>89) Result Diagram: 04/24/17 0610 04/24/17 0610 Microbiology Microbiology Date/Time Source Procedure Growth Status 04/22/17 16:40 Blood Peripheral Aerobic Blood Culture - Preliminary NO GROWTH IN 2 DAYS Resulted 04/22/17 16:40 Blood Peripheral Anaerobic Blood Culture - Preliminary NO GROWTH IN 2 DAYS Resulted 04/22/17 16:40 Blood Peripheral Aerobic Blood Culture - Preliminary NO GROWTH IN 2 DAYS Resulted 04/22/17 16:40 Blood Peripheral Anaerobic Blood Culture - Preliminary NO GROWTH IN 2 DAYS Resulted 04/22/17 16:40 Urine Random Urine Urine Culture - Final Citrobacter Werkmanii Complete Assessment and Plan Disease Oriented Problem List: (1) Sepsis (2) Pneumonia (3) COPD exacerbation (4) UTI (urinary tract infection) (5) Chronic renal disease (6) Physical deconditioning Symptom Scale: (1) Pain 0-10 Scale: 7 Comment: History of chronic pain, neuropathic pain/fibromyalgia. (2) Anxiety 0-10 Scale: Unable to quantify Comment: Chronic. Exacerbated by pain and shortness of breath. (3) Debility 0-10 Scale: Unable to quantify Comment: Progressive since acute hospitalization in December. Pertinent Non-Medical Issues Psychosocial: Patient is originally from [place]. Moved to [place] 2 years ago. She is , resides independently with . They have 2 adult children, son Jaskaran who is in [place] and daughter Mary who is in [place]. 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 Spiritual: Legal: Designation of healthcare surrogate completed. Copy in file. Ethical issues impacting care: No ethical legal issues identified. . Important Contacts Juan Dupree . . Prognosis Mrs. Dupree is an 86-year-old female with a medical history significant for COPD, hypertension, rheumatoid arthritis, TIAs, graves disease, CAD and chronic pain. Patient presented to ED via EMS on 04/22/17 for evaluation of altered mental status and worsening shortness of breath. She was placed on a nonrebreather mask and subsequently placed on a BiPAP and admitted for evaluation and management of pneumonia and UTI. Patient with recent history of acute hospitalization in December requiring intubation and mechanical ventilation. Patient remains at a very high risk for further complications, clinical decline and given recent acute hospitalization, advanced age and multiple chronic ongoing comorbidities. . Code Status: No Code Plan * CODE STATUS: No code. DNR/DNI. Community DNR completed. * HEALTHCARE DECISION-MAKING: Patient participating in medical decision-making, however, relies on her 's input. Updated designation of healthcare surrogate completed, patient designated her Juan as HCS, alternate surrogate daughter Mary Dupree. Palliative care recommends shared decision- making with . * GOALS OF CARE: Patient and verbalized wishing to continue with conservative management short of NO code, declining invasive interventions such as intubation, mechanical ventilation or CPR. Introduced hospice philosophy and benefits. Discussed the future role of hospice should patient's clinical condition continues to worsen, continue decline or increased symptoms burden. Patient and receptive to this. Hospice brochure and contact information has been provided to as per their request. Community DNR signed. Copy in chart. * SYMPTOMS: = Pain, history of chronic pain to cervical spine and bilateral upper and lower extremities secondary to spinal stenosis, neuropathy and fibromyalgia. Endorsing cervical pain that radiates to bilateral arms. Pain is reported as constant, aching with numbness and tingling components. Currently reported at 7/10. Alleviated with pain medication, mainly baclofen. Home regimen to include gabapentin 300 mg daily, baclofen 10 mg QID PRN and Percocet 10/325 mg Q4h PRN. Home regimen has continued while inpatient with the exception of baclofen which is currently at 5 mg BID PRN. Palliative care recommends reinstating home dose of baclofen 10 mg PO q6h PRN -patient reports that baclofen is the most effective management for her current pain. = Shortness of breath, COPD exacerbation, pneumonia. Currently on O2. Lasix daily and Duonebs QID. = Constipation, exacerbated by opioids and sedentary lifestyle. Senokot, MOM, lactulose and Dulcolax suppository available as needed. * Palliative care contact information has been provided to patient and . * Palliative care will continue to follow-up for further clarifications of goals of care as patient's clinical course continues to evolve. . Time Spent Total Floor Time (mins): 36 (Total time to include review medical records, physical exam, goals of care conversation with patient and . At least 19 minutes where utilized in assisting/educating patient and with advance directives to include completion of community DNR and designation of healthcare surrogate.) >50% Counseling/Coord of Care: Yes Attestation To help prompt me to consider important information that might be impacting today's encounter and assessment, information from prior notes written by myself or my colleagues may have been "brought forward" into today's note. My signature on this note, however, is an attestation that I personally performed the exam, history, and/or decision-making noted today, and, unless otherwise indicated, the interactions with patient, family, and staff as well as the review of records all occurred today. I also attest that the listed assessment and stated plan reflect my best clinical judgment today based on the combination of historical information, prior notes, and today's exam/ interactions. When time spent is documented, it refers only to time spent today by the signer, or if indicated, combined time spent today by collaborating physician/nurse practitioner. Isis Pascal Apr 24, 2017 11:51
--- NOTE | 2017-04-24 14:04 | HHI.PR ---
Subjective Subjective Remarks Resting in bed, still coughing productive sputum Audible rhonchi Pale Debilitated, but some slow gradual improvement Review of Systems Constitutional Constitutional: Fatigue, Weakness Constitutional Remarks 10 point ROS done positives noted Pulmonary Respiratory: Shortness of Breath (low volumes) Musculoskeletal MS: Weakness, Stiffness, Swelling, Discomfort/Pain (bilateral knees, Would fall to her knees out of bed at home for her ambulation) Psychiatric Psychiatric: Normal Mood, Anxiety Vitals/Results Vital Signs Vital Signs Date Time Temp Pulse Resp B/P (MAP) Pulse Ox O2 Delivery O2 Flow Rate FiO2 04/24/17 13:00 74 04/24/17 12:27 16 04/24/17 12:00 90 04/24/17 11:21 96 Nasal Cannula 3.00 04/24/17 11:00 97.4 82 18 142/74 (96) 04/24/17 11:00 83 04/24/17 11:00 Nasal Cannula 3.00 50 04/24/17 10:00 68 04/24/17 09:00 64 04/24/17 07:28 96 Nasal Cannula 4.00 04/24/17 07:00 74 04/24/17 07:00 98.2 85 18 159/76 (103) 93 04/24/17 07:00 Nasal Cannula 4.00 50 04/24/17 06:00 64 04/24/17 05:01 97 Nasal Cannula 4.00 04/24/17 05:00 70 04/24/17 04:00 96 Nasal Cannula 4.00 04/24/17 04:00 58 04/24/17 04:00 97.5 72 20 156/91 (112) 96 04/24/17 03:24 62 04/24/17 03:00 66 04/24/17 02:00 68 04/24/17 01:00 70 04/24/17 00:00 97.8 76 18 154/90 (111) 95 04/24/17 00:00 95 Nasal Cannula 4.00 04/24/17 00:00 56 04/23/17 23:44 57 04/23/17 23:00 64 04/23/17 22:00 68 04/23/17 21:00 68 04/23/17 20:31 71 04/23/17 20:00 74 04/23/17 20:00 97 Nasal Cannula 4.00 04/23/17 20:00 97.7 74 18 145/72 (96) 97 04/23/17 19:59 97 Nasal Cannula 4.00 04/23/17 19:00 94 04/23/17 18:13 64 04/23/17 17:00 74 04/23/17 16:28 97 Nasal Cannula 4.00 04/23/17 16:01 94 Nasal Cannula 04/23/17 16:01 98.0 72 22 143/75 (97) 94 04/23/17 16:00 70 04/23/17 15:00 77 CBC/BMP: 04/24/17 0610 04/24/17 0610 Lab Results Laboratory Tests Test 04/24/17 06:10 White Blood Count 24.9 TH/MM3 Red Blood Count 3.33 MIL/MM3 Hemoglobin 9.2 GM/DL Hematocrit 29.1 % Mean Corpuscular Volume 87.6 FL Mean Corpuscular Hemoglobin 27.7 PG Mean Corpuscular Hemoglobin Concent 31.6 % Red Cell Distribution Width 16.3 % Platelet Count 280 TH/MM3 Mean Platelet Volume 7.4 FL Blood Urea Nitrogen 32 MG/DL Creatinine 0.96 MG/DL Random Glucose 164 MG/DL Calcium Level 8.0 MG/DL Sodium Level 138 MEQ/L Potassium Level 4.1 MEQ/L Chloride Level 103 MEQ/L Carbon Dioxide Level 25.9 MEQ/L Anion Gap 9 MEQ/L Estimat Glomerular Filtration Rate 55 ML/MIN Physical Exam General General Appearance: Pale, Anxious Eyes Eye Exam: Pupils Equal Ears & Nose Ears & Nose Exam: Nasal Mucosa Celebration (pale) Throat Throat Exam: Oral Mucosa Celebration & Moist (pale) Neck Neck Exam: Neck Supple Pulmonary Resp Exam: Rhonchi (audible, and coughing up sputum), Decreased Bases, Diminished Breath Sounds Cardiology CV Exam: Regular Gastrointestinal/Abdomen GI Exam: Soft (flat) Musculoskeletal MS Remarks Bilateral bruising on knees from her generalized weakness when getting out of bed Integumentary Skin Exam: Dry Extremeties Extremities Exam: No Edema Neurologic Neuro Exam: Awake Assessment/Plan Assessment/Plan pneumonia Continue antibiotics Levaquin and cefepime, oxygen therapy as needed, duo nebs, BiPAP off for now, IV steroids Appreciate pulmonary consult and input or plan a care, cough noted with food and liquids, positive sputum production continues and upper airway audible rhonchi. We'll get speech therapy to evaluate patient's swallow, possible aspiration secondary to her weakness Urinary tract infection, Perry catheter DC'd, IV Levaquin medical management Renal insufficiency cautious hydration, acute kidney injury probably close to her baseline, monitor labs as needed Chronic pain Rheumatoid arthritis, pain management Hypertension medical management Heparin, DVT prophylaxis PPI prophylaxis Bowel regimen normal trends BM today Appreciate palliative care consult for their support or this patient, meeting performed with patient and her DNR/DNI status,, patient did not want to discuss hospice at this point in time, does want to go home at least before Sunday Bhumika Rain Apr 24, 2017 14:04
--- NOTE | 2017-04-24 19:40 | HHI.PR ---
Subjective Remarks 86 YOWF with Resp insuff, COPD,Hypoxia Feels better No CP Mild wheezing Occ cough Objective Vital Signs Vital Signs Date Time Temp Pulse Resp B/P (MAP) Pulse Ox O2 Delivery O2 Flow Rate FiO2 04/24/17 18:00 102 04/24/17 17:00 76 04/24/17 16:00 74 04/24/17 15:00 78 04/24/17 15:00 97.3 89 18 145/76 (99) 98 04/24/17 15:00 Nasal Cannula 2.00 50 04/24/17 13:00 74 04/24/17 12:27 16 04/24/17 12:00 90 04/24/17 11:21 96 Nasal Cannula 3.00 04/24/17 11:00 97.4 82 18 142/74 (96) 04/24/17 11:00 83 04/24/17 11:00 Nasal Cannula 3.00 50 04/24/17 10:00 68 04/24/17 09:00 64 04/24/17 07:28 96 Nasal Cannula 4.00 04/24/17 07:00 74 04/24/17 07:00 98.2 85 18 159/76 (103) 93 04/24/17 07:00 Nasal Cannula 4.00 50 04/24/17 06:00 64 04/24/17 05:01 97 Nasal Cannula 4.00 04/24/17 05:00 70 04/24/17 04:00 96 Nasal Cannula 4.00 04/24/17 04:00 58 04/24/17 04:00 97.5 72 20 156/91 (112) 96 04/24/17 03:24 62 04/24/17 03:00 66 04/24/17 02:00 68 04/24/17 01:00 70 04/24/17 00:00 97.8 76 18 154/90 (111) 95 04/24/17 00:00 95 Nasal Cannula 4.00 04/24/17 00:00 56 04/23/17 23:44 57 04/23/17 23:00 64 04/23/17 22:00 68 04/23/17 21:00 68 04/23/17 20:31 71 04/23/17 20:00 74 04/23/17 20:00 97 Nasal Cannula 4.00 04/23/17 20:00 97.7 74 18 145/72 (96) 97 04/23/17 19:59 97 Nasal Cannula 4.00 I/O 04/23/17 04/23/17 04/23/17 04/24/17 04/24/17 04/24/17 07:00 15:00 23:00 07:00 15:00 23:00 Intake Total 650 ml 550 ml 1130 ml 1080 ml 740 ml Output Total 1350 ml 1500 ml 550 ml 800 ml Balance -700 ml 550 ml -370 ml 530 ml -60 ml Intake Oral 100 ml 480 ml 480 ml 740 ml IV Total 550 ml 550 ml 650 ml 600 ml Output Urine Total 1350 ml 1500 ml 550 ml 800 ml # Bowel Movements 3 1 Result Diagram: 04/24/17 0610 04/24/17 06 Objective Remarks GENERAL: Elderly WF, mild sob SKIN: Warm and dry. HEAD: Normocephalic. EYES: No scleral icterus. No injection or drainage. NECK: Supple, trachea midline. No JVD or lymphadenopathy. CARDIOVASCULAR: Regular rate and rhythm without murmurs, gallops, or rubs. RESPIRATORY: Breath sounds equal bilaterally. No accessory muscle use. GASTROINTESTINAL: Abdomen soft, non-tender, nondistended. MUSCULOSKELETAL: No cyanosis, or edema. BACK: Nontender without obvious deformity. No CVA tenderness. A/P Assessment and Plan Resp Insuff COPD exac Hypoxia Pneumonia RA Back Pain PLAN: IV Solumedrol Cont Abx Aerosol nebs 02 4LNC, keep sat >90% Toby Trevino MD Apr 24, 2017 19:40
[2017-04-24] MEDS: LEVOFLOXACIN/DEXTROSE 250 MG/50 ML IV SCH (21:54)
[2017-04-25] VITALS (27 sets, daily range): BP systolic 170–185; BP diastolic 85–92; PULSE 58–90; RESP 18–20; TEMP 97.2–98.8; O2SAT 92–99
[2017-04-25] MEDS: oxyCODONE/ACETAMINOPHEN 10 MG/325 MG TAB PO PRN ×5 (00:38→23:41)
[2017-04-25] MEDS: BACLOFEN 10 MG TAB PO PRN ×2 (00:38→21:32)
[2017-04-25] MEDS: SODIUM CHLOR 0.9% 1000 ML INJ 1,000 ML IV SCH (01:00)
[2017-04-25] MEDS: CEFEPIME INJ 1,000 MG in SODIUM CHLORIDE 0.9% INJ 100 ML IV SCH ×2 (06:03→18:34)
[2017-04-25 07:00] LABS: HEMATOCRIT 33.2 % (35.0-46.0); MEAN CELL VOLUME 88.8 FL (80.0-100.0); MEAN CORPUSCULAR HEMOGLOBIN 28.2 PG (27.0-34.0); MEAN CORPUSCULAR HGB CONC 31.8 % (32.0-36.0); PLATELET COUNT 258 TH/MM3 (150-450); RED BLOOD COUNT 3.74 MIL/MM3 (4.00-5.30); RED CELL DISTRIBUTION WIDTH 16.8 % (11.6-17.2); REVIEW FLAG FINAL; WHITE BLOOD COUNT 23.5 TH/MM3 (4.0-11.0)
[2017-04-25] MEDS: RESP: ALBUTEROL 2.5 MG/IPRATROPIUM 0.5 MG NEB (SCH) NEB ×4 (08:00→19:58)
[2017-04-25] MEDS: ASPIRIN 81 MG CHEW TAB PO SCH (08:50)
[2017-04-25] MEDS: SODIUM CHLORIDE 0.9% FLUSH 10 ML FLUSH IV FLUSH SCH ×2 (08:50→21:31)
[2017-04-25] MEDS: predniSONE 20 MG TAB PO SCH (08:50)
[2017-04-25] MEDS: amLODIPine BESYLATE 5 MG TAB PO SCH (08:51)
[2017-04-25] MEDS: PANTOPRAZOLE SOD 20 MG DELAYED RELEASE TAB PO SCH (08:51)
[2017-04-25] MEDS: FUROSEMIDE 20 MG TAB PO SCH (08:51)
[2017-04-25] MEDS: LISINOPRIL 10 MG TAB PO SCH (08:51)
[2017-04-25] MEDS: GABAPENTIN 300 MG CAP PO SCH (08:51)
[2017-04-25] MEDS: POTASSIUM CHLORIDE 20 MEQ CONTROLLED RELEASE TAB PO SCH (08:52)
[2017-04-25] MEDS: DOCUSATE SODIUM 50 MG/SENNA 8.6 MG TAB PO SCH ×2 (08:52→21:00)
[2017-04-25] MEDS: METOPROLOL TARTRATE 50 MG TAB PO SCH ×2 (08:52→21:31)
[2017-04-25] MEDS: HEPARIN SODIUM - SQ 10,000 UNITS/ML VIAL SQ SCH ×2 (08:53→21:31)
[2017-04-25] MEDS: VENLAFAXINE HCL XR 75 MG CAP PO SCH (11:26)
--- NOTE | 2017-04-25 11:55 | HHI.PR ---
Subjective History of Present Illness Feels better Less coughing/no more sputum production No fever or chills Denies chest pain No nausea vomiting Appetite is improving No abdominal pain Complaints of back spasm/asking to increase her baclofen Offers no other complaints Review of Systems Constitutional Constitutional: Fatigue, Weakness Pulmonary Respiratory: Shortness of Breath (low volumes) Musculoskeletal MS: Weakness, Stiffness, Swelling, Discomfort/Pain (bilateral knees, Would fall to her knees out of bed at home for her ambulation) Psychiatric Psychiatric: Normal Mood, Anxiety Vitals/Results Vital Signs Vital Signs Date Time Temp Pulse Resp B/P (MAP) Pulse Ox O2 Delivery O2 Flow Rate FiO2 04/25/17 08:25 93 Nasal Cannula 2.00 04/25/17 06:00 70 04/25/17 05:00 80 04/25/17 04:30 98.0 63 18 170/90 (116) 93 04/25/17 04:00 Nasal Cannula 2.00 04/25/17 04:00 62 04/25/17 03:00 70 04/25/17 02:00 90 04/25/17 01:00 58 04/25/17 00:00 Nasal Cannula 2.00 04/25/17 00:00 97.2 63 18 174/90 (118) 93 04/25/17 00:00 64 04/24/17 23:00 66 04/24/17 22:00 62 04/24/17 21:00 74 04/24/17 20:00 96.0 71 18 162/82 (108) 95 04/24/17 20:00 Nasal Cannula 2.00 04/24/17 20:00 62 04/24/17 19:00 88 04/24/17 18:00 102 04/24/17 17:00 76 04/24/17 16:00 74 04/24/17 15:00 78 04/24/17 15:00 97.3 89 18 145/76 (99) 98 04/24/17 15:00 Nasal Cannula 2.00 50 04/24/17 13:00 74 04/24/17 12:27 16 04/24/17 12:00 90 CBC/BMP: 04/25/17 0525 04/24/17 0610 Lab Results Laboratory Tests Test 04/25/17 05:25 White Blood Count 23.5 TH/MM3 Red Blood Count 3.74 MIL/MM3 Hemoglobin 10.5 GM/DL Hematocrit 33.2 % Mean Corpuscular Volume 88.8 FL Mean Corpuscular Hemoglobin 28.2 PG Mean Corpuscular Hemoglobin Concent 31.8 % Red Cell Distribution Width 16.8 % Platelet Count 258 TH/MM3 Mean Platelet Volume 8.1 FL Physical Exam General General Appearance: No Acute Distress, Comfortable, Pale, Obese Eyes Eye Exam: Pupils Equal, Sclera White Ears & Nose Ears & Nose Exam: Nasal Mucosa [place] (pale) Throat Throat Exam: Oral Mucosa [place] & Moist (pale) Neck Neck Exam: Neck Supple, Trachea Midline Pulmonary Resp Exam: Breath Sounds Equal, No Distress, Decreased Bases, Diminished Breath Sounds Cardiology CV Exam: Regular, Normal Sinus Rhythm Gastrointestinal/Abdomen GI Exam: Soft (flat), Non-Tender, Bowel Sounds Present Integumentary Skin Exam: Warm, Dry Extremeties Extremities Exam: No Edema, Trace Edema Neurologic Neuro Exam: Alert, Awake, Oriented, Speech Clear, Moving All Extremities VTE Prophylaxis VTE Prophylaxis Meds: Heparin PUD Prophylasis PUD Prophylaxis: Protonix Assessment/Plan Assessment/Plan Recurrent pneumonia Persistent leukocytosis COPD Urinary tract infection, Renal insufficiency/acute kidney injury Chronic pain Rheumatoid arthritis, Hypertension Anemia Peripheral neuropathy Plan Continue oxygen Change antibiotic to by mouth Taper steroids continue aerosol treatment Urine culture positive for Citrobacter, sensitivity noted Speech therapy evaluation awaited Blood pressure control Continue analgesics Increase baclofen 10 mg 3 times a day Continue PPI Subcutaneous heparin for DVT prophylaxis PT evaluation SS for discharge planning Discussed with patient Discussed with RN Will follow Chikis Zaman MD Apr 25, 2017 11:55
[2017-04-25] MEDS ORDERED: amLODIPine BESYLATE 5 MG TAB PO ONE (16:00)
--- NOTE | 2017-04-25 19:06 | HHI.PR ---
Subjective Remarks 86 YOWF with Resp insuff, COPD,Hypoxia Feels better No CP Mild wheezing Occ cough No new complaint Objective Vital Signs Vital Signs Date Time Temp Pulse Resp B/P (MAP) Pulse Ox O2 Delivery O2 Flow Rate FiO2 04/25/17 18:00 60 04/25/17 17:00 62 04/25/17 16:00 97 Nasal Cannula 2.00 04/25/17 16:00 60 04/25/17 15:55 98.3 60 20 170/85 (113) 97 04/25/17 15:00 62 04/25/17 14:00 68 04/25/17 13:00 60 04/25/17 12:00 62 04/25/17 11:00 96 Nasal Cannula 2.00 04/25/17 11:00 60 04/25/17 11:00 98.8 60 20 174/88 (116) 96 04/25/17 10:00 68 04/25/17 09:00 76 04/25/17 08:25 93 Nasal Cannula 2.00 04/25/17 08:00 77 04/25/17 08:00 96 Nasal Cannula 1.00 04/25/17 07:00 58 04/25/17 07:00 97.8 77 20 185/92 (123) 95 04/25/17 06:00 70 04/25/17 05:00 80 04/25/17 04:30 98.0 63 18 170/90 (116) 93 04/25/17 04:00 Nasal Cannula 2.00 04/25/17 04:00 62 04/25/17 03:00 70 04/25/17 02:00 90 04/25/17 01:00 58 04/25/17 00:00 Nasal Cannula 2.00 04/25/17 00:00 97.2 63 18 174/90 (118) 93 04/25/17 00:00 64 04/24/17 23:00 66 04/24/17 22:00 62 04/24/17 21:00 74 04/24/17 20:00 96.0 71 18 162/82 (108) 95 04/24/17 20:00 Nasal Cannula 2.00 04/24/17 20:00 62 I/O 04/24/17 04/24/17 04/24/17 04/25/17 04/25/17 04/25/17 07:00 15:00 23:00 07:00 15:00 23:00 Intake Total 1080 ml 790 ml 770 ml Output Total 550 ml 800 ml 1550 ml Balance 530 ml -10 ml -780 ml Intake Oral 480 ml 740 ml 360 ml IV Total 600 ml 50 ml 410 ml Output Urine Total 550 ml 800 ml 1550 ml # Bowel Movements 1 1 Result Diagram: 04/25/17 0525 04/24/17 0610 Objective Remarks GENERAL: Elderly WF, mild sob SKIN: Warm and dry. HEAD: Normocephalic. EYES: No scleral icterus. No injection or drainage. NECK: Supple, trachea midline. No JVD or lymphadenopathy. CARDIOVASCULAR: Regular rate and rhythm without murmurs, gallops, or rubs. RESPIRATORY: Breath sounds equal bilaterally. No accessory muscle use. GASTROINTESTINAL: Abdomen soft, non-tender, nondistended. MUSCULOSKELETAL: No cyanosis, or edema. BACK: Nontender without obvious deformity. No CVA tenderness. A/P Assessment and Plan Resp Insuff COPD exac Hypoxia Pneumonia RA Back Pain PLAN: PO Steroids Cont Abx Aerosol nebs 02 2LNC, keep sat >90% Toby Trevino MD Apr 25, 2017 19:06
[2017-04-25] MEDS ORDERED: TEMAZEPAM 15 MG CAP PO PRN (21:15)
[2017-04-26] VITALS (16 sets, daily range): BP systolic 166–177; BP diastolic 86–93; PULSE 62–102; RESP 18–20; TEMP 97.6–97.8; O2SAT 95–96
[2017-04-26] MEDS ORDERED: cloNIDine HCL 0.1 MG TAB PO PRN (01:00)
[2017-04-26] MEDS: CEFEPIME INJ 1,000 MG in SODIUM CHLORIDE 0.9% INJ 100 ML IV SCH (05:31)
[2017-04-26] MEDS: oxyCODONE/ACETAMINOPHEN 10 MG/325 MG TAB PO PRN ×2 (05:38→11:17)
[2017-04-26] MEDS: BACLOFEN 10 MG TAB PO PRN (05:39)
[2017-04-26 06:55] LABS: HEMATOCRIT 36.3 % (35.0-46.0); MEAN CELL VOLUME 87.1 FL (80.0-100.0); MEAN CORPUSCULAR HEMOGLOBIN 27.5 PG (27.0-34.0); MEAN CORPUSCULAR HGB CONC 31.5 % (32.0-36.0); PLATELET COUNT 284 TH/MM3 (150-450); RED BLOOD COUNT 4.17 MIL/MM3 (4.00-5.30); RED CELL DISTRIBUTION WIDTH 16.7 % (11.6-17.2); REVIEW FLAG FINAL; WHITE BLOOD COUNT 15.3 TH/MM3 (4.0-11.0)
[2017-04-26] MEDS: RESP: ALBUTEROL 2.5 MG/IPRATROPIUM 0.5 MG NEB (SCH) NEB ×3 (08:31→15:42)
[2017-04-26] MEDS: SODIUM CHLORIDE 0.9% FLUSH 10 ML FLUSH IV FLUSH SCH (08:53)
[2017-04-26] MEDS: HEPARIN SODIUM - SQ 10,000 UNITS/ML VIAL SQ SCH (08:54)
[2017-04-26] MEDS: VENLAFAXINE HCL XR 75 MG CAP PO SCH (08:54)
[2017-04-26] MEDS: FUROSEMIDE 20 MG TAB PO SCH (08:54)
[2017-04-26] MEDS: METOPROLOL TARTRATE 50 MG TAB PO SCH (08:54)
[2017-04-26] MEDS: amLODIPine BESYLATE 5 MG TAB PO SCH (08:54)
[2017-04-26] MEDS: ASPIRIN 81 MG CHEW TAB PO SCH (08:54)
[2017-04-26] MEDS: DOCUSATE SODIUM 50 MG/SENNA 8.6 MG TAB PO SCH (08:55)
[2017-04-26] MEDS: POTASSIUM CHLORIDE 20 MEQ CONTROLLED RELEASE TAB PO SCH (08:55)
[2017-04-26] MEDS: predniSONE 20 MG TAB PO SCH (08:55)
[2017-04-26] MEDS: PANTOPRAZOLE SOD 20 MG DELAYED RELEASE TAB PO SCH (08:56)
[2017-04-26] MEDS: GABAPENTIN 300 MG CAP PO SCH (08:57)
[2017-04-26] MEDS ORDERED: LEVOFLOXACIN 750 MG TAB PO SCH (09:00)
[2017-04-26] MEDS ORDERED: LISINOPRIL 20 MG TAB PO SCH (09:00)
[2017-04-26] MEDS ORDERED: LEVA750T9 PO (13:33)
[2017-04-26] MEDS ORDERED: LISI-515 PO (13:33)
[2017-04-26] MEDS ORDERED: PRED20 PO (13:34)
--- NOTE | 2017-04-26 13:36 | HHI.FF ---
Face to Face Verification Diagnosis: (1) Pneumonia (2) COPD (chronic obstructive pulmonary disease) (3) Impaired gait (4) Back pain, lumbosacral (5) Hypoxia (6) Anxiety Physical Therapy Order: Evaluate and Treat, Improve ambulation, Strength and gait training Home Health Nursing Order: Medical education Signs/symptoms of disease process Medication education-adverse effect Nursing assessment with vital signs I have seen patient Karly Dupree on 04/26/17. My clinical findings support the need for the requested home health care services because: Ltd mobility - disease progression Patient has SOB High risk of falls I certify that my clinical findings support that this patient is homebound because: Hx COPD- exertion dyspnea/weakness Unsteady gait/balance Unsafe to leave home unassisted Chikis Zaman MD Apr 26, 2017 13:36
--- NOTE | 2017-04-26 13:45 | HHI.PR ---
Subjective History of Present Illness Feels much better cough is better /eager to go home working w PT when I came to see her No fever or chills Denies chest pain No nausea vomiting Appetite is improving No abdominal pain back pain is ok Offers no other complaints Review of Systems Constitutional Constitutional: Fatigue, Weakness Pulmonary Respiratory: Shortness of Breath (low volumes) Musculoskeletal MS: Weakness, Stiffness, Swelling, Discomfort/Pain (bilateral knees, Would fall to her knees out of bed at home for her ambulation) Psychiatric Psychiatric: Normal Mood, Anxiety Vitals/Results Vital Signs Vital Signs Date Time Temp Pulse Resp B/P (MAP) Pulse Ox O2 Delivery O2 Flow Rate FiO2 04/26/17 13:00 80 04/26/17 12:00 88 04/26/17 11:00 97.6 67 20 166/93 (117) 96 04/26/17 11:00 74 04/26/17 11:00 96 Nasal Cannula 3.00 04/26/17 10:00 85 04/26/17 09:00 86 04/26/17 08:32 96 Nasal Cannula 3.00 04/26/17 08:00 86 04/26/17 07:00 97.8 83 20 177/86 (116) 95 04/26/17 07:00 95 Nasal Cannula 2.00 04/26/17 07:00 68 04/26/17 06:00 94 04/26/17 05:00 76 04/26/17 04:00 63 04/26/17 03:00 78 04/26/17 03:00 97.8 75 18 170/93 (118) 95 04/26/17 03:00 95 Nasal Cannula 2.00 04/26/17 02:00 62 04/26/17 01:00 77 04/26/17 00:00 92 04/25/17 23:00 96 Nasal Cannula 2.00 04/25/17 23:00 97.9 77 18 177/92 (120) 99 04/25/17 23:00 65 04/25/17 22:00 82 04/25/17 21:00 64 04/25/17 20:00 96 Nasal Cannula 2.00 04/25/17 20:00 72 04/25/17 20:00 92 Nasal Cannula 3.00 04/25/17 19:00 98.0 76 18 184/85 (118) 96 04/25/17 19:00 70 04/25/17 18:00 60 04/25/17 17:00 62 04/25/17 16:00 97 Nasal Cannula 2.00 04/25/17 16:00 60 04/25/17 15:55 98.3 60 20 170/85 (113) 97 04/25/17 15:00 62 04/25/17 14:00 68 CBC/BMP: 04/26/17 0530 04/24/17 0610 Lab Results Laboratory Tests Test 04/26/17 05:30 White Blood Count 15.3 TH/MM3 Red Blood Count 4.17 MIL/MM3 Hemoglobin 11.5 GM/DL Hematocrit 36.3 % Mean Corpuscular Volume 87.1 FL Mean Corpuscular Hemoglobin 27.5 PG Mean Corpuscular Hemoglobin Concent 31.5 % Red Cell Distribution Width 16.7 % Platelet Count 284 TH/MM3 Mean Platelet Volume 7.8 FL Physical Exam General General Appearance: No Acute Distress, Comfortable, Pale, Obese Eyes Eye Exam: Pupils Equal, Pupils Reactive, Sclera White [place] & Nose Ears & Nose Exam: Nasal Mucosa [place] (pale) Throat Throat Exam: Oral Mucosa [place] & Moist (pale) Neck Neck Exam: Neck Supple, Trachea Midline Pulmonary Resp Exam: Clear Bilaterally, Breath Sounds Equal, No Distress Cardiology CV Exam: Regular, Normal Sinus Rhythm Gastrointestinal/Abdomen GI Exam: Soft (flat), Non-Tender, Bowel Sounds Present Integumentary Skin Exam: Warm, Dry Extremeties Extremities Exam: No Edema, Trace Edema Neurologic Neuro Exam: Alert, Awake, Oriented, Speech Clear, Moving All Extremities VTE Prophylaxis VTE Prophylaxis Meds: Heparin PUD Prophylasis PUD Prophylaxis: Protonix Assessment/Plan Assessment/Plan Recurrent pneumonia Persistent leukocytosis COPD Urinary tract infection, Renal insufficiency/acute kidney injury Chronic pain Rheumatoid arthritis, Hypertension Anemia Peripheral neuropathy Plan RA o2 sat 95 to 96% , dc oxygen d/c IV cefepime cont po levaquin x 6 more days Taper steroids aersol tx Speech therapy evaluation noted< mech soft diet w thin liquids Blood pressure control Continue analgesics cont baclofen 10 mg 3 times a day Continue PPI Subcutaneous heparin for DVT prophylaxis PT evaluation medically stable for d/c d/c home w w HHC, d/w Physical therapist see [facility] see orders d/w PT f/u pcp f/u pulmonary Chikis Zaman MD Apr 26, 2017 13:45
--- NOTE | 2017-04-26 19:01 | HHI.DS ---
Discharge Summary Admission Date Apr 22, 2017 at 18:34 Discharge Date: Apr 26, 2017 Admitting Diagnosis pneumonia (1) Acute respiratory failure with hypoxia ICD Codes: J96.01 - Acute respiratory failure with hypoxia Status: Acute (2) Hypoxia ICD Codes: R09.02 - Hypoxia Status: Acute (3) Sepsis ICD Codes: A41.9 - Sepsis Status: Acute (4) Pneumonia ICD Codes: J18.9 - Pneumonia, unspecified organism Status: Acute (5) COPD exacerbation ICD Codes: J44.1 - Obstructive chronic bronchitis with exacerbation Status: Acute (6) Back pain, chronic ICD Codes: M54.9 - Chronic back pain; G89.29 - Other chronic pain Status: Chronic (7) HTN (hypertension) ICD Codes: I10 - Hypertension Status: Chronic (8) Hypothyroidism ICD Codes: E03.9 - Hypothyroidism Status: Chronic (9) Depression ICD Codes: F32.9 - Depression Status: Chronic (10) Anxiety ICD Codes: F41.9 - Anxiety Status: Chronic (11) Rheumatoid arthritis ICD Codes: M06.9 - Rheumatoid arthritis Status: Chronic CBC/BMP: 04/26/17 0530 04/24/17 0610 Significant Findings Laboratory Tests Test 04/24/17 06:10 04/25/17 05:25 04/26/17 05:30 White Blood Count 24.9 TH/MM3 (4.0-11.0) 23.5 TH/MM3 (4.0-11.0) 15.3 TH/MM3 (4.0-11.0) Red Blood Count 3.33 MIL/MM3 (4.00-5.30) 3.74 MIL/MM3 (4.00-5.30) Hemoglobin 9.2 GM/DL (11.6-15.3) 10.5 GM/DL (11.6-15.3) 11.5 GM/DL (11.6-15.3) Hematocrit 29.1 % (35.0-46.0) 33.2 % (35.0-46.0) Mean Corpuscular Hemoglobin Concent 31.6 % (32.0-36.0) 31.8 % (32.0-36.0) 31.5 % (32.0-36.0) Blood Urea Nitrogen 32 MG/DL (7-18) Random Glucose 164 MG/DL (74-106) Calcium Level 8.0 MG/DL (8.5-10.1) Estimat Glomerular Filtration Rate 55 ML/MIN (>89) Imaging Last Impressions Chest X-Ray 04/22/17 1630 Signed Impressions: Service Date/Time: Saturday, April 22, 2017 16:43 - CONCLUSION: 1. Bibasilar infiltrates consistent with probable pneumonia. Clinical correlation is recommended. 2. Small right pleural effusion which may be partially loculated. 3. Degenerative changes and scoliosis of the thoracolumbar spine. Rolf Ma MD Hospital Course Mrs. Dupree is an unfortunate 86-year-old elderly white female with history of respiratory failure and prior intubations, sepsis, COPD, RA, fibromyalgia, hypertension. Patient presented to the emergency room via a VAC for respiratory distress. At this time she is not able to provide any information. Information is obtained from the medical record. Per review, patient's indicated that throughout the day patient was short of breath and weak, she was crawling on the floor and when he put her back to bed she was shaking. He finally called EMS, when they arrived she was found hypoxic with sats of 40% on room air. Emergency room physician and spoke to Mr. aleena Redman regarding goals of care, patient was recently admitted in December and was intubated. Because of the previous experience and her poor quality of life, he indicated that he will want a DNR/DNI order and continue with conservative management including antibiotics. Indicated that he was not ready for hospice unless the patient worsened. Patient was evaluated in emergency room, laboratory workup was completed. CBC remarkable for leukocytosis, WBC 27.2, neutrophil of 22.3 and bandemia. BMP remarkable for hyponatremia, BUN of 33, creatinine 1.49. Lactic acid 1.7. Troponin was negative. B natruretic peptide 80. Urinalysis positive for bacteria and leukocyte esterase. ABG, pH 7.27, PCO2 48, PO2 85, bicarbonate 27. Chest x-ray significant for bibasilar infiltrates consistent with probable pneumonia, small right pleural effusion which may be partially loculated. Degenerative changes and scoliosis of the thoracolumbar spine. Patient was put on BiPAP, cultures were obtained and she was started on empiric antibiotics. She is receiving hydration. At this time, she is evaluated in emergency room. She is on BiPAP, opens eyes to voice but otherwise it is difficult to obtain any information. She was admitted for further evaluation and treatment for: 86-year-old elderly white female with history of COPD, previous respiratory failure. Presented to the emergency room in respiratory distress, hypoxic with findings of bilateral infiltrates. Respiratory distress secondary to pneumonia COPD Sepsis -Patient put on cautious hydration, started on empiric antibiotics and follow cultures. Consult to pulmonology for evaluation -Put on IV steroids and DuoNeb's -Initially put on with Bipap -Cultures remain negative -Respiratory status was stabilized over the next couple of days, she was titrated to by mouth antibiotics and by mouth steroids. She was titrated to room air. Renal insufficiency -Resolved after IV fluids were given, BMP was followed Chronic pain Rheumatoid arthritis -Continue with home medication Hypertension -Continue with home medication Home medications were reviewed, initiated as indicated Was put on Heparin 5000 units subcutaneous twice a day for DVT prophylaxis Consulted palliative care services, patient was made initially DNR/DNI status by her .. Palliative care met with both patient and , shared decision making was encouraged. Patient signed a community DNR. Over the course of the hospitalization, patient improved slowly. Sats improved , 96 on room air. Case management consulted for discharge planning, arrange home health care. Speech therapy evaluated, recommended mechanical soft diet with thin liquids Patient was restarted on her home meds, baclofen was continued. Physical therapy was ordered. Speech therapy evaluation noted< mech soft diet w thin liquids Patient was discharged home in stable condition. Instructed to: f/u pcp f/u pulmonary Pt Condition on Discharge: Stable Discharge Disposition: Disch w/ Home Health Serv Discharge Instructions DIET: Follow Instructions for: Heart Healthy Diet Fluid Restrictions: 1500cc/day Activities you can perform: Weight Bearing as Nicky Other Activity Instructions: fall preacuations Follow up Referrals: PCP Follow-up - 1 Week Pulmonology - 3 Weeks New Medications: Levofloxacin (Levaquin) 750 Mg Tablet 750 MG PO DAILY for pneumonia for 6 Days, #6 TAB Lisinopril (Lisinopril) 20 Mg Tab 20 MG PO DAILY for htn for 30 Days, #30 TAB Prednisone (Prednisone) 20 Mg Tab 20 MG PO DAILY for copd for 3 Days, #3 TAB Continued Medications: Albuterol Neb (Albuterol Neb) 2.5 Mg/3 Ml Neb 2.5 MG NEB Q2HR NEB PRN for dyspnea, #20 NEBULE Amlodipine (Norvasc) 5 Mg Tab 5 MG PO DAILY for Blood Pressure Management, #30 TAB 0 Refills Aspirin (Aspirin Adult Low Strength) 81 Mg Chew 81 MG PO DAILY for CAD, TAB Baclofen (Baclofen) 10 Mg Tab 10 MG PO QID PRN for MUSCLE SPASM, TAB 0 Refills Furosemide (Lasix) 20 Mg Tab 20 MG PO DAILY for EDEMA, #30 TAB 0 Refills Gabapentin (Gabapentin) 300 Mg Cap 300 MG PO DAILY for Pain Management, #30 CAP 0 Refills Levothyroxine (Synthroid) 125 Mcg Tab 125 MCG PO DAILY for Thyroid, TAB 0 Refills Loratadine (Claritin) 10 Mg Tab 10 MG PO DAILY for Allergy Management, TAB 0 Refills Metoprolol Tartrate (Lopressor) 50 Mg Tab 50 MG PO Q12HR for hypertension, #60 TAB Omeprazole (Prilosec) 20 Mg Cap 20 MG PO DAILY, CAP 0 Refills Oxycodone-Acetaminophen (Oxycodone-Acetaminophen) 10-325 mg Tab 1 TAB PO Q4H PRN for PAIN, TAB 0 Refills Potassium Chloride ER (Potassium Chloride ER) 20 Meq Tab 20 MEQ PO DAILY for Electrolyte Replacement, #30 TAB 0 Refills Temazepam (Restoril) 30 Mg Cap 30 MG PO HS PRN for INSOMNIA, #12 CAP 0 Refills Venlafaxine (Effexor) 75 Mg Tab 75 MG PO DAILY for Depression Control, TAB 0 Refills Discontinued Medications: Lisinopril (Lisinopril) 10 Mg Tab 10 MG PO DAILY, #30 TAB 0 Refills Marnie Her Apr 26, 2017 19:01
== END 2017-04-26 14:50 | disposition home health service (06) | DRG 871 ==
LOC: NEPC 16:21 → NEDA 18:34 → HCIS 22:50
PROVIDERS: ADMIT Specialist; ATTEND Specialist
PROC: 5A09557 Assistance with Respiratory Ventilation, Greater than 96 Consecutive Hours, Continuous Positive Airway Pressure (ICD-10-PCS; principal; 2017-04-22)
DX: A41.9 Sepsis, unspecified organism (principal); J96.01 Acute respiratory failure with hypoxia; N17.9 Acute kidney failure, unspecified; J18.9 Pneumonia, unspecified organism; M41.9 Scoliosis, unspecified; G62.9 Polyneuropathy, unspecified; J44.0 Chronic obstructive pulmonary disease with (acute) lower respiratory infection; E87.1 Hypo-osmolality and hyponatremia; N39.0 Urinary tract infection, site not specified; J44.1 Chronic obstructive pulmonary disease with (acute) exacerbation; Z66 Do not resuscitate; M06.9 Rheumatoid arthritis, unspecified; F32.9 Major depressive disorder, single episode, unspecified; Z86.73 Personal history of transient ischemic attack (TIA), and cerebral infarction without residual deficits; I25.10 Atherosclerotic heart disease of native coronary artery without angina pectoris; M79.7 Fibromyalgia; I25.2 Old myocardial infarction; Z79.82 Long term (current) use of aspirin; Z51.5 Encounter for palliative care; G89.29 Other chronic pain; E03.9 Hypothyroidism, unspecified; F41.9 Anxiety disorder, unspecified; G47.00 Insomnia, unspecified; H35.30 Unspecified macular degeneration; E78.5 Hyperlipidemia, unspecified; K59.09 Other constipation; Z87.891 Personal history of nicotine dependence; D64.9 Anemia, unspecified; I12.9 Hypertensive chronic kidney disease with stage 1 through stage 4 chronic kidney disease, or unspecified chronic kidney disease; N18.9 Chronic kidney disease, unspecified
CPT/HCPCS: 36600; 71010; 80048; 80053; 81001; 82805; 83605; 83880; 84484; 85007; 85027; 85379; 85610; 85730; 87040; 87077; 87086; 87186; 90471; 90732; 94002; 94640; 94664; 96365; G0009; J0456; J0692; J1644; J1956; J2920; J7030; J7050; J7512; J7613; P9612

== ENCOUNTER 2017-05-22 11:42 | Emergency (ER) | payer MEDICARE ==
[~2017-05-22] VITALS: Ht 157.5 cm; Wt 52.0 kg
[2017-05-22] VITALS (8 sets, daily range): BP systolic 102–158; BP diastolic 46–77; PULSE 48–62; RESP 17–20; TEMP 97.8; O2SAT 95–100
[~2017-05-22 11:42] MED LIST changes: +AMLO5 PO; -CEFT500T3 PO; +LEVA750T9 PO; +LISI-515 PO; -OXYC-392 PO; +OXYC1TAB36 PO; +PRED20 PO
[2017-05-22] MEDS ORDERED: SODIUM CHLORIDE 0.9% FLUSH 5 ML FLUSH IV FLUSH PRN (12:00)
[2017-05-22 12:38] LABS: AUTOMATED NEUTROPHIL # 4.2 TH/MM3 (1.8-7.7); BASOPHIL % 0.2 % (0.0-2.0); EOSINOPHIL % 0.3 % (0.0-4.0); HEMATOCRIT 31.7 % (35.0-46.0); HEMO FLAGS DIFF FINAL; LYMPH % 28.1 % (9.0-44.0); LYMPHOCYTE # 2.1 TH/MM3 (1.0-4.8); MEAN CELL VOLUME 88.9 FL (80.0-100.0); MEAN CORPUSCULAR HEMOGLOBIN 28.9 PG (27.0-34.0); MEAN CORPUSCULAR HGB CONC 32.5 % (32.0-36.0); MONO % 14.1 % (0.0-8.0); NEUT % 57.3 % (16.0-70.0); PLATELET COUNT 137 TH/MM3 (150-450); RED BLOOD COUNT 3.56 MIL/MM3 (4.00-5.30); RED CELL DISTRIBUTION WIDTH 18.6 % (11.6-17.2); WHITE BLOOD COUNT 7.3 TH/MM3 (4.0-11.0)
[2017-05-22] MEDS ORDERED: HYDR10TA65 PO ×2 (12:41)
[2017-05-22] MEDS ORDERED: CHOL1CAP34 PO (12:41)
[2017-05-22] MEDS ORDERED: VENL75TA2 PO (12:41)
[2017-05-22] MEDS ORDERED: POTA10CA PO (12:41)
[2017-05-22] MEDS ORDERED: REST0.05 EACH EYE (12:41)
[2017-05-22] MEDS ORDERED: OMEP20TA PO (12:41)
[2017-05-22] MEDS ORDERED: LEVO112T2 PO (12:41)
[2017-05-22] MEDS ORDERED: PROM25TA10 PO (12:41)
[2017-05-22 12:44] LABS: PROTHROMBIN TIME - PATIENT 11.4 SEC (9.8-11.6)
[2017-05-22 12:49] LABS: BLOOD GAS BASE EXCESS 2.4 mmol/L (-2-2); BLOOD GAS CARBOXYHEMOGLOBIN 1.7 % (0-4); BLOOD GAS HCO3 27 mmol/L (22-26); BLOOD GAS METHEMOGLOBIN 0.4 % (0-2); BLOOD GAS O2 HGB SATURATION 97 % (90-100); BLOOD GAS OXYGEN CONTENT 13.5 Vol % (12.0-20.0); BLOOD GAS PCO2 43 mmHg (38-42); BLOOD GAS PO2 126 mmHG (61-120); BLOOD GAS TOTAL HGB 9.7 G/DL (12.0-16.0); CRITICAL VALUE NO; TEMP CORR TO 98.6
[2017-05-22 12:50] LABS: DRAW SITE RT RADIAL; LITER FLOW 4 L/M; NUMBER OF ARTERIAL PUNCTURES 1; OXYGEN DEVICE NASAL CANNULA; STAT YES; ULNAR PULSE PRESENT
[2017-05-22 13:26] LABS: ANION GAP 7 MEQ/L (5-15); BLOOD UREA NITROGEN 29 MG/DL (7-18); CHLORIDE 97 MEQ/L (98-107); GLOMERULAR FILTRATION RATE 39 ML/MIN (>89); POTASSIUM 5.4 MEQ/L (3.5-5.1); SODIUM (NA) 131 MEQ/L (136-145)
--- NOTE | 2017-05-22 13:30 | PD ---
HPI Chief Complaint: General Weakness Time Seen by Provider: 11:58 Travel History International Travel<30 days: No Contact w/Intl Traveler<30days: No Traveled to known affect area: No History of Present Illness HPI 86-year-old female came to the emergency room brought by EMS for altered mental status. Patient is not in a good condition to give any meaningful history. As per the family to EMS they called her because she was getting weak today and was unable to stand and they had to help her lay on the ground. Vital signs were relatively stable. Patient was recently made DNR. [facility] Past Medical History Narrative Medical List of her past medical, surgical, social and family history was reviewed from the nursing note. Hx Anticoagulant Therapy: Yes (ASA) Arthritis: Yes (rheumatoid arthritis, spinal stenosis) Asthma: No Autoimmune Disease: Yes (RA) Blood Disorders: No Anxiety: No Depression: Yes Heart Rhythm Problems: No Cancer: No Cardiovascular Problems: Yes High Cholesterol: No Chest Pain: No Congestive Heart Failure: No COPD: Yes Cerebrovascular Accident: Yes (TIA) Coronary Artery Disease: Yes Diabetes: No Diminished Hearing: No Endocrine: Yes (Graves disease) Fibromyalgia: Yes Gastrointestinal Disorders: No GERD: No Genitourinary: Yes (UTI) Headaches: No Hepatitis: No Hiatal Hernia: No Hypertension: Yes Immune Disorder: Yes Implanted Vascular Access Dvce: Yes Kidney Stones: No Musculoskeletal: Yes (fibromyalgia) Neurologic: Yes Psychiatric: Yes Reproductive: No Respiratory: Yes Migraines: No Myocardial Infarction: Yes Radiation Therapy: Yes (THYROID) Renal Failure: No Seizures: No Sleep Apnea: No Thyroid Disease: Yes Ulcer: No Influenza Vaccination: Yes Menopausal: Yes Past Surgical History Abdominal Surgery: Yes (APPENDECTOMY) AICD: No Appendectomy: Yes Arteriovenous Shunt: No Body Medical Devices: HIP REPLACEMENTS Cardiac Surgery: No Ear Surgery: No Endocrine Surgery: No Eye Surgery: Yes (cataract removal) Genitourinary Surgery: Yes (HYSTERECTOMY) Gynecologic Surgery: Yes Hysterectomy: Yes Insulin Pump: No Joint Replacement: Yes (MAYELA HIP REPLACEMENT) Neurologic Surgery: No Pacemaker: No Thoracic Surgery: Yes (METAL PLATE ON BACK FOR STENOSIS WHEN 74 YEARS OLD) Other Surgery: Yes (LOWER BACK) Social History Alcohol Use: No Tobacco Use: No Substance Use: No Allergies-Medications (Allergen,Severity, Reaction): Coded Allergies: penicillin G (Unverified Allergy, Severe, 04/22/17) RASH *MDRO Multi-Drug Resistant Organism (Unverified Adverse Reaction, Unknown , 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 MRSA PCR Screens NEGATIVE - 06/14/2016, 06/16/2016 CLEARED PER INFECTION CONTROL Comments List of her allergies reviewed from the nursing note. Reported Meds & Prescriptions Reported Meds & Active Scripts Active Lisinopril 20 Mg Tab 20 Mg PO DAILY 30 Days Restoril (Temazepam) 30 Mg Cap 30 Mg PO HS PRN Reported Vitamin D3 (Cholecalciferol) 50,000 Unit Cap 50,000 Units PO WEEKLY Restasis Opth 0.05% (Cyclosporine Opth 0.05%) 0.05% Emul 1 Drop EACH EYE BID Hydrocortisone 10 Mg Tab 5 Mg PO HS Take with food to decrease GI upset Hydrocortisone 10 Mg Tab 10 Mg PO DAILY IN THE AM Take with food to decrease GI upset Phenergan (Promethazine HCl) 25 Mg Tablet 25 Mg PO Q6H PRN Omeprazole 20 Mg Tab 20 Mg PO DAILY Potassium Chloride ER (Potassium Chloride) 10 Meq Cap 10 Meq PO BID Levothyroxine (Levothyroxine Sodium) 112 Mcg Tab 112 Mcg PO DAILY Venlafaxine ER 24 HR (Venlafaxine HCl) 75 Mg Tab 75 Mg PO DAILY Oxycodone-Acetaminophen 10-325 mg Tab 1 Tab PO Q6HR PRN Norvasc (Amlodipine Besylate) 5 Mg Tab 5 Mg PO DAILY Aspirin Adult Low Strength (Aspirin) 81 Mg Chew 81 Mg PO DAILY Gabapentin 300 Mg Cap 300 Mg PO QID Lasix (Furosemide) 20 Mg Tab 20 Mg PO DAILY Baclofen 10 Mg Tab 10-20 Mg PO Q6HR Narrative Medication List of her home medications reviewed from the nursing note. Review of Systems Except as stated in HPI: all other systems reviewed are Neg Physical Exam Narrative GENERAL: Confused, elderly, frail, moderate distress SKIN: Focused skin assessment warm/dry. Pale HEAD: Atraumatic. Normocephalic. EYES: Pupils equal and round. No scleral icterus. No injection or drainage. ENT: No nasal bleeding or discharge. Mucous membranes pink and moist. NECK: Trachea midline. No JVD. CARDIOVASCULAR: Regular rate and rhythm. No murmur appreciated. RESPIRATORY: No accessory muscle use. Clear to auscultation. Breath sounds equal bilaterally. GASTROINTESTINAL: Abdomen soft, non-tender, nondistended. Hepatic and splenic margins not palpable. MUSCULOSKELETAL: No obvious deformities. No clubbing. No cyanosis. No edema. NEUROLOGICAL: GCS of 12. No obvious cranial nerve deficits. Motor grossly within normal limits. Normal speech. PSYCHIATRIC: Appropriate mood and affect; insight and judgment normal. Data Data Last Documented VS Orders Orders Electrocardiogram (05/22/17 11:58) Basic Metabolic Panel (Bmp) (05/22/17 11:58) Complete Blood Count With Diff (05/22/17 11:58) Prothrombin Time / Inr (Pt) (05/22/17 11:58) Troponin I (05/22/17 11:58) Lactic Acid Sepsis Protocol (05/22/17 11:58) Blood Culture (05/22/17 11:58) Blood Glucose (05/22/17 11:58) Ecg Monitoring (05/22/17 11:58) Iv Access Insert/Monitor (05/22/17 11:58) Oximetry (05/22/17 11:58) Sodium Chloride 0.9% Flush (Ns Flush) (05/22/17 12:00) Arterial Blood Gas (Abg) (05/22/17 ) Code Status (05/22/17 13:48) Ed Comfort Care (05/22/17 13:48) Resp Oxygen Nasal Cannula (05/22/17 ) Hospice Consult (05/22/17 13:48) Morphine Inj (Morphine Inj) (05/22/17 14:00) Labs Laboratory Tests Test 05/22/17 12:15 05/22/17 12:37 White Blood Count 7.3 TH/MM3 Red Blood Count 3.56 MIL/MM3 Hemoglobin 10.3 GM/DL Hematocrit 31.7 % Mean Corpuscular Volume 88.9 FL Mean Corpuscular Hemoglobin 28.9 PG Mean Corpuscular Hemoglobin Concent 32.5 % Red Cell Distribution Width 18.6 % Platelet Count 137 TH/MM3 Mean Platelet Volume 7.5 FL Neutrophils (%) (Auto) 57.3 % Lymphocytes (%) (Auto) 28.1 % Monocytes (%) (Auto) 14.1 % Eosinophils (%) (Auto) 0.3 % Basophils (%) (Auto) 0.2 % Neutrophils # (Auto) 4.2 TH/MM3 Lymphocytes # (Auto) 2.1 TH/MM3 Monocytes # (Auto) 1.0 TH/MM3 Eosinophils # (Auto) 0.0 TH/MM3 Basophils # (Auto) 0.0 TH/MM3 CBC Comment DIFF FINAL Differential Comment Prothrombin Time 11.4 SEC Prothromb Time International Ratio 1.0 RATIO Blood Urea Nitrogen 29 MG/DL Creatinine 1.30 MG/DL Random Glucose 87 MG/DL Calcium Level 8.3 MG/DL Sodium Level 131 MEQ/L Potassium Level 5.4 MEQ/L Chloride Level 97 MEQ/L Carbon Dioxide Level 27.0 MEQ/L Anion Gap 7 MEQ/L Estimat Glomerular Filtration Rate 39 ML/MIN Lactic Acid Level 1.4 mmol/L Troponin I LESS THAN 0.02 NG/ML Blood Gas Puncture Site RT RADIAL Blood Gas Patient Temperature 98.6 Blood Gas HCO3 27 mmol/L Blood Gas Base Excess 2.4 mmol/L Blood Gas Oxygen Saturation 97 % Arterial Blood pH 7.41 Arterial Blood Partial Pressure CO2 43 mmHg Arterial Blood Partial Pressure O2 126 mmHG Arterial Blood Oxygen Content 13.5 Vol % Arterial Blood Carboxyhemoglobin 1.7 % Arterial Blood Methemoglobin 0.4 % Blood Gas Hemoglobin 9.7 G/DL Oxygen Delivery Device NASAL CANNULA Blood Gas Liter Flow 4 L/M MDM Medical Decision Making Medical Screen Exam Complete: Yes Emergency Medical Condition: Yes Medical Record Reviewed: Yes Interpretation(s) Twelve-lead EKG was reviewed by me. Normal sinus rhythm, left axis deviation, bradycardia, poor R-wave progression, interventricular conduction delay. Heart rate of 53 bpm. Differential Diagnosis Pneumonia, UTI, sepsis, non-STEMI, abnormal electrolytes Narrative Course 1:28 PM CBC is within acceptable limits. Blood gas shows hypoxia. Patient is getting progressively increasingly somnolent and lethargic. The nurses contacted her daughter who said she would be coming to the ER shortly. Patient currently in my opinion is actively dying. She does look comfortable at this point. Family gets here I would asked them if they want me to do anything aggressively or wished to make her a hospice patient/comfort care. 1:50 PM I just had a discussion with her who was sitting next to her. He understands that the patient is actively dying. She has become unresponsive and appears very pale. She is bradycardic on the monitor heart rate in 40s. He is agreeable to hospice care for this patient. Comfort care order set has been put in an hospice is being contacted. Procedures EKG Prior to Arrival: No Diagnosis Primary Impression: Dying care Additional Impression: Altered mental status Qualified Codes: R40.1 - Silverio Santana MD May 22, 2017 13:30
[2017-05-22] MEDS ORDERED: MORPHINE SULFATE 4 MG/ML INJ IV PUSH PRN (14:00)
--- NOTE | 2017-05-23 15:41 | EKG ---
Date Performed: 05/22/2017 Time Performed: 12:11:23 PTAGE: 86 years EKG: SINUS BRADYCARDIA WITH SINUS ARRHYTHMIA LEFT ANTERIOR FASCICULAR BLOCK MODERATE VOLTAGE CRI TERIA FOR LVH, CONSIDER NORMAL VARIANT ABNORMAL ECG PREVIOUS TRACING : 01/06/2017 16.13 Compared to prior tracing no significant change DOCTOR: Charlotte Becker Interpretating Date/Time 05/23/2017 15:38:51
== END 2017-05-22 20:28 | disposition hospice, inpatient (51) ==
LOC: NEPE 11:42
DX: Z51.5 Encounter for palliative care (principal); R40.1 Stupor; I25.10 Atherosclerotic heart disease of native coronary artery without angina pectoris; I10 Essential (primary) hypertension; M06.9 Rheumatoid arthritis, unspecified; R94.31 Abnormal electrocardiogram [ECG] [EKG]
CPT/HCPCS: 36600; 80048; 82805; 83605; 84484; 85025; 85610; 87040; 93005